=== PATIENT | female | born 1955 | race Caucasian/White ===

== ENCOUNTER → 2017-12-04 03:37 | Outpatient (CLI) | payer BC, SELFPAY ==
[2017-12-04 07:44] LABS: Hemoglobin A1C 6.3 % (4.5-6.2)
[2017-12-04 08:16] LABS: COMMENT (LAB VIEW ONLY) 100.63 mg/dL; Microalb ug/mg Crea 19.4 ug/mg Cr
[2017-12-04 08:53] LABS: ALT 34 U/L (12-78); AST 25 U/L (15-37); Albumin 4.2 g/dL (3.4-5.0); Alkaline Phosphatase 75 U/L (46-116); Anion Gap 8.1 mmol/L (3-11); BUN 13 mg/dL (7-18); Bilirubin, Total 0.9 mg/dL (0.2-1.0); CO2 29.9 mmol/L (21.0-32.0); Calcium 9.5 mg/dL (8.5-10.1); Chloride 102 mmol/L (98-107); Cholesterol 195 mg/dL (50-200); Glucose 140 mg/dL (70-100); HDL Cholesterol 42 mg/dL (40-60); LDL CHOLESTEROL 125 mg/dL (<100); Potassium 3.9 mmol/L (3.5-5.1); Sodium 140 mmol/L (136-145); Triglyceride 203 mg/dL (30-150)
[2017-12-04 09:09] LABS: Total Protein 7.8 g/dL (6.4-8.2)
== END ==
PROVIDERS: PCP Family Medicine; Visit Provider Family Medicine
DX: E11.9 Type 2 diabetes mellitus without complications (principal); E78.5 Hyperlipidemia, unspecified
CPT/HCPCS: 36415; 80053; 80061; 83721; 82043; 82570; 83036

== ENCOUNTER → 2017-12-06 00:51 | Outpatient (CLI) | payer BC, SELFPAY ==
--- NOTE | 2017-12-06 08:11 | DI.REPORT_ITS ---
SYMPTOM/DIAGNOSIS: RT KNEE PAIN, NO TRAUMA, M25.561, CHRONIC RT SIDED LOW BACK PAIN, M54.5 RIGHT KNEE: The joint spaces are well maintained. Very minimal degenerative changes are identified. There is no joint effusion. LUMBAR SPINE: The vertebral bodies are intact. Degenerative changes involving the lower dorsal spine are identified and there is mild disc narrowing at T 12-L 1 and there may be subtle disc space narrowing at L 1-2. Endplate degenerative changes are identified. In addition, there is mild disc narrowing at L 4-5 and a mild pseudospondylolisthesis is demonstrated. Facet joint degenerative changes are identified and are most pronounced at L 4-5 and L 5-S 1. The pedicle, spinous and transverse processes are intact. The sacrum and sacroiliac joints are intact. SUMMARY: Degenerative changes involving the lumbosacral spine as described above.
== END ==
PROVIDERS: PCP Family Medicine; Visit Provider Family Medicine
DX: M25.561 Pain in right knee (principal); M54.5 Low back pain; M17.11 Unilateral primary osteoarthritis, right knee; M51.36 Other intervertebral disc degeneration, lumbar region; G89.29 Other chronic pain
CPT/HCPCS: 73562; 72110

== ENCOUNTER 2018-01-02 01:09 | Outpatient (CLI) | payer BC, SELFPAY ==
--- NOTE | 2018-01-02 09:25 | DI.MRI_ITS ---
SYMPTOM/DIAGNOSIS: LOW BACK PAIN, RT SCIATICA M54.41, LUMBAGO LUMBAR MRI: Sagittal T1, sagittal T2 and sagittal T1 STIR and axial T1, T2 and T2 axial MSMA and T1 coronal pulsed sequences were performed. No significant bony signal abnormality is demonstrated. At T-12, L1 there is diminished disc signal and disc narrowing is identified. A small disc bulge is seen. There is no evidence of spinal stenosis. At L1-L2, there is no evidence of a disc herniation. There are mild facet joint degenerative changes and no evidence of spinal stenosis. At L2-3, there is a mild disc bulge and no evidence of a disc herniation. Mild degenerative changes are identified and there is no evidence of spinal stenosis. At L3-4, a disc bulge is identified. There is severe right facet joint DJD with resultant severe right foraminal stenosis and mild to moderate left foraminal stenosis. At L4-5, there is a 4-5 mm anterior listhesis of L4 on L5. A disc bulge is identified. Prominence of the ligamentum flavum and severe facet joint DJD result in moderately severe central spinal stenosis and moderately severe bilateral foraminal stenosis. At L5-S1 there is no evidence of a disc herniation. Severe facet joint DUD is identified. There is no evidence of significant spinal stenosis. There is no intrinsic abnormality involving the lower dorsal cord, conus or phylum terminale. SUMMARY: Findings consistent with degenerative disc disease and DJD. The findings are most advanced at L3-4 and L4-5 where there is evidence of spinal stenosis. Please see the above discussion.
== END 2018-01-02 01:29 ==
PROVIDERS: PCP Family Medicine; Visit Provider Family Medicine
DX: M54.41 Lumbago with sciatica, right side (principal); M51.37 Other intervertebral disc degeneration, lumbosacral region; M48.061 Spinal stenosis, lumbar region without neurogenic claudication
CPT/HCPCS: 72148

== ENCOUNTER 2018-02-21 00:38 | Outpatient (CLI) | payer BC, SELFPAY ==
--- NOTE | 2018-02-21 12:16 | DI.DEXA_ITS ---
SYMPTOMS/DIAGNOSIS: POSTMENOPAUSAL DISORDER, N95.9 DEXA SCAN: DEXA scan was performed according to the usual protocol. The lateral vertebral scanogram shows no evidence of vertebral compression fracture. Lumbar spine scanning shows T score -.2. Left hip scanning shows T score .3 with left femoral neck T score -.6. Left forearm scanning shows T score -.4. CONCLUSION: Findings consistent with normal bone density according to the WHO criteria.
--- NOTE | 2018-02-21 15:35 | DI.MAMMO_ITS ---
SYMPTOMS/DIAGNOSIS: SCREENING, Z12.31 MAMMOGRAM: Mammograms were interpreted according to the usual protocol including computer analysis with CAD system, tomosynthesis and C view imaging. The breasts are of moderate density with fairly symmetrical distribution of fibroglandular tissue. No dominant mass or clumped microcalcification is identified in either breast. The current examination is compared with previous examinations including February 2017 and there has been no gross interval change in appearance in comparison with previous studies. CONCLUSION: No specific evidence of malignancy at this time. Routine screening examinations are suggested at yearly intervals in this age group according to the ACS/ACR guidelines. Category I. Breast density Category B. MQSA ASSESSMENT OF FINDINGS: Negative. Category 1. Patient will receive a letter notifying them of these results. BI-RADS category B. There are scattered areas of fibroglandular density.
== END 2018-02-21 00:58 ==
PROVIDERS: PCP Family Medicine; Visit Provider Family Medicine
DX: Z12.31 Encounter for screening mammogram for malignant neoplasm of breast (principal); Z13.820 Encounter for screening for osteoporosis; N95.9 Unspecified menopausal and perimenopausal disorder
CPT/HCPCS: 77063; 77067; 77080

== ENCOUNTER 2018-03-04 07:49 | Outpatient (CLI) | payer BC, SELFPAY ==
[2018-03-04 09:10] LABS: Cholesterol 182 mg/dL (50-200); HDL Cholesterol 33 mg/dL (40-60); LDL CHOLESTEROL 103 mg/dL (<100); Triglyceride 251 mg/dL (30-150)
== END 2018-03-04 08:09 ==
PROVIDERS: PCP Family Medicine; Visit Provider Family Medicine
DX: E78.5 Hyperlipidemia, unspecified (principal)
CPT/HCPCS: 36415; 80061; 83721

== ENCOUNTER 2018-04-05 08:25 | Outpatient (CLI) | payer BC, SELFPAY ==
[2018-04-05 09:32] LABS: COMMENT (LAB VIEW ONLY) 75.99 mg/dL; Microalb ug/mg Crea 14.5 ug/mg Cr
[2018-04-05 09:46] LABS: Hemoglobin A1C 6.9 % (4.5-6.2)
[2018-04-05 09:47] LABS: ALT 35 U/L (12-78); AST 24 U/L (15-37); Albumin 3.2 g/dL (3.4-5.0); Alkaline Phosphatase 69 U/L (46-116); Anion Gap 6.4 mmol/L (3-11); BUN 12 mg/dL (7-18); Bilirubin, Total 0.9 mg/dL (0.2-1.0); CO2 31.6 mmol/L (21.0-32.0); CREATININE 0.68 mg/dL (0.55-1.02); Calcium 9.4 mg/dL (8.5-10.1); Chloride 101 mmol/L (98-107); Glucose 124 mg/dL (70-100); Potassium 4.2 mmol/L (3.5-5.1); Sodium 139 mmol/L (136-145); Total Protein 7.2 g/dL (6.4-8.2)
== END 2018-04-05 08:45 ==
PROVIDERS: PCP Family Medicine; Visit Provider Family Medicine
DX: E11.9 Type 2 diabetes mellitus without complications (principal)
CPT/HCPCS: 36415; 80053; 82043; 82570; 83036

== ENCOUNTER 2018-07-03 09:34 | Outpatient (CLI) | payer BC, SELFPAY ==
[2018-07-03 11:27] LABS: HCT 44.8 % (36.0-46.0); HGB 14.7 g/dL (12.0-15.5); Mean Corp. HGB Concentration 32.8 g/dL (32.0-36.0); Mean Corpuscular Hemoglobin 29.5 pg (27.0-33.0); Mean Corpuscular Volume 89.8 fL (80-95); Mean Platelet Volume 12.2 fL (8.0-11.0); Platelet Count 248 x1000/uL (130-400); RBC 4.99 m/cumm (4.00-5.20); White Blood Cell Count 7.69 k/cumm (4.4-10.8)
[2018-07-03 11:49] LABS: ALT 51 U/L (12-78); AST 36 U/L (15-37); Albumin 4.4 g/dL (3.4-5.0); Alkaline Phosphatase 81 U/L (46-116); Anion Gap 6.3 mmol/L (3-11); BUN 13 mg/dL (7-18); Bilirubin, Total 1.2 mg/dL (0.2-1.0); CO2 33.7 mmol/L (21.0-32.0); CREATININE 0.82 mg/dL (0.55-1.02); Calcium 10.1 mg/dL (8.5-10.1); Chloride 99 mmol/L (98-107); Cholesterol 199 mg/dL (50-200); Glucose 148 mg/dL (70-100); HDL Cholesterol 37 mg/dL (40-60); LDL CHOLESTEROL 122 mg/dL (<100); Sodium 139 mmol/L (136-145); Total Protein 8.3 g/dL (6.4-8.2); Triglyceride 224 mg/dL (30-150)
[2018-07-03 11:54] LABS: Hemoglobin A1C 6.7 % (4.5-6.2)
[2018-07-03 13:07] LABS: ESR 15 MM/HR (0-30)
== END 2018-07-03 09:54 ==
PROVIDERS: PCP Family Medicine; Visit Provider Family Medicine
DX: I10 Essential (primary) hypertension (principal); E11.9 Type 2 diabetes mellitus without complications; E78.5 Hyperlipidemia, unspecified; D86.9 Sarcoidosis, unspecified
CPT/HCPCS: 36415; 80053; 80061; 83721; 85027; 85652; 83036

== ENCOUNTER 2018-10-02 07:49 | Outpatient (CLI) | payer BC, SELFPAY ==
[2018-10-02 09:09] LABS: ALT 38 U/L (12-78); AST 25 U/L (15-37); Albumin 3.8 g/dL (3.4-5.0); Alkaline Phosphatase 79 U/L (46-116); Anion Gap 8.7 mmol/L (3-11); BUN 10 mg/dL (7-18); Bilirubin, Total 0.9 mg/dL (0.2-1.0); CO2 28.3 mmol/L (21.0-32.0); CREATININE 0.76 mg/dL (0.55-1.02); Calcium 9.1 mg/dL (8.5-10.1); Calculated LDL 106; Chloride 106 mmol/L (98-107); Cholesterol 183 mg/dL (50-200); Glucose 124 mg/dL (70-100); HDL Cholesterol 46 mg/dL (40-60); Potassium 4.2 mmol/L (3.5-5.1); Sodium 143 mmol/L (136-145); Total Protein 7.3 g/dL (6.4-8.2); Triglyceride 155 mg/dL (30-150)
[2018-10-03 08:48] LABS: Hemoglobin A1C 6.7 % (4.5-6.2)
== END 2018-10-02 08:09 ==
PROVIDERS: PCP Family Medicine; Visit Provider Family Medicine
DX: E78.5 Hyperlipidemia, unspecified (principal); E11.9 Type 2 diabetes mellitus without complications
CPT/HCPCS: 36415; 80053; 80061; 83721; 83036

== ENCOUNTER 2018-10-23 01:43 | Outpatient (CLI) | payer BC, SELFPAY ==
[2018-10-24 12:33] LABS: Lyme Ab w Rflx to Lyme Confirm Negative
== END 2018-10-23 02:03 ==
PROVIDERS: PCP Family Medicine; Visit Provider Family Medicine
DX: W57.XXXA Bitten or stung by nonvenomous insect and other nonvenomous arthropods, initial encounter (principal); T14.8XXA Other injury of unspecified body region, initial encounter
CPT/HCPCS: 36415; 86618

== ENCOUNTER 2018-11-07 11:44 | Outpatient (CLI) | payer BC, SELFPAY ==
[2018-11-07 11:53] VITALS: BP 166/98; PULSE 83; RESP 18; TEMP 37.3; O2SAT 97
[2018-11-07] MEDS: Omnipaque 240 MG/ML 50 ML BTL IJ (12:22)
--- NOTE | 2018-11-07 12:22 | PDOC.PAIN ---
Pain Clinic Procedure Note Current Active Problems Problem Status Onset Lumbosacral radiculopathy LUMBAR / SACRAL TRANSFORAMINAL INJECTION JAYLAN YOUNGBLOOD has been [facility] for a transforaminal nerve root block and steroid injection. COMMENTS: Seen by Ms. Mazariegos on 09/25/2018 - I did review this note and her most recent lumbar spine MRI. Patient was interviewed and the medical record reviewed. There were no medical, pharmacologic, radiographic or other structural contraindications to attempting fluoroscopically guided transforaminal nerve root block and epidural steroid injection. Risks and expected side effects as well as potential benefit of the procedure were reviewed and voiced concerns addressed. The printed consent form was signed and witnessed. Standard time-out procedure was performed. Patient was placed in the prone position on the fluoroscopy table and automated blood pressure cuff and pulse oximeter applied. Fluoroscopy was utilized to identify the right neural foramen between L4 and L5. A skin shabbir was made for the needle insertion site. A Chlorhexadine prep was carried out, and sterile drapes were applied. Local anesthesia was achieved in the skin and subcutaneous tissues. A 22 gauge curved tip spinal needle was then inserted, advanced with fluoroscopic guidance into the neural foramen, confirmed on the lateral view. After negative aspiration, 2 ml of Omnipaque 240 was injected confirming position in A/P and lateral views. This showed a good spread of dye transforaminally into the epidural space. There was no vascular update with contrast injection under continuous fluoroscopy. 15 mg of Dexamethasone was injected, followed by 0.5 ml of 1% Xylocaine flush for the nerve root block, as well. There was no unusual discomfort expressed.The needle was withdrawn. The patient tolerated the procedure well. A Band-Aid was applied. Vital signs were stable throughout the procedure and were as recorded in nursing records. If given, dosages of intravenous drugs for anxiolysis and analgesia were documented in nursing records. Follow up plans and appointments were discussed. Post procedure instruction was given as documented in nursing records and patient was discharged in the care of an identified truck driver's offsider. COMMENTS: If this procedure is found to be effective it can be completed up to 3 times per 12 months. CC: Sisi Mckinley MD
--- NOTE | 2018-11-07 12:23 | DI.RAD_ITS ---
SYMPTOMS/DIAGNOSIS: TRANSFORAMINAL EPIDURAL STEROID INJECTION, LUMBAR RADICULOPATHY PAIN CLINIC: Fluoroscopy Time: 26s Images submitted from the pain clinic demonstrate a needle projected over the right lateral position at the level of L 4 in conjunction with transforaminal epidural steroid injection. Please Dr. Saldana's procedure report for further information.
[2018-11-07] MEDS: Dexamethasone 10 MG/ML VIAL IM (12:24)
[2018-11-07 12:36] VITALS: BP 155/91; PULSE 81; RESP 17; O2SAT 96
== END 2018-11-07 12:04 ==
PROVIDERS: PCP Family Medicine; Visit Provider Preventive Medicine Occupational Medicine
DX: M54.17 Radiculopathy, lumbosacral region (principal)
CPT/HCPCS: 64483; 72100; J1100; Q9967

== ENCOUNTER 2019-01-06 02:33 | Outpatient (CLI) | payer BC, SELFPAY ==
[2019-01-06 10:33] LABS: Hemoglobin A1C 6.5 % (4.5-6.2)
[2019-01-06 10:36] LABS: Anion Gap 9.9 mmol/L (3-11); BUN 10 mg/dL (7-18); CO2 28.1 mmol/L (21.0-32.0); Calcium 8.9 mg/dL (8.5-10.1); Calculated LDL 86 mg/dL; Chloride 104 mmol/L (98-107); Cholesterol 163 mg/dL (50-200); Glucose 144 mg/dL (70-100); HDL Cholesterol 49 mg/dL (40-60); Magnesium 1.9 mg/dL (1.8-2.4); Potassium 4.1 mmol/L (3.5-5.1); Sodium 142 mmol/L (136-145); Triglyceride 141 mg/dL (30-150)
== END 2019-01-06 02:53 ==
PROVIDERS: PCP Family Medicine; Visit Provider Family Medicine
DX: E11.9 Type 2 diabetes mellitus without complications (principal); E78.5 Hyperlipidemia, unspecified; E83.42 Hypomagnesemia
CPT/HCPCS: 36415; 80048; 80061; 83036; 83735

== ENCOUNTER 2019-01-07 13:59 | Outpatient (CLI) | payer BC, SELFPAY ==
[2019-01-07 14:06] VITALS: BP 153/100; PULSE 101; RESP 20; TEMP 37.6; O2SAT 94
[2019-01-07] MEDS: Dexamethasone Sod. Phos./Pres-Free 10 MG/ML VIAL IJ (14:46)
[2019-01-07] MEDS: Omnipaque 240 MG/ML 50 ML BTL IJ (14:46)
--- NOTE | 2019-01-07 14:49 | PDOC.PAIN_ITS ---
Pain Clinic Procedure Note Procedure Note Procedure Note: LUMBAR / SACRAL TRANSFORAMINAL INJECTION JAYLAN YOUNGBLOOD has been referred to the [facility] for a transforaminal nerve root block and steroid injection. COMMENTS: Right L4-L5 TFESI to target the anterior epidural space of the L3-L4 disc. DX: Lumbosacral radiculopathy Patient was interviewed and the medical record reviewed. There were no medical, pharmacologic, radiographic or other structural contraindications to attempting fluoroscopically guided transforaminal nerve root block and epidural steroid injection. Risks and expected side effects as well as potential benefit of the procedure were reviewed and voiced concerns addressed. The printed consent form was signed and witnessed. Standard time-out procedure was performed. Patient was placed in the prone position on the fluoroscopy table and automated blood pressure cuff and pulse oximeter applied. Fluoroscopy was utilized to identify the right L4-L5 neural foramen between L4 and L5. A skin shabbir was made for the needle insertion site. A Chlorhexadine prep was carried out, and sterile drapes were applied. Local anesthesia was achieved in the skin and subcutaneous tissues. A 22 gauge curved tip spinal needle was then inserted, advanced with fluoroscopic guidance into the neural foramen, confirmed on the lateral view. After negative aspiration, 2 ml of Omnipaque 240 was injected confirming position in A/P and lateral views. This showed a good spread of dye transforaminally into the epidural space. There was no vascular update with contrast injection under continuous fluoroscopy and digital substraction. 15 mg of Dexamethasone was injected, followed by 0.5 ml of 1% Xylocaine flush for the nerve root block, as well. There was no unusual discomfort expressed.The needle was withdrawn. The patient tolerated the procedure well. A Band-Aid was applied. Vital signs were stable throughout the procedure and were as recorded in nursing records. If given, dosages of intravenous drugs for anxiolysis and analgesia were documented in nursing records. Follow up plans and appointments were discussed. Post procedure instruction was given as documented in nursing records and patient was discharged in the care of an identified skip load driver. COMMENTS: If this procedure is found to be effective, she can have this procedure up to 3 times per 12 months if needed. CC: Sisi Mckinley MD
[2019-01-07 14:52] VITALS: BP 145/90; PULSE 91; RESP 20; O2SAT 95
--- NOTE | 2019-01-07 15:16 | DI.RAD_ITS ---
EXAM: XR PAIN CLINIC LUMBAR SP 2V CLINICAL HISTORY: Dx: Lumbar Radiculopathy TECHNIQUE: Realtime digital imaging was performed. CONTRAST MATERIAL: Refer to the procedure report for complete details. COMPARISON: No exams were available for comparison FINDINGS: Fluoroscopy was utilized by Dr. Saldana during the performance of a lumbar transforaminal epidural stero id injection. Please refer to the procedure report for complete details. FLUORO TIME: 26.6 sec, 12.53 mGy IMPRESSION:
== END 2019-01-07 14:19 ==
PROVIDERS: PCP Family Medicine; Visit Provider Preventive Medicine Occupational Medicine
DX: M54.17 Radiculopathy, lumbosacral region (principal)
CPT/HCPCS: 64483; 72100; Q9967

== ENCOUNTER 2019-02-24 01:20 | Outpatient (CLI) | payer BC, SELFPAY ==
--- NOTE | 2019-02-24 07:10 | DI.MAMMO_ITS ---
EXAM: MAMMO SCREENING CLINICAL HISTORY: screening,Z12.39 TECHNIQUE: Mammograms were interpreted according to the usual protocol including computer analysis w [employer] CAD system, tomosynthesis and C-view imaging. COMPARISON: [id number] FINDINGS: The breasts are composed of scattered areas of fibroglandular density, breast density category B. Th ere are no dominant masses or microcalcifications. There has been no significant interval change when compared with the prior images. IMPRESSION: Category 1, negative mammogram. Yearly screening mammography is recommended. BI-RADS Cat 1 - Negative Breast Density - Category B - Scattered areas of fibroglandular density
[2019-02-24 08:46] LABS: TSH 1.94 uIU/mL (0.36-3.74)
== END 2019-02-24 01:40 ==
PROVIDERS: PCP Family Medicine; Visit Provider Family Medicine
DX: Z12.31 Encounter for screening mammogram for malignant neoplasm of breast (principal); R53.83 Other fatigue
CPT/HCPCS: 36415; 77063; 77067; 84443

== ENCOUNTER 2019-04-07 01:41 | Outpatient (CLI) | payer BC, SELFPAY ==
[2019-04-07 09:36] LABS: Hemoglobin A1C 6.4 % (3.8-5.6)
[2019-04-07 09:39] LABS: Iron 133 ug/dL (50-170); Total Iron Binding Capacity 321 ug/dL (250-450); Transferrin Sat 41 % (15-50)
[2019-04-07 09:50] LABS: ALT 30 U/L (14-59); AST 20 U/L (15-37); Albumin 3.9 g/dL (3.4-5.0); Alkaline Phosphatase 66 U/L (46-116); Anion Gap 10.8 mmol/L (3-11); BUN 9 mg/dL (7-18); CO2 28.2 mmol/L (21.0-32.0); CREATININE 0.77 mg/dL (0.55-1.02); Calcium 9.1 mg/dL (8.5-10.1); Chloride 103 mmol/L (98-107); Ferritin 279 ng/mL (8-252); Glucose 138 mg/dL (74-106); Magnesium 1.9 mg/dL (1.8-2.4); Potassium 4.2 mmol/L (3.5-5.1); Sodium 142 mmol/L (136-145); Total Protein 7.1 g/dL (6.4-8.2)
== END 2019-04-07 02:01 ==
PROVIDERS: PCP Family Medicine; Visit Provider Family Medicine
DX: E11.9 Type 2 diabetes mellitus without complications (principal); I10 Essential (primary) hypertension; E83.42 Hypomagnesemia; E61.1 Iron deficiency
CPT/HCPCS: 36415; 80053; 82728; 83036; 83540; 83550; 83735

== ENCOUNTER → 2019-07-15 01:33 | Outpatient (CLI) | payer OTHER, SELFPAY ==
[2019-07-15 07:44] LABS: Microalb ug/mg Crea 11.9 ug/mg Cr
[2019-07-15 08:27] LABS: ALT 30 U/L (14-59); AST 21 U/L (15-37); Albumin 4.2 g/dL (3.4-5.0); Alkaline Phosphatase 70 U/L (46-116); Anion Gap 7.2 mmol/L (3-11); BUN 12 mg/dL (7-18); CO2 32.8 mmol/L (21.0-32.0); CREATININE 0.78 mg/dL (0.55-1.02); Calcium 9.5 mg/dL (8.5-10.1); Calculated LDL 108 mg/dL (<100); Chloride 100 mmol/L (98-107); Cholesterol 193 mg/dL (<200); Glucose 132 mg/dL (74-106); HDL Cholesterol 51 mg/dL (40-60); Sodium 140 mmol/L (136-145); Total Protein 7.8 g/dL (6.4-8.2); Triglyceride 172 mg/dL (<150); Vitamin B12 693 pg/mL (193-986)
[2019-07-17 04:58] LABS: Vitamin D 25 Total 31.8 ng/ml (30-100)
== END ==
PROVIDERS: PCP Family Medicine; Visit Provider Family Medicine
DX: E11.9 Type 2 diabetes mellitus without complications (principal); E78.5 Hyperlipidemia, unspecified; E55.9 Vitamin D deficiency, unspecified
CPT/HCPCS: 36415; 80053; 80061; 82306; 82043; 82570; 82607

== ENCOUNTER 2019-09-04 13:00 | Outpatient (CLI) | payer OTHER, SELFPAY ==
--- NOTE | 2019-09-04 06:00 | DI.RAD_ITS ---
EXAM: XR PAIN CLINIC LUMBAR SP 2V CLINICAL HISTORY: Dx: Lumbar Radiculopathy. TECHNIQUE: Fluoroscopy was provided for the referring physician for guidance with performing Pain Cl inic injection procedure. COMPARISON: No exams were available for comparison FINDINGS: Please see procedure note for details. Fluoro Time: 22.4 seconds RADIATION DOSE DELIVERED:
[2019-09-04 13:12] VITALS: BP 163/82; PULSE 79; RESP 18; TEMP 36.5; O2SAT 95
--- NOTE | 2019-09-04 13:48 | PDOC.PAIN ---
Pain Clinic Procedure Note Procedure Note Procedure Note: LUMBAR / SACRAL TRANSFORAMINAL INJECTION JAYLAN YOUNGBLOOD has been referred to the [facility] for a transforaminal nerve root block and steroid injection. COMMENTS: Great results with her last one on 01/07/19. Last MRI of the lumbar spine was on 01/02/19 - I did review this imaging. Today's procedure is again to target the L3-L4 disc. DX: Lumbosacral radiculopathy Patient was interviewed and the medical record reviewed. There were no medical, pharmacologic, radiographic or other structural contraindications to attempting fluoroscopically guided transforaminal nerve root block and epidural steroid injection. Risks and expected side effects as well as potential benefit of the procedure were reviewed and voiced concerns addressed. The printed consent form was signed and witnessed. Standard time-out procedure was performed. Patient was placed in the prone position on the fluoroscopy table and automated blood pressure cuff and pulse oximeter applied. Fluoroscopy was utilized to identify the right L4-L5 neural foramen between L4 and L5. A skin shabbir was made for the needle insertion site. A Chlorhexadine prep was carried out, and sterile drapes were applied. Local anesthesia was achieved in the skin and subcutaneous tissues. A 22 gauge curved tip spinal needle was then inserted, advanced with fluoroscopic guidance into the neural foramen, confirmed on the lateral view. After negative aspiration, 1 ml of Omnipaque 240 was injected confirming position in A/P and lateral views. This showed a good spread of dye transforaminally into the epidural space. There was no vascular update with contrast injection under continuous fluoroscopy and digital substraction. 15 mg of Dexamethasone was injected, followed by 0.5 ml of 1% Xylocaine flush for the nerve root block, as well. There was no unusual discomfort expressed.The needle was withdrawn. The patient tolerated the procedure well. A Band-Aid was applied. Vital signs were stable throughout the procedure and were as recorded in nursing records. If given, dosages of intravenous drugs for anxiolysis and analgesia were documented in nursing records. Follow up plans and appointments were discussed. Post procedure instruction was given as documented in nursing records and patient was discharged in the care of an identified electric screw driver operator. COMMENTS:She can have this procedure up to 3 times every 12 months if it is found effective. CC: Sisi Mckinley MD
[2019-09-04] MEDS: Dexamethasone Sod. Phos./Pres-Free 10 MG/ML VIAL IJ (13:49)
[2019-09-04] MEDS: Omnipaque 240 MG/ML 50 ML BTL IJ (13:49)
[2019-09-04 13:52] VITALS: BP 144/88; PULSE 83; RESP 19; O2SAT 96
== END 2019-09-04 13:20 ==
PROVIDERS: PCP Family Medicine; Visit Provider Preventive Medicine Occupational Medicine
DX: M54.17 Radiculopathy, lumbosacral region (principal)
CPT/HCPCS: 64483; 72100; Q9967

== ENCOUNTER → 2019-09-19 09:41 | Outpatient (CLI) | payer OTHER, SELFPAY ==
--- NOTE | 2019-09-19 09:30 | DI.RAD_ITS ---
EXAM: XR SHOULDER RT COMPLETE 2+V CLINICAL HISTORY: eval R shoulder pain. TECHNIQUE: 2D digital imaging was performed. COMPARISON: No exams were available for comparison FINDINGS: There are mild degenerative changes at the acromioclavicular joint. The glenohumeral joint is well m aintained. The bones are normally mineralized and intact. The soft tissues are unremarkable. IMPRESSION: Mild degenerative changes at the AC joint. DATA REPOSITORY: RADIATION DOSE DELIVERED:
--- NOTE | 2019-09-19 09:30 | DI.RAD_ITS ---
EXAM: XR KNEE RT 4V AP,LAT,PERI,PAT CLINICAL HISTORY: f/u R knee pain. TECHNIQUE: 2D digital imaging was performed. COMPARISON: CR CHEST 2 VIEWS PA,LAT from 12/25/2014 FINDINGS: The bones are intact and normally mineralized. The articular surfaces are well maintained. There ar e enthesophytes at the superior and inferior patella. The soft tissues are unremarkable. IMPRESSION: Unremarkable radiographs of the right knee. DATA REPOSITORY: RADIATION DOSE DELIVERED:
--- NOTE | 2019-09-19 09:30 | DI.RAD_ITS ---
EXAM: XR HIP RT COMPLETE AP PELVIS INDICATION: f/u R hip pain. COMPARISON: No exams were available for comparison TECHNIQUE: 2D digital imaging was performed. FINDINGS: Hypertrophic changes are seen at the acetabulum of the right hip. The joint space is otherwise well maintained. The bones are normally mineralized. The sacroiliac joints and symphysis pubis are intac t. The soft tissues are unremarkable. IMPRESSION: Degenerative changes of the right hip. DATA REPOSITORY: RADIATION DOSE DELIVERED:
== END ==
PROVIDERS: PCP Family Medicine; Referring Provider Family Medicine; Visit Provider Student in an Organized Health Care Education/Training Program
DX: M25.511 Pain in right shoulder (principal); M19.011 Primary osteoarthritis, right shoulder; M25.561 Pain in right knee; M25.551 Pain in right hip; M16.11 Unilateral primary osteoarthritis, right hip
CPT/HCPCS: 73030; 73502; 73564

== ENCOUNTER 2019-09-25 03:31 | Outpatient (CLI) | payer OTHER, SELFPAY ==
--- NOTE | 2019-09-25 08:00 | DI.RAD_ITS ---
EXAM: RF JOINT INJECTION FLUORO GUID CLINICAL HISTORY: R HIP INJECTION, HIP PAIN, M25.559. TECHNIQUE: Fluoroscopy was provided for the referring physician for guidance with performing right h ip injection procedure. COMPARISON: No exams were available for comparison FINDINGS: Please see procedure note for details. Fluoro time: 7 sec RADIATION DOSE DELIVERED:
[2019-09-25] MEDS: Bupivacaine 0.5% Pres-Free 10 ML VIAL IJ (11:05)
[2019-09-25] MEDS: methylPREDNISolone ACETATE 80 MG/ML VIAL IM (11:06)
[2019-09-25] MEDS: Omnipaque 300 MG/ML 10 ML BTL 2 ML IJ (11:06)
--- NOTE | 2019-09-29 07:20 | W.PROCNOTE ---
Date of service: 09/25/19 Time of Service: 11:20 Procedure Note Date of procedure: 09/25/19 Procedure: Right Hip Injection with Fluoroscopic Guidance Surgeon/Proceduralist/Physician: Logan Morley Procedure Diagnosis: Right Hip Osteoarthritis Procedure Indications: Leah has had persistent pain of the RIGHT hip and groin. Noninvasive measures have been tried. To serve as both diagnostic and therapeutic, an injection under fluoroscopy was recommended. I had discussed the risks of the procedure and the patient elected to proceed. Procedure Description: Leah was greeted in the flouroscopy room. The correct side was identified and the consent was reviewed with the patient and signed. The patient was then placed in the supine position on the fluoroscopy table. The RIGHT hip was then prepped with Chloraprep. The anterolateral injection starting point was identiifed by bony landmarks and fluoroscopy. The skin and soft tissue in the tract of the injection was anesthetized with 1% Lidocaine. A spinal needle was then inserted deep into the hip joint at the level of the lateral femoral neck under fluoroscopic guidance. A small amount of Omnipaque solution was injected to confirm intraarticular placement. Once confirmed, the hip was injected with 6cc of 0.5% Bupivicaine and 80mg of Depo-Medrol. A bandaid was placed on the injection site. The patient tolerated the procedure well.
== END 2019-09-25 03:51 ==
PROVIDERS: PCP Family Medicine; Visit Provider Student in an Organized Health Care Education/Training Program
DX: M25.551 Pain in right hip (principal); M16.11 Unilateral primary osteoarthritis, right hip
CPT/HCPCS: 20610; 77002; J1040

== ENCOUNTER 2019-11-10 01:50 | Outpatient (CLI) | payer OTHER, SELFPAY ==
[2019-11-10 07:39] LABS: Hemoglobin A1C 6.4 % (3.8-5.6)
[2019-11-10 08:41] LABS: Anion Gap 10.3 mmol/L (3-11); BUN 14 mg/dL (7-18); CO2 29.7 mmol/L (21.0-32.0); CREATININE 0.62 mg/dL (0.55-1.02); Calcium 9.8 mg/dL (8.5-10.1); Calculated LDL 105 mg/dL (<100); Chloride 104 mmol/L (98-107); Cholesterol 182 mg/dL (<200); Glucose 137 mg/dL (74-106); HDL Cholesterol 43 mg/dL (40-60); Potassium 3.6 mmol/L (3.5-5.1); Sodium 144 mmol/L (136-145); Triglyceride 170 mg/dL (<150)
== END 2019-11-10 02:10 ==
PROVIDERS: PCP Family Medicine; Visit Provider Family Medicine
DX: E11.9 Type 2 diabetes mellitus without complications (principal)
CPT/HCPCS: 36415; 80048; 80061; 83036

== ENCOUNTER 2019-11-14 21:34 | Emergency (ER) | payer OTHER, SELFPAY ==
[2019-11-14 21:48] VITALS: BP 205/108; PULSE 94; RESP 20; TEMP 36.5; O2SAT 94
[2019-11-14 21:52] VITALS: RESP 20
--- NOTE | 2019-11-14 22:00 | RT.EKG_ITS ---
APPROVED REPORT Exam: Resting ECG Patient Location: E HR:100 bpm ECG Measurements Heart Rate 100 AXIS ID 186 P 67 QRSd 80 QRS 33 QT 351 T 57 QTc 453 Conclusion Sinus tachycardia...rate> 99
--- NOTE | 2019-11-14 22:19 | W.ED.GENAD ---
Discharge Plan Disposition Patient Disposition: HOME Condition: Stable Discharge Details Chief Complaint: GenMedical Clinical Impression: Neck pain Primary Care Provider: Sisi Mckinley ED Provider: Narciso Ellis [place] Meds and New Rx's Prescriptions: New cyclobenzaprine 10 mg tablet 10 mg PO TID PRNQty: 20 RF: 0 Continued triamcinolone acetonide 0.1 % cream 1 applic TP BID PRN Qty: 80 RF: 2 nystatin (bulk) 500 million unit powder See Rx Instructions miscellaneous BID Qty: 1 RF: 3 ketoconazole 2 % cream 1 applic TP BID PRNRF: 0 valacyclovir 1 gram tablet 2,000 mg PO BID PRNRF: 0 clotrimazole 1 % cream 1 applic Topical DAILY PRNRF: 0 hydrocortisone 0.5 % cream 1 applic Topical BID PRNRF: 0 [id number] serr [Osteo Bi-Flex (5-Loxin)] 1,500-400-100 mg-unit-mg tablet 2 tab PO DAILY RF: 0 primidone 250 mg tablet 125 mg PO DAILY Qty: 90 RF: 1 prednisone 20 mg tablet 20 mg PO DAILY Qty: 11 RF: 1 vitamin B complex [Vitamins B Complex] Tablet 1 tab PO DAILY RF: 0 omega-3 fatty acids [Fish Oil Concentrate] 1,000 mg capsule 2,000 mg PO DAILY RF: 0 thiamine HCl (vitamin B1) 100 mg tablet 100 mg PO DAILY RF: 0 ascorbic acid (vitamin C) 1,000 mg tablet 1 gm PO DAILY Qty: 30 RF: 0 (DME) blood-glucose meter [[place] [employer] (PIROX)uch Verio IQ Meter] misc See Dose Instructions .ROUTE .MEDSUPPLY Qty: 1 RF: 0 cinnamon bark 500 mg capsule 1,000 mg PO DAILY RF: 0 ibuprofen 600 mg tablet 600 mg PO QID PRN (Reason: pain) Qty: 90 RF: 2 metformin 500 mg tablet 500 mg PO DAILY Qty: 90 RF: 4 (DME) blood sugar diagnostic [Blood Glucose Test] Strip 1 ea Miscellaneous DAILY Qty: 100 RF: 1 carisoprodol 350 mg tablet 350 mg PO QHS PRN (Reason: muscle pain) Qty: 30 RF: 0 lorazepam 1 mg tablet 0.5 - 1 mg PO DAILY PRN (Reason: anxiety) Qty: 25 RF: 0 potassium chloride 20 mEq tablet extended release 20 meq PO DAILY Qty: 90 RF: 1 hydrochlorothiazide 12.5 mg tablet 12.5 mg PO DAILY Qty: 90 RF: 2 (DME) lancets 28 gauge misc 1 ea Miscellaneous DAILY Qty: 100 RF: 0 cholecalciferol (vitamin D3) [Vitamin D3] 50 mcg (2,000 unit) Capsule 100 mcg PO DAILY RF: 0 Discharge Instructions Additional Instructions: your cat scan showed enlarged lymph nodes and some evidence of dejenerative joint disease follow up with your primary care provider and orthopedics this week as scheduled. You should have your BP rechecked with your primary care provider return to the emergency department for severe worsening pain, fevers, or chest pain/pressure do not drink alcohol or drive if you take the cyclobenzaprine Medical Decision Making 64 yo female with hx of dm, htn, who comes in with two primary complaints right hip pain for months and is seeing ortho for this and also one week of right sided neck pain. She denies fevers, chills, falls, vomit, chest pain/pressure, abdominal pain. She locazlies the hip pain to the right lateral hip, has full rom of the hip and intact distal sensationand pulses, no saddle anesthesia or midline back pain. Her hip pain seems likely due to bursitis or possible arthritis. She is scheduled to have ortho appt Sunday and has had xrays done, do not feel ct imaging indicated, no findings to suggest septic joint and no findings to suggest sea or cauda equina. IN terms of the neck pain she localizes the pain to the right lateral neck over the trapzezius and she states it feels swollen though I don't appreciate this on exam, has no warmth or redness, has full rom of the neck with no midline tenderness, normal senastion pulses and motor of the arms. No headache, CN II_Xii intact. Her neck pain seems most likely muscle spasm but given reported self sensing that it could be swollen will image to eval for possible abscess. No findings to suggest dissection. No chest pain or pressure to suggest acs though could be presenting atypically, will obtain troponin and ecg and monitor. imaging shows reported prominent tonsils but she had her tonsils removed years ago as well as her uvula and has no pain in the throat and no erythema of posterior pharynx pain over hyoid or restricted neck movements. Also shows nonspecific enlarged lymph nodes which could be reactive though suspect related to her sarcoidosis. Does have some mild arthropathy in the neck on CT which could be causing her pain. Her neck pain resolved with muscle relaxer so feel this is most likely the cause of her pain and her hip pain improved somewhat with this. Will d/c and have her f/u with ortho and pcp as scheduled this week and advised to have her BP rechecked this week. Return precautions given Differential Diagnosis Differential Diagnosis: bursitis, djd, muscle spasm, abscess Imaging Data Radiologic Study: Attestation: I personally reviewed and interpreted this imaging study as follows: Imaging: CT Scan Radiologist's impression: IMPRESSION: Prominent bilateral pharyngeal tonsils possibly related to tonsillitis While degenerative changes of the cervical spine are overall very mild there is prominent facet arthropathy involving the right C2-C3 level which could be a source of right-sided neck pain for the patient. Multiple prominent non-specific, possibly reactive right greater than left cervical nodes may correlate to the patient's reported right-sided neck swelling. ECG Data Attestation: I personally reviewed and interpreted this ECG (s) as follows: Prior ECG tracings: not available for review Interpretation: sinus rhythm, rate of 100, pr 186, qtc 453 HPI General Mode of arrival: ambulatory. Date/Time Provider Initiated Documentation: 11/14/19 21:58. Limitations to Documentation: no limitations. Information obtained by: patient. History of Present Illness 64 year old F presents to the emergency department with the chief complaint of right sided neck pain, described as moderate, and it has been constant. No relieving factors improve symptom(s), No exacerbating factors reported . Patient did receive the following treatments prior to arrival, NSAID Related Data Home Medications Medication Instructions Recorded Confirmed blood-glucose meter #1 each 01/31/18 10/01/19 triamcinolone acetonide 0.1 % 1 applic TP BID PRN #80 gm 03/06/18 10/01/19 topical cream nystatin (bulk) 500 million unit See Rx Instructions MISCELLANEOUS 03/13/18 10/01/19 powder BID #1 each valacyclovir 1 gram tablet 2,000 mg PO BID PRN tab-cap 05/20/18 10/01/19 cinnamon bark 500 mg capsule 1,000 mg PO DAILY cap 09/27/18 10/01/19 ketoconazole 2 % topical cream 1 applic TP BID PRN 11/18/18 10/01/19 clotrimazole 1 % topical cream 1 applic TOPICAL DAILY PRN gm 01/13/19 10/01/19 hydrocortisone 0.5 % topical cream 1 applic TOPICAL BID PRN gm 01/13/19 10/01/19 ibuprofen 600 mg tablet 600 mg PO QID PRN #90 tab 02/21/19 10/01/19 metformin 500 mg tablet 500 mg PO DAILY #90 tab 03/31/19 10/01/19 glucosamine [id number] 2 tab PO DAILY tab 05/06/19 10/01/19 marueen 1,500 mg-400 unit-100 mg tablet omega-3 fatty acids 1,000 mg 2,000 mg PO DAILY cap 05/06/19 10/01/19 capsule thiamine HCl (vitamin B1) 100 mg 100 mg PO DAILY 05/06/19 10/01/19 tablet vitamin B complex 1 tab PO DAILY 05/06/19 10/01/19 blood sugar diagnostic #100 strip 07/14/19 10/01/19 carisoprodol 350 mg tablet 350 mg PO QHS PRN #30 tab 07/23/19 10/01/19 lorazepam 1 mg tablet 0.5 - 1 mg PO DAILY PRN #25 tab 07/23/19 10/01/19 potassium chloride 20 mEq 20 meq PO DAILY #90 tab 07/23/19 10/01/19 tablet,extended release ascorbic acid (vitamin C) 1,000 mg 1 gm PO DAILY #30 tab 08/20/19 10/01/19 tablet cholecalciferol (vitamin D3) 100 mcg PO DAILY 09/04/19 10/01/19 [Vitamin D3] prednisone 20 mg tablet 20 mg PO DAILY #11 tab 10/01/19 10/01/19 primidone 250 mg tablet 125 mg PO DAILY #90 tab 10/01/19 10/01/19 hydrochlorothiazide 12.5 mg tablet 12.5 mg PO DAILY #90 tab 10/06/19 lancets 28 gauge #100 ea 10/18/19 cyclobenzaprine 10 mg PO TID PRN #20 tab 11/14/19 Previous Rx's Medication Instructions Recorded blood-glucose meter #1 each 01/31/18 triamcinolone acetonide 0.1 % 1 applic TP BID PRN #80 gm 03/06/18 topical cream nystatin (bulk) 500 million unit See Rx Instructions MISCELLANEOUS 03/13/18 powder BID #1 each ibuprofen 600 mg tablet 600 mg PO QID PRN #90 tab 02/21/19 metformin 500 mg tablet 500 mg PO DAILY #90 tab 03/31/19 blood sugar diagnostic #100 strip 07/14/19 carisoprodol 350 mg tablet 350 mg PO QHS PRN #30 tab 07/23/19 lorazepam 1 mg tablet 0.5 - 1 mg PO DAILY PRN #25 tab 07/23/19 potassium chloride 20 mEq 20 meq PO DAILY #90 tab 07/23/19 tablet,extended release ascorbic acid (vitamin C) 1,000 mg 1 gm PO DAILY #30 tab 08/20/19 tablet prednisone 20 mg tablet 20 mg PO DAILY #11 tab 10/01/19 primidone 250 mg tablet 125 mg PO DAILY #90 tab 10/01/19 hydrochlorothiazide 12.5 mg tablet 12.5 mg PO DAILY #90 tab 10/06/19 lancets 28 gauge #100 ea 10/18/19 cyclobenzaprine 10 mg PO TID PRN #20 tab 11/14/19 Allergies Allergy/AdvReac Type Severity Reaction Status Date / Time Sulfa (Sulfonamide Allergy Intermediate Skin Rash Unverified 10/01/19 09:12 Antibiotics) adhesive tape Allergy Mild mild rash Verified 10/01/19 09:12 and itching General Stated Complaint: GenMedical BETZAIDA: 3 Review of Systems All systems reviewed & are unremarkable except as noted in HPI and below Constitutional Constitutional: Denies chills, Denies fever(s) and Denies weakness Cardiovascular Cardiovascular: Denies chest pain and Denies dyspnea Respiratory Respiratory: Denies cough and Denies dyspnea Gastrointestinal Gastrointestinal: Denies abdominal pain, Denies nausea and Denies vomiting Musculoskeletal Musculoskeletal: Denies joint swelling Neurologic Neurologic: Denies weakness Psychiatric Psychiatric: Denies depression [facility] Medical History (Updated 11/14/19 @ 23:56 by Narciso Ellis MD) DM (diabetes mellitus) HTN (hypertension) Hyperlipidemia Lumbosacral radiculopathy (Acute) JOSEY (obstructive sleep apnea) Sarcoid Surgical History section x 3 Colonoscopy - MAC (02/11/16) Nasal septoplasty Family History Mother Essential hypertension Cancer Diabetes Hyperlipidemia Primary biliary cholangitis Father , AGE 74 Heart disease Hyperlipidemia Brother Essential hypertension Diabetes Hyperlipidemia Maternal Grandfather Prostate cancer Paternal Grandfather , AGE 45 Diabetes Maternal Grandmother , AGE 84 Diabetes Heart disease Paternal Grandmother Lung cancer Other Lumbosacral radiculopathy Social History Smoking/Tobacco Use Status: Never Alcohol Intake: current Alcohol Intake frequency: a few times a month Drug use: Never Substance use type: does not use Caregiver/Support person: No Household members: none Do you need help understanding health information?: Never Pets and animals: Yes Pets and animals: cat(s) Sexually active: No Do you think of yourself as: straight/heterosexual Current gender identity: female What is your relationship status?: How often do you talk on the phone with friends or family?: three or more times per week How often do you get together with friends or relatives?: three or more times per week How often do you attend religion or zoroastrianism services?: 1-3 times per year Do you belong to any clubs or organized social groups?: no Panel score (0-1 are the most socially isolated patients): 1 What type of physical activity do you participate in: none Duration: decline to answer Frequency: decline to answer Maria Fernanda/Christianity: Orthodoxy Special maria fernanda needs: No Seatbelt use: always Helmet use: Yes Helmet use: always Drive intox or ride w/intox school bus driver/mechanic: No Do you feel safe at home: Yes Exam Const General: no acute distress Orientation: alert HENMT Head: normal to inspection Ears: external ears normal General nose exam: external nose normal Mouth: moist mucous membranes Eyes General: appearance normal, both eyes and all related structures Neck Neck: normal visual inspection Resp Effort & Inspection: normal respiratory effort and able to speak in complete sentences Cardio Rate: regular rate Skin General skin exam: no rashes or lesions noted Neuro General: patient alert and patient oriented x3 Extrem General: normal to inspection Psych Mental Status: mental status grossly normal Course Vital Signs Vital signs: Vital Signs Temperature 36.5 C 11/14/19 21:48 Pulse 94 H 11/14/19 21:48 Respiratory Rate 20 11/14/19 21:48 Blood Pressure 205/108 H 11/14/19 21:48 Pulse Oximetry 94 L 11/14/19 21:48 Temperature 36.5 C 11/14/19 21:48 Temperature Source Tympanic 11/14/19 21:48 Pulse 94 H 11/14/19 21:48 Respiratory Rate 20 11/14/19 21:52 Respiratory Effort 11/14/19 21:52 Respiratory Depth Normal 11/14/19 21:52 Respiratory Pattern Normal 11/14/19 21:52 Blood Pressure 205/108 H 11/14/19 21:48 Pulse Oximetry 94 L 11/14/19 21:48 Oxygen Delivery Method Room Air 11/14/19 21:48 Oxygen Flow Rate 0 11/14/19 21:48 Pain Level 10 11/14/19 21:48
[2019-11-14] MEDS: Cyclobenzaprine 10 MG TAB PO (22:25)
[2019-11-14] MEDS: Normal Saline 1,000 ML 1000 ML IV (22:25)
[2019-11-14 22:26] LABS: Abs Immature Grans 0.02 10^3/uL (0.0-0.06); Absolute Basophil Count 0.09 10^3/uL (0.0-0.2); Absolute Eosinophil Count 0.43 10^3/uL (0.0-0.7); Absolute Lymphocyte Count 3.15 10^3/uL (1.2-3.4); Basophils % 0.8; Eosinophils % 3.9; HCT 43.3 % (36.0-46.0); HGB 14.3 g/dL (11.2-15.7); Immature Grans % 0.2; Lymphocytes % 28.9; MCH 30.2 pg (27.0-33.0); MCV 91.4 fL (80-95); MPV 11.6 fL (8.0-11.0); Monocytes % 8.3; Neutrophils % 57.9; Nucleated RBC 0 %; Platelet Count 255 10^3/uL (130-400); RBC 4.74 10^6/uL (3.93-5.22); RDW 12.1 % (11.7-14.6); RDW-SD 40.7 fL
[2019-11-14 22:29] LABS: Absolute Neutrophil Count 6.31 10^3/uL (1.2-6.7)
[2019-11-14 22:53] LABS: Magnesium 1.7 mg/dL (1.8-2.4)
[2019-11-14] MEDS: Normal Saline Flush 10 ML SYR IVP (22:55)
[2019-11-14] MEDS: Normal Saline - Diluent 50 ML VIAL IV (22:55)
[2019-11-14] MEDS: Omnipaque 350 MG/ML 100 ML BTL IJ (22:56)
--- NOTE | 2019-11-14 23:00 | DI.CT_ITS ---
EXAM: CT NECK W CLINICAL HISTORY: right sided neck pain and swelling. TECHNIQUE: Imaging Protocol: Axial computed tomography images with coronal and sagittal reformatted images were created and reviewed. CONTRAST MATERIAL: Intravenous: Omnipaque 350 Contrast volume:100 mL COMPARISON: No exams were available for comparison FINDINGS: Parotids/submandibular: Within normal limits. Thyroid gland: Within normal limits. Lymphadenopathy: The largest identified lymph node is 1.0 cm and is adjacent to the right submandibu lar gland. Carotids/Jugular: There is minimal atherosclerosis of the thoracic aortic arch. The right distal co mmon carotid and proximal internal carotid artery have a slight retropharyngeal course. Oropharynx: Prominent bilateral pharyngeal tonsillar enlargement. Nasopharynx: Within normal limits. Retropharyngeal space: Within normal limits. Hypopharynx: Within normal limits. Larynx: Within normal limits. Bones: Mild degenerative changes in the cervical spine including mild right facet hypertrophy at the C2-C3 level. Orbits and orbital soft tissues: Within normal limits. Visualized paranasal sinuses: Within normal limits. Lung apices: Within normal limits. Soft tissues: Within normal limits. IMPRESSION: 1. Mildly prominent pharyngeal tonsils bilaterally which may reflect inflammation or infection. 2. Mild degenerative changes in the cervical spine. The findings are most prominent on the right at the C2-C3 level. RADIATION DOSE DELIVERED: 331.65mGy.cm Total DLP 331.65mGy.cm Total DLP DATA REPOSITORY: All CT scans at this facility are submitted to the National Radiology Data Registry (NRDR) Dose Index Registry (DIR) with the [employer] (ACR). RADIATION OPTIMIZATION: All CT scans at this facility use at least one of these dose optimization te chniques: automated exposure control; mA and/or kV adjustment per patient size (includes targeted exa ms where dose is matched to clinical indication); or iterative reconstruction.
[2019-11-14 23:11] LABS: ALT 32 U/L (14-59); AST 21 U/L (15-37); Albumin 4.4 g/dL (3.4-5.0); Alkaline Phosphatase 57 U/L (46-116); BUN 13 mg/dL (7-18); Bilirubin, Total 0.9 mg/dL (0.2-1.0); CREATININE 0.65 mg/dL (0.55-1.02); Calcium 11.2 mg/dL (8.5-10.1); Chloride 101 mmol/L (98-107); Glucose 146 mg/dL (74-106); Potassium 3.2 mmol/L (3.5-5.1); Sodium 141 mmol/L (136-145); Total Protein 8.1 g/dL (6.4-8.2)
[2019-11-14 23:13] LABS: Troponin I < 0.05 ng/mL (<0.06)
--- NOTE | 2019-11-14 23:43 | DI.VRAD_ITS ---
PROCEDURE INFORMATION: Exam: CT Neck With Contrast Exam date and time: 11/14/2019 10:53 PM Age: 64 years old Clinical indication: Patient HX: Right sided neck pain and swelling for several months, increasingly worse over the past week. Right arm tremors and numbness, right hip pain TECHNIQUE: Imaging protocol: Computed tomography images of the neck with intravenous contrast. Radiation optimization: All CT scans at this facility use at least one of these dose optimization techniques: automated exposure control; mA and/or kV adjustment per patient size (includes targeted exams where dose is matched to clinical indication); or iterative reconstruction. Contrast material: [id number]; Contrast volume: 100 ml; Contrast route: INTRAVENOUS (IV); COMPARISON: No relevant images were readily available for comparison purposes. FINDINGS: Brain: Limited evaluation of the intracranial contents is grossly unremarkable. Orbits: Globes and orbits are intact. Mastoid air cells: Mastoid air cells are clear. Sinuses: Paranasal sinuses are clear. Nasopharynx: Otherwise Unremarkable. Dental: Dental hardware. Missing teeth. Oropharynx: Prominent bilateral pharyngeal tonsillar enlargement. Hypopharynx: Otherwise Unremarkable. Larynx: Otherwise Unremarkable. Unremarkable epiglottis. Retropharyngeal space: See Vasculature finding. Submandibular/Parotid glands: Unremarkable bilateral submandibular glands. Unremarkable parotid glands. Thyroid: Unremarkable thyroid. Lymph nodes: Multiple prominent right greater than left cervical nodes are nonspecific. Possibly reactive. For example please see mildly enlarged 1.1 cm right level 1 B node image 29 series 3. Trachea: Visualized trachea is unremarkable. Lungs: Atelectasis versus scar lung apices. Bones/joints: No acute fracture or dislocation. Straightening of the cervical lordotic curvature is likely positional. Degenerative changes of the cervical spine are mild however notably there is prominent facet arthropathy at L2-L3 on the right. Vasculature: Minimal calcifications of the aortic arch. Jugular veins are widely patent. There is a retropharyngeal course of the right internal carotid. Soft tissues: Otherwise unremarkable IMPRESSION: Prominent bilateral pharyngeal tonsils possibly related to tonsillitis While degenerative changes of the cervical spine are overall very mild there is prominent facet arthropathy involving the right C2-C3 level which could be a source of right-sided neck pain for the patient. Multiple prominent non-specific, possibly reactive right greater than left cervical nodes may correlate to the patient's reported right-sided neck swelling. Dictated and Authenticated by: Marshall Hogue MD. Ordering:CHELA Stuart MD
[2019-11-14 23:56] LABS: INR 1.1 (0.9-1.1); PTT Activated 26.6 sec (21.0-31.4); Prothrombin Time 10.6 sec (9.3-11.0)
[2019-11-15 00:07] VITALS: BP 182/96; PULSE 85; RESP 20; O2SAT 94
== END 2019-11-15 00:05 | disposition home or self-care (01) ==
PROVIDERS: Emergency Provider Emergency Medicine; PCP Family Medicine
DX: M54.2 Cervicalgia (principal); M25.551 Pain in right hip; I10 Essential (primary) hypertension; E11.9 Type 2 diabetes mellitus without complications; Z79.84 Long term (current) use of oral hypoglycemic drugs
CPT/HCPCS: 70491; 80053; 93005; 96360; 99285; 83735; 84484; 85025; 85610; 85730; 93010; 99284; J3490

== ENCOUNTER 2019-11-21 01:49 | Outpatient (CLI) | payer OTHER, SELFPAY ==
--- NOTE | 2019-11-21 09:45 | DI.MRI_ITS ---
EXAM: MR LOWER JOINT RT WO CLINICAL HISTORY: persistent right hip pain, impingement,M25.851. TECHNIQUE: Multiplanar multisequence MRI was performed. COMPARISON: CR XR HIP RT COMPLETE AP PELVIS from 09/19/2019 FINDINGS: Bones: No evidence of contusion, avascular necrosis or occult fracture. Joints: Prominence of the acetabulum is noted consistent with femoral acetabular impingement. There is narrowing of the right hip joint space. No significant joint effusion is seen. Soft tissues: No soft tissue mass or focal fluid collection is seen. Mild fatty atrophy is seen of t he gluteus muscles bilaterally. The labrum is not well seen on this examination. 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 DATA REPOSITORY:
== END 2019-11-21 02:09 ==
PROVIDERS: PCP Family Medicine; Visit Provider Student in an Organized Health Care Education/Training Program
DX: M25.851 Other specified joint disorders, right hip (principal); M25.551 Pain in right hip
CPT/HCPCS: 73721

== ENCOUNTER 2020-01-07 03:01 | Outpatient (CLI) | payer OTHER, SELFPAY ==
--- NOTE | 2020-01-07 06:30 | DI.MRI_ITS ---
EXAM: MR LOWER JOINT RT WO CLINICAL HISTORY: Continued right knee pain,INTERNAL DERANGEMENT,M23.91. TECHNIQUE: Multiplanar multisequence MRI was performed. COMPARISON: CR XR KNEE RT 4V AP,LAT,PERI,PAT from 09/19/2019 FINDINGS: There is mild prepatellar edema and a tiny joint effusion. There is some fluid around the anterior cruciate ligament but no evidence of a full-thickness tear. The posterior cruciate ligament, medial and lateral collateral ligaments and extensor mechanism appear intact. The menisci appear intact. T here is mild cartilage irregularity at the patellar apex. Femoral and tibial cartilage appear intact . IMPRESSION: ACL sprain. Mild patellar chondromalacia. DATA REPOSITORY:
== END 2020-01-07 03:21 ==
PROVIDERS: PCP Family Medicine; Visit Provider Student in an Organized Health Care Education/Training Program
DX: S83.511A Sprain of anterior cruciate ligament of right knee, initial encounter (principal); M22.41 Chondromalacia patellae, right knee
CPT/HCPCS: 73721

== ENCOUNTER 2020-02-27 04:20 | Outpatient (CLI) | payer OTHER, SELFPAY ==
--- NOTE | 2020-02-27 06:15 | DI.MAMMO_ITS ---
EXAM: MG MAMMO SCREENING CLINICAL HISTORY: screening,Z12.31 TECHNIQUE: Bilateral full field digital CC and MLO mammographic images were obtained with 3D tomosyn thesis and utilizing computer aided detection (CAD). COMPARISON: Available for comparison. FINDINGS: Masses/Architectural Distortion: There is a new area of nodularity in the upper left breast on the ML O view. Microcalcifications: No suspicious pleomorphic-type are seen. Skin Thickening/Nipple Retraction: None. IMPRESSION: 1. New area of nodularity in the upper left breast on the MLO view. 2. A spot compression views requested of the left breast for further evaluation. Ultrasound may be i ndicated at that time. BI-RADS Category 0 - Assessment Incomplete: Need additional imaging evaluation Breast Density - Category B - Scattered areas of fibroglandular density A negative radiographic report should not delay biopsy if a dominant or clinically suspicious mass is present. Up to ten percent of cancers are not identified on mammography. A negative report may reinforce clinical impression. Adenosis and dense breasts may obscure an underlying neoplasm. False positive reports average 6 to 10%. Patient will receive a letter notifying them of these results.
== END 2020-02-27 04:40 ==
PROVIDERS: PCP Family Medicine; Visit Provider Family Medicine
DX: Z12.31 Encounter for screening mammogram for malignant neoplasm of breast (principal); R92.8 Other abnormal and inconclusive findings on diagnostic imaging of breast
CPT/HCPCS: 77063; 77067

== ENCOUNTER 2020-03-03 00:28 | Outpatient (CLI) | payer OTHER, SELFPAY ==
--- NOTE | 2020-03-03 | DI.US_ITS ---
EXAM: MG MAMMO SCREEN CALL BACK UNI CLINICAL HISTORY: F/U MAMMO, NEW NODULARITU UPPER LT BREAST TECHNIQUE: Mammograms were interpreted according to the usual protocol including computer analysis w ith CAD system, tomosynthesis and C-view imaging. COMPARISON: FINDINGS: Additional mammographic views of the left breast and left breast ultrasound are interpreted in conjun ction. These examinations were obtained to evaluate questionable area of asymmetric density of the l eft breast seen on recent mammogram. Additional mammographic view show no evidence a mass. Breast u ltrasound shows no evidence of a mass or cyst. IMPRESSION: No specific evidence of malignancy at this time. Follow-up unilateral left breast mammogram recommen ded in 6 months. BI-RADS Category 3 - 6 month - Probably Benign Finding: Recommend follow-up mammography in 6 months Breast Density - Category B - Scattered areas of fibroglandular density
== END 2020-03-03 00:48 ==
PROVIDERS: PCP Family Medicine; Visit Provider Family Medicine
DX: Z12.31 Encounter for screening mammogram for malignant neoplasm of breast (principal); R92.8 Other abnormal and inconclusive findings on diagnostic imaging of breast
CPT/HCPCS: 76642; 77063; 77067

== ENCOUNTER 2020-03-17 01:30 | Outpatient (CLI) | payer OTHER, SELFPAY ==
[2020-03-17 09:03] LABS: CREATININE 0.73 mg/dL (0.55-1.02)
[2020-03-17] MEDS: Normal Saline - Diluent 50 ML VIAL IV (09:50)
--- NOTE | 2020-03-17 09:50 | DI.CT_ITS ---
EXAM: CT CHEST W CLINICAL HISTORY: SARCOIDOSIS,D86.9,FAMILY H/O LYMPHOMA,Z80.7,SWOLLEN NECK,R22.1. TECHNIQUE: Multi planar reconstructions were performed. CONTRAST MATERIAL: Omnipaque 350; 7 cc COMPARISON: No exams were available for comparison FINDINGS: CHEST: LUNGS:. There are no pulmonary infiltrates nor ominous pulmonary nodules. Mild benign-appearing inc reased markings noted in the inferior lingular segment of the left lung. Mild benign dependent lisa ngs are noted in both lung bases.. There are no pleural effusions. No significant focal findings ev ident in the trachea and mainstem bronchi. MEDIASTINUM: There is no hilar nor mediastinal adenopathy. Thyroid gland size is upper normal. There appear to be subtle nodules in the thyroid lobes. CARDIAC: Heart size is normal. There is no pericardial effusion.Caliber of the thoracic aorta is wit hin normal limits. VISUALIZED UPPER ABDOMEN:There are no significant adrenal masses. Cholelithiasis is noted. There is also a cyst in the visualized upper aspect of the left kidney which measures 1.8 x 1.7 centimetres OSSEOUS: No significant osseous lesions.. IMPRESSION: 1. Mild increased markings in the lingular segment of the left lung. 2. No ominous pulmonary nodules nor pleural effusions are no evidence of intrathoracic adenopathy. 3. Cholelithiasis incidentally noted +1.8 centimeter left kidney cyst RADIATION DOSE DELIVERED: 1,320.97mGy.cm Total DLP 1,320.97mGy.cm Total DLP DATA REPOSITORY: All CT scans at this facility are submitted to the National Radiology Data Registry (NRDR) Dose Index Registry (DIR) with the [employer] (ACR). RADIATION OPTIMIZATION: All CT scans at this facility use at least one of these dose optimization te chniques: automated exposure control; mA and/or kV adjustment per patient size (includes targeted exa ms where dose is matched to clinical indication); or iterative reconstruction.
[2020-03-17] MEDS: Omnipaque 350 MG/ML 100 ML BTL IJ (09:51)
== END 2020-03-17 01:50 ==
PROVIDERS: PCP Family Medicine; Visit Provider Otolaryngology Otolaryngology/Facial Plastic Surgery
DX: R91.8 Other nonspecific abnormal finding of lung field (principal); D86.9 Sarcoidosis, unspecified; Z80.7 Family history of other malignant neoplasms of lymphoid, hematopoietic and related tissues; R22.1 Localized swelling, mass and lump, neck; K80.20 Calculus of gallbladder without cholecystitis without obstruction; N28.1 Cyst of kidney, acquired
CPT/HCPCS: 71260; 82565; J3490

== ENCOUNTER 2020-03-25 00:41 | Outpatient (CLI) | payer OTHER, SELFPAY ==
--- NOTE | 2020-03-25 13:27 | DI.RAD_ITS ---
EXAM: RF JOINT INJECTION FLUORO GUID CLINICAL HISTORY: R HIP INJ UNDER FLUORO,FEMOROACETABULAR IMPINGEMENT RT HIP,M25.851 TECHNIQUE: COMPARISON: No exams were available for comparison FINDINGS: C-arm fluoroscopy was utilized by Dr. Morley during right hip injection. Hard copy shows intra-art icular injection in the right hip. Fluoro time not reported. IMPRESSION: RADIATION DOSE DELIVERED: Total DLP
[2020-03-25] MEDS: Bupivacaine 0.5% Pres-Free 10 ML VIAL 6 ML IV (13:39)
[2020-03-25] MEDS: methylPREDNISolone ACETATE 80 MG/ML VIAL IM (13:40)
[2020-03-25] MEDS: Omnipaque 300 MG/ML 10 ML BTL IJ (13:41)
--- NOTE | 2020-03-25 13:47 | W.PROCNOTE ---
Date of service: 03/25/20 Time of Service: 13:39 Procedure Note Date of procedure: 03/25/20 Procedure: Right Hip Injection with Fluoroscopic Guidance Surgeon/Proceduralist/Physician: Logan Morley Procedure Diagnosis: Right Hip DANIELLE Procedure Indications: Leah has had persistent pain of the RIGHT hip and groin. Noninvasive measures have been tried. To serve as both diagnostic and therapeutic, an injection under fluoroscopy was recommended. I had discussed the risks of the procedure and the patient elected to proceed. Procedure Description: Leah was greeted in the flouroscopy room. The correct side was identified and the consent was reviewed with the patient and signed. The patient was then placed in the supine position on the fluoroscopy table. The RIGHT hip was then prepped with Chloraprep. The anterolateral injection starting point was identiifed by bony landmarks and fluoroscopy. The skin and soft tissue in the tract of the injection was anesthetized with 1% Lidocaine. A spinal needle was then inserted deep into the hip joint at the level of the lateral femoral neck under fluoroscopic guidance. A small amount of Omnipaque solution was injected to confirm intraarticular placement. Once confirmed, the hip was injected with 6cc of 0.5% Bupivicaine and 80mg of Depo-Medrol. A bandaid was placed on the injection site. The patient tolerated the procedure well and noted improvement in pre-injection pain.
== END 2020-03-25 01:01 ==
PROVIDERS: PCP Family Medicine; Visit Provider Student in an Organized Health Care Education/Training Program
DX: M25.851 Other specified joint disorders, right hip (principal); M25.551 Pain in right hip
CPT/HCPCS: 20610; 77002; J1040

== ENCOUNTER 2020-03-25 02:00 | Outpatient (CLI) | payer OTHER, SELFPAY ==
[2020-03-25 14:00] LABS: COMMENT (LAB VIEW ONLY) 45.07 mg/dL; Microalb ug/mg Crea 36.2 ug/mg Cr
[2020-03-25 14:09] LABS: ALT 31 U/L (14-59); AST 21 U/L (15-37); Albumin 4.3 g/dL (3.4-5.0); Alkaline Phosphatase 61 U/L (46-116); Anion Gap 8.9 mmol/L (3-11); BUN 15 mg/dL (7-18); Bilirubin, Total 0.7 mg/dL (0.2-1.0); CO2 29.1 mmol/L (21.0-32.0); Calcium 9.4 mg/dL (8.5-10.1); Chloride 101 mmol/L (98-107); Glucose 99 mg/dL (74-106); Magnesium 1.8 mg/dL (1.8-2.4); Potassium 3.9 mmol/L (3.5-5.1); Sodium 139 mmol/L (136-145); Total Protein 7.9 g/dL (6.4-8.2)
[2020-03-25 14:44] LABS: Hemoglobin A1C 6.3 % (<5.7)
== END 2020-03-25 02:20 ==
PROVIDERS: PCP Family Medicine; Visit Provider Family Medicine
DX: E11.9 Type 2 diabetes mellitus without complications (principal); I10 Essential (primary) hypertension
CPT/HCPCS: 36415; 80053; 82043; 82570; 83036; 83735

== ENCOUNTER 2020-04-01 00:28 | Outpatient (CLI) | payer OTHER, SELFPAY ==
--- NOTE | 2020-04-01 07:15 | DI.US_ITS ---
EXAM: US LOWER EXTREMITY VENOUS RT CLINICAL HISTORY: right calf pain, r/o DVT,M79.661 TECHNIQUE: Right lower extremity venous ultrasound performed using grayscale, color-flow, and spectr al Doppler analysis. COMPARISON: No exams were available for comparison FINDINGS: The right common femoral, femoral and popliteal veins demonstrate normal compressibility, augmentatio n, and color Doppler. The posterior tibial veins are patent. The saphenofemoral junction is unremark able. There is no evidence of a Rowe cyst. The soft tissues are unremarkable. IMPRESSION: No DVT. DATA REPOSITORY:
== END 2020-04-01 00:48 ==
PROVIDERS: PCP Family Medicine; Visit Provider Physician Assistant
DX: M79.661 Pain in right lower leg (principal)
CPT/HCPCS: 93971

== ENCOUNTER 2020-05-06 12:58 | Outpatient (REF) | payer OTHER, SELFPAY ==
--- NOTE | 2020-05-07 12:00 | PAPFT_PTH ---
PATIENT: Leah Silva LOC: [facility] U#:[id number] AGE/SX: 64/F ROOM: RE05/06/[address]: Keila Vargas MD, DC : 1955 BED: DIS: 05/06/2020 SPEC #: [id number] RECD: 05/07/20 12:51 STATUS: ELISSA REQ #: [id number] JASE: 05/07/20 12:[address]: Keila Vargas [facility] Cytology RECD BY: Leah Kathleen Tissues: 1 - CX/ENDOCX FOR PAP SMEARS Procedures: PAP THIN PREP/UVM Screening HPV DNA PROBE Comments: [id number]
== END 2020-05-06 13:18 ==
LOC: LBN 12:58
PROVIDERS: PCP Family Medicine; Visit Provider Family Medicine
DX: Z12.4 Encounter for screening for malignant neoplasm of cervix (principal); Z11.51 Encounter for screening for human papillomavirus (HPV)
CPT/HCPCS: 88142; 87624

== ENCOUNTER 2020-06-02 01:31 | Outpatient (CLI) | payer OTHER, SELFPAY ==
[2020-06-02] MEDS: Normal Saline Flush 10 ML SYR IVP (11:27)
[2020-06-02] MEDS: Gadoterate meglumine 20 ML VIAL 16 ML IVP (11:27)
--- NOTE | 2020-06-02 12:10 | DI.MRI_ITS ---
EXAM: MR BRAIN WO/W CLINICAL HISTORY: ABNL GAIT,MOBILITY,R26.9,MOVEMENT DISORDER,SARCOIDOSIS TECHNIQUE: Multiplanar multisequence MRI of the brain was performed. Both noninfused and contrast i nfused sequences were performed. IV Contrast injected was 16 cc Dotarem. COMPARISON: No exams were available for comparison FINDINGS: CEREBRAL PARENCHYMA: No evidence of intracranial hemorrhage, mass effect nor shift of midline structu re. No extraaxial fluid collections. Ventricles are not enlarged nor shifted. There is no significant focal signal abnormality in the cerebellar hemispheres nor within the tony, m idbrain, and thalami. There is no abnormal signal abnormality in the periventricular white matter. There are no ring enhancing lesions in the brain. There is no abnormal meningeal enhancement. PITUITARY GLAND: No mass nor parasellar abnormality. No obvious abnormality in the cavernous sinuses. FLOW VOIDS: The expected flow void are noted. No evidence of obvious aneurysm nor obvious vascular ma lformation. PARANASAL SINUSES: The visualized paranasal sinuses appear unremarkable. ORBITS: No obvious abnormal findings. IMPRESSION: 1. No significant intracranial findings on this MRI scan of the brain. 2. No abnormal enhancing intracranial finding. DATA REPOSITORY:
== END 2020-06-02 01:32 ==
PROVIDERS: PCP Family Medicine; Visit Provider Psychiatry & Neurology Neurocritical Care
DX: R26.9 Unspecified abnormalities of gait and mobility (principal); G25.89 Other specified extrapyramidal and movement disorders; D86.9 Sarcoidosis, unspecified
CPT/HCPCS: 70553

== ENCOUNTER 2020-06-24 02:30 | Outpatient (CLI) | payer OTHER, SELFPAY ==
[2020-06-25 14:55] LABS: COVID-19 RT-PCR UVMMC Result Negative (Negative)
== END 2020-06-24 02:31 | disposition home or self-care (01) ==
PROVIDERS: PCP Family Medicine; Visit Provider Family Medicine
DX: Z20.822 Contact with and (suspected) exposure to COVID-19 (principal)
CPT/HCPCS: U0003

== ENCOUNTER 2020-07-02 10:59 | Emergency (ER) | payer OTHER, SELFPAY ==
[2020-07-02] VITALS (13 sets, daily range): BP systolic 202; BP diastolic 115; PULSE 91–139; RESP 12–25; TEMP 36.7; O2SAT 92–95
--- NOTE | 2020-07-02 11:13 | ED.GENADUL_ITS ---
Discharge Plan Disposition Patient Disposition: HOME Condition: Stable Discharge Details Clinical Impression: Right lumbar radiculopathy Primary Care Provider: Keila Vargas ED Provider: Tari Marrero Home Meds and New Rx's Prescriptions: New lidocaine 4 % adhesive patch,medicated 1 patch topical DAILY PRN (Reason: pain) 5 Days Qty: 10 RF: 0 prednisone 20 mg tablet 40 mg PO DAILY 5 Days Qty: 10 RF: 0 diazepam 2 mg tablet 2 mg PO QHS PRN (Reason: muscle spasm) Qty: 5 RF: 0 No Action triamcinolone acetonide 0.1 % cream 1 applic TP BID PRN Qty: 80 RF: 2 nystatin (bulk) 500 million unit powder See Rx Instructions miscellaneous BID Qty: 1 RF: 3 ketoconazole 2 % cream 1 applic TP BID PRNRF: 0 valacyclovir 1 gram tablet 2,000 mg PO BID PRNRF: 0 clotrimazole 1 % cream 1 applic Topical DAILY PRNRF: 0 hydrocortisone 0.5 % cream 1 applic Topical BID PRNRF: 0 diclofenac sodium [Voltaren] 1 % gel 2 g topical QID Qty: 100 RF: 0 hydrochlorothiazide 25 mg tablet 25 mg PO DAILY Qty: 90 RF: 5 (DME) blood-glucose meter [[employer] Verio IQ Meter] misc See Dose Instructions .ROUTE .MEDSUPPLY Qty: 1 RF: 0 (DME) Blood Glucose Test Strip 1 ea Miscellaneous DAILY Qty: 100 RF: 1 lorazepam 1 mg tablet 0.5 - 1 mg PO DAILY PRN (Reason: anxiety) Qty: 25 RF: 0 (DME) lancets 28 gauge misc 1 ea Miscellaneous DAILY Qty: 100 RF: 0 potassium chloride 20 mEq tablet extended release 20 meq PO DAILY Qty: 90 RF: 1 metformin 500 mg tablet 500 mg PO DAILY Qty: 90 RF: 4 gabapentin 300 mg capsule 600 mg PO TID Qty: 180 RF: 2 cyclobenzaprine 10 mg tablet 10 mg PO BID PRN (Reason: muscle spasm) Qty: 180 RF: 3 ibuprofen 600 mg tablet 600 mg PO QID PRN (Reason: pain) Qty: 90 RF: 2 cholecalciferol (vitamin D3) [Vitamin D3] 50 mcg (2,000 unit) capsule 150 mcg PO DAILY RF: 0 Discharge Instructions Instructions: Sciatica (ED), Lumbar Radiculopathy (ED) Additional Instructions: The CT today shows nothing acute. Follow up with primary care provider in 3-5 days. Return to ED sooner if any worsening or concerns. Increase oral fluids. Care management was contacted to assist you in obtaining a sooner follow-up appointment. Prescription was sent to the pharmacy that is listed for lidocaine patch and prednisone 40 mg daily. Follow up with primary care provider in 3-5 days. Return to ED sooner if any loss of bowel or bladder control, numbness around your groin or rectal area, or concerns. Increase oral fluids. Referrals: Keila Vargas MD, [place] [Primary Care Provider] - Discharge Data Discharge Date/Time-TO BE ENTERED AT DEPARTURE: 07/02/20 15:16 Medical Decision Making 64-year-old female presents to the ER via EMS with chief complaint of right gluteal pain which radiates down into her right foot. She states that last week she was doing some pushing and pulling moving some furniture which may have exacerbated her chronic back problems. She denies any falls or other recent injuries. She denies any loss of bowel or bladder control urinary hesitancy, constipation. She is normally able to get around with a walker when her back is not hurting her. She states that this morning she was unable to get in to her vehicle to go to a PCP appointment which prompted her ER visit today. She has no midline L-spine tenderness with palpation. She is alert and oriented x4. She states that she took ibuprofen, her normal medications this morning including cyclobenzaprine which did little to nothing to help her pain. She has a past medical history of peripheral neuropathy, obstructive sleep apnea, lumbosacral radiculopathy hypertension, hyperlipidemia, diabetes mellitus, sarcoidosis. Work-up ordered at this time including CBC, CMP, urinalysis, CT lumbar spine without contrast, fentanyl 25 mics IV, 5 mg diazepam IV. Post void bladder scan shows [address] Lumbar spine W/O: FINDINGS: CT examination lumbosacral spine was performed without contrast administration. Images obtained through the lung bases are unremarkable. Visualized portions of the liver, spleen, and pancreas appear intact. Note is made of cholelithiasis. No renal calcification identified. No abdominal aortic aneurysm. No retroperitoneal adenopathy. There are prominent hypertrophic degenerative change changes of the endplates and facet joints throughout the visualize region, facet arthropathy is most prominent at L4-5 and L5-S1. There is a mild pseudo spondylolisthesis of L4 on L5. There may be mild central canal spinal stenosis at L4-5 secondary to disc bulge and the aforementioned anterolisthesis. There is vacuum disc phenomenon at L5-S1 consistent with disc degeneration and there is moderate disc bulge at L5-S1. No gross disc herniation identified in the region surveyed. No evidence of fracture. No paraspinal mass. IMPRESSION: Degenerative changes of the lumbosacral spine as described above. Possible central canal spinal stenosis at L4-5. Additional evaluation with MR may be obtained if clinically indicated. 1309: Patient reevaluation: Patient states that she was more comfortable after the previous medications until she got up to the commode again, this exacerbated her symptoms. She was able to empty her bladder fully, post void bladder scan was performed by unit staff and read 0. Discussed her CT results with her and plan for discharge home, she verbalized understanding. At this time will place a lidocaine patch. 1348: Patient disposition made for discharge home with PCP appointment made by care management on Sunday for 2 PM. Prescription written for diazepam 2 mg tablet as needed muscle spasm, prednisone 40 mg p.o. daily x5 days, lidocaine patch daily as needed for pain for 5 days. Patient states to unit staff that she is in too much pain. Additional fentanyl 25 mcg IV ordered prior to patient being picked up by her ride. Discussed home care and strict return instructions with patient, verbalized understanding. At this time I do feel it is reasonable for patient discharged home due to no evidence of cauda equina or emergent physiological neurological impairment. Prior to discharge patient was assisted into the wheelchair by unit staff and placed into her vehicle without difficulty. This text was generated using Polleverywhereation system, please disregard any oddities of phrase or misspellings. HPI General Mode of arrival: EMS . Date/Time Provider Initiated Documentation: 07/02/20 11:11 . Limitations to Documentation: no limitations . Information obtained by: patient, RN notes reviewed and old records reviewed . HPI Narrative: 64-year-old female presents to the ER via EMS with chief complaint of right gluteal pain which radiates down into her right foot. She states that last week she was doing some pushing and pulling moving some furniture which may have exacerbated her chronic back problems. She denies any falls or other recent injuries. She denies any loss of bowel or bladder control urinary hesitancy, constipation. She is normally able to get around with a walker when her back is not hurting her. She states that this morning she was unable to get in to her vehicle to go to a PCP appointment which prompted her ER visit today. She has no midline L-spine tenderness with palpation. She is alert and oriented x4. She states that she took ibuprofen, her normal medications this morning including cyclobenzaprine which did little to nothing to help her pain. She has a past medical history of peripheral neuropathy, obstructive sleep apnea, lumbosacral radiculopathy hypertension, hyperlipidemia, diabetes mellitus, sarcoidosis. Related Data Home Medications Medication Instructions Recorded Confirmed blood-glucose meter #1 each 01/31/18 07/02/20 triamcinolone acetonide 0.1 % 1 applic TP BID PRN #80 gm 03/06/18 07/02/20 topical cream nystatin (bulk) 500 million unit See Rx Instructions MISCELLANEOUS 03/13/18 07/02/20 powder BID #1 each valacyclovir 1 gram tablet 2,000 mg PO BID PRN tab-cap 05/20/18 07/02/20 ketoconazole 2 % topical cream 1 applic TP BID PRN 11/18/18 07/02/20 clotrimazole 1 % topical cream 1 applic TOPICAL DAILY PRN gm 01/13/19 07/02/20 hydrocortisone 0.5 % topical cream 1 applic TOPICAL BID PRN gm 01/13/19 07/02/20 blood sugar diagnostic #100 strip 07/14/19 07/02/20 lorazepam 1 mg tablet 0.5 - 1 mg PO DAILY PRN #25 tab 07/23/19 07/02/20 lancets 28 gauge #100 ea 10/18/19 07/02/20 cholecalciferol (vitamin D3) 50 150 mcg PO DAILY cap 01/13/20 07/02/20 mcg (2,000 unit) capsule potassium chloride 20 mEq 20 meq PO DAILY #90 tab 01/26/20 07/02/20 tablet,extended release metformin 500 mg tablet 500 mg PO DAILY #90 tab 03/10/20 07/02/20 diclofenac sodium 1 % topical gel 2 g TOPICAL QID #100 g 03/31/20 07/02/20 gabapentin 300 mg capsule 600 mg PO TID #180 cap 04/19/20 07/02/20 hydrochlorothiazide 25 mg tablet 25 mg PO DAILY #90 tab 05/06/20 07/02/20 cyclobenzaprine 10 mg tablet 10 mg PO BID PRN #180 tab 05/28/20 07/02/20 ibuprofen 600 mg tablet 600 mg PO QID PRN #90 tab 06/25/20 07/02/20 diazepam 2 mg PO QHS PRN #5 tab 07/02/20 lidocaine 1 patch TOPICAL DAILY PRN 5 Days 07/02/20 #10 ea prednisone 40 mg PO DAILY 5 Days #10 tab 07/02/20 Previous Rx's Medication Instructions Recorded blood-glucose meter #1 each 01/31/18 triamcinolone acetonide 0.1 % 1 applic TP BID PRN #80 gm 03/06/18 topical cream nystatin (bulk) 500 million unit See Rx Instructions MISCELLANEOUS 03/13/18 powder BID #1 each blood sugar diagnostic #100 strip 07/14/19 lorazepam 1 mg tablet 0.5 - 1 mg PO DAILY PRN #25 tab 07/23/19 lancets 28 gauge #100 ea 10/18/19 potassium chloride 20 mEq 20 meq PO DAILY #90 tab 01/26/20 tablet,extended release metformin 500 mg tablet 500 mg PO DAILY #90 tab 03/10/20 diclofenac sodium 1 % topical gel 2 g TOPICAL QID #100 g 03/31/20 gabapentin 300 mg capsule 600 mg PO TID #180 cap 04/19/20 hydrochlorothiazide 25 mg tablet 25 mg PO DAILY #90 tab 05/06/20 cyclobenzaprine 10 mg tablet 10 mg PO BID PRN #180 tab 05/28/20 ibuprofen 600 mg tablet 600 mg PO QID PRN #90 tab 06/25/20 diazepam 2 mg PO QHS PRN #5 tab 07/02/20 lidocaine 1 patch TOPICAL DAILY PRN 5 Days 07/02/20 #10 ea prednisone 40 mg PO DAILY 5 Days #10 tab 07/02/20 Allergies Allergy/AdvReac Type Severity Reaction Status Date / Time Sulfa (Sulfonamide Allergy Intermediate Skin Rash Unverified 07/02/20 11:09 Antibiotics) adhesive tape Allergy Mild mild rash Verified 07/02/20 11:09 and itching General Stated Complaint: Nk/Back Pain BETZAIDA: 3 Review of Systems Narrative: Constitutional: Negative for weight loss, alert and oriented, well groomed, normal body habitus, appears uncomfortable. HEENT: Denies trauma, headaches, blurry vision, nasal discharge, sore throat, tr ouble swallowing. Chest: Denies chest pain, palpitations, irregular rhythm, hypertension. Respiratory: Denies Shortness of breath, cough, hemoptysis. GI: Denies abdominal pain, nausea, vomiting, diarrhea, constipation. : Denies dysuria, hematuria, flank pain, rectal bleeding. Musculoskeletal: Complaining of right gluteal pain with radiation into her right leg. Neuro: Denies dizziness, blurry vision, syncope, headache or facial numbness. Does complain of some right lower extremity weakness and increased pain with movement. Denies any saddle anesthesia no loss of bowel or bladder control. Hematologic: Denies easy bruising, intolerance to heat or cold, hair loss. [facility] Medical History DM (diabetes mellitus) HTN (hypertension) Hyperlipidemia Internal derangement of right knee Lumbosacral radiculopathy On antibiotic therapy JOSEY (obstructive sleep apnea) Peripheral neuropathy Sarcoid Surgical History section x 3 Colonoscopy - MAC (02/11/16) Nasal septoplasty Family History Mother Essential hypertension Cancer Diabetes Hyperlipidemia Primary biliary cholangitis Father , AGE 74 Heart disease Hyperlipidemia Brother Essential hypertension Diabetes Hyperlipidemia Maternal Grandfather Prostate cancer Paternal Grandfather , AGE 45 Diabetes Maternal Grandmother , AGE 84 Diabetes Heart disease Paternal Grandmother Lung cancer Other Lumbosacral radiculopathy Social History Smoking/Tobacco Use Status: Never Smoking risk assessment performed?: Yes Alcohol Intake: current Alcohol Intake frequency: a few times a month Drug use: Never Substance use type: does not use Caregiver/Support person: No Household members: none Do you need help understanding health information?: Never Pets and animals: Yes Pets and animals: cat(s) Sexually active: No Do you think of yourself as: straight/heterosexual Current gender identity: female What is your relationship status?: How often do you talk on the phone with friends or family?: three or more times per week How often do you get together with friends or relatives?: three or more times per week How often do you attend yarsani or jainism services?: 1-3 times per year Do you belong to any clubs or organized social groups?: no Panel score (0-1 are the most socially isolated patients): 1 What type of physical activity do you participate in: none Duration: decline to answer Frequency: decline to answer Maria Fernanda/Congregation: [employer] Special maria fernanda needs: No Seatbelt use: always Helmet use: Yes Helmet use: always Drive intox or ride w/intox bulk delivery driver: No Do you feel safe at home: Yes Exam Narrative Exam Narrative: Constitutional: Alert and oriented x3. Appears stated age. Normal body habitus. Head: Normocephalic, no trauma. Eyes: Pupils PERRLA, Red reflex noted, EOM's intact. Eyelids symmetrical without lesions, discharge, or swelling. ENT: External ear normal to inspection, nose WNL. Chest: RRR, Normal S1, S2, distal pulses intact. Resp: Lungs clear to auscultation bilaterally, no wheezes, rales, or rhonchi. Musculoskeletal: Patient is semiambulatory upon arrival, she does hold onto furniture and is bent over to get around due to pain, strength to lower extremities is 5+ on the left 4+ right. No midline T or L-spine tenderness with palpation, no crepitus no step-off. She does report some right lower lumbar and buttock paraspinous tenderness with palpation. Skin: No suspicious rashes or lesions. Capillary refill less than 2 sec. Neurologic: Cranial nerves II-XII intact. Alert and oriented x 3. Intact pedal dorsiflexion and extension bilaterally, equal sensation to bilateral lower extremities. Patient denies any saddle anesthesia, no numbness tingling in her groin area, sensation is intact distally. Hematologic/Lymphatic: No ecchymosis, no lymphadenopathy. Course Vital Signs Vital signs: Vital Signs Temperature 36.7 C 07/02/20 11:00 Pulse 131 H 07/02/20 11:00 Respiratory Rate 24 07/02/20 11:00 Blood Pressure 202/115 H 07/02/20 11:00 Pulse Oximetry 95 07/02/20 11:00 Temperature 36.7 C 07/02/20 11:00 Temperature Source Temporal Artery Scan 07/02/20 11:00 Pulse 131 H 07/02/20 11:00 Respiratory Rate 24 07/02/20 11:00 Blood Pressure 202/115 H 07/02/20 11:00 Blood Pressure Position Sitting 07/02/20 11:00 Pulse Oximetry 95 07/02/20 11:00 Oxygen Delivery Method Room Air 07/02/20 11:00 Oxygen Flow Rate 0 07/02/20 11:00 Pain Level 10 07/02/20 11:00
[2020-07-02] MEDS: fentaNYL 100 MCG/2 ML VIAL 25 MCG IVP ×2 (11:25→14:55)
[2020-07-02] MEDS: Ondansetron 4 MG/2 ML VIAL IVP (11:25)
[2020-07-02] MEDS: diazePAM 10 MG/2 ML SYR 5 MG IVP (11:27)
[2020-07-02 11:31] LABS: Bilirubin Negative (Negative); Blood Negative (Negative); Clarity Clear (Clear); Glucose Negative (Negative); Ketones Negative (Negative); Leukocyte Esterase Negative (Negative); Nitrite Negative (Negative); Specific Gravity 1.025 (1.005-1.025); Urobilinogen 0.2 EU/dL (Up TO 0.2); pH 7.5 (5-8)
[2020-07-02 11:37] LABS: Epithelial Cells Moderate HPF (Negative); RBC 0-2 HPF (0-2); WBC 0-2 HPF (0-5)
[2020-07-02 11:38] LABS: Bacteria Rare HPF (Negative); Casts Negative LPF (Negative); Crystals Negative HPF (Negative); Mucus Trace (Negative); Other Cells Few Transitional (Negative)
[2020-07-02 11:39] LABS: C & S Indicated? No
[2020-07-02] MEDS: Normal Saline 1,000 ML 150 ML IV (11:43)
[2020-07-02 12:03] LABS: Abs Immature Grans 0.04 10^3/uL (0.0-0.06); Absolute Basophil Count 0.08 10^3/uL (0.0-0.2); Absolute Eosinophil Count 0.15 10^3/uL (0.0-0.7); Absolute Lymphocyte Count 1.55 10^3/uL (1.2-3.4); Absolute Monocyte Count 0.61 10^3/uL (0.1-0.8); Absolute Neutrophil Count 5.79 10^3/uL (1.2-6.7); Eosinophils % 1.8; HCT 40.8 % (36.0-46.0); HGB 13.5 g/dL (11.2-15.7); Immature Grans % 0.5; Lymphocytes % 18.9; MCH 30.3 pg (27.0-33.0); MCHC 33.1 % (32.0-36.0); MCV 91.5 fL (80-95); MPV 11.2 fL (8.0-11.0); Monocytes % 7.4; Neutrophils % 70.4; Nucleated RBC 0 %; Platelet Count 239 10^3/uL (130-400); RBC 4.46 10^6/uL (3.93-5.22); RDW 12.7 % (11.7-14.6); RDW-SD 42.5 fL; WBC 8.22 10^3/uL (4.4-10.8)
--- NOTE | 2020-07-02 12:12 | DI.CT_ITS ---
EXAM: CT LUMBAR SPINE WO CLINICAL HISTORY: Right side radiculopathy, chronic back pain TECHNIQUE: COMPARISON: No exams were available for comparison FINDINGS: CT examination lumbosacral spine was performed without contrast administration. Images obtained through the lung bases are unremarkable. Visualized portions of the liver, spleen, a nd pancreas appear intact. Note is made of cholelithiasis. No renal calcification identified. No abdominal aortic aneurysm. No retroperitoneal adenopathy. There are prominent hypertrophic degenerative change changes of the endplates and facet joints throug hout the visualize region, facet arthropathy is most prominent at L4-5 and L5-S1. There is a mild ps eudo spondylolisthesis of L4 on L5. There may be mild central canal spinal stenosis at L4-5 secondar y to disc bulge and the aforementioned anterolisthesis. There is vacuum disc phenomenon at L5-S1 consistent with disc degeneration and there is moderate disc bulge at L5-S1. No gross disc herniation identified in the region surveyed. No evidence of fracture. No paraspinal mass. IMPRESSION: Degenerative changes of the lumbosacral spine as described above. Possible central canal spinal sten osis at L4-5. Additional evaluation with MR may be obtained if clinically indicated. RADIATION DOSE DELIVERED: 736.45mGy.cm Total DLP RADIATION OPTIMIZATION: All CT scans at this facility use at least one of these dose optimization te chniques: automated exposure control; mA and/or kV adjustment per patient size (includes targeted exa ms where dose is matched to clinical indication); or iterative reconstruction.
[2020-07-02 12:15] LABS: ALT 71 U/L (14-59); AST 51 U/L (15-37); Albumin 3.9 g/dL (3.4-5.0); Alkaline Phosphatase 67 U/L (46-116); Anion Gap 9.6 mmol/L (3-11); BUN 12 mg/dL (7-18); Bilirubin, Total 0.8 mg/dL (0.2-1.0); CO2 29.4 mmol/L (21.0-32.0); CREATININE 0.7 mg/dL (0.55-1.02); Calcium 9.5 mg/dL (8.5-10.1); Chloride 101 mmol/L (98-107); Glucose 172 mg/dL (74-106); Potassium 3.5 mmol/L (3.5-5.1); Sodium 140 mmol/L (136-145); Total Protein 7.7 g/dL (6.4-8.2)
[2020-07-02] MEDS: Ketorolac 30 MG/ML VIAL 15 MG IVP (12:24)
--- NOTE | 2020-07-02 13:44 | NUR.NOTE ---
Nursing Note: Patient was prepped for discharge, she states she is unable to lift her leg or move her body. She states she will be unable to get into a car.
== END 2020-07-02 15:16 | disposition home or self-care (01) ==
PROVIDERS: Emergency Provider Registered Nurse Emergency; PCP Family Medicine
DX: M54.16 Radiculopathy, lumbar region (principal); M54.31 Sciatica, right side
CPT/HCPCS: 80053; 96374; 96375; 96376; 99285; 72131; 81003; 81015; 85025; 99284; J1885; J2405; J3010; J3360

== ENCOUNTER 2020-07-05 14:33 | Inpatient (IN) | payer OTHER, SELFPAY ==
[2020-07-05] VITALS (27 sets, daily range): BP systolic 142–183; BP diastolic 80–116; PULSE 92–120; RESP 13–22; TEMP 36.7–37.5; O2SAT 91–98
--- NOTE | 2020-07-05 15:00 | DI.RAD_ITS ---
EXAM: XR HIP RT COMPLETE AP PELVIS CLINICAL HISTORY: chronic right hip pain. TECHNIQUE: 2D digital imaging was performed. COMPARISON: CR XR HIP RT COMPLETE AP PELVIS from 09/19/2019 FINDINGS: No evidence of pelvic or hip fracture. Mild degenerative changes. No abnormal soft tissue calcifica tions. No osseous lesions evident. Sacroiliac joints appear unremarkable. IMPRESSION: DATA REPOSITORY: RADIATION DOSE DELIVERED:
--- NOTE | 2020-07-05 15:08 | NUR.NOTE ---
Addendum entered by Muriel Lynn 07/05/20 15:09: pt son. requesting call back with plan Original Note: Artemio Kiser,
--- NOTE | 2020-07-05 15:10 | ED.GENADUL_ITS ---
Discharge Plan Disposition Patient Disposition: [facility] INPATIENT Condition: Stable Discharge Details Clinical Impression: Hip pain, right Primary Care Provider: Keila Vargas ED Provider: Narciso Ellis [place] Meds and New Rx's Prescriptions: No Action triamcinolone acetonide 0.1 % cream 1 applic TP BID PRN Qty: 80 RF: 2 nystatin (bulk) 500 million unit powder See Rx Instructions miscellaneous BID Qty: 1 RF: 3 ketoconazole 2 % cream 1 applic TP BID PRNRF: 0 valacyclovir 1 gram tablet 2,000 mg PO BID PRNRF: 0 clotrimazole 1 % cream 1 applic Topical DAILY PRNRF: 0 hydrocortisone 0.5 % cream 1 applic Topical BID PRNRF: 0 diclofenac sodium [Voltaren] 1 % gel 2 g topical QID Qty: 100 RF: 0 hydrochlorothiazide 25 mg tablet 25 mg PO DAILY Qty: 90 RF: 5 (DME) blood-glucose meter [Chu Shu Verio IQ Meter] misc See Dose Instructions .ROUTE .MEDSUPPLY Qty: 1 RF: 0 (DME) Blood Glucose Test Strip 1 ea Miscellaneous DAILY Qty: 100 RF: 1 lorazepam 1 mg tablet 0.5 - 1 mg PO DAILY PRN (Reason: anxiety) Qty: 25 RF: 0 (DME) lancets 28 gauge misc 1 ea Miscellaneous DAILY Qty: 100 RF: 0 potassium chloride 20 mEq tablet extended release 20 meq PO DAILY Qty: 90 RF: 1 metformin 500 mg tablet 500 mg PO DAILY Qty: 90 RF: 4 gabapentin 300 mg capsule 600 mg PO TID Qty: 180 RF: 2 cyclobenzaprine 10 mg tablet 10 mg PO BID PRN (Reason: muscle spasm) Qty: 180 RF: 3 ibuprofen 600 mg tablet 600 mg PO QID PRN (Reason: pain) Qty: 90 RF: 2 cholecalciferol (vitamin D3) [Vitamin D3] 50 mcg (2,000 unit) capsule 150 mcg PO DAILY RF: 0 lidocaine 4 % adhesive patch,medicated 1 patch topical DAILY PRN (Reason: pain) 5 Days Qty: 10 RF: 0 prednisone 20 mg tablet 40 mg PO DAILY 5 Days Qty: 10 RF: 0 diazepam 2 mg tablet 2 mg PO QHS PRN (Reason: muscle spasm) Qty: 5 RF: 0 Medical Decision Making 64 yo female with hx of 3 years of right hip pain with prior injections by ortho that she states provided minimal relief comes in with continued right hip pain and was seen on 07/02 with negative labs and ct lumbar spine comes in with continued pain and feels she can't care for herself at home as she is basically bed bound. She denies difficulty urinating and is able to get up to a commode. She has no saddle anesthesia and was given fentanyl by ems and states it does feel mildly improved and can fully move the hip. No significant swelling, no erythema, warmth and denies fevers or chills. Her symptoms are most likely due to chronic arthritis and denies any falls so doubt fracture/dislocation and no findings on exam to suggest cauda equina or spinal epidural abscess. Her history and exam also are not consistent with osteo or septic joint. Will obtain xray and consult care management. xray negative and did discuss with Dr. harris who did not feel any emergent procedure would benefit at this time. Will discuss with hospilatist about admission. Care management evaluated and feel she would be able to get placed at rehab and patient is open to this Differential Diagnosis Differential Diagnosis: chronic pain, arthritis, bursitis Imaging Data Radiologic Study: Attestation: I personally reviewed and interpreted this imaging study as follows: Imaging: X-Ray Radiologist's impression: IMPRESSION: No acute findings. Degenerate arthritis lower lumbar spine hips appears similar to 09/19/2019. HPI General Mode of arrival: EMS . Date/Time Provider Initiated Documentation: 07/05/20 14:42 . Limitations to Documentation: no limitations . Information obtained by: patient . History of Present Illness 64 year old F presents to the emergency department with the chief complaint of hip pain, described as moderate, and it has been constant. No relieving factors improve symptom(s), No exacerbating factors reported . Patient did receive the following treatments prior to arrival, none Related Data Home Medications Medication Instructions Recorded Confirmed blood-glucose meter #1 each 01/31/18 07/05/20 triamcinolone acetonide 0.1 % 1 applic TP BID PRN #80 gm 03/06/18 07/05/20 topical cream nystatin (bulk) 500 million unit See Rx Instructions MISCELLANEOUS 03/13/18 07/05/20 powder BID #1 each valacyclovir 1 gram tablet 2,000 mg PO BID PRN tab-cap 05/20/18 07/05/20 ketoconazole 2 % topical cream 1 applic TP BID PRN 11/18/18 07/05/20 clotrimazole 1 % topical cream 1 applic TOPICAL DAILY PRN gm 01/13/19 07/05/20 hydrocortisone 0.5 % topical cream 1 applic TOPICAL BID PRN gm 01/13/19 07/05/20 blood sugar diagnostic #100 strip 07/14/19 07/05/20 lorazepam 1 mg tablet 0.5 - 1 mg PO DAILY PRN #25 tab 07/23/19 07/05/20 lancets 28 gauge #100 ea 10/18/19 07/05/20 cholecalciferol (vitamin D3) 50 150 mcg PO DAILY cap 01/13/20 07/05/20 mcg (2,000 unit) capsule potassium chloride 20 mEq 20 meq PO DAILY #90 tab 01/26/20 07/05/20 tablet,extended release metformin 500 mg tablet 500 mg PO DAILY #90 tab 03/10/20 07/05/20 diclofenac sodium 1 % topical gel 2 g TOPICAL QID #100 g 03/31/20 07/05/20 gabapentin 300 mg capsule 600 mg PO TID #180 cap 04/19/20 07/05/20 hydrochlorothiazide 25 mg tablet 25 mg PO DAILY #90 tab 05/06/20 07/05/20 cyclobenzaprine 10 mg tablet 10 mg PO BID PRN #180 tab 05/28/20 07/05/20 ibuprofen 600 mg tablet 600 mg PO QID PRN #90 tab 06/25/20 07/05/20 diazepam 2 mg PO QHS PRN #5 tab 07/02/20 07/05/20 lidocaine 1 patch TOPICAL DAILY PRN 5 Days 07/02/20 07/05/20 #10 ea prednisone 40 mg PO DAILY 5 Days #10 tab 07/02/20 07/05/20 Previous Rx's Medication Instructions Recorded blood-glucose meter #1 each 01/31/18 triamcinolone acetonide 0.1 % 1 applic TP BID PRN #80 gm 03/06/18 topical cream nystatin (bulk) 500 million unit See Rx Instructions MISCELLANEOUS 03/13/18 powder BID #1 each blood sugar diagnostic #100 strip 07/14/19 lorazepam 1 mg tablet 0.5 - 1 mg PO DAILY PRN #25 tab 07/23/19 lancets 28 gauge #100 ea 10/18/19 potassium chloride 20 mEq 20 meq PO DAILY #90 tab 01/26/20 tablet,extended release metformin 500 mg tablet 500 mg PO DAILY #90 tab 03/10/20 diclofenac sodium 1 % topical gel 2 g TOPICAL QID #100 g 03/31/20 gabapentin 300 mg capsule 600 mg PO TID #180 cap 04/19/20 hydrochlorothiazide 25 mg tablet 25 mg PO DAILY #90 tab 05/06/20 cyclobenzaprine 10 mg tablet 10 mg PO BID PRN #180 tab 05/28/20 ibuprofen 600 mg tablet 600 mg PO QID PRN #90 tab 06/25/20 diazepam 2 mg PO QHS PRN #5 tab 07/02/20 lidocaine 1 patch TOPICAL DAILY PRN 5 Days 07/02/20 #10 ea prednisone 40 mg PO DAILY 5 Days #10 tab 07/02/20 Allergies Allergy/AdvReac Type Severity Reaction Status Date / Time Sulfa (Sulfonamide Allergy Intermediate Skin Rash Unverified 07/05/20 14:42 Antibiotics) adhesive tape Allergy Mild mild rash Verified 07/05/20 14:42 and itching General Stated Complaint: GenMedical BETZAIDA: 3 Review of Systems All systems reviewed & are unremarkable except as noted in HPI and below Constitutional Constitutional: Denies chills and Denies fever(s) Cardiovascular Cardiovascular: Denies chest pain and Denies dyspnea Respiratory Respiratory: Denies cough and Denies dyspnea Gastrointestinal Gastrointestinal: Denies abdominal pain, Denies nausea and Denies vomiting Psychiatric Psychiatric: Denies depression [facility] Medical History DM (diabetes mellitus) HTN (hypertension) Hyperlipidemia Internal derangement of right knee Lumbosacral radiculopathy On antibiotic therapy JOSEY (obstructive sleep apnea) Peripheral neuropathy Sarcoid Surgical History section x 3 Colonoscopy - MAC (02/11/16) Nasal septoplasty Family History Mother Essential hypertension Cancer Diabetes Hyperlipidemia Primary biliary cholangitis Father , AGE 74 Heart disease Hyperlipidemia Brother Essential hypertension Diabetes Hyperlipidemia Maternal Grandfather Prostate cancer Paternal Grandfather , AGE 45 Diabetes Maternal Grandmother , AGE 84 Diabetes Heart disease Paternal Grandmother Lung cancer Other Lumbosacral radiculopathy Social History Smoking/Tobacco Use Status: Never Smoking risk assessment performed?: Yes Alcohol Intake: current Alcohol Intake frequency: a few times a month Drug use: Never Substance use type: does not use Caregiver/Support person: No Household members: none Do you need help understanding health information?: Never Pets and animals: Yes Pets and animals: cat(s) Sexually active: No Do you think of yourself as: straight/heterosexual Current gender identity: female What is your relationship status?: How often do you talk on the phone with friends or family?: three or more times per week How often do you get together with friends or relatives?: three or more times per week How often do you attend quaker or presybeterian services?: 1-3 times per year Do you belong to any clubs or organized social groups?: no Panel score (0-1 are the most socially isolated patients): 1 What type of physical activity do you participate in: none Duration: decline to answer Frequency: decline to answer Maria Fernanda/Yazidi: Presybeterian Special maria fernanda needs: No Seatbelt use: always Helmet use: Yes Helmet use: always Drive intox or ride w/intox pack train driver: No Do you feel safe at home: Yes Additional Social history: lives alone - son helps out Exam Const General: no acute distress Orientation: alert HENMT Head: normal to inspection Ears: external ears normal General nose exam: external nose normal Mouth: moist mucous membranes Eyes General: appearance normal, both eyes and all related structures Neck Neck: normal visual inspection Resp Effort & Inspection: normal respiratory effort and able to speak in complete sentences Cardio Rate: regular rate Skin General skin exam: no rashes or lesions noted Neuro General: patient alert and patient oriented x3 Extrem General: normal to inspection Psych Mental Status: mental status grossly normal Course Vital Signs Vital signs: Vital Signs Temperature 37.1 C 07/05/20 14:37 Pulse 120 H 07/05/20 14:37 Respiratory Rate 18 07/05/20 14:37 Blood Pressure 175/107 H 07/05/20 14:37 Pulse Oximetry 94 07/05/20 14:37 Temperature 37.1 C 07/05/20 14:37 Temperature Source Skin 07/05/20 14:37 Pulse 120 H 07/05/20 14:37 Respiratory Rate 18 07/05/20 14:37 Blood Pressure 175/107 H 07/05/20 14:37 Blood Pressure Position Supine 07/05/20 14:37 Pulse Oximetry 94 07/05/20 14:37 Oxygen Delivery Method Room Air 07/05/20 14:37 Oxygen Flow Rate 0 07/05/20 14:37 Pain Level 10 07/05/20 14:37
--- NOTE | 2020-07-05 16:06 | DI.VRAD_ITS ---
PROCEDURE INFORMATION: Exam: XR Right Hip Exam date and time: 07/05/2020 3:46 PM Age: 64 years old Clinical indication: Right hip; Patient HX: Chronic R hip pain TECHNIQUE: Imaging protocol: XR Right hip. Views: 2 or 3 views hip with pelvis when performed. COMPARISON: CR XR HIP RT COMPLETE AP PELVIS 09/19/2019 9:58 AM FINDINGS: Bones/joints: Bones are demineralized. Degenerative arthritis visualized lower lumbar spine. Mild hypertrophic change in the bilateral acetabula E. Soft tissues: Unremarkable. IMPRESSION: No acute findings. Degenerate arthritis lower lumbar spine hips appears similar to 09/19/2019. Dictated and Authenticated by: Alexa Callaway MD. Ordering:CHELA Stuart MD
[2020-07-05] MEDS: Ketorolac 15 MG/ML VIAL IVP (16:52)
--- NOTE | 2020-07-05 17:48 | HPE_ITS ---
Date of service: 07/05/20 Time of Service: 17:49 Assessment and Plan Assessment and plan (1) Radiculitis: Status: Acute Assessment and plan: Progression of chronic radicular pain. Might benefit from MRI but I don't know when this was last done. In meantime will need pain management and could perhaps be seen by pain clinic. For tonight will use prn opiates. Could also try titrate up the Gabapentin. History of Present Illness History of Present Illness Chief Complaint: chronic leg pain Narrative: 64 female with chronic RLE pain that has been described as LS radiculopathy. Has had multiple imaging studies in past that reportedly did not identify a culprit lesion, and says her neurosurgeon has told her this is not a surgical issue. Has had multiple injections (I believe both in hip and spine) with little effect. Has seen Orthopedics extensively and exhausted all orthopedic avenues. States pain is worse over past week or so and feels she can no longer manage at home (states things are marginal at home to begin with and have slipped into unmanageable). Current pain regimen consists of alternating APAP and NSAIDs, Gabapentin and muscle relaxants, along with topical Lidocaine and current pulse steroids. En route received Fenatnyl with effect, and here in ER has just received dose Toradol. Patient states she feels she needs placement and this has been reviewed with Care Management in ER. Review of Systems All systems reviewed & are unremarkable except as noted in HPI and below PFSH Medical History DM (diabetes mellitus) HTN (hypertension) Hyperlipidemia Internal derangement of right knee Lumbosacral radiculopathy On antibiotic therapy JOSEY (obstructive sleep apnea) Peripheral neuropathy Sarcoid Surgical History section x 3 Colonoscopy - MAC (02/11/16) Nasal septoplasty Family History Mother Essential hypertension Cancer Diabetes Hyperlipidemia Primary biliary cholangitis Father , AGE 74 Heart disease Hyperlipidemia Brother Essential hypertension Diabetes Hyperlipidemia Maternal Grandfather Prostate cancer Paternal Grandfather , AGE 45 Diabetes Maternal Grandmother , AGE 84 Diabetes Heart disease Paternal Grandmother Lung cancer Other Lumbosacral radiculopathy Social History Smoking/Tobacco Use Status: Never Smoking risk assessment performed?: Yes Alcohol Intake: current Alcohol Intake frequency: a few times a month Drug use: Never Substance use type: does not use Caregiver/Support person: No Household members: none Do you need help understanding health information?: Never Pets and animals: Yes Pets and animals: cat(s) Sexually active: No Do you think of yourself as: straight/heterosexual Current gender identity: female What is your relationship status?: How often do you talk on the phone with friends or family?: three or more times per week How often do you get together with friends or relatives?: three or more times per week How often do you attend denominational or orthodox services?: 1-3 times per year Do you belong to any clubs or organized social groups?: no Panel score (0-1 are the most socially isolated patients): 1 What type of physical activity do you participate in: none Duration: decline to answer Frequency: decline to answer Maria Fernanda/Rastafari: Mormonism Special maria fernanda needs: No Seatbelt use: always Helmet use: Yes Helmet use: always Drive intox or ride w/intox regional otr company driver: No Do you feel safe at home: Yes Additional Social history: lives alone - son helps out Meds Home Medications and Allergies Allergies Allergy/AdvReac Type Severity Reaction Status Date / Time Sulfa (Sulfonamide Allergy Intermediate Skin Rash Unverified 07/05/20 14:42 Antibiotics) adhesive tape Allergy Mild mild rash Verified 07/05/20 14:42 and itching Home Medications Medication Instructions Recorded Confirmed Type blood-glucose meter #1 each 01/31/18 07/05/20 Rx triamcinolone acetonide 0.1 % 1 applic TP BID PRN #80 gm 03/06/18 07/05/20 Rx topical cream nystatin (bulk) 500 million unit See Rx Instructions MISCELLANEOUS 03/13/18 07/05/20 Rx powder BID #1 each valacyclovir 1 gram tablet 2,000 mg PO BID PRN tab-cap 05/20/18 07/05/20 History ketoconazole 2 % topical cream 1 applic TP BID PRN 11/18/18 07/05/20 History clotrimazole 1 % topical cream 1 applic TOPICAL DAILY PRN gm 01/13/19 07/05/20 History hydrocortisone 0.5 % topical cream 1 applic TOPICAL BID PRN gm 01/13/19 07/05/20 History blood sugar diagnostic #100 strip 07/14/19 07/05/20 Rx lorazepam 1 mg tablet 0.5 - 1 mg PO DAILY PRN #25 tab 07/23/19 07/05/20 Rx lancets 28 gauge #100 ea 10/18/19 07/05/20 Rx cholecalciferol (vitamin D3) 50 150 mcg PO DAILY cap 01/13/20 07/05/20 History mcg (2,000 unit) capsule potassium chloride 20 mEq 20 meq PO DAILY #90 tab 01/26/20 07/05/20 Rx tablet,extended release metformin 500 mg tablet 500 mg PO DAILY #90 tab 03/10/20 07/05/20 Rx diclofenac sodium 1 % topical gel 2 g TOPICAL QID #100 g 03/31/20 07/05/20 Rx gabapentin 300 mg capsule 600 mg PO TID #180 cap 04/19/20 07/05/20 Rx hydrochlorothiazide 25 mg tablet 25 mg PO DAILY #90 tab 05/06/20 07/05/20 Rx cyclobenzaprine 10 mg tablet 10 mg PO BID PRN #180 tab 05/28/20 07/05/20 Rx ibuprofen 600 mg tablet 600 mg PO QID PRN #90 tab 06/25/20 07/05/20 Rx diazepam 2 mg PO QHS PRN #5 tab 07/02/20 07/05/20 Rx lidocaine 1 patch TOPICAL DAILY PRN 5 Days 07/02/20 07/05/20 Rx #10 ea prednisone 40 mg PO DAILY 5 Days #10 tab 07/02/20 07/05/20 Rx Exam Narrative Exam Narrative: 149/87, 107, 36.8, 18, 95% RA. HEENT atraumatic; neck supple; lungs clear; heart RRR; abdomen soft and NT; extremities w/o edema, no pain with PROM hip and no tenderness over gr trochanter. Motor 5/5, snesory intact light touch, straight leg raising on right + @ 45 degrees Results Labs Labs: Laboratory Results - last 24 hr 07/05/20 17:00 COVID-19 Source Nasopharyx Last Vital Signs Temp 36.8 C 07/05/20 16:36 Pulse 107 H 07/05/20 17:45 Resp 18 07/05/20 17:45 BP 149/87 H 07/05/20 17:45 Pulse Ox 95 07/05/20 17:45 COVID-19 Screening Have you, or household traveled for leisure in last 14 days?: No Had IN PERSON contact w/suspected or confirmed C-19 person: No
--- NOTE | 2020-07-05 18:48 | INITIAL_ITS ---
- If Service Date Differs Date of service: 07/05/20 Time of Service: 18:48 Care Management Initial Assess PAST MEDICAL HISTORY/PAST SURGICAL HISTORY:: Medical History: DM (diabetes mellitus), HTN (hypertension), Hyperlipidemia, Internal derangement of right knee, Lumbosacral radiculopathy, On antibiotic therapy, JOSEY (obstructive sleep apnea),. Peripheral neuropathy, and Sarcoid. Surgical History: section x 3, Colonoscopy - MAC (02/11/16), and Nasal septoplasty. PREVIOUS FUNCTIONAL STATUS/SOCIAL/FAMILY SUPPORTS:: Leah is a 64 year old female who lives alone with her cats in [place]. She works for [employer] and is currently working from home. Leah is but she has lots of family support. She has a daughter who lives in [place] and a son Philip who lives in [place], in addition to her 83 year old mother who is her neighbor and her brother Thee who is up the road. CURRENT FUNCTIONAL STATUS:: Leah is laying in bed when CM meets with her. She is pleasant and easily engages in conversation. She talks about her hip pain that started approximately 3 years ago and has recently worsened to the point where she has been unable to get out of bed since last Sunday. ADVANCE DIRECTIVES:: On file; her brother Thee Dawson is listed as Health Care Agent and her son Artemio Kiser as Alternate Agent. Has patient been provided with info about the portal/API?: Yes Did the patient sign up for the portal?: Yes (Previously enrolled) CODE STATUS:: Full Code INSURANCE COVERAGE / FINANCIAL ISSUES:: [employer] CURRENT HOME/COMMUNITY SERVICES/EQUIPMENT:: Leah does not have any in-home or community services. She has a hospital bed and a walker at home. PRIMARY CARE PHYSICIAN:: Keila Vargas MD POTENTIAL DISCHARGE NEEDS:: Short-term rehab. PATIENT/FAMILY EDUCATION NEEDS:: Discharge instructions, limitations, and follow up plan of care, including Ask Me Three and self management. ANTICIPATED BARRIERS TO DISCHARGE:: None. TRANSPORTATION:: To be determined based on disposition. PLAN:: Anticipate Leah will be discharged to a short-term rehab when medically cleared by provider. Transportation is to be determined based on disposition. CM will continue to support patient and discharge planning needs.
[2020-07-05] MEDS: Gabapentin 300 MG CAP 600 MG PO (19:44)
[2020-07-05] MEDS: Acetaminophen 325 MG TAB 650 MG PO (19:44)
[2020-07-05] MEDS: Cyclobenzaprine 10 MG TAB PO (19:44)
[2020-07-05] MEDS: Diclofenac 1% Gel 100 GM TUBE TP (20:21)
[2020-07-05 21:57] LABS: COVID-19 PCR Negative (Negative)
[2020-07-05] MEDS: oxyCODONE 5 MG TAB PO (22:14)
[2020-07-05] MEDS: Milk of Magnesia 30 ML CUP PO (22:15)
[2020-07-06] MEDS: diazePAM 2 MG TAB PO (01:45)
[2020-07-06] MEDS: Ibuprofen 600 MG TAB PO ×2 (01:46→09:19)
[2020-07-06 01:52] VITALS: BP 149/85; PULSE 99; RESP 18; TEMP 36.6; O2SAT 93
[2020-07-06] MEDS: oxyCODONE 5 MG TAB PO ×3 (06:18→23:43)
[2020-07-06 07:11] VITALS: BP 110/73; PULSE 94; RESP 19; TEMP 36.7; O2SAT 97
--- NOTE | 2020-07-06 08:11 | RESPIRATORY ---
Respiratory noted a hx of JOSEY in pt's chart, when asked about it, pt stated that she was diagnosed with JOSEY but has never owned a machine and is looking into a follow-up visit to obtain one.
[2020-07-06] MEDS: Diclofenac 1% Gel 100 GM TUBE TP ×4 (08:20→19:57)
[2020-07-06] MEDS: hydroCHLOROthiazide 25 MG TAB PO (08:21)
[2020-07-06] MEDS: Docusate Sodium 100 MG CAP PO ×2 (08:21→19:56)
[2020-07-06] MEDS: Potassium Chloride 20 MEQ TABCR PO (08:21)
[2020-07-06] MEDS: Gabapentin 300 MG CAP 900 MG PO ×3 (08:21→19:56)
[2020-07-06] MEDS: Acetaminophen 325 MG TAB 650 MG PO ×4 (08:22→19:56)
[2020-07-06] MEDS: Nystatin POWDER 15 GM JAR TP ×2 (08:23→20:11)
[2020-07-06] MEDS: metFORMIN 500 MG TAB PO (08:23)
[2020-07-06] MEDS: predniSONE 20 MG TAB 40 MG PO (08:23)
[2020-07-06] MEDS: Cyclobenzaprine 10 MG TAB PO ×2 (09:19→20:10)
--- NOTE | 2020-07-06 09:23 | CMPROGNOTE_ITS ---
Care Management Progress Note S/O: Leah was lying in bed, flat, when CM met with her. She reported her pain was manageable if she was lying still. She tried to raise her bed to eat her lunch and was unable to do so. She shared her experience in the MRI machine, which she reported was difficult due to her claustrophobia. She reviewed her current functional status and stated there are times when she is able to walk and then times she can not. She reported her current status is the worst she's been. CM requested Palliative Consult with Dr. Vargas and notified Dr. Vargas of the request. Leah reported she does not currently understand what is happening to her medically or what her choices are moving forward. She wants to go to SNF because she can no longer manage home alone. She reports wanting to recover and walk again and be active. KRYSTIN Quevedo reports MRI images will be pushed to [facility] for determination for surgical intervention, Emy also reports per clinical review it does appear Leah was deemed to be a candidate for fusion prior to this episode. CM continues to follow. A: 64 year old female admitted to [facility] 07/06/20 for chronic radiculitis P: Leah will be evaluated by PT/OT. CM faxed referrals to [facility] and [facility] for possible placement. Leah's first choice is [facility] as she wants to be closer to home. Nohemy of Admissions submitted prior authorization to Leah's insurance for admission. CM continues to follow.
--- NOTE | 2020-07-06 11:31 | W.NUTCONSULT ---
Date of service: 07/06/20 Time of Service: 11:15 Nutritional Consult ASSESSMENT: 64 y/o F with R hip pain and peripheral neuropathy w/ hx DM. She is on CCHO diet and tolerating well. Patient requested from Patient Nutrition senior care assistant to eat her meals in a prone position which was cause for concern due to potential for aspiration. NUTRITIONAL DIAGNOSIS: DM
--- NOTE | 2020-07-06 11:37 | PT.INIE ---
Date of service: 07/06/20 Time of Service: 11:37 PT Notes Visit Reasons: CHRONIC RADICULITIS Physical Therapy Inpatient Initial Evaluation Date: 07/06/2020 Referring Doctor: Emy Borges NP PT Orders: PT CONSULT: Eval/treat. Precautions: Fall. Standard. Activity as tolerated. Patient Profile/Admitting Diagnosis: Leah is a 64-year-old female who presented to the ED on 07/05/2020 with worsening right hip pain. She is diagnosed with radiculitis and is referred for physical therapy for discharge planning and functional mobility retraining. PMHX: Medical History DM (diabetes mellitus) HTN (hypertension) Hyperlipidemia Internal derangement of right knee Lumbosacral radiculopathy On antibiotic therapy JOSEY (obstructive sleep apnea) Peripheral neuropathy Sarcoid Surgical History section x 3 Colonoscopy - MAC (02/11/16) Nasal septoplasty Social History/Home Situation: Lives lone in an apartment. Has been on and off use of FWW in the past 6 months. Works from home for [employer]. Has family/relatives who live close by. Equipment Owned/DME: Hospital bed, FWW Subjective: Stated that she has tried all services that can help with her pain. She worked with physical therapy in [place], saw a private PT here in [facility] recently who she stated helped her a lot symptom-rhodes, and she worked with a chiropractor in [place] since April this year. She elaborated that she received a [place] at [facility] [place] her SI [place] but this made her symptoms worse. She indicates that [facility] [place] said that it is her hip that is causing the problem and that she needed to see an orthopedic surgeon for it. However, she recalls that with consult with Dr. Morley, it is not her hip that is the issue but her spine. She politely refused to move for assessment as she states that movement causes severe pain. Objective: General Observation: Quarter-turned to the left, LE bent at the hip and knee with R hip adducted down to bed. Mental Status: Alert and oriented x4 Pain: 2-3/10 at rest, 10/10 with any kind of movement or if she lies flat in bed ROM: Right Lower Extremity: Unable to test at this time due to significant pain. Left Lower Extremity: Unable to test at this time due to significant pain. Strength: Right Lower Extremity: Grossly 2-/5 Left Lower Extremity: Grossly 2-/5 Sensation: Intact as to pain and pressure on bilateral lower extremities. Bed Mobility/Transfers: Rolling total assistance Supine to sit unable to test due to pain, will await MRI result Sit to supine unable to test due to pain, will await MRI result Sit to stand unable to test due to pain, will await MRI result Stand to sit unable to test due to pain, will await MRI result Bed to chair unable to test due to pain, will await MRI result Chair to bed unable to test due to pain, will await MRI result Gait: unable to test due to pain, will await MRI result Balance: Static Sitting: unable to test due to pain, will await MRI result Dynamic Sitting: unable to test due to pain, will await MRI result Static Standing: unable to test due to pain, will await MRI result Dynamic Standing: unable to test due to pain, will await MRI result Special Tests: Mobility Limitations Standardized Measure [facility] 6 clicks Basic Mobility Inpatient Short Form: Raw Score: 6 CMS Score: 100% deficit Informed Consent/Education: Patient instructed in purpose of PT consult and plan of care. Assessment: Leah corcoran refused mobility assessment this morning due to significant pain with any type of movement. She has extreme anxiety about moving at this time. She did agree to wait for MRI result prior to attempting mobility performance. Knowing that she has previously exhausted all services that could help, it was mutually agreed with the patient to see any new degenerative changes in her spine that may be causing symptom exacerbation with the MRI result first prior to attempting any new PT intervention for this admission. Will touch base with MD regarding plan of care as needed. Patient presents with clinical signs and symptoms consistent with current/admitting diagnoses that have resulted to mobility limitations, gait instability, generalized weakness, and impairment of motor control as demonstrated by the following impairment level findings: 1. Decreased strength to B LE major muscle groups 2. Unable to move in bed and out of bed 3. No activity tolerance for sitting 4. Significant pain in low back with R lumbar area and R hip more affected 5. Pain avoidance behavior Impairments are contributing to the following functional limitations: 1. Dependent bed mobility skills 2. Dependence with transfers 3. Inability to ambulate 4. Increased fall risk Patient is assessed as a 70461 high complexity based on the following: History: 64-year-old female with impairment level findings, functional limitations, and past medical history as indicated above Examination: Demonstrable impairment in strength, balance, and mobility level with underlying impairments and functional limitations as documented above Presentation:Evolving Decision Makin high complexity Goals: Goals X1 week 1. Supine-Sit minimal assist 2. Sit-Supine minimal assist 3. Sit-Stand minimal assist 4. Stand-Sit minimal assist 5. Bed-Chair minimal assist 6. Chair-Bed minimal assist 7. Minimal assist gait on level surface with use of least restrictive device for at least 30feet without report of pain nor dyspnea 8. Minimal assist stair negotiation while holding onto bilateral rails for at least 5 steps without report of pain nor dyspnea 9. Fair static and dynamic standing balance/tolerance Plan of Care/Treatment Plan: 1-2x/day, 7 days/week x 1 week. Plan of care has been reviewed with the TENNIS DIRECTOR providing the service under Physical Therapy direction. Initiate Physical Therapy intervention for strengthening, bed mobility, transfers, gait, stairs, balance training, use of assistive device. DISCHARGE RECOMMENDATIONS: Patient will benefit from short-term snf facility placement for continued skilled physical therapy services in order to progress mobility level, strength, and balance in preparation for a safe discharge to home. TREATMENT CODE/TIME: 59051 x 22 minutes beginning at 11:37 AM. Thank you for the opportunity to participate in the care of this patient. Marlee Meza PT, DPT, CLT [facility] [place], [place]
--- NOTE | 2020-07-06 11:38 | NS.NUTBLAN_ITS ---
Date of service: 07/06/20 Time of Service: 11:15 Nutritional Consult ASSESSMENT: 64 y/o F with DM and neuropathy. Recent BG 172 mg/dl (07/02). No recent A1c available. She is on 500mg metformin Qd per documentation. Patient requested from dietary staff member that she be able to eat her meals in a prone position causing some concern for potential aspiration and notifying RD for f/u w/ patient and nursing. NUTRITIONAL DIAGNOSIS: Elevated BG and neuropathy r/t DM, AEB: BG 176 mg/ dl (H) and on gabapentin. INTERVENTION: This RD spoke to patient about her request to eat in the prone position and the potential for aspiration. STRATEGIC PARTNER DEVELOPMENT MANAGER and RN were present at this encounter. Patient stated that this request was r/t her pain on R side. STRATEGIC PARTNER DEVELOPMENT MANAGER and nursing are working with patient to resolve this issue and also advised her to elevate during meals. MONITORING AND EVALUATION: Monitor BG and recommend A1c lab. Time Spent in Nutritional Counseling and Treatment: 5 minutes face to face
[2020-07-06] MEDS: Polyethylene Glycol 3350 17 GM PACKET PO ×2 (12:01→19:56)
--- NOTE | 2020-07-06 12:19 | W.PM.PROGNOT ---
Date of Service Date of service: 07/06/20 Time of Service: 12:20 Assessment and Plan Assessment and plan (1) Lumbosacral radiculopathy: Status: Acute Assessment and plan: likely exacerbated last week moving lawn furniture. no evidence of cord compression syndrome by history or exam. last MRI over 1 year ago, will repeat today recommendations were for L3-4 and L4-5 decompression and fusion. continue scheduled apap, diclofenac gel, started on steroids PT/OT. seen by neurology at [facility] Day Apr 2019 (2) Essential hypertension: Status: Acute Assessment and plan: stable, continue home medication (3) Diabetes mellitus: Status: Acute Assessment and plan: A1C 6.11 mar 2020 diabetic diet, continue metformin anticipate hyperglycemia in setting of steroids. check blood sugars ac/hs and provide sliding scale if needed. (4) Parkinsonism: Status: Acute Assessment and plan: at baseline. resting tremor upper extremities (5) Peripheral neuropathy: Status: Acute Assessment and plan: gabapentin increased discussed with Dr Alexandre Subjective Subjective Patient reports: still having pain and no bowel movement; denies voiding w/o difficulty Interval history since last seen: required straight cath last night for retention of approx 450 cc. no BM but denies abdominal pain, nausea or vomiting. reports passing flatus. denies saddle anesthesia. Exam Const General: cooperative, no acute distress and frail appearing (older than stated age) Nutritional Appearance: obese Orientation: alert, awake and oriented x3 HENMT Head: normal to inspection, normocephalic and atraumatic Mouth: oral mucosae normal Resp Effort & Inspection: normal respiratory effort Auscultation: clear to auscultation bilaterally Cardio Rate: regular rate Rhythm: regular rhythm GI Inspection: normal to inspection Palpation: soft Auscultation: normal bowel sounds Rectal Exam - female: visual inspection normal, normal sphincter tone, No fecal impaction (no stool in vault) and No hemorrhoids Skin Lesions: other (not visualized, mepilex intact to coccyx) Neuro General: patient alert, patient awake and patient oriented x3 Extrem General: normal to inspection and full ROM (unable to perform straight leg raise secondary to pain) Objective Last Vital Signs Temp 36.7 C 07/06/20 07:11 Pulse 94 H 07/06/20 07:11 Resp 19 07/06/20 07:11 BP 110/73 07/06/20 07:11 Pulse Ox 97 07/06/20 07:11 Laboratory Results - last 24 hr 07/05/20 17:00 COVID-19 Source Nasopharyx SARS-CoV-2 (PCR) Negative
--- NOTE | 2020-07-06 13:38 | CHAPLAIN ---
Leah was lying flat in bed and said she was most comfortable this way, unless she moves. She told me about her grandson and showed my photos and videos of him. She said she is well supported by family.
[2020-07-06] MEDS: HYDROmorphone 2 MG/ML VIAL 0.5 MG IVP (14:11)
[2020-07-06] MEDS: LORazepam 2 MG/ML VIAL 1 MG IVP (14:12)
--- NOTE | 2020-07-06 15:10 | DI.MRI_ITS ---
EXAM: MR LUMBAR SPINE WO CLINICAL HISTORY: radiculopathy, disc herniation. TECHNIQUE: Multiplanar multisequence MRI was performed. COMPARISON: MR MR lumbar spine wo from 01/02/2018 FINDINGS: Exam is mildly limited by patient motion. The marrow signal is normal. No compression fractures are seen. Conus medullaris appears normal. T here is slight disc bulging at T12-L1. The L1-2 disc is intact. There is mild to moderate disc bul ging at L2-3, eccentric toward the left. There are facet degenerative changes. There is bilateral n eural foraminal narrowing, greater on the left. There is mild ligamentous hypertrophy and mild facet degenerative changes . At L3-4, there is moderate disc bulging which is eccentric toward the right. There are facet degenerative changes and ligamentous hypertrophy combining to produce mild central canal stenosis. There is severe right neural foraminal narrowing. At L4-5, there is broad-based dis c bulging. There are prominent facet degenerative changes, left greater than right. There is modera te degree of central canal stenosis as well as moderate to severe neural foraminal narrowing. At L5- S1, there is disc bulging eccentric toward the right. There is severe right neural foraminal encroac hment. There is mild left neural foraminal narrowing. There is no central canal stenosis. IMPRESSION: Degenerative disc changes and facet degenerative changes are seen greatest at L5 3 4 and L4-5. There is severe neural foraminal narrowing at L3-4 and a moderate central canal stenosis as well as neural foraminal narrowing at L4-5. DATA REPOSITORY:
[2020-07-06 15:28] VITALS: BP 144/73; PULSE 112; RESP 18; TEMP 36.7; O2SAT 93
[2020-07-06 15:40] LABS: Bilirubin Negative (Negative); Blood Negative (Negative); Clarity Clear (Clear); Glucose Negative (Negative); Ketones Negative (Negative); Leukocyte Esterase Negative (Negative); Nitrite Negative (Negative); Specific Gravity 1.025 (1.005-1.025); Urobilinogen 0.2 EU/dL (Up TO 0.2)
--- NOTE | 2020-07-06 15:52 | PHA.REVIEW ---
Pharmacy Admission Review - Admission Clinical Review (Last Reviewed 07/05/20 @ 17:59 by Devin Diane MD) Radiculitis (Acute) Hip pain, right (Acute) Sulfa (Sulfonamide Antibiotics) Allergy (Intermediate, Unverified 07/05/20 14:42) Skin Rash adhesive tape Allergy (Mild, Verified 07/05/20 14:42) mild rash and itching Height 5 ft 4 in Weight 84.822 kg CHRONIC RADICULIIS right hip, DJD SPINE - Comments Comments/Follow Ups: Current pain scale: zero (previously was 8/10), working w/PT. MRI spine shows degenerative disc changes and facet changes, some stenosis mostly lumbar areas. Did require premeds for anxiety prior to MRI. Pain management: Scheduled meds: APAP, Diclofenac gel, Gabapentin increased, Prednisone. As needed meds: Ibuprofen, OxyIR, Diazepam, Cyclobenzaprine. Nursing reports urinary retention and needing to be cath'd. Urinalysis negative. Care management send some referrals for rehab. - Renal Dosing Medications needing adjustments: Reviewed (CrCl~61ml/min) - Anticoagulation DVT Prohphylaxis: Intervened (Sent provider message asking if patient needed DVT prophylaxis) - Opiate Usage Evaluate Pain Scale/Pains Meds: Reviewed (0-8/10, OxyIR) Scheduled Bowel Reg ordered if on Opiates?: Yes (last BM 07/01/20) - Relevant Labs Electrolytes, C-Reactive P, ESR: Reviewed (no labs) - DM Control Insulin Dosing: Reviewed (Metformin) - Heart Failure/MD EF%, ANNO's, B-Blockers, Diuretics: Reviewed (HCTZ) - BP Control BP Control: Blood Pressure 144/73 Blood Pressure 110/73 - Home Meds Home Med List reviewed: Intervened (Patient requested home vitamins...not sent up, as no way to identify them (Multivit cap and Vit D gummies)) Relevent Home Meds Not ordered & why?: External med history shows HCTZ dose is 12.5mg, home med list states 25mg, but patient brought in only the 25mg...wonder if the 12.5mg was never picked up recently? Also filled on 06/16/20 an Rx for Sinemet 25/100 po TID....not on home med list, not in the bag of meds she brougt in from home. Gabapentin dose intentionally increased to 900mg TID - Comments Comments/Follow Ups: Prednisone was a 5 day course of treatment...will ask MD about a plan to stop and/or continue.
[2020-07-06 23:37] VITALS: BP 126/80; PULSE 96; RESP 17; TEMP 36.7; O2SAT 92
[2020-07-07] MEDS: diazePAM 2 MG TAB PO (02:23)
[2020-07-07 07:18] VITALS: BP 140/92; PULSE 87; RESP 16; TEMP 36.2; O2SAT 95
[2020-07-07] MEDS: Diclofenac 1% Gel 100 GM TUBE TP ×4 (07:27→20:10)
[2020-07-07] MEDS: Polyethylene Glycol 3350 17 GM PACKET PO ×2 (07:27→20:07)
[2020-07-07] MEDS: metFORMIN 500 MG TAB PO (07:28)
[2020-07-07] MEDS: oxyCODONE 5 MG TAB PO (07:28)
[2020-07-07] MEDS: Cyclobenzaprine 10 MG TAB PO ×2 (07:28→15:59)
[2020-07-07] MEDS: Acetaminophen 325 MG TAB 650 MG PO ×4 (07:28→20:07)
[2020-07-07] MEDS: hydroCHLOROthiazide 25 MG TAB PO (07:28)
[2020-07-07] MEDS: predniSONE 20 MG TAB 40 MG PO (07:28)
[2020-07-07] MEDS: Potassium Chloride 20 MEQ TABCR PO (07:28)
[2020-07-07] MEDS: Nystatin POWDER 15 GM JAR TP ×2 (07:29→20:10)
[2020-07-07] MEDS: Gabapentin 300 MG CAP 900 MG PO ×3 (07:29→20:07)
[2020-07-07] MEDS: Docusate Sodium 100 MG CAP PO (07:29)
--- NOTE | 2020-07-07 08:02 | CMPROGNOTE_ITS ---
Care Management Progress Note S/O: Leah met with Dr. Vargas this morning to discuss options including surgical intervention, if recommended. Dr. Vargas reports Leah was previously not agreeable to surgery, but per their discussion will be agreeable now due to continued decline and MRI results. Awaiting bed offer from [facility] who is awaiting prior auth through Leah's insurance. KRYSTIN Quevedo reports outreaching to [facility] who scheduled Leah's surgery for next , 07/15/20. Anticipate Leah will discharge to [facility] prior to surgery, and return to [facility] surgically. CM continues to follow. A: 64 year old female admitted to [facility] 07/06/20 for chronic radiculitis P: Leah continues to work with PT/OT. She continues to await bed offer from [facility]; Nohemy of Admissions submitted prior authorization to [employer] insurance and is awaiting determination. CM continues to follow.
[2020-07-07] MEDS: Bisacodyl 10 MG SUPP PR (09:25)
[2020-07-07] MEDS: Enoxaparin 40 MG/0.4 ML SYR SC (10:44)
[2020-07-07] MEDS: Cholecalciferol (Vitamin D3) 1,000 UNIT TAB 2000 UNITS PO (11:19)
[2020-07-07] MEDS: Multivitamin w/Minerals TAB 1 TAB PO (11:19)
[2020-07-07] MEDS: Magnesium Citrate 300 ML BTL PO (11:20)
[2020-07-07] MEDS: Insulin Aspart 300 UNITS/3 ML PEN SC (11:43)
--- NOTE | 2020-07-07 12:31 | PGE_ITS ---
Date of Service Date of service: 07/07/20 Time of Service: 12:31 Assessment and Plan Assessment and plan (1) Lumbosacral radiculopathy: Status: Acute Assessment and plan: no evidence of cord compression syndrome by history or exam. smith catheter placed for inability to empty bladder while in bed. MRI yesterday, results pushed to spine surgery at [facility], reviewed by DR Chung Javier who will see her in outpatient clinic on July 15, 2020 at 10:30 am in spine center on 3D. previous recommendations were for L3-4 and L4-5 decompression and fusion by Dr Powers in May 02, 2019. continue scheduled apap, diclofenac gel, started on steroids continue PT/OT. (2) Essential hypertension: Status: Acute Assessment and plan: stable, continue home medication (3) Diabetes mellitus: Status: Acute Assessment and plan: A1C 6.11 mar 2020 diabetic diet, continue metformin anticipate hyperglycemia in setting of steroids. check blood sugars ac/hs and provide sliding scale if needed. (4) Parkinsonism: Status: Acute Assessment and plan: at baseline. resting tremor upper extremities (5) Peripheral neuropathy: Status: Acute Assessment and plan: gabapentin increased discussed with Dr Alexandre Subjective Subjective Patient reports: still having pain, tolerating liquids well, tolerating a regular diet and no bowel movement; denies nausea and vomiting Interval history since last seen: required catheterization overnight as she is unable to fully empty her bladder while lying in bed. no saddle anesthesia, strength and sensation intact with 4/5 in right lower and 5/5 in left lower whic h is baseline for her. Exam Const General: cooperative, no acute distress and frail appearing (older than stated age) Nutritional Appearance: obese Orientation: alert, awake and oriented x3 HENMT Head: normal to inspection, normocephalic and atraumatic Mouth: oral mucosae normal Resp Effort & Inspection: normal respiratory effort Auscultation: clear to auscultation bilaterally Cardio Rate: regular rate Rhythm: regular rhythm GI Inspection: normal to inspection Palpation: soft Auscultation: normal bowel sounds Rectal Exam - female: visual inspection normal, normal sphincter tone, No fecal impaction (no stool in vault) and No hemorrhoids Back/Spine/Pelvis Back: other (no tenderness on palpation) Thoracic/Lumbar Spine: straight leg raise positive (pain on right, able to hold leg up against gravity and pressure) Skin Lesions: other (not visualized, mepilex intact to coccyx) Neuro General: patient alert, patient awake and patient oriented x3 Motor: muscle tone normal throughout, strength 5/5 throughout (slightly decreased at 4/5 on right lower which is baseline) and tremor (right hand) Extrem General: normal to inspection Right lower extremity: foot (trace edema, ) Objective Last Vital Signs Temp 36.2 C L 07/07/20 07:18 Pulse 87 07/07/20 07:18 Resp 16 07/07/20 07:18 BP 140/92 H 07/07/20 07:18 Pulse Ox 95 07/07/20 07:18 Laboratory Results - last 24 hr 07/06/20 14:30 Urine Color Yellow Urine Clarity Clear Urine pH 6.0 Ur Specific [place] 1.025 Urine Protein Negative Urine Ketones Negative Urine Blood Negative Urine Nitrite Negative Urine Bilirubin Negative Urine Urobilinogen 0.2 Ur Leukocyte Esterase Negative Urine Glucose Negative
--- NOTE | 2020-07-07 14:39 | W.PALLCONSUL ---
Date of service: 07/07/20 Time of Service: 07:40 History of Present Illness History of Present Illness Chief Complaint: back pain Narrative: Leah is a 64-year-old woman who has had a long history of back pain. She has known spinal stenosis and lumbar radiculopathy. She also has sarcoidosis, sleep apnea, diabetes, hypertension, and Parkinson's. She had been getting along okay but not well until a few days ago when the pain became excruciating and she was no longer able to do her ADLs. She had come to the emergency room with plans to follow-up with me her PCP. Unfortunately the day of her appointment with me she was unable to get into and out of the car and ended up going to the emergency room. Because of her debility, she was admitted for further care and pain management. In the hospital she has required a catheter because of urinary retention. Her pain is under adequate although not good control. She knows she cannot go home in the present state. In the past she was not considering another back surgery, but she states that she cannot live the way she is living now. Consults Consult date: 07/07/20 Requesting physician: Star Alexandre Assessment and Plan Assessment and plan (1) Radiculitis: Status: Acute (2) Spinal stenosis: Status: Acute Assessment and plan: Leah cannot go back home in her present state due to inability to care for herself. The plan is for her to go to a rehab center. What really needs to happen though is that she be seen by a neurosurgeon and determine whether or not spinal surgery should be done urgently because of her urinary retention and degree of pain. I have spoken with the hospitalist staff and they are looking into this. (3) Palliative care patient: Status: Acute Assessment and plan: I will continue to follow Leah. I am her PCP. Please note she has some short-term disability papers for me to fill out. I will be back at my office over the next few days and will send these in. I have spoken with hospitalist staff about the plan. (4) Constipation: Status: Acute Assessment and plan: She has not had a bowel movement for days. This can certainly exacerbate her back pain and also might be contributing to her urinary retention. Staff is going to work diligently on improving bowel movements. (5) Urinary retention: Status: Acute Assessment and plan: She has a catheter in place. I am uncertain if her urinary retention will improve with a better bowel regime etc. Presently I am concerned about a neurogenic bladder secondary to her spinal stenosis. Review of Systems Narrative: Makenna has severe back pain and right leg pain from the knee to the foot. It is excruciating and does not allow her to do her ADLs. She cannot stand on her leg. She had been taking Tylenol and gabapentin, but was still experiencing excruciating pain. She did have an MRI of her back yesterday which showed severe spinal stenosis at the L3-4 region. She has urinary retention, and has not had a bowel movement in 6 days. She has been taking gabapentin 900 mg 3 times a day and cyclobenzaprine as well as oxycodone 5 mg every 4 hours She was proud of herself because she could sit about 30% of the day yesterday [facility] Medical History (Updated 07/08/20 @ 07:58 by Keila Vargas MD, [place]) DM (diabetes mellitus) Essential tremor Hip pain HTN (hypertension) Hyperlipidemia Internal derangement of right knee ITB syndrome Lumbosacral radiculopathy Lymphadenopathy (12/25/11) On antibiotic therapy JOSEY (obstructive sleep apnea) Osteoarthritis of right hip Peripheral neuropathy Pes anserinus bursitis of right knee Injection: 08/28/2018 Right calf pain Sarcoid Surgical History (Updated 07/07/20 @ 14:44 by Keila Vargas MD, [place]) section x 3 Colonoscopy - MAC (02/11/16) History of section History of nasal septoplasty Nasal septoplasty Family History Mother Essential hypertension Cancer Diabetes Hyperlipidemia Primary biliary cholangitis Father , AGE 74 Heart disease Hyperlipidemia Brother Essential hypertension Diabetes Hyperlipidemia Maternal Grandfather Prostate cancer Paternal Grandfather , AGE 45 Diabetes Maternal Grandmother , AGE 84 Diabetes Heart disease Paternal Grandmother Lung cancer Other Lumbosacral radiculopathy Social History Smoking/Tobacco Use Status: Never Smoking risk assessment performed?: Yes Alcohol Intake: current Alcohol Intake frequency: a few times a month Drug use: Never Substance use type: does not use Caregiver/Support person: No Household members: none Do you need help understanding health information?: Never Pets and animals: Yes Pets and animals: cat(s) Sexually active: No Do you think of yourself as: straight/heterosexual Current gender identity: female What is your relationship status?: How often do you talk on the phone with friends or family?: three or more times per week How often do you get together with friends or relatives?: three or more times per week How often do you attend cheondoism or rastafarian services?: 1-3 times per year Do you belong to any clubs or organized social groups?: no Panel score (0-1 are the most socially isolated patients): 1 What type of physical activity do you participate in: none Duration: decline to answer Frequency: decline to answer Maria Fernanda/Latter-Day: Cheondoism Special maria fernanda needs: No Seatbelt use: always Helmet use: Yes Helmet use: always Drive intox or ride w/intox corporate driver: No Do you feel safe at home: Yes Additional Social history: lives alone - son helps out Exam Narrative Exam Narrative: Makenna is lying in bed. Catheter in place. She needs help to reposition her legs and her right knee needs to be up to decrease the excruciating pain she has in it. Her heart is regular. Her lung sounds are diminished. Neuro exam she is able to feel the bottom of her feet. She has muscle strength that is 4 out of 5 on the right 5 out of 5 in the left for both quadriceps and hamstrings. Reflex was difficult to assess due to patient positioning and guarding. Cognitively she is intact but depressed because of her present state. MRI 07/06/20 XAM: MR LUMBAR SPINE WO CLINICAL HISTORY: radiculopathy, disc herniation. TECHNIQUE: Multiplanar multisequence MRI was performed. COMPARISON: MR MR lumbar spine wo from 01/02/2018 FINDINGS: Exam is mildly limited by patient motion. The marrow signal is normal. No compression fractures are seen. Conus medullaris appears normal. There is slight disc bulging at T12-L1. The L1-2 disc is intact. There is mild to moderate disc bulging at L2-3, eccentric toward the left. There are facet degenerative changes. There is bilateral neural foraminal narrowing, greater on the left. There is mild ligamentous hypertrophy and mild facet degenerative changes . At L3-4, there is moderate disc bulging which is eccentric toward the right. There are facet degenerative changes and ligamentous hypertrophy combining to produce mild central canal stenosis. There is severe right neural foraminal narrowing. At L4-5, there is broad-based disc bulging. There are prominent facet degenerative changes, left greater than right. There is moderate degree of central canal stenosis as well as moderate to severe neural foraminal narrowing. At L5-S1, there is disc bulging eccentric toward the right. There is severe right neural foraminal encroachment. There is mild left neural foraminal narrowing. There is no central canal stenosis. IMPRESSION: Degenerative disc changes and facet degenerative changes are seen greatest at L5 3 4 and L4-5. There is severe neural foraminal narrowing at L3-4 and a moderate central canal stenosis as well as neural foraminal narrowing at L4-5. DA Results Last Vital Signs Temp 97.2 F L 07/07/20 07:18 Pulse 87 07/07/20 07:18 Resp 16 07/07/20 07:18 BP 140/92 H 07/07/20 07:18 Pulse Ox 95 07/07/20 07:18 Labs Result diagrams: 07/08/20 06:05 07/08/20 06:05 Labs: Laboratory Results - last 24 hr 07/06/20 14:30 Urine Color Yellow Urine Clarity Clear Urine pH 6.0 Ur Specific [facility] 1.025 Urine Protein Negative Urine Ketones Negative Urine Blood Negative Urine Nitrite Negative Urine Bilirubin Negative Urine Urobilinogen 0.2 Ur Leukocyte Esterase Negative Urine Glucose Negative
[2020-07-07 14:50] VITALS: BP 137/87; PULSE 116; RESP 17; TEMP 36.5; O2SAT 89
[2020-07-07 14:55] VITALS: O2SAT 96
--- NOTE | 2020-07-07 15:41 | PTTR_ITS ---
Date of service: 07/07/20 Time of Service: 15:41 PT Notes Visit Reasons: CHRONIC RADICULITIS Inpatient Physical Therapy Treatment Note [facility] Date: 07/07/2020 PRECAUTIONS: Fall. Activity as tolerated. SUBJECTIVE: Agreeable to trying to sit up in bed and work from there. States that compared to yesterday, pain is less. Complained of being dizzy after each attempt at standing. Indicated that usng the thromoboembolic pump has helped relieve pain in her R leg and hip/pelvis. OBJECTIVE: Continues to appear anxious and extra careful with how she moves. R LE appears limited with movement. Burk catheter in place. PAIN: 6-7/10 in the R leg, hip, and pelvic area with movement BED MOBILITY/TRANSFERS Rolling L/R: Minimal assist Supine-sit: Minimal assist with HOB at 45 degrees Sit-supine: Minimal assist to B LE Scooting up in bed: Able to use in B LE to assist with upright movement while supine in bed with nurse Olvera assisting for safety Sit-stand: Minimal assist of 2 with nurse Olvera assisting for safety Stand-sit: Minimal assist Bed-Chair: Unable to perform due to pain level, anxiety, and dizziness Chair-bed: Unable to perform due to pain level, anxiety, and dizziness GAIT Assistive Device: Front wheeled walker Weight bearing: Weight bearing as tolerated on BLE Assist: Minimal assist x 2 with nurse May assisting for safety Distance: Patient was only able to take one half step with the right foot but was highly anxious about putting weight on right LE to advance left foot due to significant increase in pain and report of dizziness Deviation: Pain limiting limb advancement at this time THEREX: Deferred due to increasing pain level after bed mobility and sit to stand activities ASSESSMENT: Leah has agreed to gradually perform bed mobility and transfer tasks to her tolerance to avoid complications from immobility while awaiting surgical consult on July 15, 2020 at [facility]. Critical to coordinate sessions with pre- medication for pain to maximize patient participation. May benefit from a short-term rehab stay for functional mobility training progression and pre- surgical conditioning. PLAN: Initiate low back, pelvic, and B LE relaxation exercises along with mobility ADL training as tolerated by patient. Progress core stabilization exercises to patient tolerance. Will benefit from OT services for self-care retraining. TREATMENT CODE/TIME: 46988 x 29 minutes beginning at 15:41 PM.
[2020-07-07 23:23] VITALS: BP 130/82; PULSE 91; RESP 18; TEMP 36.6; O2SAT 94
[2020-07-08] MEDS: diazePAM 2 MG TAB PO (00:58)
[2020-07-08 07:11] VITALS: BP 129/77; PULSE 82; RESP 16; TEMP 36.4; O2SAT 92
[2020-07-08 07:17] LABS: Abs Immature Grans 0.08 10^3/uL (0.0-0.06); Absolute Basophil Count 0.03 10^3/uL (0.0-0.2); Absolute Eosinophil Count 0.14 10^3/uL (0.0-0.7); Absolute Monocyte Count 1.24 10^3/uL (0.1-0.8); Basophils % 0.2; HCT 44.1 % (36.0-46.0); HGB 14.6 g/dL (11.2-15.7); Immature Grans % 0.6; MCHC 33.1 % (32.0-36.0); MCV 90.6 fL (80-95); MPV 11.7 fL (8.0-11.0); Monocytes % 8.6; Neutrophils % 65.6; Nucleated RBC 0 %; Platelet Count 302 10^3/uL (130-400); RBC 4.87 10^6/uL (3.93-5.22); RDW 12.3 % (11.7-14.6); RDW-SD 40.9 fL
[2020-07-08 07:21] LABS: Absolute Lymphocyte Count 3.46 10^3/uL (1.2-3.4); Absolute Neutrophil Count 9.45 10^3/uL (1.2-6.7)
[2020-07-08 07:24] LABS: Anion Gap 7.1 mmol/L (3-11); BUN 29 mg/dL (7-18); CO2 34.9 mmol/L (21.0-32.0); CREATININE 0.8 mg/dL (0.55-1.02); Calcium 9.6 mg/dL (8.5-10.1); Chloride 97 mmol/L (98-107); Glucose 139 mg/dL (74-106); Potassium 3.2 mmol/L (3.5-5.1); Sodium 139 mmol/L (136-145)
[2020-07-08] MEDS: Acetaminophen 325 MG TAB 650 MG PO ×4 (08:12→20:22)
[2020-07-08] MEDS: Gabapentin 300 MG CAP 900 MG PO ×3 (08:12→20:22)
[2020-07-08] MEDS: Cholecalciferol (Vitamin D3) 1,000 UNIT TAB 2000 UNITS PO (08:12)
[2020-07-08] MEDS: Potassium Chloride 20 MEQ TABCR PO (08:13)
[2020-07-08] MEDS: oxyCODONE 5 MG TAB PO ×2 (08:13→13:57)
[2020-07-08] MEDS: Multivitamin w/Minerals TAB 1 TAB PO (08:13)
[2020-07-08] MEDS: predniSONE 20 MG TAB 40 MG PO (08:13)
[2020-07-08] MEDS: hydroCHLOROthiazide 25 MG TAB PO (08:13)
[2020-07-08] MEDS: Docusate Sodium 100 MG CAP PO ×2 (08:14→20:22)
[2020-07-08] MEDS: metFORMIN 500 MG TAB PO (08:14)
[2020-07-08] MEDS: Nystatin POWDER 15 GM JAR TP ×2 (08:15→20:23)
[2020-07-08] MEDS: Diclofenac 1% Gel 100 GM TUBE TP ×4 (08:15→20:22)
--- NOTE | 2020-07-08 09:24 | OTIE_ITS ---
Occupational Therapy Notes Inpatient Occupational Therapy Evaluation Date: 07/08/20 Referring Doctor: Emy Borges NP OT Orders: Non-Urgent Precautions: Fall, standard, Full PATIENT PROFILE/ADMITTING DIAGNOSIS: Pt is a 64 year old who was admitted to [facility] with the following dx spinal stenosis, palliative care, radiculitis, (R) hip pian, Parkinsonism, peripheral neuropathy, lumbosacral radiculopathy, essential HTN, DM. She is awaiting transfer to [facility] for spinal surgery at this time. Past Medical History: Medical History DM (diabetes mellitus) HTN (hypertension) Hyperlipidemia Internal derangement of right knee Lumbosacral radiculopathy On antibiotic therapy JOSEY (obstructive sleep apnea) Peripheral neuropathy Sarcoid Surgical History section x 3 Colonoscopy - MAC (02/11/16) Nasal septoplasty Social History/Home Situation: Pt states that she lives alone and has family all around her. She reports that she is (I) at baseline and recently received DME mentioned below. She has 3 stairs to enter her home and she has 2 FWW one for inside and 1 for outside. She states that if she does need help her family comes and (A). She does not feel that she is at her baseline level of function at this time. She is currently working from home and states that she spends the majority of her day at a computer. Equipment owned/DME: commode, shower chair, grab bars, raised toilet seat, FWW, cane SUBJECTIVE: Pt was lying in bed, she is receptive to OT consult and evaluation. OBJECTIVE: General Observation: Burk in place, (R) UE IV not connected Mental Status: A&Ox3 Pain: rest 0/10, functional mobility 8/10 ROM: RUE AROM WFL L UE AROM WFL STRENGTH: RUE 4+/5 throughout LUE 5/5 throughout FUNCTIONAL MOBILITY/ADLS: BATHING max (A) Set up/clean up Bathing UE (I) Bathing LE Max (A) DRESSING Dressing UE Min (A) don and doffing hospital gown in sitting position Dressing LE Max (A) don and doffing (B) socks GROOMING Min (A) with brushing her hair as pt is unable to tolerate sitting for more than 15 minutes with out rest due to occasional pain TOILETING PT was utilizing bed pain when OT arrived. She reports that she requires max (A) with this at this time. Burk in place. EATING NT BALANCE: Static sitting Good Dynamic Sitting Good SPECIAL TESTS: Daily Activity Limitations Standardized Measure [facility] AM -PAC ?6 clicks? Daily Activity Inpatient Short Form: Raw score: 16 INFORMED CONSENT/EDUCATION: Pt instructed in purpose of OT Consult and plan of care. ASSESSMENT: Patient is a 64-year-old female referred to occupational therapy services with diagnosis of spinal stenosis, palliative care, radiculitis, (R) hip pian, Parkinsonism, peripheral neuropathy, lumbosacral radiculopathy, essential HTN, DM. Patient presents with clinical signs and symptoms consistent with dx, as demonstrated by the following impairment level findings/functional limitations: Impairments in ADL/IADL and leisure activities, decreased functional mobility required for ADL performance, inability to perform LE dressing or bathing due to pain, decreased tolerance and functional activity tolerance to ADLs. [facility] score 16 Patient is assessed as a Moderate 35001 complexity based on the following: History: see above Examination: see functional limitations as noted above Presentation: evolving Decision Making: [facility] 16 GOALS Goals x1 week 1. Grooming- (I) with brushing hair sitting at side of the bed 2. Dressing- sitting on side of the bed (I) UE min (A) LE 3. Bathing- sitting on side of the (I) UE, min (A) LE 4. Toileting- on commode (I) 5. Eating- (I) PLAN OF CARE/TREATMENT PLAN: 1x/day, 5 days/ week x 1week Initiate Occupational Therapy Services for bathing, dressing, grooming, toileting, eating, transfer training. DISCHARGE RECOMMENDATIONS OT recommends that pt go to SNF when medically cleared per MD. TREATMENT TIME/MINUTES/CODES 84125, 27661, 35 minutes (08:50) JEREMIAH Salgado/[facility]
--- NOTE | 2020-07-08 09:49 | CMPROGNOTE_ITS ---
Care Management Progress Note S/O: Leah reports progress in mobility and pain improvement as well. She has been up, sitting in her chair and has been able to stand with PT. She is scheduled to go to [facility] next THrusday; 07/15/20 for surgical consult and possible intervention. She was lying in bed when CM met with her and expressed concern about surgery as well as her current quality of life. She reported she is looking forward to transitioning to [facility] but is content to remain at [facility] until prior authorization is complete. CM continues to await prior authorization for rehab while awaiting surgery. CM continues to follow. A: 64 year old female admitted to [facility] 07/06/20 for chronic radiculitis P: Leah continues to work with PT/OT. She continues to await bed offer from [facility]; Nohemy of Admissions submitted prior authorization to Leah's insurance and is awaiting determination. CM continues to follow.
[2020-07-08] MEDS: Enoxaparin 40 MG/0.4 ML SYR SC (09:59)
[2020-07-08] MEDS: Ibuprofen 600 MG TAB PO (11:15)
[2020-07-08] MEDS: Insulin Aspart 300 UNITS/3 ML PEN SC ×2 (12:13→16:53)
--- NOTE | 2020-07-08 14:22 | W.PM.PROGNOT ---
Date of Service Date of service: 07/08/20 Time of Service: 14:22 Assessment and Plan Assessment and plan (1) Lumbosacral radiculopathy: Status: Acute Assessment and plan: no evidence of cord compression syndrome by history or exam. smith catheter placed for inability to empty bladder while in bed. MRI yesterday, results pushed to spine surgery at [facility], reviewed by DR Chung Javier who will see her in outpatient clinic on July 15, 2020 at 10:30 am in spine center on 3D. previous recommendations were for L3-4 and L4-5 decompression and fusion by Dr Powers in May 02, 2019. continue scheduled apap, diclofenac gel, started on steroids continue PT/OT. (2) Essential hypertension: Status: Acute Assessment and plan: stable, continue home medication (3) Diabetes mellitus: Status: Acute Assessment and plan: A1C 6.11 mar 2020 diabetic diet, continue metformin anticipate hyperglycemia in setting of steroids. check blood sugars ac/hs and provide sliding scale if needed. (4) Parkinsonism: Status: Acute Assessment and plan: at baseline. resting tremor upper extremities (5) Peripheral neuropathy: Status: Acute Assessment and plan: gabapentin increased discussed with Dr Alexandre Subjective Subjective Patient reports: no new complaints, tolerating liquids well, tolerating a regular diet, bowel movement and afebrile Interval history since last seen: smith draining clear yellow urine Exam Const General: cooperative, no acute distress and frail appearing (older than stated age) Nutritional Appearance: obese Orientation: alert, awake and oriented x3 HENMT Head: normal to inspection, normocephalic and atraumatic Mouth: oral mucosae normal Resp Effort & Inspection: normal respiratory effort Auscultation: clear to auscultation bilaterally Cardio Rate: regular rate Rhythm: regular rhythm GI Inspection: normal to inspection Palpation: soft Auscultation: normal bowel sounds Rectal Exam - female: visual inspection normal, normal sphincter tone, No fecal impaction (no stool in vault) and No hemorrhoids Back/Spine/Pelvis Back: other (no tenderness on palpation) Thoracic/Lumbar Spine: straight leg raise positive (pain on right, able to hold leg up against gravity and pressure) Skin Lesions: other (not visualized, mepilex intact to coccyx) Neuro General: patient alert, patient awake and patient oriented x3 Motor: muscle tone normal throughout, strength 5/5 throughout (slightly decreased at 4/5 on right lower which is baseline) and tremor (right hand) Extrem General: normal to inspection Right lower extremity: foot (trace edema, ) Objective Last Vital Signs Temp 36.4 C L 07/08/20 07:11 Pulse 82 07/08/20 07:11 Resp 16 07/08/20 07:11 BP 129/77 07/08/20 07:11 Pulse Ox 92 07/08/20 07:11 Laboratory Results - last 24 hr 07/08/20 07/08/20 06:05 06:05 WBC 14.40 H RBC 4.87 Hgb 14.6 Hct 44.1 MCV 90.6 MCH 30.0 MCHC 33.1 RDW 12.3 Plt Count 302 MPV 11.7 H Immature Gran % 0.6 Neutrophils % 65.6 Lymphocytes % 24.0 Monocytes % 8.6 Eosinophils % 1.0 Basophils % 0.2 Nucleated RBC % 0 Absolute Neutrophils 9.45 H Absolute Lymphocytes 3.46 H Absolute Monocytes 1.24 H Absolute Eosinophils 0.14 Absolute Basophils 0.03 Sodium 139 Potassium 3.2 L Chloride 97 L Carbon Dioxide 34.9 H Anion Gap 7.1 BUN 29 H Creatinine 0.8 Estimated GFR/1.73 m2 >= 60.00 Glucose 139 H Calcium 9.6
--- NOTE | 2020-07-08 14:25 | PT.INTREAT ---
Date of service: 07/09/20 Time of Service: 10:03 PT Notes Visit Reasons: CHRONIC RADICULITIS Inpatient Physical Therapy Treatment Note [facility] Date: 07/08/2020 PRECAUTIONS: Fall. Activity as tolerated. SUBJECTIVE: Feels that the SCD pump may have been placed too tight on her as she still feels them on her leg even after they were removed when this PT saw her this morning. In the afternoon, patient refused to walk as she felt pain in her hip and leg when she attempted to put weight on her R LE. OBJECTIVE: Continues to appear anxious and extra careful with how she moves. R LE appears limited with movement. Burk catheter in place. PAIN: 2-3/10 at rest, 8-9/10 in R hip after ambulation activity BED MOBILITY/TRANSFERS Rolling L/R: Minimal assist Supine-sit: Minimal assist with HOB at 45 degrees Sit-supine: Minimal assist to B LE Scooting up in bed: Able to use in B LE to assist with upright movement while supine in bed with nurse Olvera assisting for safety Sit-stand: Minimal assist with nurse Dai providing SBA for safety Stand-sit: Minimal assist GAIT Assistive Device: Front-wheeled walker Weight bearing: Weight bearing as tolerated on BLE Assist: Minimal assist of PT and SBA of Nurse Dai for safety Distance: 10 small steps forward, 10 small steps backward, 10 small steps sideways Deviation: Pain level, high anxiety, and pain avoidance behavior decrease safety of movement THEREX: Reviewed bed level pelvic and low back relaxation exercises to increase mastery and maximize compliance. Instructions given for correct performance and sequence of breathing exercises with core muscle engagement while performing posterior pelvic tilting, unilateral [id number], straight leg raising, and bridging. ASSESSMENT: Pain level, high anxiety, and pain avoidance behavior decreases safety of movement. Pain shoots up after weight bearing activity. Leah has agreed to gradually perform bed mobility and transfer tasks to her tolerance to avoid complications from immobility while awaiting surgical consult on July 15, 2020 at [facility]. Critical to coordinate sessions with pre-medication for pain to maximize patient participation. May benefit from a short-term rehab stay for functional mobility training progression and pre-surgical conditioning. PLAN: Initiate low back, pelvic, and B LE relaxation exercises along with mobility ADL training as tolerated by patient. Progress core stabilization exercises to patient's tolerance. Will benefit from OT services for self-care retraining. TREATMENT CODE/TIME: Session 1--06377 x 30 minutes, 43135 x 33 beginning at 10:03 AM. Session 1--33237 x 15 minutes, 90207 x 28 minutes beginning at 13:25 PM.
[2020-07-08 15:30] VITALS: BP 138/86; PULSE 102; RESP 17; TEMP 36.7; O2SAT 92
[2020-07-08] MEDS: Polyethylene Glycol 3350 17 GM PACKET PO (20:21)
[2020-07-08 23:38] VITALS: BP 153/96; PULSE 85; RESP 17; TEMP 36; O2SAT 92
[2020-07-09 07:19] VITALS: BP 143/86; PULSE 83; RESP 14; TEMP 36.8; O2SAT 94
[2020-07-09] MEDS: Nystatin POWDER 15 GM JAR TP ×2 (08:08→20:03)
[2020-07-09] MEDS: Diclofenac 1% Gel 100 GM TUBE TP ×4 (08:08→20:02)
[2020-07-09] MEDS: metFORMIN 500 MG TAB PO (08:09)
[2020-07-09] MEDS: hydroCHLOROthiazide 25 MG TAB PO (08:09)
[2020-07-09] MEDS: Polyethylene Glycol 3350 17 GM PACKET PO ×2 (08:09→20:01)
[2020-07-09] MEDS: Docusate Sodium 100 MG CAP PO ×2 (08:09→20:02)
[2020-07-09] MEDS: Cholecalciferol (Vitamin D3) 1,000 UNIT TAB 2000 UNITS PO (08:10)
[2020-07-09] MEDS: predniSONE 20 MG TAB 40 MG PO (08:10)
[2020-07-09] MEDS: Multivitamin w/Minerals TAB 1 TAB PO (08:10)
[2020-07-09] MEDS: Gabapentin 300 MG CAP 900 MG PO ×3 (08:11→20:01)
[2020-07-09] MEDS: Acetaminophen 325 MG TAB 650 MG PO ×4 (08:11→20:02)
[2020-07-09] MEDS: Potassium Chloride 20 MEQ TABCR PO (08:11)
[2020-07-09] MEDS: Tamsulosin 0.4 MG CAPCR PO (09:28)
[2020-07-09] MEDS: Senna TAB 1 TAB PO ×2 (09:28→20:02)
[2020-07-09] MEDS: Enoxaparin 40 MG/0.4 ML SYR SC (09:28)
--- NOTE | 2020-07-09 09:31 | OTTR_ITS ---
Date of service: 07/09/20 Time of Service: 08:50 Occupational Therapy Notes Occupational Therapy Inpatient Treatment Note Date: 07/09/20 PRECAUTIONS: Fall, Standard, Full SUBJECTIVE: Pt was lying in bed when OT arrived. She was agreeable to OT Session and notes that she may be transitioning to SNF today. OBJECTIVE: PAIN:c/o pain in (R) LE and back BATHING: sitting in bed with max (A) Set up/clean up Upper Body: (I) UE with min (A) for lower abdomen, max (A) hair Lower Body: Mod (A) to (B) knees and max (A) (B) LE due to back pain DRESSING: sitting in bed Upper Extremity: (I) [facility] gown Lower Extremity: NT GROOMING: sitting in bed (I) hair ASSESSMENT/PLAN: Pt is making gains in terms of her functional activity tolerance, her pain is her biggest limiting factor at this time in terms of her (I) with her ADL/IADL routines. TREATMENT CODES/TIME: [id number], 30 minutes (08:50) Guillermina Beavers OTR/[facility] [place], [place]
[2020-07-09] MEDS: Insulin Aspart 300 UNITS/3 ML PEN SC ×2 (12:11→17:00)
--- NOTE | 2020-07-09 12:15 | PGE_ITS ---
Date of Service Date of service: 07/09/20 Time of Service: 12:15 Assessment and Plan Assessment and plan (1) Lumbosacral radiculopathy: Start date: 07/09/20 Start time: 12:24 Status: Acute Assessment and plan: no evidence of cord compression syndrome by history or exam. smith catheter draining clear yellow urine, will start flomax possible neurogenic, however could be due to constipation. Will do voiding trial on Sunday if patient is still here. MRI yesterday, results pushed to spine surgery at [facility], reviewed by DR Chung Javier who will see her in outpatient clinic on July 15, 2020 at 10:30 am in spine center on . previous recommendations were for L3-4 and L4-5 decompression and fusion by Dr Powers in May 02, 2019. She has appt on with neurosurgery continue scheduled apap, diclofenac gel, continue PT/OT. She continues to do exercises in bed. Pain controlled at this time. (2) Essential hypertension: Start date: 07/09/20 Start time: 12:26 Status: Acute Assessment and plan: stable, continue home medication (3) Diabetes mellitus: Start date: 07/09/20 Start time: 12:27 Status: Acute Assessment and plan: A1C 6.11 mar 2020 diabetic diet, continue metformin check blood sugars ac/hs and provide sliding scale if needed. (4) Parkinsonism: Start date: 07/09/20 Start time: 12:27 Status: Acute Assessment and plan: at baseline. resting tremor upper extremities (5) Peripheral neuropathy: Start date: 07/09/20 Start time: 12:27 Status: Acute Assessment and plan: gabapentin increased discussed with Dr Alexandre Subjective Subjective Patient reports: no new complaints Interval history since last seen: No complaints. Laying in bed. BM on 07/07, started on sennakot, and flomax. Will do voiding trial on Sunday if patient still here however this could be neurogenic bladder, but could have also been due to constipation. Awaiting bed placement. She denies CP, SOB, N/V/D. Exam Narrative Exam Narrative: Const: age appropriate female laying in bed, no acute distress. AAOx 3 pleasant and cooperative. Just finished doing exercises. Eyes: PERRLA, EOMI Resp: LSC, no rhonchi, wheezing, Cardio: RRR GI: Abd soft bsx4 : catheter draining clear yellow urine Neuro: muscle tone normal throughout, strength 5/5 throughout (slightly decreased at 4/5 on right lower which is baseline) and tremor (right hand) Ext: Normal to inspection Objective Last Vital Signs Temp 36.8 C 07/09/20 07:19 Pulse 83 07/09/20 07:19 Resp 14 07/09/20 07:19 BP 143/86 H 07/09/20 07:19 Pulse Ox 94 07/09/20 07:19
--- NOTE | 2020-07-09 13:03 | CMPROGNOTE_ITS ---
Care Management Progress Note S/O: Leah reports progress in mobility and pain improvement as well. She has been up, sitting in her chair and has been able to stand with PT. She is scheduled to go to [facility] next THrusday; 07/15/20 for surgical consult and possible intervention. She was lying in bed when CM met with her and expressed concern about surgery as well as her current quality of life. She reported she is looking forward to transitioning to [facility] but is content to remain at [facility] until prior authorization is complete. CM continues to await prior authorization for rehab while awaiting surgery. CM continues to follow. A: 64 year old female admitted to [facility] 07/06/20 for chronic radiculitis P: Leah continues to work with PT/OT. She continues to await bed offer from [facility]; Nohemy of Admissions submitted prior authorization to Leah's insurance and is awaiting determination. CM continues to follow.
--- NOTE | 2020-07-09 14:39 | PT.INTREAT ---
Date of service: 07/09/20 Time of Service: 11:00 PT Notes Visit Reasons: CHRONIC RADICULITIS [facility] Date: 07/09/2020 PRECAUTIONS: Back pain, activity as tolerated SUBJECTIVE: Leah states that she is having pain today, and that she isn't having as good a day today as yesterday. She is agreeable to participating in PT to see what she can do. OBJECTIVE: PAIN: Patient c/o pain radiating from R hip to R foot with weight bearing on R and transfers BED MOBILITY/TRANSFERS Supine-sit: SBA with HOB at 30-50 degrees Sit-supine: Mod A of B LEs with HOB flat Sit-stand: CGA Stand-sit: CGA Bed-Chair: Unable Chair-bed: Unable GAIT Assistive Device: FWW Weight bearing: WBAT R Assist: Min A Distance: 3' to R Deviation: Assist with FWW management THEREX: Patient was instructed in a core stabilization program, completed in a supine position. Patient requires cueing throughout for breathing techniques, as well as for maintaining core activation. She was introduced to supine frog with band, as well as supine hip circles with band this afternoon, which she tolerated without pain. ASSESSMENT: Patient tolerated session with complaint of R hip to foot pain with transfers and weight bearing. She was able to tolerate additional core stabilization exercises, although requires constant cueing to maintain core activation and for proper breathing techniques. PLAN: Continue with transfer training and core stabilization for improved mobility with decreased pain symptoms. TREATMENT CODE/TIME: Session 1: 15 minutes; 67069 (11:00) Session 2: 25 minutes; [id number], 87430 (13:10)
[2020-07-09 15:11] VITALS: BP 117/77; PULSE 113; RESP 16; TEMP 37.3; O2SAT 93
[2020-07-09 16:49] VITALS: PULSE 92
[2020-07-09 23:41] VITALS: BP 120/71; PULSE 101; RESP 18; TEMP 37.1; O2SAT 96
[2020-07-10 06:53] LABS: HCT 43.5 % (36.0-46.0); HGB 14.2 g/dL (11.2-15.7); MCH 29.8 pg (27.0-33.0); MCHC 32.6 % (32.0-36.0); MCV 91.2 fL (80-95); MPV 11.6 fL (8.0-11.0); Platelet Count 299 10^3/uL (130-400); RBC 4.77 10^6/uL (3.93-5.22); RDW 12.5 % (11.7-14.6); RDW-SD 41.4 fL; WBC 15.83 10^3/uL (4.4-10.8)
[2020-07-10 07:26] VITALS: BP 152/77; PULSE 88; RESP 18; TEMP 36.6; O2SAT 95
[2020-07-10] MEDS: Gabapentin 300 MG CAP 900 MG PO ×3 (08:43→20:13)
[2020-07-10] MEDS: Polyethylene Glycol 3350 17 GM PACKET PO (08:43)
[2020-07-10] MEDS: Diclofenac 1% Gel 100 GM TUBE TP ×4 (08:43→20:22)
[2020-07-10] MEDS: Senna TAB 1 TAB PO (08:43)
[2020-07-10] MEDS: Nystatin POWDER 15 GM JAR TP ×2 (08:43→20:22)
[2020-07-10] MEDS: Docusate Sodium 100 MG CAP PO (08:44)
[2020-07-10] MEDS: Cholecalciferol (Vitamin D3) 1,000 UNIT TAB 2000 UNITS PO (08:44)
[2020-07-10] MEDS: metFORMIN 500 MG TAB PO (08:44)
[2020-07-10] MEDS: Acetaminophen 325 MG TAB 650 MG PO ×4 (08:44→20:13)
[2020-07-10] MEDS: hydroCHLOROthiazide 25 MG TAB PO (08:44)
[2020-07-10] MEDS: Multivitamin w/Minerals TAB 1 TAB PO (08:44)
[2020-07-10] MEDS: Potassium Chloride 20 MEQ TABCR PO (08:45)
[2020-07-10] MEDS: Tamsulosin 0.4 MG CAPCR PO (08:46)
[2020-07-10] MEDS: predniSONE 20 MG TAB 60 MG PO (08:50)
[2020-07-10] MEDS: Enoxaparin 40 MG/0.4 ML SYR SC (10:07)
--- NOTE | 2020-07-10 10:42 | PDOC.CMPRO ---
- If Service Date Differs Date of service: 07/10/20 Time of Service: 10:42 Care Management Progress Note S/O: Leah is reportedly doing well. Her pain is well controlled. A voiding trial is scheduled for tomorrow. Leah has an upcoming appointment with [facility] on July 15, 2020 at 10:30 am. An MRI was done on Sunday in preparation for the appointment and images have been pushed to [facility]. Lab work done this morning reveals an elevated WBC at 15.83. A: Leah is a 64 year old female admitted to [facility] on 07/06/2020 for chronic radiculitis. P: No change in plan. Leah continues to work with PT/OT while she is inpatient. She continues to await bed offer from [facility]; Nohemy of Admissions submitted prior authorization to Leah's insurance and is awaiting determination. CM continues to follow.
[2020-07-10] MEDS: Insulin Aspart 300 UNITS/3 ML PEN SC ×2 (12:22→17:12)
--- NOTE | 2020-07-10 12:35 | PT.INTREAT ---
Date of service: 07/10/20 Time of Service: 10:20 PT Notes Visit Reasons: CHRONIC RADICULITIS Inpatient Physical Therapy Treatment Note [facility] Date: 07/10/2020 PRECAUTIONS: Fall and Activities as tolerated SUBJECTIVE: Stated she is in too much pain this morning to get out of bed to walk. Might ask nursing to walk with her later today. Willing to do her bed exercises. OBJECTIVE: PAIN: Too painful in the right hip to walk today. Likes the frog exercises these feel good. BED MOBILITY/TRANSFERS Held on out of bed activities this morning due to pain complaints. Had been medicated prior to my visit. THEREX: Reviewed core stabilization program, completed in a supine position. Continues to require cueing throughout for breathing techniques, as well as for maintaining core activation. See flow sheet for details. ASSESSMENT: Patient tolerated supine core program well, but does tend to hold her breath, requiring verbal cueing to avoid. Difficult time maintaining core activation with exercises. PLAN: Continue with transfer training and core stabilization for improved mobility with decreased pain symptoms. TREATMENT CODE/TIME: [id number] (10:20 to 10:35 am), 15'
--- NOTE | 2020-07-10 14:41 | W.PM.PROGNOT ---
Date of Service Date of service: 07/10/20 Time of Service: 14:41 Assessment and Plan Assessment and plan (1) Lumbosacral radiculopathy: Start date: 07/10/20 Start time: 14:45 Status: Acute Assessment and plan: no evidence of cord compression syndrome by history or exam. smith catheter draining clear yellow urine, will start flomax possible neurogenic, however could be due to constipation. Voiding trial for tomorrow. MRI yesterday, results pushed to [place] [facility] DR Chung Javier who will see her in outpatient clinic on July 15, 2020 at 10:30 am in spine center on 3D. previous recommendations were for L3-4 and L4-5 decompression and fusion by Dr Powers in May 02, 2019. She has appt on with neurosurgery continue scheduled apap, diclofenac gel, continue PT/OT. She continues to do exercises in bed. Pain controlled at this time. (2) Essential hypertension: Start date: 07/10/20 Start time: 14:46 Status: Acute Assessment and plan: stable, continue home medication (3) Diabetes mellitus: Start date: 07/10/20 Start time: 14:46 Status: Acute Assessment and plan: A1C 6.11 mar 2020 diabetic diet, blood sugars have been elevated due to steroids. continue metformin check blood sugars ac/hs and provide sliding scale if needed. (4) Parkinsonism: Start date: 07/10/20 Start time: 14:46 Status: Acute Assessment and plan: at baseline. resting tremor upper extremities (5) Peripheral neuropathy: Start date: 07/10/20 Start time: 14:46 Status: Acute Assessment and plan: gabapentin increased again today, due to numbness discussed with Dr Gamboa Subjective Subjective Patient reports: no new complaints Interval history since last seen: Doing well. She has been on steroids for over 5 days prior to admission, we will taper as she did not do well coming off a steroid burst in the past. She states numbness and tingling to left buttocks and lower extremity otherwise no pain. Will increase gabapentin. Denies CP, SOB, n/v/d Exam Narrative Exam Narrative: Const: age appropriate female laying in bed, no acute distress. AAOx 3 pleasant and cooperative. comfortable, denies pain, states numbness to left lower extremity and buttocks. Eyes: PERRLA, EOMI Resp: LSC, no rhonchi, wheezing, Cardio: RRR GI: Abd soft bsx4 : catheter draining clear yellow urine Neuro: muscle tone normal throughout, strength 5/5 throughout (slightly decreased at 4/5 on right lower which is baseline) and tremor (right hand) Ext: Normal to inspection Objective Last Vital Signs Temp 36.6 C 07/10/20 07:26 Pulse 88 07/10/20 07:26 Resp 18 07/10/20 07:26 BP 152/77 H 07/10/20 07:26 Pulse Ox 95 07/10/20 07:26 Laboratory Results - last 24 hr 07/10/20 06:05 WBC 15.83 H RBC 4.77 Hgb 14.2 Hct 43.5 MCV 91.2 MCH 29.8 MCHC 32.6 RDW 12.5 Plt Count 299 MPV 11.6 H
[2020-07-10 15:36] VITALS: BP 135/86; PULSE 98; RESP 14; TEMP 35.4; O2SAT 90
[2020-07-10] MEDS: LORazepam 1 MG TAB 0.5 MG PO (20:21)
[2020-07-10] MEDS: Gabapentin 300 MG CAP PO (21:29)
[2020-07-10 23:24] VITALS: BP 118/72; PULSE 84; RESP 17; TEMP 36.7; O2SAT 94
[2020-07-11 06:47] LABS: Abs Immature Grans 0.16 10^3/uL (0.0-0.06); Absolute Basophil Count 0.07 10^3/uL (0.0-0.2); Absolute Neutrophil Count 11.69 10^3/uL (1.2-6.7); Basophils % 0.4; Eosinophils % 1.1; HCT 44.9 % (36.0-46.0); HGB 14.8 g/dL (11.2-15.7); Immature Grans % 0.9; Lymphocytes % 24.4; MCH 29.8 pg (27.0-33.0); MCV 90.5 fL (80-95); MPV 11.5 fL (8.0-11.0); Monocytes % 8.4; Neutrophils % 64.8; Nucleated RBC 0 %; Platelet Count 319 10^3/uL (130-400); RBC 4.96 10^6/uL (3.93-5.22); RDW 12.5 % (11.7-14.6); RDW-SD 41.3 fL; WBC 18.04 10^3/uL (4.4-10.8)
[2020-07-11 06:50] LABS: Absolute Monocyte Count 1.52 10^3/uL (0.1-0.8)
[2020-07-11 06:55] LABS: Anion Gap 9.8 mmol/L (3-11); BUN 29 mg/dL (7-18); CO2 29.2 mmol/L (21.0-32.0); CREATININE 0.7 mg/dL (0.55-1.02); Calcium 9.3 mg/dL (8.5-10.1); Chloride 101 mmol/L (98-107); Glucose 137 mg/dL (74-106); Potassium 3.6 mmol/L (3.5-5.1); Sodium 140 mmol/L (136-145)
[2020-07-11 06:59] LABS: Diff Comment Diff Reviewed; RBC Morphology Normal
[2020-07-11 07:32] VITALS: BP 121/77; PULSE 89; RESP 17; TEMP 36.7; O2SAT 94
[2020-07-11] MEDS: Diclofenac 1% Gel 100 GM TUBE TP ×4 (08:49→19:58)
[2020-07-11] MEDS: Multivitamin w/Minerals TAB 1 TAB PO (08:49)
[2020-07-11] MEDS: hydroCHLOROthiazide 25 MG TAB PO (08:49)
[2020-07-11] MEDS: Senna TAB 1 TAB PO ×2 (08:49→19:57)
[2020-07-11] MEDS: predniSONE 20 MG TAB 60 MG PO (08:50)
[2020-07-11] MEDS: Tamsulosin 0.4 MG CAPCR PO (08:51)
[2020-07-11] MEDS: Cholecalciferol (Vitamin D3) 1,000 UNIT TAB 2000 UNITS PO (08:51)
[2020-07-11] MEDS: Potassium Chloride 20 MEQ TABCR PO (08:51)
[2020-07-11] MEDS: Docusate Sodium 100 MG CAP PO ×2 (08:51→19:57)
[2020-07-11] MEDS: Gabapentin 300 MG CAP 900 MG PO ×3 (08:51→19:56)
[2020-07-11] MEDS: metFORMIN 500 MG TAB PO (08:51)
[2020-07-11] MEDS: Nystatin POWDER 15 GM JAR TP ×2 (08:52→19:58)
[2020-07-11] MEDS: Acetaminophen 325 MG TAB 650 MG PO ×4 (08:58→19:57)
[2020-07-11] MEDS: Enoxaparin 40 MG/0.4 ML SYR SC (10:15)
[2020-07-11] MEDS: Insulin Aspart 300 UNITS/3 ML PEN SC ×2 (11:56→17:05)
--- NOTE | 2020-07-11 12:32 | W.PM.PROGNOT ---
Date of Service Date of service: 07/11/20 Time of Service: 12:32 Assessment and Plan Assessment and plan (1) Lumbosacral radiculopathy: Start date: 07/11/20 Start time: 12:36 Status: Acute Assessment and plan: no evidence of cord compression syndrome by history or exam. Voiding trial. Order to reinsert smith if urine amount greater than 300 cc. voided 60 ml so far with 100 PVR. [place] be [place] [facility] [place] 2020 at 10:30 am in spine center on 3D. previous recommendations were for L3-4 and L4-5 decompression and fusion by Dr Powers in May 02, 2019. She has appt on with neurosurgery continue scheduled apap, diclofenac gel, gabapentin, increased dose with good effect last night continue PT/OT. She continues to do exercises in bed. Pain controlled at this time. (2) Essential hypertension: Start date: 07/11/20 Start time: 12:37 Status: Acute Assessment and plan: stable, continue home medication (3) Diabetes mellitus: Start date: 07/11/20 Start time: 12:38 Status: Acute Assessment and plan: A1C 6.11 mar 2020 diabetic diet, blood sugars have been elevated due to steroids. However better since increasing SSI to Moderate. Continue to monitor. continue metformin check blood sugars ac/hs and provide sliding scale if needed. (4) Parkinsonism: Start date: 07/11/20 Start time: 12:38 Status: Acute Assessment and plan: at baseline. resting tremor upper extremities (5) Peripheral neuropathy: Start date: 07/11/20 Start time: 12:40 Status: Acute Assessment and plan: gabapentin increased doing better with tingling and numbness since increasing gabapentin. discussed with Dr Gamboa Subjective Subjective Patient reports: other Interval history since last seen: Numbness and tingling has improved with increase in gabapentin. Patient catheter dcd. She has not voided yet. Max 2 assist to commode almost dragging, encouraged to use bedpan.. 60 ml urine, PVR 100. Order to bladder scan PVR with smith reinsertion for greater than 300 ml urine. She denies CP, SOB, N/V/D. Exam Narrative Exam Narrative: Const: age appropriate female laying in bed, no acute distress. AAOx 3 pleasant and cooperative. comfortable, denies pain, states numbness to left lower extremity and buttocks. Eyes: PERRLA, EOMI Resp: LSC, no rhonchi, wheezing, Cardio: RRR GI: Abd soft bsx4 : catheter draining clear yellow urine Neuro: muscle tone normal throughout, strength 5/5 throughout (slightly decreased at 4/5 on right lower which is baseline) and tremor (right hand) Ext: Normal to inspection Objective Last Vital Signs Temp 36.7 C 07/11/20 07:32 Pulse 89 07/11/20 07:32 Resp 17 07/11/20 07:32 BP 121/77 07/11/20 07:32 Pulse Ox 94 07/11/20 07:32 Laboratory Results - last 24 hr 07/11/20 07/11/20 06:10 06:10 WBC 18.04 H RBC 4.96 Hgb 14.8 Hct 44.9 MCV 90.5 MCH 29.8 MCHC 33.0 RDW 12.5 Plt Count 319 MPV 11.5 H Immature Gran % 0.9 Neutrophils % 64.8 Lymphocytes % 24.4 Monocytes % 8.4 Eosinophils % 1.1 Basophils % 0.4 Nucleated RBC % 0 Absolute Neutrophils 11.69 H Absolute Lymphocytes 4.40 H Absolute Monocytes 1.52 H Absolute Eosinophils 0.20 Absolute Basophils 0.07 RBC Morphology Normal Sodium 140 Potassium 3.6 Chloride 101 Carbon Dioxide 29.2 Anion Gap 9.8 BUN 29 H Creatinine 0.7 Estimated GFR/1.73 m2 >= 60.00 Glucose 137 H Calcium 9.3
--- NOTE | 2020-07-11 13:38 | PDOC.CMPRO ---
- If Service Date Differs Date of service: 07/11/20 Time of Service: 13:39 Care Management Progress Note S/O: Leah was sitting up in bed when CM met with her. She was pleasant and open to conversation with CM. Leah shared that she is still waiting for insurance authorization to be able to go to [facility] for short term rehab. She did have some questions about signing up for Medicare and Social Security as she will turn 65 in October. CM offered to send a referral to [facility] to help her with this process. Leah requested that this be done and referral faxed at 2pm. A: Leah is a 64 year old female admitted to [facility] on 07/06/2020 for chronic radiculitis. P: No change in plan. Leah continues to work with PT/OT while she is inpatient. She continues to await bed offer from [facility]; Nohemy of Admissions submitted prior authorization to Leah's insurance and is awaiting determination. CM continues to follow and will provide support to Leah and her discharge planning needs.
[2020-07-11 15:20] VITALS: BP 139/83; PULSE 101; RESP 17; TEMP 36.5; O2SAT 94
[2020-07-11] MEDS: Gabapentin 300 MG CAP PO (22:15)
[2020-07-11] MEDS: LORazepam 1 MG TAB 0.5 MG PO (22:15)
[2020-07-11 23:38] VITALS: BP 127/81; PULSE 98; RESP 16; TEMP 36.1; O2SAT 94
[2020-07-12 07:20] LABS: HCT 45.3 % (36.0-46.0); MCH 30.2 pg (27.0-33.0); MCHC 33.1 % (32.0-36.0); MCV 91.1 fL (80-95); MPV 11.8 fL (8.0-11.0); Nucleated RBC 0 %; RBC 4.97 10^6/uL (3.93-5.22); RDW 12.6 % (11.7-14.6); RDW-SD 41.9 fL
[2020-07-12 07:29] VITALS: BP 123/81; PULSE 89; RESP 17; TEMP 36.1; O2SAT 97
[2020-07-12 07:54] LABS: Absolute Lymphocyte Count 5.24 10^3/uL (1.2-3.4); Absolute Monocyte Count 1.36 10^3/uL (0.1-0.8); Atypical Lymphocytes % 8; Bands % 6; Platelet Count 338 10^3/uL (130-400)
[2020-07-12 07:55] LABS: Diff Comment Manual Differential; RBC Morphology Normal
--- NOTE | 2020-07-12 08:00 | W.PALPGNOTE ---
Date of service: 07/12/20 Time of Service: 06:00 Assessment and Plan Assessment and plan (1) Urinary retention: Status: Acute Assessment and plan: cath in place.. Trial failed yesterday and cath needed to be reinserted (2) Spinal stenosis: Status: Acute Assessment and plan: Appointment scheduled with neurosurgeon for July 15 (3) Radiculitis: Status: Acute (4) Parkinsonism: Status: Acute (5) Palliative care patient: Status: Acute Assessment and plan: I did complete her work forms and will fax these into her employer today. She did complain of chest pain last night. I would recommend that an EKG be done. She is uncertain if it had to do with eating versus cardiac chest pain. She has to eat laying down because of her leg pain which could easily be contributing to this. Regardless I think a EKG would be the minimal work-up Addendum: I did bring her the handicap plate paperwork tonight. Again she is looking forward to her appointment with her neurosurgeon as it appears that surgery is the only way to remedy her present situation Subjective Subjective Interval history since last seen: Leah is lying in bed. She states that she has not been out of bed since she was admitted to the hospital. Per nursing in order to get up to the toilet she pretty much has to drag her right leg. Yesterday she had the catheter removed, unfortunately because of urinary retention it needed to be put back in. She also had some chest pain last evening. She is uncertain if it is because of cardiac issues or indigestion from eating lying down. She is unable to fill out any forms because she needs to lie down. As soon as she goes in a position greater than 45 degree angle, her right leg starts hurting. She is concerned about her white count. She was especially happy with her recent nurse Gordon who cared for her on multiple nights. She is anxious to get to the neurosurgeon which is scheduled for July 15. She will most likely need to go by ambulance as she is unable to sit. Exam Narrative Exam Narrative: As long as she stays lying, she is comfortable. She has not required much in the way of oxycodone, she does not like the way it makes her feel. She needs to have her right knee up in order to be comfortable. She was very uncomfortable after the bladder catheter was DC'd. It is now back in. Her heart is regular. Lungs diminished lung sounds but much of this was positioning as I examined her. Lower extremity?she is able to plantarflex and extend her lower extremity. I did not do a full neuro exam. Objective Last Vital Signs Temp 97.0 F L 07/12/20 07:29 Pulse 89 07/12/20 07:29 Resp 17 07/12/20 07:29 BP 123/81 07/12/20 07:29 Pulse Ox 97 07/12/20 07:29 Laboratory Results - last 24 hr 07/12/20 06:25 WBC 19.40 H RBC 4.97 Hgb 15.0 Hct 45.3 MCV 91.1 MCH 30.2 MCHC 33.1 RDW 12.6 Plt Count 338 MPV 11.8 H Immature Gran % 0.0 Neutrophils % 60.0 Band Neutrophils % 6 Lymphocytes % 19.0 Atypical Lymphs % 8 Monocytes % 7.0 Eosinophils % 0.0 Basophils % 0.0 Nucleated RBC % 0 Absolute Neutrophils 12.80 H Absolute Lymphocytes 5.24 H Absolute Monocytes 1.36 H Absolute Eosinophils 0.00 Absolute Basophils 0.00 RBC Morphology Normal
--- NOTE | 2020-07-12 08:26 | OT.INTREAT ---
Date of service: 07/12/20 Time of Service: 08:05 Occupational Therapy Notes Occupational Therapy Inpatient Treatment Note Date: 07/12/20 PRECAUTIONS: Fall, Standard, Full SUBJECTIVE: Pt was lying in bed when OT arrived. She states that she is tired and reports how happy she was to see her daughter this weekend. OBJECTIVE: PAIN:c/o pain in (R) LE and back 9 BATHING: sitting in bed with max (A) Set up/clean up Upper Body: (I) UE with min (A) for lower abdomen, max (A) hair Lower Body: (I) to (B) knees and max (A) (B) LE due to back pain DRESSING: sitting in bed Upper Extremity: (I) [facility] gown Lower Extremity: NT, pt is unable to reach beyond her knees d/t pain GROOMING: sitting in bed (I) hair ASSESSMENT/PLAN: Pt is making gains in terms of her functional activity tolerance, her pain continues to be her biggest limiting factor at this time in terms of her (I) with her ADL/IADL routines. She is at a 9/10 at this but states that functionally she is hoping surgical intervention will be helpful in her future. TREATMENT CODES/TIME: [id number], 15 minutes (08:05) Guillermina Beavers OTR/[facility] [place], [place]
[2020-07-12] MEDS: Acetaminophen 325 MG TAB 650 MG PO ×4 (08:54→19:54)
[2020-07-12] MEDS: Gabapentin 300 MG CAP 900 MG PO ×3 (08:54→19:53)
[2020-07-12] MEDS: Ibuprofen 600 MG TAB PO (08:54)
[2020-07-12] MEDS: Potassium Chloride 20 MEQ TABCR PO (08:54)
[2020-07-12] MEDS: Cholecalciferol (Vitamin D3) 1,000 UNIT TAB 2000 UNITS PO (08:54)
[2020-07-12] MEDS: Docusate Sodium 100 MG CAP PO ×2 (08:54→19:54)
[2020-07-12] MEDS: predniSONE 20 MG TAB 60 MG PO (08:55)
[2020-07-12] MEDS: Senna TAB 1 TAB PO ×2 (08:55→19:54)
[2020-07-12] MEDS: hydroCHLOROthiazide 25 MG TAB PO (08:55)
[2020-07-12] MEDS: metFORMIN 500 MG TAB PO (08:55)
[2020-07-12] MEDS: Multivitamin w/Minerals TAB 1 TAB PO (08:55)
[2020-07-12] MEDS: Diclofenac 1% Gel 100 GM TUBE TP ×4 (08:55→19:55)
[2020-07-12] MEDS: Polyethylene Glycol 3350 17 GM PACKET PO (08:55)
[2020-07-12] MEDS: Lidocaine 5% Patch 1 PATCH TP (08:56)
[2020-07-12] MEDS: Nystatin POWDER 15 GM JAR TP ×2 (08:56→19:55)
[2020-07-12] MEDS: Enoxaparin 40 MG/0.4 ML SYR SC (11:04)
--- NOTE | 2020-07-12 11:30 | PT.INNT ---
Date of service: 07/12/20 Time of Service: 11:30 PT Notes Visit Reasons: CHRONIC RADICULITIS 07/12/2020 Patient refused morning PT session, stating that she was having a bad day with her pain. She reports that she has been very busy all morning. She requests that I come back this afternoon.
[2020-07-12 11:38] LABS: Bilirubin Negative (Negative); Blood Trace-lysed (Negative); Glucose Negative (Negative); Ketones Negative (Negative); Leukocyte Esterase Moderate (Negative); Nitrite Negative (Negative); Urobilinogen 0.2 EU/dL (Up TO 0.2)
[2020-07-12 11:39] LABS: Clarity Sl Cloudy (Clear)
[2020-07-12 11:54] LABS: Bacteria Few HPF (Negative); C & S Indicated? Yes; Casts Negative LPF (Negative); Crystals Rare Calcium Oxalate HPF (Negative); Epithelial Cells Few HPF (Negative); Mucus Trace (Negative); Other Cells Few Transitional (Negative); WBC >50 HPF (0-5)
[2020-07-12] MEDS: Insulin Aspart 300 UNITS/3 ML PEN SC ×2 (12:16→17:13)
--- NOTE | 2020-07-12 13:08 | W.INDIABCONS ---
Date of service: 07/12/20 Time of Service: 13:08 Diabetes Inpatient Consult DESCRIPTION/ASSESSMENT: 64 year old female admitted with urinary retention with hx of parkinsonism, DM2, elevated lipids. Home Dm regime includes metformin 500 mg BID. Most recent A1C 6.3% (03/25/20) indicates good glycemic control. Following diabetic diet with adequate intake. Not at nutritional risk at this time. No education warranted at this time as Dm well controlled. May benefit from outpatiente diabetes counseling. PLAN: continue diabetic diet will continue to monitor po intake, labs, weight Time Spent in Nutritional Counseling and Treatment: 0
--- NOTE | 2020-07-12 14:32 | CHAPLAIN ---
Leah was resting in bed when I visited this morning. She said things had been rough but were better this morning. She's waiting to hear if she's been accepted [facility]. She has a scheduled [place] [facility] [place]. Leah's daughter was able to visit yesterday (new change in visitation policy) and Leah said they really enjoyed seeing each other again as it had been a few months. Leah appreciated the prayer shawl, and asked for a Bible and [employer] booklet, so I got those for her.
--- NOTE | 2020-07-12 14:56 | W.PM.PROGNOT ---
Date of Service Date of service: 07/12/20 Time of Service: 14:56 Assessment and Plan Assessment and plan (1) Lumbosacral radiculopathy: Start date: 07/12/20 Start time: 14:57 Status: Acute Assessment and plan: no evidence of cord compression syndrome by history or exam. Unable to void on her own. smith reinserted. Flomax dcd. Likely neurogenic. Will be seen at [facility] on July 15, 2020 at 10:30 am in spine center on 3D. previous recommendations were for L3-4 and L4-5 decompression and fusion by Dr Powers in May 02, 2019. She has appt on with neurosurgery continue scheduled apap, diclofenac gel, gabapentin, increased dose with good effect last night continue PT/OT. She continues to do exercises in bed. Pain controlled at this time. (2) Essential hypertension: Start date: 07/12/20 Start time: 14:58 Status: Acute Assessment and plan: stable, continue home medication (3) Diabetes mellitus: Status: Acute Assessment and plan: A1C 6.11 mar 2020 diabetic diet, blood sugars have been elevated due to steroids. However improving since increasing SSI to Moderate. Continue to monitor. continue metformin check blood sugars ac/hs and provide sliding scale if needed. (4) Parkinsonism: Start date: 07/12/20 Start time: 14:59 Status: Acute Assessment and plan: at baseline. resting tremor upper extremities (5) Peripheral neuropathy: Start date: 07/12/20 Start time: 14:59 Status: Acute Assessment and plan: gabapentin increased doing better with tingling and numbness since increasing gabapentin. discussed with Dr Gamboa Subjective Subjective Patient reports: no new complaints Interval history since last seen: Doing well. No change in status. Awaiting bed. Large bm, eating, drinking w/o difficulty. Denies CP, SOB, N/V/D. Exam Narrative Exam Narrative: Const: age appropriate female laying in bed, no acute distress. AAOx 3 pleasant and cooperative. comfortable, denies pain, states numbness to left lower extremity and buttocks. Eyes: PERRLA, EOMI Resp: LSC, no rhonchi, wheezing, Cardio: RRR GI: Abd soft bsx4 : catheter draining clear yellow urine Neuro: muscle tone normal throughout, strength 5/5 throughout (slightly decreased at 4/5 on right lower which is baseline) and tremor (right hand) Ext: Normal to inspection Objective Last Vital Signs Temp 36.1 C L 07/12/20 07:29 Pulse 89 07/12/20 07:29 Resp 17 07/12/20 07:29 BP 123/81 07/12/20 07:29 Pulse Ox 97 07/12/20 07:29 Laboratory Results - last 24 hr 07/12/20 07/12/20 06:25 10:05 WBC 19.40 H RBC 4.97 Hgb 15.0 Hct 45.3 MCV 91.1 MCH 30.2 MCHC 33.1 RDW 12.6 Plt Count 338 MPV 11.8 H Immature Gran % 0.0 Neutrophils % 60.0 Band Neutrophils % 6 Lymphocytes % 19.0 Atypical Lymphs % 8 Monocytes % 7.0 Eosinophils % 0.0 Basophils % 0.0 Nucleated RBC % 0 Absolute Neutrophils 12.80 H Absolute Lymphocytes 5.24 H Absolute Monocytes 1.36 H Absolute Eosinophils 0.00 Absolute Basophils 0.00 RBC Morphology Normal Urine Color Yellow Urine Clarity Sl cloudy Urine pH 6.0 Ur Specific [place] 1.010 Urine Protein Negative Urine Ketones Negative Urine Blood Trace-lysed H Urine Nitrite Negative Urine Bilirubin Negative Urine Urobilinogen 0.2 Ur Leukocyte Esterase Moderate H Urine RBC 10-20 H Urine WBC >50 H Ur Epithelial Cells Few Urine Crystals Rare calcium oxalate Urine Bacteria Few Urine Casts Negative Urine Mucus Trace Urine Other Few transitional Ur Culture Indicated? Yes Urine Glucose Negative
[2020-07-12 15:41] VITALS: BP 147/87; PULSE 90; RESP 18; TEMP 36.7; O2SAT 97
--- NOTE | 2020-07-12 15:41 | PTTR_ITS ---
Date of service: 07/12/20 Time of Service: 14:55 PT Notes Visit Reasons: CHRONIC RADICULITIS [facility] Date: 07/12/2020 PRECAUTIONS: Fall, activity as tolerated SUBJECTIVE: Leah states that she is feeling better this afternoon, and is pleasant and agreeable to participating in PT. OBJECTIVE: PAIN: Patient c/o R buttock/hip pain with sitting in wheelchair and with transfers. BED MOBILITY/TRANSFERS Supine-sit: S with HOB at 30-50 degrees Sit-supine: Mod A with HOB flat Sit-stand:CGA Stand-sit: CGA Bed-Chair: CGA Chair-bed: [facility] GAIT Assistive Device: FWW Weight bearing: WBAT R Assist: CGA Distance: 3 steps + 6 steps THEREX: Patient was instructed in a core strengthening and stabilization program, completed in a seated position, as per flow sheet. Patient requires consistent cueing for core activation and posture throughout to improve exercise effectiveness. ASSESSMENT: Patient tolerated session well, although with complaint of R hip and buttock discomfort with transfers and sitting in wheelchair. She continues to require consistent cueing for proper exercise performance to enhance exercise effectiveness. PLAN: Continue with transfer training and core strengthening and stabilization for improved activity tolerance. TREATMENT CODE/TIME: 25 minutes; 37643, [id number] (14:55)
--- NOTE | 2020-07-12 16:07 | CMPROGNOTE_ITS ---
Care Management Progress Note S/O: Leah was sitting up in bed when CM met with her, she remains pleasant and gracious in interaction. Leah continues to await insurance authorization to be able to go to [facility] for short term rehab. Leah reported Manoj from [employer] called and recommended she follow up with [email or web address] coordinator re: [facility] sign up needs, and offered to support her in attaining a financial assistance application. LEILANI called [facility] and secured her an immediate appointment for tomorrow, 07/13/20@0900. CM notified Leah of appointment time and confirmed cell phone number was accurate and preferred. LEILANI also sent inquiry to Nohemy ([facility]) re: EMS transport for Leah's appointment in [facility] on , requesting confirmation that Nohemy would coordinate transport or notify this advertising copy writer if preference was for transport coordination to be done prior to discharge. LEILANI reviewed [facility] paperwork with Leah and messaged Dr. Vargas to ensure paperwork was completed and submitted. Dr. Vargas reported completing paperwork with Leah this morning. Should additional paperwork need to be submitted to Leah's employer, [employer], the office fax number is [phone] Attn: Erica. CM continues to follow. A: Leah is a 64 year old female admitted to [facility] on 07/06/2020 for chronic radiculitis. P: No change in plan. Leah continues to work with PT/OT while she is inpatient. She continues to await bed offer from [facility]; Nohemy of Admissions reported that a pending authorization was received and a determination will be made within 24 hours. LEILANI continues to follow and will provide support to Leah and her discharge planning needs. Anticipate she will transport via EMS when medically ready.
[2020-07-12] MEDS: Gabapentin 300 MG CAP PO (21:41)
[2020-07-12] MEDS: LORazepam 1 MG TAB 0.5 MG PO (21:41)
[2020-07-12 23:59] VITALS: BP 115/71; PULSE 89; RESP 15; TEMP 35.9; O2SAT 94
[2020-07-13 07:17] VITALS: BP 125/83; PULSE 75; RESP 17; TEMP 37.3; O2SAT 95
[2020-07-13 07:41] LABS: Abs Immature Grans 0.23 10^3/uL (0.0-0.06); HCT 44.5 % (36.0-46.0); HGB 14.8 g/dL (11.2-15.7); Immature Grans % 1.2; MCH 30.1 pg (27.0-33.0); MCHC 33.3 % (32.0-36.0); MCV 90.4 fL (80-95); MPV 11.4 fL (8.0-11.0); Nucleated RBC 0 %; Platelet Count 325 10^3/uL (130-400); RBC 4.92 10^6/uL (3.93-5.22); RDW 12.5 % (11.7-14.6); RDW-SD 41.4 fL; WBC 18.52 10^3/uL (4.4-10.8)
[2020-07-13 08:22] LABS: Absolute Eosinophil Count 0.19 10^3/uL (0.0-0.7); Absolute Lymphocyte Count 6.67 10^3/uL (1.2-3.4); Absolute Monocyte Count 0.93 10^3/uL (0.1-0.8); Absolute Neutrophil Count 10.74 10^3/uL (1.2-6.7); Atypical Lymphocytes % 11
[2020-07-13 08:23] LABS: Diff Comment Manual Differential
[2020-07-13] MEDS: Gabapentin 300 MG CAP 900 MG PO ×3 (08:31→20:03)
[2020-07-13] MEDS: Polyethylene Glycol 3350 17 GM PACKET PO (08:31)
[2020-07-13] MEDS: Senna TAB 1 TAB PO ×2 (08:32→20:04)
[2020-07-13] MEDS: Docusate Sodium 100 MG CAP PO ×2 (08:32→20:03)
[2020-07-13] MEDS: hydroCHLOROthiazide 25 MG TAB PO (08:32)
[2020-07-13] MEDS: Potassium Chloride 20 MEQ TABCR PO (08:32)
[2020-07-13] MEDS: predniSONE 20 MG TAB 40 MG PO (08:32)
[2020-07-13] MEDS: Cholecalciferol (Vitamin D3) 1,000 UNIT TAB 2000 UNITS PO (08:32)
[2020-07-13] MEDS: metFORMIN 500 MG TAB PO (08:32)
[2020-07-13] MEDS: Acetaminophen 325 MG TAB 650 MG PO ×4 (08:32→20:04)
[2020-07-13] MEDS: Lidocaine 5% Patch 1 PATCH TP (08:33)
[2020-07-13] MEDS: Nystatin POWDER 15 GM JAR TP ×2 (08:33→20:04)
[2020-07-13] MEDS: Multivitamin w/Minerals TAB 1 TAB PO (08:33)
--- NOTE | 2020-07-13 09:01 | PGE_ITS ---
Date of Service Date of service: 07/13/20 Time of Service: 09:01 Assessment and Plan Assessment and plan (1) Lumbosacral radiculopathy: Status: Acute Assessment and plan: no evidence of cord compression syndrome by history or exam. failed voiding trial, smith catheter replaced for inability to empty bladder while in bed. outpatient neurosurg clinic on July 15, 2020 at 10:30 am in spine center on 3D. continue scheduled apap, diclofenac gel, on steroids continue PT/OT. (2) Essential hypertension: Status: Acute Assessment and plan: stable, continue home medication (3) Diabetes mellitus: Status: Acute Assessment and plan: A1C 6.11 mar 2020 diabetic diet, continue metformin anticipate hyperglycemia in setting of steroids. check blood sugars ac/hs and provide sliding scale if needed. (4) Parkinsonism: Status: Acute Assessment and plan: at baseline. resting tremor upper extremities (5) Peripheral neuropathy: Status: Acute Assessment and plan: gabapentin (6) Urinary retention: Status: Acute Assessment and plan: indwelling smith catheter (7) UTI (urinary tract infection): Status: Acute Assessment and plan: ID and sensitivity pending start on keflex day 1 pending final report (8) DVT prophylaxis: Status: Acute Assessment and plan: enoxaparin (9) Discharge planning issues: Status: Acute Assessment and plan: awaiting insurance prior auth for [facility] case management following discussed with DR Gamboa Subjective Subjective Patient reports: no new complaints, tolerating liquids well, tolerating a regular diet and afebrile Interval history since last seen: still awaiting rehab bed. working with PT. Exam Const General: cooperative, no acute distress and frail appearing (older than stated age) Nutritional Appearance: obese Orientation: alert, awake and oriented x3 HENMT Head: normal to inspection, normocephalic and atraumatic Mouth: oral mucosae normal Resp Effort & Inspection: normal respiratory effort Auscultation: clear to auscultation bilaterally Cardio Rate: regular rate Rhythm: regular rhythm GI Inspection: normal to inspection Palpation: soft Auscultation: normal bowel sounds Rectal Exam - female: visual inspection normal, normal sphincter tone, No fecal impaction (no stool in vault) and No hemorrhoids Back/Spine/Pelvis Back: other (no tenderness on palpation) Thoracic/Lumbar Spine: straight leg raise positive (pain on right, able to hold leg up against gravity and pressure) Skin Lesions: other (not visualized, mepilex intact to coccyx) Neuro General: patient alert, patient awake and patient oriented x3 Motor: muscle tone normal throughout, strength 5/5 throughout (slightly decreased at 4/5 on right lower which is baseline) and tremor (right hand) Extrem General: normal to inspection Right lower extremity: foot (trace edema, ) Objective Last Vital Signs Temp 37.3 C 07/13/20 07:17 Pulse 75 07/13/20 07:17 Resp 17 07/13/20 07:17 BP 125/83 07/13/20 07:17 Pulse Ox 95 07/13/20 07:17 Laboratory Results - last 24 hr 07/12/20 07/13/20 10:05 06:49 WBC 18.52 H RBC 4.92 Hgb 14.8 Hct 44.5 MCV 90.4 MCH 30.1 MCHC 33.3 RDW 12.5 Plt Count 325 MPV 11.4 H Immature Gran % 1.2 Neutrophils % 58.0 Lymphocytes % 25.0 Atypical Lymphs % 11 Monocytes % 5.0 Eosinophils % 1.0 Basophils % 0.0 Nucleated RBC % 0 Absolute Neutrophils 10.74 H Absolute Lymphocytes 6.67 H Absolute Monocytes 0.93 H Absolute Eosinophils 0.19 Absolute Basophils 0.00 Urine Color Yellow Urine Clarity Sl cloudy Urine pH 6.0 Ur Specific [place] 1.010 Urine Protein Negative Urine Ketones Negative Urine Blood Trace-lysed H Urine Nitrite Negative Urine Bilirubin Negative Urine Urobilinogen 0.2 Ur Leukocyte Esterase Moderate H Urine RBC 10-20 H Urine WBC >50 H Ur Epithelial Cells Few Urine Crystals Rare calcium oxalate Urine Bacteria Few Urine Casts Negative Urine Mucus Trace Urine Other Few transitional Ur Culture Indicated? Yes Urine Glucose Negative
[2020-07-13] MEDS: Enoxaparin 40 MG/0.4 ML SYR SC (11:19)
[2020-07-13] MEDS: Cephalexin 500 MG CAP PO ×2 (11:19→20:03)
[2020-07-13] MEDS: Insulin Aspart 300 UNITS/3 ML PEN SC ×2 (12:44→16:58)
[2020-07-13] MEDS: Ibuprofen 600 MG TAB PO (14:04)
[2020-07-13 14:37] VITALS: BP 145/84; PULSE 105; RESP 18; TEMP 35.9; O2SAT 94
--- NOTE | 2020-07-13 15:39 | PTTR_ITS ---
Date of service: 07/13/20 Time of Service: 15:10 PT Notes Visit Reasons: CHRONIC RADICULITIS [facility] Date: 07/13/2020 PRECAUTIONS: Fall, activity as tolerated SUBJECTIVE: Leah states that she feeling very tired today, although she does report that she slept well last night. She is pleasant and agreeable to participating in PT. OBJECTIVE: PAIN: Patient c/o R buttock/hip pain with sitting in wheelchair and with transfers. BED MOBILITY/TRANSFERS Supine-sit: S with HOB at 30-50 degrees Sit-supine: Mod A with HOB flat Sit-stand:Min A Stand-sit: SBA Bed-Chair: SBA Chair-bed: CGA GAIT Assistive Device: FWW Weight bearing: WBAT R Assist: CGA Distance: 3 steps + 6 side steps to R THEREX: Patient was instructed in a core strengthening and stabilization program, completed in a supine position, as per flow sheet. Patient requires minimal cueing for core activation and posture throughout to improve exercise effectiveness. she utilizes yellow Theraband for supine frog and hip umkumiut exercises. ASSESSMENT: Patient tolerated session well, although with complaint of R hip and buttock discomfort with transfers and sitting in wheelchair. She continues to require cueing for proper exercise performance to enhance exercise effectiveness, although minimal at this point. PLAN: Continue with transfer training and core strengthening and stabilization for improved activity tolerance. TREATMENT CODE/TIME: 25 minutes; 60520, [id number] (15:10)
--- NOTE | 2020-07-13 16:28 | PDOC.CMPRO ---
Care Management Progress Note S/O: Leah was sitting up in bed when CM met with her, she remains pleasant and gracious in interaction. Leah continues to await insurance authorization to be able to go to [facility] for short term rehab. CM called, emailed and faxed documentation to [facility] to support determination. CM spoke with Nohemy of [employer] admissions who reported doing the same. CM continues to follow. A: Leah is a 64 year old female admitted to [facility] on 07/06/2020 for chronic radiculitis. P: No change in plan. Leah continues to work with PT/OT while she is inpatient. She continues to await bed offer from [facility]; Nohemy of Admissions reported that a pending authorization was received and a determination will be made within 24 hours. LEILANI continues to follow and will provide support to Leah and her discharge planning needs. Anticipate she will transport via EMS when medically ready.
[2020-07-13] MEDS: Diclofenac 1% Gel 100 GM TUBE TP ×2 (16:58→20:05)
[2020-07-13] MEDS: Gabapentin 300 MG CAP PO (22:42)
[2020-07-13 23:03] VITALS: BP 146/91; PULSE 99; RESP 18; TEMP 36.3; O2SAT 94
[2020-07-14 07:10] LABS: HGB 14.5 g/dL (11.2-15.7); MCH 29.7 pg (27.0-33.0); MPV 11.6 fL (8.0-11.0); Nucleated RBC 0 %; Platelet Count 333 10^3/uL (130-400); RBC 4.89 10^6/uL (3.93-5.22); RDW 12.4 % (11.7-14.6); WBC 18.17 10^3/uL (4.4-10.8)
[2020-07-14 07:24] VITALS: BP 121/76; PULSE 81; RESP 16; TEMP 36.6; O2SAT 95
[2020-07-14] MEDS: Polyethylene Glycol 3350 17 GM PACKET PO (07:37)
[2020-07-14] MEDS: Multivitamin w/Minerals TAB 1 TAB PO (07:38)
[2020-07-14] MEDS: Diclofenac 1% Gel 100 GM TUBE TP (07:38)
[2020-07-14] MEDS: Cholecalciferol (Vitamin D3) 1,000 UNIT TAB 2000 UNITS PO (07:38)
[2020-07-14] MEDS: Nystatin POWDER 15 GM JAR TP (07:38)
[2020-07-14] MEDS: hydroCHLOROthiazide 25 MG TAB PO (07:38)
[2020-07-14] MEDS: Gabapentin 300 MG CAP 900 MG PO (07:38)
[2020-07-14] MEDS: Potassium Chloride 20 MEQ TABCR PO (07:38)
[2020-07-14] MEDS: Senna TAB 1 TAB PO (07:38)
[2020-07-14] MEDS: Cephalexin 500 MG CAP PO (07:39)
[2020-07-14] MEDS: Docusate Sodium 100 MG CAP PO (07:39)
[2020-07-14] MEDS: predniSONE 20 MG TAB 40 MG PO (07:39)
[2020-07-14] MEDS: metFORMIN 500 MG TAB PO (07:39)
[2020-07-14] MEDS: Acetaminophen 325 MG TAB 650 MG PO (07:39)
[2020-07-14 07:41] LABS: Absolute Neutrophil Count 10.36 10^3/uL (1.2-6.7)
[2020-07-14 07:42] LABS: Absolute Lymphocyte Count 7.45 10^3/uL (1.2-3.4); Absolute Monocyte Count 0.36 10^3/uL (0.1-0.8); Atypical Lymphocytes % 15; Diff Comment Manual Differential; RBC Morphology Normal
--- NOTE | 2020-07-14 08:32 | DSE_ITS ---
Date of service: 07/14/20 Time of Service: 08:33 DS: Diagnosis Discharge Diagnosis (1) Lumbosacral radiculopathy: Status: Acute (2) Essential hypertension: Status: Acute (3) Diabetes mellitus: Status: Acute (4) Parkinsonism: Status: Acute (5) Peripheral neuropathy: Status: Acute (6) Urinary retention: Status: Acute (7) UTI (urinary tract infection): Status: Acute Discharge Plan Disposition Patient Disposition: [facility] ([facility] Condition: Stable Discharge Details Reason For Visit: CHRONIC RADICULITIS Admit Date/Time: 07/06/20 17:13 Admit Provider: Devin Diane Attending Provider: Devin Diane Primary Care Provider: Keila Vargas Hospital Course Hospital Course: This is a 64 female with chronic RLE pain that has been described as LS radiculopathy who has had multiple imaging studies in past and has been seen by neurosurgery at [facility] and [facility]. Has had multiple injections (I believe both in hip and spine) with little effect. Has seen Orthopedics extensively and exhausted all orthopedic avenues. States pain is worse since moving lawn furniture. Her re-imaging shows degenerative disc changes and facet degenerative changes are seen greatest at L5 3 4 and L4-5. There is severe neural foraminal narrowing at L3-4 and a moderate central canal stenosis as well as neural foraminal narrowing at L4-5. Her images have been reviewed by Dr Chung Javier and she has been scheduled for an office visit on July 15, at 10:30 am at [facility] spine center. Her hospitalization was complicated with incomplete bladder emptying requiring smith catheter placement and UTI which is being treated with keflex. White blood cell count elevated, likely combination of steroids and infection, she has been afebrile and hemodynamically stable. Her pain has been managed with increased gabapentin, ibuprofen, acetaminophen and oxycodone. She has also been on steroids which will be tapered. She has been working with physical therapy and making some progress. she is eating and drinking well. She has been accepted at [facility] rehab for ongoing PT/OT as she is not safe for discharge to home. discussed with DR Gamboa. Home Meds and New Rx's Prescriptions: New cephalexin 500 mg Capsule 500 mg PO BID Qty: 8 RF: 0 gabapentin 300 mg Capsule 300 mg PO HS Qty: 30 RF: 0 acetaminophen [Tylenol] 325 mg Tablet 650 mg PO QID Qty: 20 RF: 0 sennosides [Senokot] 8.6 mg Tablet 1 tab PO BID Qty: 60 RF: 0 polyethylene glycol 3350 17 gram Powder In Packet 17 g PO BID Qty: 30 RF: 0 oxycodone 5 mg Tablet 5 mg PO Q4H PRN PRNQty: 10 RF: 0 docusate sodium [Colace] 100 mg Capsule 100 mg PO BID Qty: 60 RF: 0 Continued nystatin (bulk) 500 million unit powder See Rx Instructions miscellaneous BID Qty: 1 RF: 3 diclofenac sodium [Voltaren] 1 % gel 2 g topical QID Qty: 100 RF: 0 hydrochlorothiazide 25 mg tablet 25 mg PO DAILY Qty: 90 RF: 5 (DME) blood-glucose meter [[employer] Verio IQ Meter] misc See Dose Instructions .ROUTE .MEDSUPPLY Qty: 1 RF: 0 (DME) Blood Glucose Test Strip 1 ea Miscellaneous DAILY Qty: 100 RF: 1 lorazepam 1 mg tablet 0.5 - 1 mg PO DAILY PRN (Reason: anxiety) Qty: 25 RF: 0 (DME) lancets 28 gauge misc 1 ea Miscellaneous DAILY Qty: 100 RF: 0 potassium chloride 20 mEq tablet extended release 20 meq PO DAILY Qty: 90 RF: 1 metformin 500 mg tablet 500 mg PO DAILY Qty: 90 RF: 4 cyclobenzaprine 10 mg tablet 10 mg PO BID PRN (Reason: muscle spasm) Qty: 180 RF: 3 ibuprofen 600 mg tablet 600 mg PO QID PRN (Reason: pain) Qty: 90 RF: 2 cholecalciferol (vitamin D3) [Vitamin D3] 50 mcg (2,000 unit) capsule 150 mcg PO DAILY RF: 0 lidocaine 4 % adhesive patch,medicated 1 patch topical DAILY PRN (Reason: pain) 5 Days Qty: 10 RF: 0 prednisone 20 mg tablet 40 mg PO DAILY 5 Days Qty: 10 RF: 0 diazepam 2 mg tablet 2 mg PO QHS PRN (Reason: muscle spasm) Qty: 5 RF: 0 Changed gabapentin 300 mg capsule 900 mg PO TID Qty: 180 RF: 2 Discontinued triamcinolone acetonide 0.1 % cream 1 applic TP BID PRN Qty: 80 RF: 2 ketoconazole 2 % cream 1 applic TP BID PRNRF: 0 valacyclovir 1 gram tablet 2,000 mg PO BID PRNRF: 0 clotrimazole 1 % cream 1 applic Topical DAILY PRNRF: 0 hydrocortisone 0.5 % cream 1 applic Topical BID PRNRF: 0 Discharge Instructions Instructions: Lumbar Spinal Stenosis (DC) Additional Instructions: taper prednisone 40 mg daily for 3 days, then 30 mg daily for 3 days, then 20 mg for 3 days, then 10 mg daily for 3 days, then 5 mg daily for 3 days, then stop or as directed by spine speciality. Stand Alone Forms: Nursing Discharge Form Referrals: Keila Vargas MD, [place] [Primary Care Provider] - (on discharge from rehab) Chung Javier [ [facility] STAFF PHYSICIAN] - 07/15/20 10:30 am (spine center on 3 D) Activity:: Activity as Tolerated Equipment/Supplies:: No Equipment Needed Diet:: Carb Counting Discharge Orders Discharge Orders: Discharge Order (Routine); Ordered 07/14/20 Ordered By: Emy Borges DS: Summary Time Spent with Patient providing and/or coordinating discharge services: Greater than 30 minutes Status at Discharge Functional status at discharge: uses cane/walker Overall status at discharge: patient is not back to baseline Mental Status: mental status grossly normal Speech and Movement: speech and movement normal Mood: congruent mood Affect: normal affect Exam Const General: cooperative, no acute distress and frail appearing (older than stated age) Nutritional Appearance: obese Orientation: alert, awake and oriented x3 HENMT Head: normal to inspection, normocephalic and atraumatic Mouth: oral mucosae normal Resp Effort & Inspection: normal respiratory effort Auscultation: clear to auscultation bilaterally Cardio Rate: regular rate Rhythm: regular rhythm GI Inspection: normal to inspection Palpation: soft Auscultation: normal bowel sounds Rectal Exam - female: visual inspection normal, normal sphincter tone, No fecal impaction (no stool in vault) and No hemorrhoids Back/Spine/Pelvis Back: other (no tenderness on palpation) Thoracic/Lumbar Spine: straight leg raise positive (pain on right, able to hold leg up against gravity and pressure) Skin Lesions: other (not visualized, mepilex intact to coccyx) Neuro General: patient alert, patient awake and patient oriented x3 Motor: muscle tone normal throughout, strength 5/5 throughout (slightly decreased at 4/5 on right lower which is baseline) and tremor (right hand) Extrem General: normal to inspection Right lower extremity: foot (trace edema, ) Psych Mental Status: mental status grossly normal Speech and Movement: speech and movement normal Mood: congruent mood Affect: normal affect DS: Data Vitals/I&O Vitals and I&O: Vital Signs Temperature 36.6 C 07/14/20 07:24 Temperature Source Tympanic 07/14/20 07:24 Pulse 81 07/14/20 07:24 Pulse Rhythm Regular 07/13/20 23:40 Pulse 106 H 07/05/20 18:15 Respiratory Rate 16 07/14/20 07:24 Respiratory Effort Non-Labored 07/13/20 23:40 Respiratory Depth Normal 07/13/20 23:40 Respiratory Pattern Normal 07/13/20 23:40 Blood Pressure 121/76 07/14/20 07:24 Blood Pressure Mean 106 07/05/20 18:15 Blood Pressure Position Supine 07/05/20 14:37 Pulse Oximetry 95 07/14/20 07:24 Oxygen Delivery Method Room Air 07/14/20 07:24 Oxygen Flow Rate 0 07/14/20 07:24 Pain Level 0 07/14/20 07:24 Comment 07/07/20 14:55 Intake & Output 07/13/20 07/13/20 07/14/20 11:59 23:59 11:59 Intake Total 810 / 1290 480 / 1290 Output Total 250 / 1200 950 / 1200 900 / 900 Balance 560 / 90 -470 / 90 -900 / -900 Intake: IV Oral 800 / 1280 480 / 1280 Output: Urine 250 / 1200 950 / 1200 900 / 900 Other: Urine Color Dark Annie Straw Yellow Urine Appearance Clear Clear Clear Stool Size Large Stool Characteristics Soft Brown Data Completed and Pending Labs on day of discharge: Labs from last 24 hours 07/14/20 06:50 WBC 18.17 H RBC 4.89 Hgb 14.5 Hct 44.0 MCV 90.0 MCH 29.7 MCHC 33.0 RDW 12.4 Plt Count 333 MPV 11.6 H Immature Gran % 0.0 Neutrophils % 57.0 Lymphocytes % 26.0 Atypical Lymphs % 15 Monocytes % 2.0 Eosinophils % 0.0 Basophils % 0.0 Nucleated RBC % 0 Absolute Neutrophils 10.36 H Absolute Lymphocytes 7.45 H Absolute Monocytes 0.36 Absolute Eosinophils 0.00 Absolute Basophils 0.00 RBC Morphology Normal Preliminary micro results at discharge 07/12/20 10:05 Urine Culture - Preliminary Urine - Reflex from Ua Gram Negative Law Gram Positive Cocci [facility] Medical History (Updated 07/13/20 @ 09:06 by Emy Borges NP) DM (diabetes mellitus) Essential tremor Hip pain HTN (hypertension) Hyperlipidemia Internal derangement of right knee ITB syndrome Lumbosacral radiculopathy Lymphadenopathy (12/25/11) On antibiotic therapy JOSEY (obstructive sleep apnea) Osteoarthritis of right hip Peripheral neuropathy Pes anserinus bursitis of right knee Injection: 08/28/2018 Right calf pain Sarcoid Surgical History (Updated 07/07/20 @ 14:44 by Keila Vargas MD, [place]) section x 3 Colonoscopy - MAC (02/11/16) History of section History of nasal septoplasty Nasal septoplasty Family History Mother Essential hypertension Cancer Diabetes Hyperlipidemia Primary biliary cholangitis Father , AGE 74 Heart disease Hyperlipidemia Brother Essential hypertension Diabetes Hyperlipidemia Maternal Grandfather Prostate cancer Paternal Grandfather , AGE 45 Diabetes Maternal Grandmother , AGE 84 Diabetes Heart disease Paternal Grandmother Lung cancer Other Lumbosacral radiculopathy Social History Smoking/Tobacco Use Status: Never Smoking risk assessment performed?: Yes Alcohol Intake: current Alcohol Intake frequency: a few times a month Drug use: Never Substance use type: does not use Caregiver/Support person: No Household members: none Do you need help understanding health information?: Never Pets and animals: Yes Pets and animals: cat(s) Sexually active: No Do you think of yourself as: straight/heterosexual Current gender identity: female What is your relationship status?: How often do you talk on the phone with friends or family?: three or more times per week How often do you get together with friends or relatives?: three or more times per week How often do you attend denominational or hoahaoism services?: 1-3 times per year Do you belong to any clubs or organized social groups?: no Panel score (0-1 are the most socially isolated patients): 1 What type of physical activity do you participate in: none Duration: decline to answer Frequency: decline to answer Maria Fernanda/Baptism: Holiness Special maria fernanda needs: No Seatbelt use: always Helmet use: Yes Helmet use: always Drive intox or ride w/intox sulky driver: No Do you feel safe at home: Yes Additional Social history: lives alone - son helps out
[2020-07-14 09:23] LABS: Source Nasal/Nares
[2020-07-14 10:10] LABS: COVID-19 PCR Negative (Negative)
[2020-07-14] MEDS: Enoxaparin 40 MG/0.4 ML SYR SC (10:15)
--- NOTE | 2020-07-14 11:39 | PT.INDS ---
Date of service: 07/14/20 Time of Service: 11:39 PT Notes Visit Reasons: CHRONIC RADICULITIS Physical Therapy Inpatient Discharge Summary Date: 07/14/2020 Dates of service: 07/06/2020 through 07/13/2020 This is a clinical summary of care provided on the duration of dates listed above. No charge was made in the completion of this documentation. Referring Doctor: Emy Borges NP PT Orders: PT CONSULT: Eval/treat. Precautions: Fall. Standard. Activity as tolerated. Patient Profile/Admitting Diagnosis: Leah is a 64-year-old female who presented to the ED on 07/05/2020 with worsening right hip pain. She is diagnosed with radiculitis and is referred for physical therapy for discharge planning and functional mobility retraining. PMHX: Medical History DM (diabetes mellitus) HTN (hypertension) Hyperlipidemia Internal derangement of right knee Lumbosacral radiculopathy On antibiotic therapy JOSEY (obstructive sleep apnea) Peripheral neuropathy Sarcoid Surgical History section x 3 Colonoscopy - MAC (02/11/16) Nasal septoplasty Social History/Home Situation: Lives lone in an apartment. Has been on and off use of FWW in the past 6 months. Works from home for [employer]. Has family/relatives who live close by. Equipment Owned/DME: Hospital bed, FWW Subjective: NT. See most recent ELECTRICAL TRYOUT PERSON notes. Objective: General Observation: NT. See most recent ELECTRICAL TRYOUT PERSON notes. Mental Status: NT. See most recent ELECTRICAL TRYOUT PERSON notes. Pain: NT. See most recent ELECTRICAL TRYOUT PERSON notes. ROM: Right Upper Extremity: Shoulder Flexion WFL. Shoulder abduction WFL. Elbow flexion WFL. Wrist flexion WFL. Functional opening and closing of hand WFL. Left Upper Extremity: Shoulder Flexion WFL. Shoulder abduction WFL. Elbow flexion WFL. Wrist flexion WFL. Functional opening and closing of hand WFL. Right Lower Extremity: Hip and knee flexion up to 60 degrees. Unable to abduct/adduct due to pain. Left Lower Extremity: Left Lower Extremity: Hip flexion WFL. Hip abduction WFL. Knee flexion WFL. Ankle dorsiflexion WFL. Ankle plantarflexion WFL. Strength: Right Lower Extremity: Grossly 2-/5 Left Lower Extremity: Grossly 2-/5 Sensation: Intact as to pain and pressure on bilateral lower extremities. Bed Mobility/Transfers: Rolling minimal to moderate assist depending on pain level Supine to sit moderate assist to supervision depending on pain level Sit to supine moderate assist to supervision depending on pain level Sit to stand minimal assist to standby assist depending on pain level Stand to sit minimal assist to standby assist depending on pain level Bed to chair minimal assist to standby assist depending on pain level Chair to bed minimal assist to standby assist depending on pain level Gait: Only able to tolerate up to 3 steps forward and 6 sidesteps while using FWW with continued limitation resulting from pain and weakness with postural changes. Balance: Static Sitting: Poor Dynamic Sitting: Poor Static Standing: Poor Dynamic Standing: Poor Assessment: Patient tolerated low intensity bed level core activation exercises and slow progression mobility retraining for this episode of care. She has a surgical consult at [facility] on 07/15/2020 and may be a surgical candidate considering her deteriorating mobility status. She will need SNF placement for graduated mobility progression and pre-surgical conditioning to maximize her functional outcomes and increase ability to return home. Patient continues to present with clinical signs and symptoms consistent with current/admitting diagnoses that have resulted to mobility limitations, gait instability, generalized weakness, and impairment of motor control as demonstrated by the following impairment level findings: 1. Decreased strength to B LE major muscle groups 2. Unable to move in bed and out of bed 3. No activity tolerance for sitting 4. Significant pain in low back with R lumbar area and R hip more affected 5. Pain avoidance behavior Impairments are continuing to contribute to the following functional limitations: 1. Dependent bed mobility skills 2. Dependence with transfers 3. Inability to ambulate 4. Increased fall risk Goals: Goals X1 week 1. Supine-Sit minimal assist MET 2. Sit-Supine minimal assist NOT MET 3. Sit-Stand minimal assist MET 4. Stand-Sit minimal assist MET 5. Bed-Chair minimal assist MET 6. Chair-Bed minimal assist MET 7. Minimal assist gait on level surface with use of least restrictive device for at least 30 feet without report of pain nor dyspnea NOT MET 8. Minimal assist stair negotiation while holding onto bilateral rails for at least 5 steps without report of pain nor dyspnea NOT MET 9. Fair static and dynamic standing balance/tolerance NOT MET DISCHARGE RECOMMENDATIONS: Patient will benefit from short-term residential facility placement for continued skilled physical therapy services in order to progress mobility level, strength, and balance in preparation for a safe discharge to home. TREATMENT CODE/TIME: NC Thank you for the opportunity to participate in the care of this patient. Marlee Meza PT, DPT, CLT [facility] [place], [place]
--- NOTE | 2020-07-14 13:49 | CMDISCH_ITS ---
LACE Index Scoring Tool - Questions: Length of Stay (in days): 7 - 13 Acuity (Admit via E.D.?): Yes Comorbidities: Diabetes w/o Complication E.D. Visits: 2 - Answers: Total Score: 11 Risk of Readmission: High Risk Care Management Discharge Reason for Hospitalization: Chronic radiculitis Discharge Plan: Leah will discharge to [facility] for continued support including catheter management, PT, OT while awaiting surgical intervention through [facility]. [facility] as well as for down and back appointment to [facility] Spine [facility] at for surgical consult. Patient/Family Education Needs: Review discharge instructions, discuss Ask Me Three. Services Needed at Discharge: Senior Care Facility ([facility] ), [facility]
--- NOTE | 2020-07-15 07:06 | OTDS_ITS ---
Date of service: 07/15/20 Time of Service: 07:06 Occupational Therapy Notes Occupational Therapy Inpatient Discharge Summary Date: 07/15/20 for 07/14/20 discharge Dates of Service: 07/08/20- 07/14/20 Referring Doctor: Emy Borges NP OT Orders: Non-Urgent Precautions: Fall, standard, Full *This document serves as a summary of care, no skilled OT intervention provided for this documentation* PATIENT PROFILE/ADMITTING DIAGNOSIS: Pt is a 64 year old who was admitted to [facility] with the following dx spinal stenosis, palliative care, radiculitis, (R) hip pian, Parkinsonism, peripheral neuropathy, lumbosacral radiculopathy, essential HTN, DM. She is awaiting transfer to [facility] for spinal surgery at this time. Past Medical History: Medical History DM (diabetes mellitus) HTN (hypertension) Hyperlipidemia Internal derangement of right knee Lumbosacral radiculopathy On antibiotic therapy JOSEY (obstructive sleep apnea) Peripheral neuropathy Sarcoid Surgical History section x 3 Colonoscopy - MAC (02/11/16) Nasal septoplasty Social History/Home Situation: Pt states that she lives alone and has family all around her. She reports that she is (I) at baseline and recently received DME mentioned below. She has 3 stairs to enter her home and she has 2 FWW one for inside and 1 for outside. She states that if she does need help her family comes and (A). She does not feel that she is at her baseline level of function at this time. She is currently working from home and states that she spends the majority of her day at a computer. Equipment owned/DME: commode, shower chair, grab bars, raised toilet seat, FWW, cane SUBJECTIVE: NT OBJECTIVE: ROM: RUE AROM WFL L UE AROM WFL STRENGTH: RUE 4+/5 throughout LUE 5/5 throughout FUNCTIONAL MOBILITY/ADLS: ATHING: sitting in bed with max (A) Set up/clean up Upper Body: (I) UE with min (A) for lower abdomen, max (A) hair Lower Body: (I) to (B) knees and max (A) (B) LE due to back pain DRESSING: sitting in bed Upper Extremity: (I) [facility] gown Lower Extremity: NT, pt is unable to reach beyond her knees d/t pain GROOMING: sitting in bed (I) hair TOILETING on commode (I) toileting hygiene EATING (I) BALANCE: Static sitting Good Dynamic Sitting Good ASSESSMENT: Patient is a 64-year-old female referred to occupational therapy services with diagnosis of spinal stenosis, palliative care, radiculitis, (R) h ip pian, Parkinsonism, peripheral neuropathy, lumbosacral radiculopathy, essential HTN, DM. Pt was seen for 3 skilled OT sessions, she has made some improvements since her initial evaluation. She continues to be limited for LE dressing and bathing due to pain and discomfort. Functionally she requires (A) in the seated position and with prolonged ADLs. GOALS 1. Grooming- (I) with brushing hair sitting at side of the bed- Met 2. Dressing- sitting on side of the bed (I) UE min (A) LE- met UE, not met LE 3. Bathing- sitting on side of the (I) UE, min (A) LE- met UE and max (A) LE due to pain 4. Toileting- on commode (I)- met 5. Eating- (I)- met PLAN OF CARE/TREATMENT PLAN: Pt was transitioned to SNF on 07/14/20 awaiting surgical intervention at [facility] DISCHARGE RECOMMENDATIONS OT recommends that pt go to SNF when medically cleared per MD. TREATMENT TIME/MINUTES/CODES N/A Guillermina Beavers OTR/L [facility]
== END 2020-07-14 11:14 | disposition skilled nursing facility (03) | DRG 552 ==
LOC: ER 18:18 → MS 18:47
PROVIDERS: Internal Medicine; Nurse Practitioner Acute Care; Nurse Practitioner Family; Admitting Provider General Practice; Emergency Provider Emergency Medicine; PCP Family Medicine; Visit Provider General Practice
DX: M54.17 Radiculopathy, lumbosacral region (principal); N39.0 Urinary tract infection, site not specified; I10 Essential (primary) hypertension; E78.5 Hyperlipidemia, unspecified; G47.33 Obstructive sleep apnea (adult) (pediatric); E11.42 Type 2 diabetes mellitus with diabetic polyneuropathy; G20 Parkinson's disease; Z79.84 Long term (current) use of oral hypoglycemic drugs; K59.00 Constipation, unspecified; R33.9 Retention of urine, unspecified; B96.20 Unspecified Escherichia coli [E. coli] as the cause of diseases classified elsewhere
CPT/HCPCS: 36415; 80048; 85027; 87077; 87635; 96374; 97110; 97163; 97166; 97530; 97535; 99222; 99233; 99239; 99254; 99285; J1650; 72148; 73502; 81003; 81015; 85025; 87086; 87186; 99219; 99284; G0378; J1885; J2060; J3490; J7512

== ENCOUNTER 2020-08-07 13:38 | Inpatient (IN) | payer OTHER, SELFPAY ==
[2020-08-07] VITALS (8 sets, daily range): BP systolic 119–185; BP diastolic 80–104; PULSE 103–123; RESP 18; TEMP 36.2–36.8; O2SAT 93–96
--- NOTE | 2020-08-07 13:39 | ED.GENADUL_ITS ---
Discharge Plan Disposition Patient Disposition: [facility] INPATIENT Condition: Stable Discharge Details Chief Complaint: Nk/Back Pain Clinical Impression: Hypokalemia, Hypomagnesemia, Acute lumbar back pain, Back pain with radiation, Dehydration Primary Care Provider: Keila Vargas ED Provider: Fide Mora Home Meds and New Rx's Prescriptions: No Action nystatin (bulk) 500 million unit powder See Rx Instructions miscellaneous BID Qty: 1 RF: 3 diclofenac sodium [Voltaren] 1 % gel 2 g topical QID Qty: 100 RF: 0 hydrochlorothiazide 25 mg tablet 25 mg PO DAILY Qty: 90 RF: 5 (DME) blood-glucose meter [[employer] Verio IQ Meter] misc See Dose Instructions .ROUTE .MEDSUPPLY Qty: 1 RF: 0 (DME) Blood Glucose Test Strip 1 ea Miscellaneous DAILY Qty: 100 RF: 1 lorazepam 1 mg tablet 0.5 - 1 mg PO DAILY PRN (Reason: anxiety) Qty: 25 RF: 0 (DME) lancets 28 gauge misc 1 ea Miscellaneous DAILY Qty: 100 RF: 0 metformin 500 mg tablet 500 mg PO DAILY Qty: 90 RF: 4 ibuprofen 600 mg tablet 600 mg PO QID PRN (Reason: pain) Qty: 90 RF: 2 potassium chloride 20 mEq tablet extended release 20 meq PO DAILY Qty: 90 RF: 1 cyclobenzaprine 10 mg tablet 10 mg PO BID PRN (Reason: muscle spasm) Qty: 90 RF: 3 oxycodone 5 mg tablet 5 mg PO TID MDD 15 PRN (Reason: pain) Qty: 30 RF: 0 cholecalciferol (vitamin D3) [Vitamin D3] 50 mcg (2,000 unit) capsule 150 mcg PO DAILY RF: 0 diazepam 2 mg tablet 2 mg PO QHS PRN (Reason: muscle spasm) Qty: 5 RF: 0 cephalexin 500 mg Capsule 500 mg PO BID Qty: 8 RF: 0 gabapentin 300 mg Capsule 300 mg PO HS Qty: 30 RF: 0 acetaminophen [Tylenol] 325 mg Tablet 650 mg PO QID Qty: 20 RF: 0 sennosides [Senokot] 8.6 mg Tablet 1 tab PO BID Qty: 60 RF: 0 polyethylene glycol 3350 17 gram Powder In Packet 17 g PO BID Qty: 30 RF: 0 docusate sodium [Colace] 100 mg Capsule 100 mg PO BID Qty: 60 RF: 0 gabapentin 300 mg capsule 900 mg PO TID Qty: 180 RF: 2 Medical Decision Making Patient pleasant 64-year-old female brought in via EMS with chief complaint acute on chronic low back pain that radiates into her right lower extremity. Patient was admitted here for the same on 07/05/2020 with eventual transfer to [facility]hab on 07/14/2020. Patient reports that she stayed there for several days but preferred to be discharged home. Patient was set up with hospital bed, pete. Patient does live alone but states that she did have her neighbor checking in on her fairly frequently. She reports that initially she was mobile with her walker. However, mobility began to decline and she states that she has been essentially bedbound for the past few weeks. Denies any fevers or chills. States over the past few days has been noting increased pain in the left right lower extremity as well as swelling. The swelling is new and is usual for her. She denies any chest pain or shortness of breath. Denies any fevers or chills. Has been using oxycodone which does help but has not been sufficient to help with her discomfort. Patient received 100 mcg of fentanyl in route. No change in bowel or bladder function. She has not noted any sensory deficits. Past medical history significant for diabetes, essential tremor, hypertension, hyperlipidemia, JOSEY, peripheral neuropathy Reviewed notes from [facility]. Patient is followed by Dr. Javier and is scheduled to have surgical intervention for this severe discomfort. Surgery will involve L4 S1 laminectomy with a right-sided hemilaminectomy at L5-S1, a complete right L5-S1 discectomy with a far lateral discectomy at the level and instrumented fusion from L4-S1 with possible TLIF from the right L5-S1 using local bone graft. On exam, patient appears nontoxic. She does appear very uncomfortable and has limited mobility associated with her back pain and right lower extremity pain. Patient hypertensive with blood pressure 185/85, pulse of 120. I have difficulty palpating her bilateral lower extremity pulses distally. However, she does have intact capillary refill. She does have some tenderness with palpation along the posterior calf as well as a small amount of swelling. No palpable cords or discoloration. She has no midline spinal tenderness. Rectal sensation is intact, no evidence of saddle paresthesias to suggest cauda equina. Abdomen is benign, lungs are clear. We will treat the patient's pain, will plan to give her Dilaudid. Patient ap pears very dry. She does report that she has had poor p.o. intake as she was concerned that she would have difficulty getting up to use the restroom. Also concern for potential rhabdomyolysis given her significant immobility and limited p.o. intake. Will obtain baseline labs which will include K. Also considered potential DVT given the patient's increased discomfort as well as immobility and swelling. Plan to obtain DVT ultrasound and baseline labs. Patient is unable to care for herself at home will likely require admission with plan to transfer back into a rehab facility which is ultimately her goal today FINDINGS: Right deep veins: Unremarkable. The common femoral, femoral, proximal profunda femoral and popliteal veins are patent without thrombus. Normal Doppler waveforms. Normal compressibility and/or augmentation response. Right superficial veins: Unremarkable. Saphenofemoral junction is patent without thrombus. Soft tissues: Unremarkable. IMPRESSION: No evidence of deep vein thrombosis. Contacted by the lab. Patient's potassium 2.9, will replenish this orally and IV. He received no significant abnormality. CMP is also concerning for magnesium of 1.4, will replenish as well. CK is elevated to 291. Creatinine within normal limits Surgery is scheduled at [facility] [place] [place]. Spoke with patient about disposition. She did not feel safe to be able to be discharged home. I am concerned that she has been limiting her p.o. intake, including water, secondary to her immobility and do feel that admission would be safest at this time. She would like to be able to go back to her rehabilitation center and stay until her scheduled surgery. Spoke with Dr. Mauricio who agrees to admission. Also let care management know about the patient's return and eventual disposition needs. HPI General Mode of arrival: EMS . Date/Time Provider Initiated Documentation: 08/07/20 13:39 . Limitations to Documentation: no limitations . Information obtained by: patient, EMS, RN notes reviewed and old records reviewed . History of Present Illness 64 year old F presents to the emergency department with the chief complaint of lumbar back pain, RLE pain and swelling, described as severe and similar to prior episodes (chronic back pain that has been worsening), with intensity rated at 10. Quality is described as sharp, and is localized to the back. Patient extremity. Patient started experiencing this unknown and it has been constant. Immobilization improves symptom(s), Movement worsens symptoms . Patient notes weakness (associates with her pain); denies chest pain, cough, fever/chills, loss of appetite, nausea/vomiting and shortness of breath. Patient did receive the following treatments prior to arrival, other (received 100mcg fentanyl prior to arrival) Related Data Home Medications Medication Instructions Recorded Confirmed blood-glucose meter #1 each 01/31/18 07/05/20 nystatin (bulk) 500 million unit See Rx Instructions MISCELLANEOUS 03/13/18 08/07/20 powder BID #1 each blood sugar diagnostic #100 strip 07/14/19 07/05/20 lorazepam 1 mg tablet 0.5 - 1 mg PO DAILY PRN #25 tab 07/23/19 08/07/20 lancets 28 gauge #100 ea 10/18/19 07/05/20 cholecalciferol (vitamin D3) 50 150 mcg PO DAILY cap 01/13/20 08/07/20 mcg (2,000 unit) capsule metformin 500 mg tablet 500 mg PO DAILY #90 tab 03/10/20 08/07/20 diclofenac sodium 1 % topical gel 2 g TOPICAL QID #100 g 03/31/20 08/07/20 hydrochlorothiazide 25 mg tablet 25 mg PO DAILY #90 tab 05/06/20 08/07/20 ibuprofen 600 mg tablet 600 mg PO QID PRN #90 tab 06/25/20 08/07/20 diazepam 2 mg PO QHS PRN #5 tab 07/02/20 08/07/20 acetaminophen [Tylenol] 650 mg PO QID #20 tab 07/14/20 cephalexin 500 mg PO BID #8 cap 07/14/20 08/07/20 docusate sodium [Colace] 100 mg PO BID #60 cap 07/14/20 08/07/20 gabapentin 300 mg PO HS #30 cap 07/14/20 08/07/20 gabapentin 900 mg PO TID #180 cap 07/14/20 08/07/20 polyethylene glycol 3350 17 g PO BID #30 ea 07/14/20 08/07/20 sennosides [Senokot] 1 tab PO BID #60 tab 07/14/20 08/07/20 potassium chloride 20 mEq 20 meq PO DAILY #90 tab 07/22/20 08/07/20 tablet,extended release cyclobenzaprine 10 mg tablet 10 mg PO BID PRN #90 tab 07/26/20 08/07/20 oxycodone 5 mg tablet 5 mg PO TID PRN #30 tab MDD 15 08/05/20 08/07/20 Previous Rx's Medication Instructions Recorded blood-glucose meter #1 each 01/31/18 nystatin (bulk) 500 million unit See Rx Instructions MISCELLANEOUS 03/13/18 powder BID #1 each blood sugar diagnostic #100 strip 07/14/19 lorazepam 1 mg tablet 0.5 - 1 mg PO DAILY PRN #25 tab 07/23/19 lancets 28 gauge #100 ea 10/18/19 metformin 500 mg tablet 500 mg PO DAILY #90 tab 03/10/20 diclofenac sodium 1 % topical gel 2 g TOPICAL QID #100 g 03/31/20 hydrochlorothiazide 25 mg tablet 25 mg PO DAILY #90 tab 05/06/20 ibuprofen 600 mg tablet 600 mg PO QID PRN #90 tab 06/25/20 diazepam 2 mg PO QHS PRN #5 tab 07/02/20 acetaminophen [Tylenol] 650 mg PO QID #20 tab 07/14/20 cephalexin 500 mg PO BID #8 cap 07/14/20 docusate sodium [Colace] 100 mg PO BID #60 cap 07/14/20 gabapentin 300 mg PO HS #30 cap 07/14/20 gabapentin 900 mg PO TID #180 cap 07/14/20 polyethylene glycol 3350 17 g PO BID #30 ea 07/14/20 sennosides [Senokot] 1 tab PO BID #60 tab 07/14/20 potassium chloride 20 mEq 20 meq PO DAILY #90 tab 07/22/20 tablet,extended release cyclobenzaprine 10 mg tablet 10 mg PO BID PRN #90 tab 07/26/20 oxycodone 5 mg tablet 5 mg PO TID PRN #30 tab MDD 15 08/05/20 Allergies Allergy/AdvReac Type Severity Reaction Status Date / Time Sulfa (Sulfonamide Allergy Intermediate Skin Rash Unverified 08/07/20 13:49 Antibiotics) adhesive tape Allergy Mild mild rash Verified 08/07/20 13:49 and itching General BETZAIDA: 3 Review of Systems Constitutional Constitutional: Reports as per HPI, Denies chills, Reports fatigue, Denies fever(s), Denies frequent falls and Denies headache(s) ENT Ears, Nose, Mouth, and Throat: Denies headache(s) Cardiovascular Cardiovascular: Denies chest pain, Denies dyspnea and Denies dyspnea on exertion Respiratory Respiratory: Denies cough, Denies dyspnea and Denies dyspnea on exertion Gastrointestinal Gastrointestinal: Denies abdominal pain, Denies change in bowel habits and Denies fecal incontinence Genitourinary Genitourinary: Reports as per HPI, Denies urinary incontinence and Denies urinary hesitancy Musculoskeletal Musculoskeletal: Reports as per HPI, Reports back pain, Denies numbness, Reports radiating pain into limb (RLE), Reports stiffness and Denies tingling Integumentary/Breasts Skin/Breast: Reports as per HPI and Denies rash Neurologic Neurologic: Reports as per HPI, Denies frequent falls, Denies headache(s), Denies localized weakness, Denies numbness, Reports radicular pain, Denies sensory deficit, Denies tingling and Denies paresthesias Endocrine Endocrine: Reports fatigue PFSH Medical History DM (diabetes mellitus) Essential tremor Hip pain HTN (hypertension) Hyperlipidemia Internal derangement of right knee ITB syndrome Lumbosacral radiculopathy Lymphadenopathy (12/25/11) On antibiotic therapy JOSEY (obstructive sleep apnea) Osteoarthritis of right hip Peripheral neuropathy Pes anserinus bursitis of right knee Injection: 08/28/2018 Right calf pain Sarcoid Surgical History section x 3 Colonoscopy - MAC (02/11/16) History of section History of nasal septoplasty Nasal septoplasty Family History Mother Essential hypertension Cancer Diabetes Hyperlipidemia Primary biliary cholangitis Father , AGE 74 Heart disease Hyperlipidemia Brother Essential hypertension Diabetes Hyperlipidemia Maternal Grandfather Prostate cancer Paternal Grandfather , AGE 45 Diabetes Maternal Grandmother , AGE 84 Diabetes Heart disease Paternal Grandmother Lung cancer Other Lumbosacral radiculopathy Social History Smoking/Tobacco Use Status: Never Smoking risk assessment performed?: Yes Alcohol Intake: current Alcohol Intake frequency: a few times a month Drug use: Never Substance use type: does not use Caregiver/Support person: No Household members: none Do you need help understanding health information?: Never Pets and animals: Yes Pets and animals: cat(s) Sexually active: No Do you think of yourself as: straight/heterosexual Current gender identity: female What is your relationship status?: How often do you talk on the phone with friends or family?: three or more times per week How often do you get together with friends or relatives?: three or more times per week How often do you attend episcopalian or pentecostal services?: 1-3 times per year Do you belong to any clubs or organized social groups?: no Panel score (0-1 are the most socially isolated patients): 1 What type of physical activity do you participate in: none Duration: decline to answer Frequency: decline to answer Maria Fernanda/Anabaptism: [employer]-Is[employer] Special maria fernanda needs: No Seatbelt use: always Helmet use: Yes Helmet use: always Drive intox or ride w/intox dedicated driver: No Do you feel safe at home: Yes Additional Social history: lives alone - son helps out Exam Const General: cooperative, healthy appearing, uncomfortable, no acute distress, well developed, well groomed and anxious Nutritional Appearance: well nourished and overweight Orientation: alert and awake Neck Neck: normal visual inspection, full ROM, no lymphadenopathy and no meningeal signs Resp Effort & Inspection: normal respiratory effort and able to speak in complete sentences Auscultation: clear to auscultation bilaterally, no rales, no rhonchi and no wheezes Cardio Rate: regular rate Rhythm: regular rhythm Heart Sounds: S1 normal and S2 normal GI Inspection: normal to inspection Palpation: soft and nontender Percussion: normal to percussion Auscultation: normal bowel sounds Rectal Exam - female: other (rectal sensation intact) Back/Spine/Pelvis Cervical Spine: normal cervical lordosis and cervical ROM normal Thoracic/Lumbar Spine: thoracic and lumbar spine normal to inspection, No thoraco-lumbar ROM normal, pain with thoraco-lumbar ROM, No paraspinal tenderness, thoraco-lumbar ROM limited, No thoraco-lumbar spasm, No thoracic spinal tenderness and No lumbar spinal tenderness (no pain with palpation) Sacroiliac joints: bilaterally nontender Skin General skin exam: no rashes or lesions noted Neuro General: patient alert and patient awake Cognition: normal cognition Speech: speech normal Motor: tone not normal throughout (RLE weaker than LLE, causes increased discomfort in lumbar spine), no movement abnormalities noted and no fasciculations Sensory Exam: no sensory deficits noted (no saddle paresthesias) Extrem General: normal to inspection, full ROM, capillary refill normal, no joint enlargement, calf tenderness on the left and edema Laterality: bilateral (nonpitting edema) Psych Appearance: grossly normal and well kempt Mental Status: mental status grossly normal Speech and Movement: speech and movement normal
--- NOTE | 2020-08-07 14:00 | DI.US_ITS ---
Exam(s) US LOWER EXTREMITY VENOUS RT EXAM: US LOWER EXTREMITY VENOUS RT CLINICAL HISTORY: pain and swelling, immobility TECHNIQUE: Right lower extremity venous ultrasound performed using grayscale, color-flow, and spectr al Doppler analysis. COMPARISON: US US LOWER EXTREMITY VENOUS RT from 04/01/2020 FINDINGS: The right common femoral, femoral and popliteal veins demonstrate normal compressibility, augmentatio n, and color Doppler. The posterior tibial veins are patent. The saphenofemoral junction is unremark able. There is no evidence of a Rowe cyst. The soft tissues are unremarkable. IMPRESSION: No DVT. DATA REPOSITORY:
[2020-08-07] MEDS: HYDROmorphone 2 MG/ML VIAL 1 MG IVP (14:09)
[2020-08-07 14:34] LABS: Abs Immature Grans 0.03 10^3/uL (0.0-0.06); Absolute Basophil Count 0.04 10^3/uL (0.0-0.2); Absolute Eosinophil Count 0.18 10^3/uL (0.0-0.7); Absolute Lymphocyte Count 1.97 10^3/uL (1.2-3.4); Absolute Monocyte Count 1.07 10^3/uL (0.1-0.8); Absolute Neutrophil Count 6.37 10^3/uL (1.2-6.7); Basophils % 0.4; Eosinophils % 1.9; HCT 46.7 % (36.0-46.0); HGB 15.4 g/dL (11.2-15.7); Immature Grans % 0.3; Lymphocytes % 20.4; MCH 29.7 pg (27.0-33.0); Monocytes % 11.1; Neutrophils % 65.9; Nucleated RBC 0 %; Platelet Count 282 10^3/uL (130-400); RBC 5.19 10^6/uL (3.93-5.22); RDW 12.4 % (11.7-14.6); RDW-SD 41.2 fL; WBC 9.66 10^3/uL (4.4-10.8)
[2020-08-07 14:46] LABS: ALT 32 U/L (14-59); AST 28 U/L (15-37); Albumin 3.8 g/dL (3.4-5.0); Alkaline Phosphatase 65 U/L (46-116); BUN 12 mg/dL (7-18); Bilirubin, Total 0.5 mg/dL (0.2-1.0); CREATININE 0.7 mg/dL (0.55-1.02); Calcium 9.6 mg/dL (8.5-10.1); Chloride 97 mmol/L (98-107); Creatine Kinase 291 U/L (26-192); Glucose 132 mg/dL (74-106); Magnesium 1.4 mg/dL (1.8-2.4); Sodium 140 mmol/L (136-145); Total Protein 7.6 g/dL (6.4-8.2)
[2020-08-07 14:54] LABS: Potassium 2.9 mmol/L (3.5-5.1)
--- NOTE | 2020-08-07 14:54 | DI.VRAD_ITS ---
PROCEDURE INFORMATION: Exam: US Duplex Right Lower Extremity Veins, Limited Exam date and time: 08/07/2020 2:32 PM Age: 64 years old Clinical indication: Leg, lower; Patient HX: Right leg pain and numbness. Immobility. TECHNIQUE: Imaging protocol: Real-time Duplex ultrasound of the Right Lower Extremity with 2-D bell scale, color Doppler flow and spectral waveform analysis with image documentation. Limited exam was focused on the right lower extremity veins. COMPARISON: US LOWER EXTREMITY VENOUS RT 04/01/2020 9:58 AM FINDINGS: Right deep veins: Unremarkable. The common femoral, femoral, proximal profunda femoral and popliteal veins are patent without thrombus. Normal Doppler waveforms. Normal compressibility and/or augmentation response. Right superficial veins: Unremarkable. Saphenofemoral junction is patent without thrombus. Soft tissues: Unremarkable. IMPRESSION: No evidence of deep vein thrombosis. Dictated and Authenticated by: Alexa Callaway MD. Ordering:TRENT Elizalde MD
[2020-08-07 14:57] LABS: INR 1.1 (0.9-1.1); PTT Activated 26.7 sec (21.0-27.5)
[2020-08-07] MEDS: Potassium Chloride 20 MEQ TABCR 40 MEQ PO ×2 (15:00→18:46)
[2020-08-07] MEDS: POTASSIUM CHLORIDE 20 MEQ/100 ML BAG 50 MEQ IVPB (15:01)
[2020-08-07] MEDS: MAGNESIUM SULFATE 1 GM/100 ML BAG IVPB (15:20)
[2020-08-07 15:30] LABS: Source Nasal/Nares
--- NOTE | 2020-08-07 15:32 | W.PM.HP.N ---
Date of service: 08/07/20 Time of Service: 15:32 Assessment and Plan Assessment and plan (1) Lumbar back pain with radiculopathy affecting right lower extremity: Start date: 08/07/20 Start time: 16:12 Status: Chronic Assessment and plan: Intractable back pain, chronic with worsening since leaving rehab AMA, and declining at home. Surgery scheduled with Dr. Burgess on 07/26 for back to help relieve pain. Until then will consult PT/OT, multimodalties for pain managment including steroid burst x 7 days, aqua K pack Will give IV dilaudid at this time with scheduled nucynta and home regimen. HR is elevated in 120's likely in setting of pain but d/t electrolyte abnormality will also place on teley until am with d/c in am order as long as HR is 100 or less. Burk to decrease discomfort IVF for hydration she appears dry (2) Radiculitis: Start date: 08/07/20 Start time: 16:35 Status: Chronic Assessment and plan: worsening as above (3) Hypokalemia: Start date: 08/07/20 Start time: 16:36 Status: Acute Assessment and plan: 2.9 replete with both PO and IV Will repeat level in am and monitor (4) Hypomagnesemia: Start date: 08/07/20 Start time: 16:36 Status: Acute Assessment and plan: 1.4, will replete with IV and recheck level in am. (5) Back pain with radiation: Start date: 08/07/20 Start time: 16:37 Status: Chronic Assessment and plan: as above (6) Dehydration: Start date: 08/07/20 Start time: 16:37 Status: Acute Assessment and plan: MM dry, appears dry, states she has not been drinking to avoid getting up so she doesn't have to pee Will hydrate with IVF and monitor I/O Burk placed Also examine tomorrow. (7) Hypertension: Start date: 08/07/20 Start time: 16:38 Status: Chronic Assessment and plan: Elevated at this time in setting of pain likely see above for pain management (8) Diabetes mellitus: Start date: 08/07/20 Start time: 16:41 Status: Chronic Assessment and plan: Hold metformin, will place on SSI especially in setting of steroid burst 132 by labs today (9) Athletes foot: Start date: 08/07/20 Start time: 16:43 Status: Acute Assessment and plan: Bilaterally, Will order clotrimazole at this time until Cooper compound can be made in am. (10) DVT prophylaxis: Start date: 08/07/20 Start time: 16:44 Status: Acute Assessment and plan: Enoxaparin (11) Discharge planning issues: Start date: 08/07/20 Start time: 16:45 Status: Acute Assessment and plan: She would like to go back to a rehab facility. CM working on placement, however if symptoms continue to worsen she would benefit from surgery sooner than later. Will monitor over next couple of days progression and decide after that. above case discussed with Dr. Ross History of Present Illness History of Present Illness Chief Complaint: Intractable Back Pain, weakness Narrative: 64 y.o female with PMH of HTN, HLD, JOSEY, DM Spinal stenosis, Radiculopathy causing RLE pain, discharged from [facility] on 07/16 to H/R for further management of her symptoms. She presents to the ED today with c/o worsening pain to RLE and intractable back pain with weakness. She was at H/R for only a couple of days when she signed herself out. She did make it to her appt at [facility] [place] [place] to see Dr. Javier and is scheduled to have surgical intervention on 07/26 she returns here wanting to be placed back in facility until then as since being home she has become weaker and has not been able to move much at home. Labs in the ED reveal hypokalemia at 2.9, hypomagnesium 1.4, CK 291, Gap 12.0 will admit to M/S for IV hydration, PT/OT, referral to rehab and pain management. Replete electrolytes, they started to replete in ED, multimodality pain management. If patient continues to have worsening symptoms and not improving it may be worth a call to neurosurgery next week to try to move surgical date up as this would be most beneficial for patient outcome. Review of Systems All systems reviewed & are unremarkable except as noted in HPI and below PFSH Medical History DM (diabetes mellitus) Essential tremor Hip pain HTN (hypertension) Hyperlipidemia Internal derangement of right knee ITB syndrome Lumbosacral radiculopathy Lymphadenopathy (12/25/11) On antibiotic therapy JOSEY (obstructive sleep apnea) Osteoarthritis of right hip Peripheral neuropathy Pes anserinus bursitis of right knee Injection: 08/28/2018 Right calf pain Sarcoid Surgical History section x 3 Colonoscopy - MAC (02/11/16) History of section History of nasal septoplasty Nasal septoplasty Family History Mother Essential hypertension Cancer Diabetes Hyperlipidemia Primary biliary cholangitis Father , AGE 74 Heart disease Hyperlipidemia Brother Essential hypertension Diabetes Hyperlipidemia Maternal Grandfather Prostate cancer Paternal Grandfather , AGE 45 Diabetes Maternal Grandmother , AGE 84 Diabetes Heart disease Paternal Grandmother Lung cancer Other Lumbosacral radiculopathy Social History Smoking/Tobacco Use Status: Never Smoking risk assessment performed?: Yes Alcohol Intake: current Alcohol Intake frequency: a few times a month Drug use: Never Substance use type: does not use Caregiver/Support person: No Household members: none Do you need help understanding health information?: Never Pets and animals: Yes Pets and animals: cat(s) Sexually active: No Do you think of yourself as: straight/heterosexual Current gender identity: female What is your relationship status?: How often do you talk on the phone with friends or family?: three or more times per week How often do you get together with friends or relatives?: three or more times per week How often do you attend adventist or taoism services?: 1-3 times per year Do you belong to any clubs or organized social groups?: no Panel score (0-1 are the most socially isolated patients): 1 What type of physical activity do you participate in: none Duration: decline to answer Frequency: decline to answer Maria Fernanda/Orthodoxy: Latter-Day Special maria fernanda needs: No Seatbelt use: always Helmet use: Yes Helmet use: always Drive intox or ride w/intox hog driver: No Do you feel safe at home: Yes Additional Social history: lives alone - son helps out Meds Allergies and Home Medications Allergies Allergy/AdvReac Type Severity Reaction Status Date / Time Sulfa (Sulfonamide Allergy Intermediate Skin Rash Unverified 08/07/20 13:49 Antibiotics) adhesive tape Allergy Mild mild rash Verified 08/07/20 13:49 and itching Home Medications Medication Instructions Recorded Confirmed Type blood-glucose meter #1 each 01/31/18 07/05/20 Rx nystatin (bulk) 500 million unit See Rx Instructions MISCELLANEOUS 03/13/18 08/07/20 Rx powder BID #1 each blood sugar diagnostic #100 strip 07/14/19 07/05/20 Rx lorazepam 1 mg tablet 0.5 - 1 mg PO DAILY PRN #25 tab 07/23/19 08/07/20 Rx lancets 28 gauge #100 ea 10/18/19 07/05/20 Rx cholecalciferol (vitamin D3) 50 150 mcg PO DAILY cap 01/13/20 08/07/20 History mcg (2,000 unit) capsule metformin 500 mg tablet 500 mg PO DAILY #90 tab 03/10/20 08/07/20 Rx diclofenac sodium 1 % topical gel 2 g TOPICAL QID #100 g 03/31/20 08/07/20 Rx hydrochlorothiazide 25 mg tablet 25 mg PO DAILY #90 tab 05/06/20 08/07/20 Rx ibuprofen 600 mg tablet 600 mg PO QID PRN #90 tab 06/25/20 08/07/20 Rx diazepam 2 mg PO QHS PRN #5 tab 07/02/20 08/07/20 Rx acetaminophen [Tylenol] 650 mg PO QID #20 tab 07/14/20 Rx cephalexin 500 mg PO BID #8 cap 07/14/20 08/07/20 Rx docusate sodium [Colace] 100 mg PO BID #60 cap 07/14/20 08/07/20 Rx gabapentin 300 mg PO HS #30 cap 07/14/20 08/07/20 Rx gabapentin 900 mg PO TID #180 cap 07/14/20 08/07/20 Rx polyethylene glycol 3350 17 g PO BID #30 ea 07/14/20 08/07/20 Rx sennosides [Senokot] 1 tab PO BID #60 tab 07/14/20 08/07/20 Rx potassium chloride 20 mEq 20 meq PO DAILY #90 tab 07/22/20 08/07/20 Rx tablet,extended release cyclobenzaprine 10 mg tablet 10 mg PO BID PRN #90 tab 07/26/20 08/07/20 Rx oxycodone 5 mg tablet 5 mg PO TID PRN #30 tab MDD 15 08/05/20 08/07/20 Rx Exam Const General: cooperative, healthy appearing, no acute distress, well developed and well groomed Nutritional Appearance: overweight Orientation: alert, awake and oriented x3 HENMT Head: normal to inspection, normocephalic and atraumatic Ears: hearing grossly normal bilaterally Mouth: moist mucous membranes abnormal Eyes Pupils: PERRL EOM: EOM intact bilaterally Neck Lymphatic: no lymphadenopathy noted Chest Chest: normal inspection of the chest Resp Effort & Inspection: normal respiratory effort and able to speak in complete sentences Auscultation: clear to auscultation bilaterally Cardio Jugular venous pressure: no JVD Rate: regular rate Rhythm: regular rhythm Heart Sounds: S1 normal and S2 normal GI Inspection: normal to inspection Palpation: soft and no hepatosplenomegaly Auscultation: normal bowel sounds General: deferred Back/Spine/Pelvis Thoracic/Lumbar Spine: No thoracic and lumbar spine normal to inspection, No thoraco-lumbar ROM normal, No straight leg raise negative bilaterally, thoraco-lumbar ROM limited and thoraco-lumbar spasm Other: RLE pain with Radiculopathy, chronic but worsening Skin General skin exam: no rashes or lesions noted Neuro General: patient alert, patient awake and patient oriented x3 Cognition: normal cognition Speech: speech normal Motor: tone not normal throughout (not normal through out RLE weaker) Sensory Exam: no sensory deficits noted Extrem General: abnormal to inspection, no clubbing, no cyanosis and edema Laterality: bilateral (nonpitting) Right lower extremity: edema Psych Appearance: grossly normal Mental Status: mental status grossly normal Speech and Movement: speech and movement normal Mood: congruent mood Affect: normal affect Attitude: cooperative Results Labs Result diagrams: 08/07/20 13:45 08/07/20 13:45 Labs: Laboratory Results - last 24 hr 08/07/20 08/07/20 08/07/20 13:45 13:45 13:45 WBC 9.66 RBC 5.19 Hgb 15.4 Hct 46.7 H MCV 90.0 MCH 29.7 MCHC 33.0 RDW 12.4 Plt Count 282 MPV 11.0 Immature Gran % 0.3 Neutrophils % 65.9 Lymphocytes % 20.4 Monocytes % 11.1 Eosinophils % 1.9 Basophils % 0.4 Nucleated RBC % 0 Absolute Neutrophils 6.37 Absolute Lymphocytes 1.97 Absolute Monocytes 1.07 H Absolute Eosinophils 0.18 Absolute Basophils 0.04 PT 11.0 INR 1.1 APTT 26.7 Sodium 140 Potassium 2.9 L Chloride 97 L Carbon Dioxide 31.0 Anion Gap 12.0 H BUN 12 Creatinine 0.7 Estimated GFR/1.73 m2 >= 60.00 Glucose 132 H Calcium 9.6 Magnesium 1.4 L Total Bilirubin 0.5 AST 28 ALT 32 Alkaline Phosphatase 65 Creatine Kinase 291 H Total Protein 7.6 Albumin 3.8 COVID-19 Source 08/07/20 15:25 WBC RBC Hgb Hct MCV MCH MCHC RDW Plt Count MPV Immature Gran % Neutrophils % Lymphocytes % Monocytes % Eosinophils % Basophils % Nucleated RBC % Absolute Neutrophils Absolute Lymphocytes Absolute Monocytes Absolute Eosinophils Absolute Basophils PT INR APTT Sodium Potassium Chloride Carbon Dioxide Anion Gap BUN Creatinine Estimated GFR/1.73 m2 Glucose Calcium Magnesium Total Bilirubin AST ALT Alkaline Phosphatase Creatine Kinase Total Protein Albumin COVID-19 Source Nasal/nares Last Vital Signs Temp 36.8 C 08/07/20 13:42 Pulse 120 H 08/07/20 13:42 Resp 18 08/07/20 13:42 BP 185/85 H 08/07/20 13:42 Pulse Ox 94 08/07/20 13:42 COVID-19 Screening Have you, or household traveled for leisure in last 14 days?: No Had IN PERSON contact w/suspected or confirmed C-19 person: No
--- NOTE | 2020-08-07 15:53 | NUR.NOTE ---
Pedal pulses checked via doppler with positive effect with rates corresponding with heart rate.Nursing Note:
[2020-08-07] MEDS: predniSONE 20 MG TAB 60 MG PO (16:31)
[2020-08-07] MEDS: HYDROmorphone 2 MG/ML VIAL 0.5 MG IVP (16:31)
[2020-08-07 17:56] LABS: Bilirubin Negative (Negative); Blood Trace-intact (Negative); Clarity Clear (Clear); Glucose Negative (Negative); Ketones Negative (Negative); Leukocyte Esterase Negative (Negative); Nitrite Negative (Negative); Specific Gravity 1.015 (1.005-1.025); Urobilinogen 0.2 EU/dL (Up TO 0.2)
[2020-08-07] MEDS: MAGNESIUM SULFATE 4 GM/100 ML BAG IVPB (17:58)
[2020-08-07 18:05] LABS: Bacteria Negative HPF (Negative); C & S Indicated? No; Casts Negative LPF (Negative); Crystals Negative HPF (Negative); Epithelial Cells Rare HPF (Negative); Mucus Negative (Negative); Other Cells Negative (Negative); RBC 0-2 HPF (0-2); WBC Negative HPF (0-5)
[2020-08-07] MEDS: Gabapentin 300 MG CAP 900 MG PO (20:11)
[2020-08-07] MEDS: Senna TAB 1 TAB PO (20:11)
[2020-08-07] MEDS: Enoxaparin 40 MG/0.4 ML SYR SC (20:12)
[2020-08-07] MEDS: Diclofenac 1% Gel 100 GM TUBE TP (20:35)
[2020-08-07] MEDS: Clotrimazole 1% 15 GM TUBE TP (20:35)
[2020-08-07] MEDS: Gabapentin 300 MG CAP PO (21:41)
[2020-08-07 21:43] LABS: COVID-19 PCR Negative (Negative)
[2020-08-08 03:34] VITALS: BP 104/69; PULSE 99; RESP 16; TEMP 36.1; O2SAT 95
[2020-08-08] MEDS: Normal Saline Flush 10 ML SYR IVP ×2 (03:39→20:34)
[2020-08-08] MEDS: HYDROmorphone 2 MG/ML VIAL 0.5 MG IVP (03:40)
[2020-08-08] MEDS: Normal Saline 1,000 ML 125 ML IV (04:23)
[2020-08-08 06:41] LABS: Abs Immature Grans 0.04 10^3/uL (0.0-0.06); Absolute Basophil Count 0.01 10^3/uL (0.0-0.2); Absolute Lymphocyte Count 1.01 10^3/uL (1.2-3.4); Absolute Monocyte Count 0.41 10^3/uL (0.1-0.8); Absolute Neutrophil Count 4.83 10^3/uL (1.2-6.7); Basophils % 0.2; HGB 12.1 g/dL (11.2-15.7); Immature Grans % 0.6; MCHC 32.7 % (32.0-36.0); MCV 91.8 fL (80-95); MPV 10.9 fL (8.0-11.0); Monocytes % 6.5; Neutrophils % 76.7; Nucleated RBC 0 %; Platelet Count 228 10^3/uL (130-400); RBC 4.03 10^6/uL (3.93-5.22); RDW 12.3 % (11.7-14.6); RDW-SD 41.5 fL
[2020-08-08 06:56] LABS: Anion Gap 6.2 mmol/L (3-11); BUN 8 mg/dL (7-18); CO2 30.8 mmol/L (21.0-32.0); CREATININE 0.6 mg/dL (0.55-1.02); Calcium 8.1 mg/dL (8.5-10.1); Chloride 104 mmol/L (98-107); Glucose 145 mg/dL (74-106); Magnesium 1.8 mg/dL (1.8-2.4); Potassium 3.9 mmol/L (3.5-5.1); Sodium 141 mmol/L (136-145)
[2020-08-08 07:13] VITALS: PULSE 88
[2020-08-08 07:16] VITALS: BP 99/68; PULSE 93; RESP 16; TEMP 36; O2SAT 94
[2020-08-08] MEDS: Clotrimazole 1% 15 GM TUBE TP ×2 (08:27→20:29)
[2020-08-08] MEDS: predniSONE 20 MG TAB 60 MG PO (08:28)
[2020-08-08] MEDS: Gabapentin 300 MG CAP 900 MG PO ×3 (08:28→20:28)
[2020-08-08] MEDS: Cholecalciferol (Vitamin D3) 1,000 UNIT TAB 6000 UNITS PO (08:28)
[2020-08-08] MEDS: Diclofenac 1% Gel 100 GM TUBE TP ×4 (08:28→20:29)
[2020-08-08] MEDS: Potassium Chloride 20 MEQ TABCR PO (08:29)
[2020-08-08] MEDS: Senna TAB 1 TAB PO ×2 (08:29→20:28)
--- NOTE | 2020-08-08 09:55 | PGE_ITS ---
Date of Service Date of service: 08/08/20 Time of Service: 11:17 Assessment and Plan Assessment and plan (1) Lumbar back pain with radiculopathy affecting right lower extremity: Start date: 08/07/20 Start time: 16:12 Status: Chronic Assessment and plan: Intractable back pain, chronic with worsening since leaving rehab AMA, and declining at home. Surgery scheduled at [facility] with Dr. Burgess on 08/25 for back to help relieve pain. Continue PT/OT. Continue current pain regimen with steroid burst x 7 days, aqua K pack, scheduled nucynta and PRN IV dilaudid for breakthrough pain. HR improved. Continue Burk. She is eating and drinking well, d/c IV fluids and monitor. (2) Radiculitis: Start date: 08/07/20 Start time: 16:35 Status: Chronic Assessment and plan: worsening as above (3) Hypokalemia: Start date: 08/07/20 Start time: 16:36 Status: Acute Assessment and plan: Resolved, continue to monitor. (4) Hypomagnesemia: Start date: 08/07/20 Start time: 16:36 Status: Acute Assessment and plan: Resolved. (5) Back pain with radiation: Start date: 08/07/20 Start time: 16:37 Status: Chronic Assessment and plan: as above (6) Dehydration: Start date: 08/07/20 Start time: 16:37 Status: Acute Assessment and plan: Improved. She is drinking well. D/C IVF and monitor. (7) Hypertension: Start date: 08/07/20 Start time: 16:38 Status: Chronic Assessment and plan: Improved with pain under control. (8) Diabetes mellitus: Start date: 08/07/20 Start time: 16:41 Status: Chronic Assessment and plan: Continue to hold metformin. Continue SSI especially in setting of steroid burst. (9) Athletes foot: Start date: 08/07/20 Start time: 16:43 Status: Acute Assessment and plan: Bilaterally, Continue compound with clotrimazole, zinc and Vitamins A & D. (10) DVT prophylaxis: Start date: 08/07/20 Start time: 16:44 Status: Acute Assessment and plan: Subcutaneous Enoxaparin. (11) Discharge planning issues: Start date: 08/07/20 Start time: 16:45 Status: Acute Assessment and plan: She is not doing well at home. She will either need to have her surgery moved up or placement at rehab vs here until her procedure on 08/25. Continue PT/OT and pain control. This case was discussed with Dr. Ross. Subjective Subjective Interval history since last seen: Leah has back surgery planned for 08/25 at [facility]. She continues to have low back pain that goes into her right hip and down her right leg. She rates her pain at 2/10 at present. She endorses tingling in her RLE from her knee down. She denies saddle anesthesia. She is unable to ambulate any significant distance due to pain. She had a fall at home from a short distance a couple of weeks ago, she denies injuries but it scared her. She has had people stay with her at her home. Her mobility decreased over the last couple of weeks at home. She denies urine or fecal incontinence. She reports BLE edema, R>L. She is eating and drinking and tolerating her diet. She denies N/V/D. She has constipation, she has not had a BM x5 days. Exam Narrative Exam Narrative: General: well nourished female, laying flat in bed, awake and alert, talkative. Does not appear to be in acute distress. HEENT: normocephalic, atraumatic, PERRL, mucous membranes moist. Neck: supple. Cardiovascular: heart has regular rate and rhythm, nontachycardic, no murmur appreciated. Respiratory: respirations appear even and unlabored, lung sounds clear on anterior and lateral exam. GI: +BS, soft, nontender on palpation, nondistended. Extremities: +1 pitting edema to RLE, LLE cool to touch (baseline), +PP bilaterally. Decreased mobility RLE. Objective Last Vital Signs Temp 36 C L 08/08/20 07:16 Pulse 93 H 08/08/20 07:16 Resp 16 08/08/20 07:16 BP 99/68 L 08/08/20 07:16 Pulse Ox 94 08/08/20 07:16 Laboratory Results - last 24 hr 08/07/20 08/07/20 08/07/20 13:45 13:45 13:45 WBC 9.66 RBC 5.19 Hgb 15.4 Hct 46.7 H MCV 90.0 MCH 29.7 MCHC 33.0 RDW 12.4 Plt Count 282 MPV 11.0 Immature Gran % 0.3 Neutrophils % 65.9 Lymphocytes % 20.4 Monocytes % 11.1 Eosinophils % 1.9 Basophils % 0.4 Nucleated RBC % 0 Absolute Neutrophils 6.37 Absolute Lymphocytes 1.97 Absolute Monocytes 1.07 H Absolute Eosinophils 0.18 Absolute Basophils 0.04 PT 11.0 INR 1.1 APTT 26.7 Sodium 140 Potassium 2.9 L Chloride 97 L Carbon Dioxide 31.0 Anion Gap 12.0 H BUN 12 Creatinine 0.7 Estimated GFR/1.73 m2 >= 60.00 Glucose 132 H Calcium 9.6 Magnesium 1.4 L Total Bilirubin 0.5 AST 28 ALT 32 Alkaline Phosphatase 65 Creatine Kinase 291 H Total Protein 7.6 Albumin 3.8 Urine Color Urine Clarity Urine pH Ur Specific [place] Urine Protein Urine Ketones Urine Blood Urine Nitrite Urine Bilirubin Urine Urobilinogen Ur Leukocyte Esterase Urine RBC Urine WBC Ur Epithelial Cells Urine Crystals Urine Bacteria Urine Casts Urine Mucus Urine Other Ur Culture Indicated? Urine Glucose COVID-19 Source SARS-CoV-2 (PCR) 08/07/20 08/07/20 08/08/20 15:25 17:25 06:07 WBC RBC Hgb Hct MCV MCH MCHC RDW Plt Count MPV Immature Gran % Neutrophils % Lymphocytes % Monocytes % Eosinophils % Basophils % Nucleated RBC % Absolute Neutrophils Absolute Lymphocytes Absolute Monocytes Absolute Eosinophils Absolute Basophils PT INR APTT Sodium 141 Potassium 3.9 D Chloride 104 Carbon Dioxide 30.8 Anion Gap 6.2 BUN 8 Creatinine 0.6 Estimated GFR/1.73 m2 >= 60.00 Glucose 145 H Calcium 8.1 L Magnesium 1.8 Total Bilirubin AST ALT Alkaline Phosphatase Creatine Kinase Total Protein Albumin Urine Color Yellow Urine Clarity Clear Urine pH 6.0 Ur Specific [place] 1.015 Urine Protein Negative Urine Ketones Negative Urine Blood Trace-intact H Urine Nitrite Negative Urine Bilirubin Negative Urine Urobilinogen 0.2 Ur Leukocyte Esterase Negative Urine RBC 0-2 Urine WBC Negative Ur Epithelial Cells Rare Urine Crystals Negative Urine Bacteria Negative Urine Casts Negative Urine Mucus Negative Urine Other Negative Ur Culture Indicated? No Urine Glucose Negative COVID-19 Source Nasal/nares SARS-CoV-2 (PCR) Negative 08/08/20 06:07 WBC 6.30 D RBC 4.03 Hgb 12.1 D Hct 37.0 D MCV 91.8 MCH 30.0 MCHC 32.7 RDW 12.3 Plt Count 228 MPV 10.9 Immature Gran % 0.6 Neutrophils % 76.7 Lymphocytes % 16.0 Monocytes % 6.5 Eosinophils % 0.0 Basophils % 0.2 Nucleated RBC % 0 Absolute Neutrophils 4.83 Absolute Lymphocytes 1.01 L Absolute Monocytes 0.41 Absolute Eosinophils 0.00 Absolute Basophils 0.01 PT INR APTT Sodium Potassium Chloride Carbon Dioxide Anion Gap BUN Creatinine Estimated GFR/1.73 m2 Glucose Calcium Magnesium Total Bilirubin AST ALT Alkaline Phosphatase Creatine Kinase Total Protein Albumin Urine Color Urine Clarity Urine pH Ur Specific [place] Urine Protein Urine Ketones Urine Blood Urine Nitrite Urine Bilirubin Urine Urobilinogen Ur Leukocyte Esterase Urine RBC Urine WBC Ur Epithelial Cells Urine Crystals Urine Bacteria Urine Casts Urine Mucus Urine Other Ur Culture Indicated? Urine Glucose COVID-19 Source SARS-CoV-2 (PCR)
--- NOTE | 2020-08-08 11:01 | PT.INIE ---
Date of service: 08/08/20 Time of Service: 09:30 PT Notes Visit Reasons: INTRACTABLE BACK PAIN, WEAKNESS Inpatient Physical Therapy Evaluation Date: 08/08/20 Referring Doctor: Allegra James PT Orders: PT CONSULT: Evaluate and Treat Precautions: Standard Patient Profile/Admitting Diagnosis: Orders received for this 64 year old female with hx of chronic LBP with recent exacerbation. Patient has been admitted previously for similar issue. She had been managing this through chiropractor care and with Cranio Sacral PT. There was a recent exacerbation that disabled her ability to even get out of bed due to the severity of the pain. SHe was unable to be cared for at home due to pain management and lack of mobility. SHe has a Neurosurgery scheduled for 08/25. There is hope that this can be pushed up as patient is in acute distress. 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 Recently . Ex does check in as well as Local living son. Current Functional Limitations: Patient currently using a 2WW and works lives and works independently from home. However, recently not ambulatory due to pain, and transport in wheel chair. Equipment Owned/DME: 2WW, Wheel chair Subjective: Patient very somber and states she is hoping that something can be done to speed up the date of the surgery. Objective: General Observation: Patient lying in supine with HOB to 20. She is somewhat rotated through lower extremities into left side rotation. Burk catheter in place Mental Status: WEll oriented and alert to person, place, and time Pain: 4/10 to start, 8/10 after evaluatio Vital Signs: stable ROM: Right Upper Extremity: WFL Left Upper Extremity: WFL Lower Extremity: Right side hip to 90 flexion, Left side hip to 100 flexion, Passive on right due to pain, and active on left. Patient does not tolerate motion for too long on right, and request to be placed back into starting position. Knee extension and flexion WFL with active control Strength: Right Upper Extremity: Globally 5/5 Left Upper Extremity: Globally 5/5 Right Lower Extremity: Prefers not to move right hip actively, Quads 4+/5, Hamstrings 4+/5, DF and PF 4+/5 Mainly limited due to pain Left Lower Extremity: Globally 4+/5 limited due to fear of pain on right Sensation: Full intact sensation to light touch and vibration through functional dermatomes. Myotomes intact, proprioceptive and kinesthetic awareness intact. Bed Mobility/Transfers: MOdified assist for rolling to left sidelying. Head of bed altered to 40 but patient instantly requests back to 20 Gait: NA Balance: NA Special Tests: Mobility Limitations Standardized Measure [facility] AM-PAC 6 clicks Basic Mobility Inpatient Short Form: Raw Score: 8 Standardized Score: 28.58 CMS Score:86.7 Informed Consent/Education: Patient instructed in purpose of PT consult and plan of care. Assessment: Patient is a 64 year old female referred to physical therapy services with the diagnosis of Intractable back pain. Patient presents with clinical signs and symptoms consistent with this diagnosis, as demonstrated by the following impairment level findings: ambulatory intolerance, difficulty with movement on right side due to pain, intact sensory and motor but reluctancy due to pain, difficulty with transfers.. Impairments are contributing to the following functional limitations: AMPAC score 86.7 Patient is assessed as a [] Low 85048 X Moderate 09004 [] High 56328 complexity based on the following: History: See above Examination: See above Presentation:Evolving Decision Making: Mod based on AMPAC of 86.7% Skilled Physical therapy services are required for patient to address and remediate her functional limitations. Goals: Goals X1 week 1. Supine-Sit Supervision 2. Sit-Supine Supervision 3. Sit-Stand Supervision 4. Stand-Sit Supervision 5. Bed-Chair Supervision with 2WW 6. Chair-Bed Supervision with 2WW 7. Gait up to 20 feet with 2WW and supervision Plan of Care/Treatment Plan: 1-2x/day, 7 days/week x 1 week. Plan of care has been reviewed with the [facility] SUPER[facility]OR providing the service under Physical Therapy direction. Initiate Physical Therapy intervention for strengthening, bed mobility, transfers, gait, stairs, balance training, use of assistive device. DISCHARGE RECOMMENDATIONS: TO nursing home facility for continued rehabilitation and pain management until date of surgery. Patient would benefit from expediated date fo Neurosurgery at this time. TREATMENT CODE/TIME: 930am Moderate complexity Initial evaluation 29597 30 minutes Ortiz Lerma DPT
[2020-08-08] MEDS: Bisacodyl 5 MG TABEC PO (12:02)
[2020-08-08] MEDS: Insulin Aspart 300 UNITS/3 ML PEN SC ×2 (12:02→17:01)
[2020-08-08 12:10] VITALS: PULSE 103
--- NOTE | 2020-08-08 12:10 | PHA.REVIEW ---
Pharmacy Admission Review - Admission Clinical Review (Last Reviewed 08/07/20 @ 15:59 by Allegra James NP) Athletes foot (Acute) Hypokalemia (Acute) Hypomagnesemia (Acute) Acute lumbar back pain (Acute) Dehydration (Acute) DVT prophylaxis (Acute) Discharge planning issues (Acute) Sulfa (Sulfonamide Antibiotics) Allergy (Intermediate, Unverified 08/07/20 13:49) Skin Rash adhesive tape Allergy (Mild, Verified 08/07/20 13:49) mild rash and itching Height 5 ft 4 in Weight 79.5 kg - Renal Dosing Renal Dosing: BUN 8 mg/dL (7-18) 08/08/20 06:07 Creatinine 0.6 mg/dL (0.55-1.02) 08/08/20 06:07 Medications needing adjustments: Reviewed (Crcl ~96.6 mL/min using adjusted body weight) - Anticoagulation Anticoagulation: Hgb 12.1 g/dL (11.2-15.7) D 08/08/20 06:07 Hct 37.0 % (36.0-46.0) D 08/08/20 06:07 Plt Count 228 10^3/uL (130-400) 08/08/20 06:07 INR 1.1 (0.9-1.1) 08/07/20 13:45 Creatinine 0.6 mg/dL (0.55-1.02) 08/08/20 06:07 DVT Prohphylaxis: Reviewed Medications: Enoxaparin Therapeutic Anticoagulation: N/A - Opiate Usage Evaluate Pain Scale/Pains Meds: Reviewed Scheduled Bowel Reg ordered if on Opiates?: Yes - Relevant Labs Sodium 141 mmol/L (136-145) 08/08/20 06:07 Potassium 3.9 mmol/L (3.5-5.1) D 08/08/20 06:07 Chloride 104 mmol/L (98-107) 08/08/20 06:07 Magnesium 1.8 mg/dL (1.8-2.4) 08/08/20 06:07 Electrolytes, C-Reactive P, ESR: Reviewed - DM Control DM Control: Glucose 145 mg/dL (74-106) H 08/08/20 06:07 Finger Stick Blood Glucose 151 Finger Stick Blood Glucose 156 Finger Stick Blood Glucose 156 Finger Stick Blood Glucose 114 Finger Stick Blood Glucose 114 Finger Stick Blood Glucose 114 Insulin Dosing: Reviewed (sliding scale aspart ordered) - Heart Failure/PR EF%, NANO's, B-Blockers, Diuretics: N/A - BP Control BP Control: Blood Pressure 99/68 Blood Pressure 104/69 If elevated: Reviewed (Elevated on admission, most recently hypotensive.) - Qtc Review If Elevated: N/A - IV to PO Switch IV Medications: Reviewed - Home Meds Home Med List reviewed: Reviewed - Current meds Current Medication Order Review: Reviewed - Comments Comments/Follow Ups: Watch BP, BG, labs, SCr, and for med changes.
[2020-08-08 15:08] VITALS: BP 115/71; PULSE 98; RESP 19; TEMP 36.5; O2SAT 89
--- NOTE | 2020-08-08 15:15 | INITIAL_ITS ---
- If Service Date Differs Date of service: 08/08/20 Time of Service: 15:15 Care Management Initial Assess REASON FOR HOSPITALIZATION:: Intractable back pain, Weakness PAST MEDICAL HISTORY/PAST SURGICAL HISTORY:: Medical History: DM (diabetes mellitus), HTN (hypertension), Hyperlipidemia, Internal derangement of right knee, Lumbosacral radiculopathy, On antibiotic therapy, JOSEY (obstructive sleep apnea),. Peripheral neuropathy, and Sarcoid. Surgical History: section x 3, Colonoscopy - MAC (02/11/16), and Nasal septoplasty. PREVIOUS FUNCTIONAL STATUS/SOCIAL/FAMILY SUPPORTS:: Leah is a 64 year old female who lives alone with her cats in [place]. She works for [employer] and had been working from home prior to her last admission. Leah is but she has lots of family support, including her former . She has a daughter who lives in [place] and a son Philip who lives in [place], in addition to her 83 year old mother who is her neighbor and her brother Thee who is up the road. CURRENT FUNCTIONAL STATUS:: Leah is sleeping soundly when CM attempts to meet with her. CM continues to follow. ADVANCE DIRECTIVES:: On file; her brother Thee Dawson Jr. is listed as Health Care Agent and her son Artemio Kiser as Alternate Agent. Has patient been provided with info about the portal/API?: Yes Did the patient sign up for the portal?: Yes (Previously) CODE STATUS:: Full Code INSURANCE COVERAGE / FINANCIAL ISSUES:: [employer] CURRENT HOME/COMMUNITY SERVICES/EQUIPMENT:: Leah does not have any in-home or community services. She has a hospital bed and a walker at home. PRIMARY CARE PHYSICIAN:: Keila Vargas MD POTENTIAL DISCHARGE NEEDS:: SNF-vs-SWB coordination. PATIENT/FAMILY EDUCATION NEEDS:: Review discharge instructions, SNF options. Discuss self care needs upon discharge. ANTICIPATED BARRIERS TO DISCHARGE:: Prior authorization for rehab level of care. TRANSPORTATION:: TBD by disposition. PLAN:: Leah will discharge to SNF when ready per . CM will discuss need for SNF with Leah and determine where she would like referrals faxed. Prior authorization delayed discharge last admission; potential barrier. CM continues to follow.
[2020-08-08] MEDS: Enoxaparin 40 MG/0.4 ML SYR SC (20:28)
[2020-08-08] MEDS: Gabapentin 300 MG CAP PO (22:19)
[2020-08-08 23:25] VITALS: BP 114/72; PULSE 89; RESP 18; TEMP 36.5; O2SAT 96
[2020-08-09] MEDS: Normal Saline Flush 10 ML SYR IVP ×2 (03:11→12:20)
[2020-08-09] MEDS: HYDROmorphone 2 MG/ML VIAL 0.5 MG IVP ×2 (03:11→12:19)
[2020-08-09] MEDS: Acetaminophen 325 MG TAB 650 MG PO (03:11)
[2020-08-09 06:58] LABS: Anion Gap 4.7 mmol/L (3-11); BUN 11 mg/dL (7-18); CO2 33.3 mmol/L (21.0-32.0); CREATININE 0.6 mg/dL (0.55-1.02); Calcium 8.6 mg/dL (8.5-10.1); Chloride 108 mmol/L (98-107); Glucose 115 mg/dL (74-106); Potassium 3.8 mmol/L (3.5-5.1); Sodium 146 mmol/L (136-145)
[2020-08-09 07:52] VITALS: O2SAT 99
[2020-08-09 07:58] VITALS: BP 111/75; PULSE 85; RESP 18; TEMP 36.5; O2SAT 99
[2020-08-09 08:23] VITALS: O2SAT 95
[2020-08-09] MEDS: Cholecalciferol (Vitamin D3) 1,000 UNIT TAB 6000 UNITS PO (08:25)
[2020-08-09] MEDS: Gabapentin 300 MG CAP 900 MG PO ×3 (08:26→21:08)
[2020-08-09] MEDS: predniSONE 20 MG TAB 60 MG PO (08:26)
[2020-08-09] MEDS: Senna TAB 1 TAB PO ×2 (08:26→21:08)
[2020-08-09] MEDS: Polyethylene Glycol 3350 17 GM PACKET PO (08:27)
[2020-08-09] MEDS: Potassium Chloride 20 MEQ TABCR PO (08:27)
[2020-08-09] MEDS: Diclofenac 1% Gel 100 GM TUBE TP ×4 (08:27→21:13)
[2020-08-09] MEDS: oxyCODONE 5 MG TAB PO (08:46)
--- NOTE | 2020-08-09 09:19 | W.INDIABCONS ---
Date of service: 08/09/20 Time of Service: 09:19 Diabetes Inpatient Consult DESCRIPTION/ASSESSMENT: 64 year old female admitted for back pain, awaiting lumbar surgery with long hx of obesity, DM, HTN, HLD and sleep apnea. Most recent A1C (03/2020) indicates good glycemic control (A1C: 6.3%). Home DM meds include 500 mg metformin qd. Following heart healthy diet with adequate intake. Good glycemic control noted. No medical or dietary interventions needed at this time. PLAN: Continue current meal plan, will be available prn Time Spent in Nutritional Counseling and Treatment: 0
[2020-08-09] MEDS: Insulin Aspart 300 UNITS/3 ML PEN SC ×2 (12:28→16:54)
--- NOTE | 2020-08-09 13:32 | PT.INTREAT ---
Date of service: 08/09/20 Time of Service: 13:32 PT Notes Visit Reasons: INTRACTABLE BACK PAIN, WEAKNESS Inpatient Physical Therapy Treatment Note Date: 08/09/20 Precautions: Standard. Back precautions. Activity as tolerated. Subjective: Teary-eyed right when she was being set up on the chair for lunch. Nurse Grant requested that PT come in for positioning recommendations to be able to enjoy meal. Objective: General Observation: Patient in distress due to pain level, significnatly favoring R hip and pelvis due to pain. Highly anxious about increasing pain. Mental Status: Orientd x 4, pain limits activity performance Pain: 8-9/10 at rest and with activity Bed Mobility/Transfers: Sit-stand minimal assist and CGA of another, pain level 8-9/10 with weight bearing Stand-sit minimal assist and CGA of another, pain level 8-9/10 with weight bearing Chair-bed minimal assist and CGA of another, pain level 8-9/10 with weight bearing Gait: In the morning 6 steps and in the afternoon 8 steps, 4 steps, and 4 steps with report of 10/10 pain in the right low back, hip, and pelvis with report of increased weakness and tingling down the R LE. Nurse Grant aware and looking at giving needed pain pills to alleviate mobility level. Thera Ex: Initiated bed level exercises per exercise flowsheet with report of increase pain requiring adequate rest time in between exercises. Balance: Sitting static poor due to pain Sitting dynamic poor due to pain Standing static poor due to pain Standing dynamic poor due to pain Assessment: Significant pain avoidance behavior due to increased pain with movement. RADIOLOGIC TECHNOLOGY TEACHER Tami said that patient has been started on steroid burst two days ago and patient should be able to get some relief. DISCHARGE RECOMMENDATIONS: To fdc facility for continued rehabilitation and pain management until date of surgery. Patient would benefit from expedited date for Neurosurgery at this time. TREATMENT CODE/TIME: Session 1-- 37496 x 15 minutes beginning at 11:50 AM. Session 2-- [id number] x 10 minutes, [id number] x 16 minutes beginning at 13:32 PM.
--- NOTE | 2020-08-09 14:58 | PGE_ITS ---
Date of Service Date of service: 08/09/20 Time of Service: 14:58 Assessment and Plan Assessment and plan (1) Lumbar back pain with radiculopathy affecting right lower extremity: Start date: 08/07/20 Start time: 16:12 Status: Chronic Assessment and plan: Intractable back pain, chronic with worsening since leaving rehab AMA, and declining at home. She had MRI lumbar spine on her last admission that showed: Degenerative disc changes and facet degenerative changes are seen greatest at L5 3 4 and L4-5. There is severe neural foraminal narrowing at L3-4 and a moderate central canal stenosis as well as neural foraminal narrowing at L4-5. Surgery scheduled at [facility] with Dr. Javier on 08/25 for back to help relieve pain. Contacted Dr. Javier's office to discuss case. Discussed with nursing who spoke to him directly. He advised that she is on the waiting list, she has a 4 hour case scheduled, it is not likely that a cancellation will be a 4 hr block. In the absence of progressive neurological symptoms, he advises symptom management and continued mobility. His office will reach out to Leah to start arranging rehab for post surgery as well. His note will be faxed today. Continue PT/OT. Continue current pain regimen with steroid burst x 7 days, aqua K pack, scheduled nucynta and PRN IV dilaudid for breakthrough pain. Continue Smith. (2) Radiculitis: Start date: 08/07/20 Start time: 16:35 Status: Chronic Assessment and plan: worsening as above (3) Hypokalemia: Start date: 08/07/20 Start time: 16:36 Status: Acute Assessment and plan: Resolved, continue to monitor. (4) Hypomagnesemia: Start date: 08/07/20 Start time: 16:36 Status: Acute Assessment and plan: Resolved. (5) Back pain with radiation: Start date: 08/07/20 Start time: 16:37 Status: Chronic Assessment and plan: as above (6) Dehydration: Start date: 08/07/20 Start time: 16:37 Status: Resolved Assessment and plan: Improved. She is drinking well. IVF discontinued, monitor. (7) Hypertension: Start date: 08/07/20 Start time: 16:38 Status: Chronic Assessment and plan: Improved with pain under control. (8) Diabetes mellitus: Start date: 08/07/20 Start time: 16:41 Status: Chronic Assessment and plan: Continue to hold metformin. Continue SSI especially in setting of steroid burst. (9) Athletes foot: Start date: 08/07/20 Start time: 16:43 Status: Acute Assessment and plan: Bilateral feet, Continue compound with clotrimazole, zinc and Vitamins A & D. (10) DVT prophylaxis: Start date: 08/07/20 Start time: 16:44 Status: Acute Assessment and plan: Subcutaneous Enoxaparin. (11) Discharge planning issues: Start date: 08/07/20 Start time: 16:45 Status: Acute Assessment and plan: She is not doing well at home. She will either need to have her surgery moved up or placement at rehab vs here until her procedure on 08/25. Continue PT/OT and pain control. This case was discussed with Dr. Ross. Subjective Subjective Interval history since last seen: At this point, Leah has back surgery scheduled at [facility] with Dr. Javier on 08/25. She continues to have low back pain that goes into her right hip and down her right leg. She rates her pain at 0-2/10 while laying in bed. Her pain increases to 8-10 with activity. She endorses tingling in her RLE. She denies saddle ane sthesia. She has a smith in place. She was able to get out of bed and ambulate 6 steps with PT. She has intense pain with ambulation. She denies fecal incontinence. She is eating and drinking and tolerating her diet. She denies N/V/D. She did not have a BM x5 days but moved her bowels yesterday. She is hoping to have her surgery date moved closer. Exam Narrative Exam Narrative: General: well nourished female, laying flat in bed, awake and alert, talkative. Does not appear to be in acute distress. HEENT: normocephalic, atraumatic, PERRL, mucous membranes moist. Neck: supple. Cardiovascular: heart has regular rate and rhythm, nontachycardic, no murmur appreciated. Respiratory: respirations appear even and unlabored, she was able to roll to the left for lung exam, lung sounds are clear throughout. GI: +BS, soft, nontender on palpation, nondistended. Extremities: +1 pitting edema to RLE, LLE cool to touch (baseline), +PP bilaterally. Decreased mobility RLE. Scaling skin to bilateral feet. Objective Last Vital Signs Temp 36.5 C 08/09/20 07:58 Pulse 85 08/09/20 07:58 Resp 18 08/09/20 07:58 BP 111/75 08/09/20 07:58 Pulse Ox 95 08/09/20 08:23 Laboratory Results - last 24 hr 08/09/20 06:20 Sodium 146 H Potassium 3.8 Chloride 108 H Carbon Dioxide 33.3 H Anion Gap 4.7 BUN 11 Creatinine 0.6 Estimated GFR/1.73 m2 >= 60.00 Glucose 115 H Calcium 8.6
[2020-08-09 15:23] VITALS: BP 136/82; PULSE 84; RESP 18; TEMP 37; O2SAT 92
--- NOTE | 2020-08-09 15:31 | CMPROGNOTE_ITS ---
- If Service Date Differs Date of service: 08/09/20 Time of Service: 15:31 Care Management Progress Note S/O: Leah was lying in bed when CM met with her. Leah reported that her pain has been well controlled today. She is very happy with the care she is receiving at [facility]. Dr. Vargas will be meeting with Leah today for Palliative Care, which she is looking forward to. CM discussed her discharge plan, which is unclear at this time. She understands that she cannot remain at [facility] until her surgery, which is scheduled for 08/25/20, but she is not safe to return home while she waits either. CM provided a VPAC for her to look at multiple options for rehab prior to surgery, and will meet with Leah again tomorrow to discuss which facilities she would like to send referrals to. CM will continue to follow. A: Leah is a 64 year old female admitted to [facility] on 08/07/20 for intractable back pain. P: Leah will discharge to SNF when ready per MD. CM will discuss need for SNF with Leah and determine where she would like referrals faxed. Prior authorization delayed discharge last admission; potential barrier. CM continues to follow.
--- NOTE | 2020-08-09 18:32 | W.PALLCONSUL ---
Date of service: 08/09/20 Time of Service: 18:32 History of Present Illness History of Present Illness Chief Complaint: severe LBP and right leg radiculopathy Narrative: Leah is a 64-year-old woman who has had a history of low back pain and spondylolisthesis. The pain was significantly worse towards the end of the June. She had an MRI which showed multiple problems including spondylolisthesis, spinal stenosis, nerve impingement. She could no longer care for herself and came to the hospital because of intractable pain. [facility] then [facility]. Soon after arriving there she did go to [facility] orthopedics and was seen. A decision was made to operate, because of the extensiveness of the operation it was scheduled for mid-August. She went back to [facility], but decided she would be more comfortable at home. After several days it was obvious that she could not care for herself. She returned to the emergency room and was admitted for care. She tried prior to this return to [facility] to go back to [facility]. No decisions were made and her only option at that point was to go to the ER. She was unable to move, was not eating and drinking properly due to inability to get to the bathroom at times. She had severe pain followed by times of absolutely no pain if she lies perfectly still. She was not able to sit up to eat. She now has a catheter in place, has received some physical therapy but finds it hard to participate due to the pain. Her rest is often times interrupted by hospital routines such as vitals. She did have a bit of a breakdown today. She is just so tired of the pain and disability. She would like to have her surgery moved up but unfortunately because of its complexity there is not open slots earlier. (I have called and messaged her physician. The hospitalist team has received word back that it is unlikely that her surgery will be able to be moved up due to the amount of time needed for to be performed.) Assessment and Plan Assessment and plan (1) Lumbar back pain with radiculopathy affecting right lower extremity: Status: Chronic (2) Hypertension: Status: Chronic (3) Urinary retention: Status: Acute (4) Parkinsonism: Status: Acute (5) Diabetic neuropathy: Status: Acute (6) Palliative care patient: Status: Acute Assessment and plan: I recommend simplifying her medication regime. ie: d/c cyclobenzaprine and lorazepam and use diazepam 2mg TID, PRN. The diazepam can be used for sleep and muscle spasms. Leah doesn't want to be woken up. Changing her pain meds to 1 long acting opioid and 1 short acting opioid such as MS Contin 15mg BID and oxycodone 5 mg QID, PRN. Leah states that when she is lying still she has no pain and wants as little meds as possible. But when the pain escalates, she needs some short acting meds I ordered an EKG as part of her pre op orders prior to her operation at [facility]. She has recent CBC and PT. I ordered CMP to be sure all values normalize. I will do her pre op H and P when she is at [facility]. Catheter in place. Could this be discontinued?? Situational depression?it may be helpful to consider an antianxiety/depressant. Cymbalta might be a good choice because of the effects that can have a neuropathy and pain control. I did not address this with her but would be happy to do so at a later date. The hospitalist team may want to consider this. I would start with Cymbalta 30 mg daily. Review of Systems Narrative: Initially living had problems with shortness of breath and hypoxia. She states that she is doing much better now. She has pain but only with movement. She does not have pain when she is lying still. She can only eat lying down and resting on her elbow. She admits that she is depressed. She has no chest pain. She states that her right arm and right leg are tremulous as she gets more anxious. She has been diagnosed with Parkinson's [facility] Medical History DM (diabetes mellitus) Essential tremor Hip pain HTN (hypertension) Hyperlipidemia Internal derangement of right knee ITB syndrome Lumbosacral radiculopathy Lymphadenopathy (12/25/11) On antibiotic therapy JOSEY (obstructive sleep apnea) Osteoarthritis of right hip Peripheral neuropathy Pes anserinus bursitis of right knee Injection: 08/28/2018 Right calf pain Sarcoid Surgical History section x 3 Colonoscopy - MAC (02/11/16) History of section History of nasal septoplasty Nasal septoplasty Family History Mother Essential hypertension Cancer Diabetes Hyperlipidemia Primary biliary cholangitis Father , AGE 74 Heart disease Hyperlipidemia Brother Essential hypertension Diabetes Hyperlipidemia Maternal Grandfather Prostate cancer Paternal Grandfather , AGE 45 Diabetes Maternal Grandmother , AGE 84 Diabetes Heart disease Paternal Grandmother Lung cancer Other Lumbosacral radiculopathy Social History Smoking/Tobacco Use Status: Never Smoking risk assessment performed?: Yes Alcohol Intake: current Alcohol Intake frequency: a few times a month Drug use: Never Substance use type: does not use Caregiver/Support person: No Household members: none Do you need help understanding health information?: Never Pets and animals: Yes Pets and animals: cat(s) Sexually active: No Do you think of yourself as: straight/heterosexual Current gender identity: female What is your relationship status?: How often do you talk on the phone with friends or family?: three or more times per week How often do you get together with friends or relatives?: three or more times per week How often do you attend yazdanism or lutheran services?: 1-3 times per year Do you belong to any clubs or organized social groups?: no Panel score (0-1 are the most socially isolated patients): 1 What type of physical activity do you participate in: none Duration: decline to answer Frequency: decline to answer Maria Fernanda/Uatsdin: Restorationism Special maria fernanda needs: No Seatbelt use: always Helmet use: Yes Helmet use: always Drive intox or ride w/intox team cdl driver: No Do you feel safe at home: Yes Additional Social history: lives alone - son helps out Exam Narrative Exam Narrative: She is lying in bed. She is teary-eyed at some points but does pull herself together. She is unable to sit up due to the pain. She can move her right leg today. She has a heating pad in place on her right hip which she says helps with the comfort. Her heart is regular. I do hear early systolic murmur. Lungs have aeration but somewhat diminished. Abdomen soft nontender. Extremities?not edematous tonight I did not examine her low back legs or reflexes. This is been done numerous times and is well-documented in the medical record Const Other: 08/2020 Exam(s) a US:US lower extremity venous RT Exam(s) US LOWER EXTREMITY VENOUS RT EXAM: US LOWER EXTREMITY VENOUS RT CLINICAL HISTORY: pain and swelling, immobility TECHNIQUE: Right lower extremity venous ultrasound performed using grayscale, color-flow, and spectral Doppler analysis. COMPARISON: US US LOWER EXTREMITY VENOUS RT from 04/01/2020 FINDINGS: The right common femoral, femoral and popliteal veins demonstrate normal compressibility, augmentation, and color Doppler. The posterior tibial veins are patent. The saphenofemoral junction is unremarkable. There is no evidence of a Rowe cyst. The soft tissues are unremarkable. 06/27 Exam(s) a MRI:MR lumbar spine wo EXAM: MR LUMBAR SPINE WO CLINICAL HISTORY: radiculopathy, disc herniation. TECHNIQUE: Multiplanar multisequence MRI was performed. COMPARISON: MR MR lumbar spine wo from 01/02/2018 FINDINGS: Exam is mildly limited by patient motion. The marrow signal is normal. No compression fractures are seen. Conus medullaris appears normal. There is slight disc bulging at T12-L1. The L1-2 disc is intact. There is mild to moderate disc bulging at L2-3, eccentric toward the left. There are facet degenerative changes. There is bilateral neural foraminal narrowing, greater on the left. There is mild ligamentous hypertrophy and mild facet degenerative changes . At L3-4, there is moderate disc bulging which is eccentric toward the right. There are facet degenerative changes and ligamentous hypertrophy combining to produce mild central canal stenosis. There is severe right neural foraminal narrowing. At L4-5, there is broad-based disc bulging. There are prominent facet degenerative changes, left greater than right. There is moderate degree of central canal stenosis as well as moderate to severe neural foraminal narrowing. At L5-S1, there is disc bulging eccentric toward the right. There is severe right neural foraminal encroachment. There is mild left neural foraminal narrowing. There is no central canal stenosis. IMPRESSION: Degenerative disc changes and facet degenerative changes are seen greatest at L5 3 4 and L4-5. There is severe neural foraminal narrowing at L3-4 and a moderate central canal stenosis as well as neural foraminal narrowing at L4-5. Laboratory Tests 08/07/20 08/08/20 08/08/20 13:45 06:07 06:07 WBC 6.30 D Hct 37.0 D INR 1.1 Sodium Carbon Dioxide Glucose Magnesium 1.8 08/09/20 06:20 WBC Hct INR Sodium 146 H Carbon Dioxide 33.3 H Glucose 115 H Magnesium Results Last Vital Signs Temp 98.6 F 08/09/20 15:23 Pulse 84 08/09/20 15:23 Resp 18 08/09/20 15:23 BP 136/82 08/09/20 15:23 Pulse Ox 92 08/09/20 15:23 Labs Result diagrams: 08/08/20 06:07 08/09/20 06:20 Labs: Laboratory Results - last 24 hr 08/09/20 06:20 Sodium 146 H Potassium 3.8 Chloride 108 H Carbon Dioxide 33.3 H Anion Gap 4.7 BUN 11 Creatinine 0.6 Estimated GFR/1.73 m2 >= 60.00 Glucose 115 H Calcium 8.6
[2020-08-09] MEDS: Enoxaparin 40 MG/0.4 ML SYR SC (21:07)
[2020-08-09] MEDS: Gabapentin 300 MG CAP PO (22:41)
[2020-08-10 01:30] VITALS: BP 125/82; PULSE 84; RESP 16; TEMP 36.2; O2SAT 92
[2020-08-10] MEDS: Acetaminophen 325 MG TAB 650 MG PO (07:09)
[2020-08-10 07:15] LABS: HCT 36.6 % (36.0-46.0); HGB 12.1 g/dL (11.2-15.7); MCHC 33.1 % (32.0-36.0); MCV 90.6 fL (80-95); MPV 11.1 fL (8.0-11.0); Platelet Count 249 10^3/uL (130-400); RBC 4.04 10^6/uL (3.93-5.22); RDW 12.6 % (11.7-14.6); RDW-SD 41.5 fL; WBC 9.98 10^3/uL (4.4-10.8)
[2020-08-10 07:39] LABS: ALT 25 U/L (14-59); AST 18 U/L (15-37); Albumin 2.8 g/dL (3.4-5.0); Alkaline Phosphatase 42 U/L (46-116); Anion Gap 6.8 mmol/L (3-11); BUN 13 mg/dL (7-18); Bilirubin, Total 0.3 mg/dL (0.2-1.0); CO2 30.2 mmol/L (21.0-32.0); CREATININE 0.5 mg/dL (0.55-1.02); Calcium 8.4 mg/dL (8.5-10.1); Chloride 107 mmol/L (98-107); Glucose 107 mg/dL (74-106); Potassium 3.8 mmol/L (3.5-5.1); Sodium 144 mmol/L (136-145); Total Protein 5.9 g/dL (6.4-8.2)
[2020-08-10 07:50] VITALS: BP 122/82; PULSE 78; RESP 18; TEMP 36.8; O2SAT 94
--- NOTE | 2020-08-10 08:15 | RT.EKG_ITS ---
APPROVED REPORT Exam: Resting ECG Reason for Exam: pre op ekg Patient Location: I HR:127 bpm ECG Measurements Heart Rate 127 AXIS WA 141 P 62 QRSd 77 QRS 0 QT 311 T 39 QTc 453 Conclusion Sinus tachycardia...rate> 99 Probable left atrial enlargement...P >50mS, <-0.10mV V1
[2020-08-10] MEDS: predniSONE 20 MG TAB 60 MG PO (08:36)
[2020-08-10] MEDS: Cholecalciferol (Vitamin D3) 1,000 UNIT TAB 6000 UNITS PO (08:36)
[2020-08-10] MEDS: Senna TAB 1 TAB PO ×2 (08:37→20:10)
[2020-08-10] MEDS: Normal Saline Flush 10 ML SYR IVP (08:37)
[2020-08-10] MEDS: Gabapentin 300 MG CAP 900 MG PO ×3 (08:37→20:10)
[2020-08-10] MEDS: Polyethylene Glycol 3350 17 GM PACKET PO (08:37)
[2020-08-10] MEDS: Potassium Chloride 20 MEQ TABCR PO (08:37)
[2020-08-10] MEDS: oxyCODONE 5 MG TAB PO (08:38)
[2020-08-10] MEDS: Diclofenac 1% Gel 100 GM TUBE TP ×2 (09:24→11:50)
--- NOTE | 2020-08-10 09:26 | OTIE_ITS ---
Occupational Therapy Notes Inpatient Occupational Therapy Evaluation Date: 08/10/20 Referring Doctor: Allegra James NP OT Orders: Non-Urgent Precautions: Fall, standard, Full PATIENT PROFILE/ADMITTING DIAGNOSIS: Pt is a 64 year old who was admitted to [facility] with the following dx spinal stenosis, palliative care, radiculitis, (R) hip pian, Parkinsonism, peripheral neuropathy, lumbosacral radiculopathy, essential HTN, DM on 07/08/20 she was discharged to SNF and recently went home two weeks ago. She is [place] [facility] at [place] time. At home she noticed her (B) LE swelling and states that she is unable to care for herself without (A). She was admitted to [facility] with the following dx including hx of chronic LBP with recent exacerbation and athletes foot, lumbar back pain with radiculopathy, hypokalemia, hypomagnesemia, back pain with radiation, dehydration, UTI, spinal stenosis, parkinsonism, peripheral ne uropathy. Past Medical History: DM (diabetes mellitus) HTN (hypertension) Hyperlipidemia Internal derangement of right knee Lumbosacral radiculopathy On antibiotic therapy JOSEY (obstructive sleep apnea) Peripheral neuropathy Sarcoid Surgical History section x 3 Colonoscopy - MAC (02/11/16) Nasal septoplasty Social History/Home Situation: Pt states that she lives alone and has family all around her. She reports that she is (I) at baseline and recently received DME mentioned below. She has 3 stairs to enter her home and she has 2 FWW one for inside and 1 for outside. She states that if she does need help her family comes and (A). She does not feel that she is at her baseline level of function at this time. She is currently working from home and states that she spends the majority of her day at a computer. Equipment owned/DME: commode, shower chair, grab bars, raised toilet seat, FWW, cane SUBJECTIVE: Pt was lying in bed, she is receptive to OT consult and evaluation. She was recently seen a month ago, she states that she knows that she cannot return home without (A) and she doesn't have anyone that can help her. OBJECTIVE: General Observation: Burk in place, (R) UE IV not connected Mental Status: A&Ox3 Pain: rest 0/10, functional mobility 8+/10 ROM: RUE AROM WFL L UE AROM WFL STRENGTH: RUE 4+/5 throughout LUE 5/5 throughout FUNCTIONAL MOBILITY/ADLS: BATHING max (A) Set up/clean up Bathing UE (I) Bathing LE Max (A) DRESSING Dressing UE Min (A) don and doffing hospital gown in sitting position Dressing LE Max (A) don and doffing (B) socks which pt then reports that she would prefer to just not wear at this time. GROOMING Min (A) with brushing her hair as pt is unable to tolerate sitting for more than 15 minutes with out rest due to occasional pain and decreased functional activity tolerance. TOILETING Pt has Burk in place. EATING NT BALANCE: Static sitting Good Dynamic Sitting Good SPECIAL TESTS: Daily Activity Limitations Standardized Measure [facility] AM -PAC ?6 clicks? Daily Activity Inpatient Short Form: Raw score: 16 INFORMED CONSENT/EDUCATION: Pt instructed in purpose of OT Consult and plan of care. ASSESSMENT: Patient is a 64-year-old female referred to occupational therapy services with diagnosis of athletes foot, lumbar back pain with radiculopathy, hypokalemia, hypomagnesemia, back pain with radiation, dehydration, UTI, spinal stenosis, parkinsonism, peripheral neuropathy. Patient presents with clinical signs and symptoms consistent with dx, as demonstrated by the following impairment level findings/functional limitations: Impairments in ADL/IADL and leisure activities, decreased functional mobility required for ADL performance, inability to perform LE dressing or bathing due to pain, decreased tolerance and functional activity tolerance to ADLs. [facility] score 16 Patient is assessed as a Moderate 06229 complexity based on the following: History: see above Examination: see functional limitations as noted above Presentation: evolving Decision Making: [facility] 16 GOALS Goals x1 week 1. Grooming- (I) with brushing hair sitting at side of the bed 2. Dressing- sitting on side of the bed (I) UE min (A) LE 3. Bathing- sitting on side of the (I) UE, min (A) LE 4. Toileting- on commode (I) 5. Eating- (I) PLAN OF CARE/TREATMENT PLAN: 1x/day, 5 days/ week x 1week Initiate Occupational Therapy Services for bathing, dressing, grooming, toileting, eating, transfer training. DISCHARGE RECOMMENDATIONS OT recommends that pt go to SNF when medically cleared per MD awaiting for surgical intervention. TREATMENT TIME/MINUTES/CODES 65394, 75893, 20 minutes (09:05) Guillermina Beavers OTR/[facility]
--- NOTE | 2020-08-10 09:48 | W.PM.PROGNOT ---
Date of Service Date of service: 08/10/20 Time of Service: 09:48 Assessment and Plan Assessment and plan (1) Lumbar back pain with radiculopathy affecting right lower extremity: Start date: 08/10/20 Start time: 09:52 Status: Chronic Assessment and plan: Intractable back pain, chronic with worsening since leaving rehab AMA, and declining at home. She had MRI lumbar spine on her last admission that showed: Degenerative disc changes and facet degenerative changes are seen greatest at L5 3 4 and L4-5. There is severe neural foraminal narrowing at L3-4 and a moderate central canal stenosis as well as neural foraminal narrowing at L4-5. [place] [facility] [place] Javier on 08/25 for back to help relieve pain. Dr. Javier's office was contacted to discuss case. He advised that she is on the waiting list, she has a 4 hour case scheduled, it is not likely that a cancellation will be a 4 hr block. In the absence of progressive neurological symptoms, he advises symptom management and continued mobility. His office will reach out to Leah to start arranging rehab for post surgery as well. Continue PT/OT. Continue current pain regimen with steroid burst x 7 days, aqua K pack, scheduled nucynta and PRN IV dilaudid for breakthrough pain. Continue Burk. (2) Hypertension: Start date: 08/10/20 Start time: 09:52 Status: Chronic Assessment and plan: Improved with pain under control. (3) Radiculitis: Start date: 08/10/20 Start time: 09:56 Status: Chronic Assessment and plan: worsening as above (4) Back pain with radiation: Start date: 08/10/20 Start time: 09:56 Status: Chronic Assessment and plan: continue regimen as above from above (5) Dehydration: Start date: 08/10/20 Start time: 09:57 Status: Resolved Assessment and plan: Continue to encourage PO she is eating and drinking with out difficulty, IVF discontinued yesterday (6) Athletes foot: Start date: 08/10/20 Start time: 09:58 Status: Acute Assessment and plan: bilateral, continue compound with vitamin A&D, clotrimzaole, and zince (7) Diabetes mellitus: Start date: 08/10/20 Start time: 09:58 Status: Chronic Assessment and plan: metformin on hold, SSI, continue to monitor especially in setting of steroid burst (8) Diabetic neuropathy: Start date: 08/10/20 Start time: 09:59 Status: Acute Assessment and plan: she takes gabapentin for this continue TID and at HS (9) DVT prophylaxis: Start date: 08/10/20 Start time: 09:59 Status: Acute Assessment and plan: Enoxaparin daily (10) Discharge planning issues: Start date: 08/10/20 Start time: 10:00 Status: Acute Assessment and plan: She is agreeable to H/R. From there she will [place] [facility] [place]. CM to send referral Discussed with Dr. Ross. Subjective Subjective Patient reports: no new complaints Interval history since last seen: States pain management is effective, expect when trying to get OOB. States she does not want anything for depression she was just a little emotional yesterday. She is agreeable to going back to H/R. At this time due to extensiveness of surgery she will not be able to be moved to earlier date. She is tolerating diet. No nausea vomiting diarrhea, CP, SOB. Exam Const General: cooperative, healthy appearing, no acute distress, well developed and well groomed Nutritional Appearance: overweight Orientation: alert, awake and oriented x3 HENMT Head: normal to inspection, normocephalic and atraumatic Ears: hearing grossly normal bilaterally Mouth: moist mucous membranes abnormal Eyes Pupils: PERRL EOM: EOM intact bilaterally Neck Lymphatic: no lymphadenopathy noted Chest Chest: normal inspection of the chest Resp Effort & Inspection: normal respiratory effort and able to speak in complete sentences Auscultation: clear to auscultation bilaterally Cardio Jugular venous pressure: no JVD Rate: regular rate Rhythm: regular rhythm Heart Sounds: S1 normal and S2 normal GI Inspection: normal to inspection Palpation: soft and no hepatosplenomegaly Auscultation: normal bowel sounds General: deferred Back/Spine/Pelvis Thoracic/Lumbar Spine: No thoracic and lumbar spine normal to inspection, No thoraco-lumbar ROM normal, No straight leg raise negative bilaterally, thoraco-lumbar ROM limited and thoraco-lumbar spasm Skin General skin exam: no rashes or lesions noted Neuro General: patient alert, patient awake and patient oriented x3 Cognition: normal cognition Speech: speech normal Motor: tone not normal throughout (not normal through out RLE weaker) Sensory Exam: no sensory deficits noted Extrem General: abnormal to inspection, no clubbing, no cyanosis and edema Laterality: bilateral (nonpitting) Right lower extremity: edema Psych Appearance: grossly normal Mental Status: mental status grossly normal Speech and Movement: speech and movement normal Mood: congruent mood Affect: normal affect Attitude: cooperative Objective Last Vital Signs Temp 36.8 C 08/10/20 07:50 Pulse 78 08/10/20 07:50 Resp 18 08/10/20 07:50 BP 122/82 08/10/20 07:50 Pulse Ox 94 08/10/20 07:50 Laboratory Results - last 24 hr 08/10/20 08/10/20 08/10/20 05:35 06:50 06:50 WBC 9.98 RBC 4.04 Hgb 12.1 Hct 36.6 MCV 90.6 MCH 30.0 MCHC 33.1 RDW 12.6 Plt Count 249 MPV 11.1 H Sodium Cancelled 144 Potassium Cancelled 3.8 Chloride Cancelled 107 Carbon Dioxide Cancelled 30.2 Anion Gap Cancelled 6.8 BUN Cancelled 13 Creatinine Cancelled 0.5 L Estimated GFR/1.73 m2 Cancelled >= 60.00 Glucose Cancelled 107 H Calcium Cancelled 8.4 L Total Bilirubin 0.3 AST 18 ALT 25 Alkaline Phosphatase 42 L Total Protein 5.9 L Albumin 2.8 L
--- NOTE | 2020-08-10 10:01 | CMPROGNOTE_ITS ---
- If Service Date Differs Date of service: 08/10/20 Time of Service: 10:01 Care Management Progress Note S/O: Leah was lying in bed when CM met with her. She reported that she met with Dr. Vargas yesterday, who discussed her options for rehab. Leah has decided to return to [facility] for rehab prior to her surgery (and likely post surgically as well). CM sent a referral to [facility] for review. Nohemy, admissions, reported that she has submitted to [place] to Leah's insurance company, and she will offer a bed upon approval. Leah requested to have room A22, which CM asked Nohemy about, and Nohemy reported that she would be able to have that room as it is available at this time. CM will continue to follow. A: Leah is a 64 year old female admitted to [facility] on 08/07/20 for intractable back pain. P: Leah will discharge to SNF when ready per MD. CM will discuss need for SNF with Leah and determine where she would like referrals faxed. Prior authorization delayed discharge last admission; potential barrier. CM continues to follow.
[2020-08-10] MEDS: Insulin Aspart 300 UNITS/3 ML PEN SC ×2 (11:50→16:59)
[2020-08-10 15:35] VITALS: BP 138/84; PULSE 86; RESP 18; TEMP 36.9; O2SAT 94
[2020-08-10] MEDS: Enoxaparin 40 MG/0.4 ML SYR SC (20:10)
[2020-08-10] MEDS: Gabapentin 300 MG CAP PO (22:03)
[2020-08-10 23:50] VITALS: BP 140/80; PULSE 83; RESP 17; TEMP 36; O2SAT 94
[2020-08-11 08:00] VITALS: BP 154/92; PULSE 94; RESP 17; TEMP 36.7; O2SAT 92
[2020-08-11] MEDS: predniSONE 20 MG TAB 60 MG PO (08:39)
[2020-08-11] MEDS: Senna TAB 1 TAB PO ×2 (08:39→20:06)
[2020-08-11] MEDS: Gabapentin 300 MG CAP 900 MG PO ×3 (08:40→20:05)
[2020-08-11] MEDS: Cholecalciferol (Vitamin D3) 1,000 UNIT TAB 6000 UNITS PO (08:40)
[2020-08-11] MEDS: Potassium Chloride 20 MEQ TABCR PO (08:40)
[2020-08-11] MEDS: oxyCODONE 5 MG TAB PO (09:04)
[2020-08-11] MEDS: Acetaminophen 325 MG TAB 650 MG PO (09:04)
--- NOTE | 2020-08-11 09:04 | OTTR_ITS ---
Date of service: 08/11/20 Time of Service: 08:50 Occupational Therapy Notes Occupational Therapy Inpatient Treatment Note Date: 08/11/20 PRECAUTIONS: Fall, standard, Full SUBJECTIVE: Pt was lying in bed when OT arrived, she was agreeable to OT session and notes that she is in a lot of pain. She states that she slept almost all day yesterday and notes that she can't wait for her surgery. OBJECTIVE: PAIN:10/10 pain in back and (R) side BATHING: lying in bed with max (A) Set up/clean up Upper Body: (I) face, (B) UE and abdomen Lower Body: Max (A) DRESSING: Upper Extremity: Max (A) Lower Extremity: Max (A) TOILETING: Burk in place EATING: (I) ASSESSMENT/PLAN: Pt is pain dominant at this time, she is only able to tolerate her ADLs laying in her bed. She is max (A) for (B) LE. TREATMENT CODES/TIME: 86502, 10 minutes (08:50) JEREMIAH Salgado/[facility]
[2020-08-11] MEDS: hydroCHLOROthiazide 25 MG TAB PO (09:57)
[2020-08-11 14:50] VITALS: BP 128/61; PULSE 90; RESP 18; TEMP 37.1; O2SAT 93
--- NOTE | 2020-08-11 16:28 | PDOC.CMPRO ---
- If Service Date Differs Date of service: 08/11/20 Time of Service: 16:28 Care Management Progress Note S/O: Leah was sleeping when CM attempted to meet with her, and chose not to wake her, as her plan has not changed. CM talked to admissions at [facility], who continues to wait for a prior authorization for her rehab stay. CM will continue to follow. A: Leah is a 64 year old female admitted to [facility] on 08/07/20 for intractable back pain. P: Leah will discharge to SNF when ready per MD. She has a bed offer at [facility], which is where she will transition to once a PA is obtained. Prior authorization delayed discharge last admission; potential barrier. CM continues to follow.
[2020-08-11] MEDS: Insulin Aspart 300 UNITS/3 ML PEN SC (17:25)
[2020-08-11] MEDS: Enoxaparin 40 MG/0.4 ML SYR SC (20:05)
[2020-08-11] MEDS: Gabapentin 300 MG CAP PO (21:39)
[2020-08-11 23:15] VITALS: BP 116/80; PULSE 80; RESP 16; TEMP 36.3; O2SAT 91
[2020-08-12 07:52] VITALS: BP 148/89; PULSE 79; RESP 17; TEMP 36.7; O2SAT 96
[2020-08-12] MEDS: Cholecalciferol (Vitamin D3) 1,000 UNIT TAB 6000 UNITS PO (08:06)
[2020-08-12] MEDS: Polyethylene Glycol 3350 17 GM PACKET PO (08:06)
[2020-08-12] MEDS: Gabapentin 300 MG CAP 900 MG PO (08:06)
[2020-08-12] MEDS: predniSONE 20 MG TAB 60 MG PO (08:06)
[2020-08-12] MEDS: Potassium Chloride 20 MEQ TABCR PO (08:07)
[2020-08-12] MEDS: hydroCHLOROthiazide 25 MG TAB PO (08:07)
[2020-08-12] MEDS: Senna TAB 1 TAB PO (08:07)
--- NOTE | 2020-08-12 08:36 | OT.INTREAT ---
Date of service: 08/12/20 Time of Service: 07:45 Occupational Therapy Notes Occupational Therapy Inpatient Treatment Note Date: 08/12/20 PRECAUTIONS: Fall, standard, Full SUBJECTIVE: Pt was lying in bed when OT arrived, she states that her back is bothersome and that [facility]. OBJECTIVE: PAIN:8/10 pain in back and (R) side BATHING: lying in bed with max (A) Set up/clean up Upper Body: (I) face, (B) UE and abdomen Lower Body: Max (A), pt did attempt to wash to (B) knees but this caused increased pain DRESSING: Upper Extremity: Mod (A) with min vc TOILETING: Burk in place ASSESSMENT/PLAN: Pt is pain dominant at this time, she is only able to tolerate her ADLs laying in her bed and requires re-positioning multiple times throughout session. She is max (A) for (B) LE. TREATMENT CODES/TIME: 32446, 20 minutes (07:45) Guillermina Beavers OTR/[facility]
--- NOTE | 2020-08-12 10:14 | PT.INTREAT ---
Date of service: 08/12/20 Time of Service: 09:40 PT Notes Visit Reasons: INTRACTABLE BACK PAIN, WEAKNESS Inpatient Physical Therapy Treatment Note [facility] Date: 08/12/2020 PRECAUTIONS: Intractable back pain SUBJECTIVE: Leah is pleasant and agreeable to participating in PT, although hesitant as she is fearful that movement will cause back pain. OBJECTIVE: PAIN: No c/o significant pain BED MOBILITY/TRANSFERS Supine-sit: I with HOB at 20-40 degrees Sit-supine: Mod A of B LE with HOB flat Sit-stand: S Stand-sit: S Bed-chair: SBA Chair-bed: SBA GAIT Assistive Device: FWW Weight bearing: WBAT B Assist: SBA Distance: 25' + 5' x2 Deviation: Excessive forward trunk flexion to the left, left knee flexion THEREX: Patient will perform trunk stabilization exercises independently later today. Static sitting in wheelchair with pillow x4 minutes, occasionally using B UEs to lift off of seat and hover for comfort. ASSESSMENT: Patient tolerated a progression in gait distance with FWW support, although demonstrating excessive forward trunk flexion to left and left knee flexion. She was also able to tolerate static sitting in wheelchair x4 minutes. PLAN: Continue to promote increased gait distance with FWW support, as well as improved gait mechanics, as pain allows. TREATMENT CODE/TIME: 20 minutes; 25461 (09:40)
--- NOTE | 2020-08-12 10:43 | W.PM.DS.N ---
Date of service: 08/12/20 Time of Service: 10:47 DS: Diagnosis Discharge Diagnosis (1) Lumbar back pain with radiculopathy affecting right lower extremity: Start date: 08/12/20 Start time: 10:48 Status: Chronic Asessment and Plan: Intractable back pain, chronic with worsening since leaving rehab AMA, and declining at home. She had MRI lumbar spine on her last admission that showed: Degenerative disc changes and facet degenerative changes are seen greatest at L5 3 4 and L4-5. There is severe neural foraminal narrowing at L3-4 and a moderate central canal stenosis as well as neural foraminal narrowing at L4-5. Surgery scheduled at [facility] with Dr. Javier on 08/25 for back to help relieve pain. Dr. Javier's office was contacted to discuss case. He advised that she is on the waiting list, she has a 4 hour case scheduled, it is not likely that a cancellation will be a 4 hr block. In the absence of progressive neurological symptoms, he advises symptom management and continued mobility. His office will reach out to Leah to start arranging rehab for post surgery as well. She has been accepted to H/R until surgery Pre-surgery EKG done Continue pain management, PT/oT and sarah (2) Radiculitis: Start date: 08/12/20 Start time: 10:49 Status: Chronic Asessment and Plan: worsening as above (3) Hypokalemia: Start date: 08/12/20 Start time: 10:50 Status: Resolved Asessment and Plan: repeleted with IV and PO medication (4) Hypomagnesemia: Start date: 08/12/20 Start time: 10:51 Status: Resolved Asessment and Plan: resolved with repletion (5) Back pain with radiation: Start date: 08/12/20 Start time: 10:51 Status: Chronic Asessment and Plan: continue regimen as above (6) Dehydration: Start date: 08/12/20 Start time: 10:51 Status: Resolved Asessment and Plan: found on admission, due to decreased fluid intake to prevent having to go to the BR. Hydrate with IVF. (7) Hypertension: Start date: 08/12/20 Start time: 10:52 Status: Chronic Asessment and Plan: Continue home regimen (8) Diabetes mellitus: Start date: 08/12/20 Start time: 10:52 Status: Chronic Asessment and Plan: continue home regimen (9) Athletes foot: Start date: 08/12/20 Start time: 10:52 Status: Acute Asessment and Plan: continue compound to bilateral feet with clotrimazole, A&D ointment and zinc discussed with Dr. Ross Discharge Plan Disposition Patient Disposition: HOME Condition: Stable Discharge Details Reason For Visit: INTRACTABLE BACK PAIN, WEAKNESS Admit Date/Time: 08/07/20 15:16 Admit Provider: Deon Ross Attending Provider: Deon Ross Primary Care Provider: Keila Vargas [place] [facility] Hospital Course: 64 y.o female with PMH of HTN, HLD, JOSEY, DM Spinal stenosis, Radiculopathy causing RLE pain, discharged from [facility] on 07/16 to / for further management of her symptoms. She presents to the ED with c/o worsening pain to RLE and intractable back pain with weakness. She was at / for only a couple of days when she signed herself out. She did make it to her appt at [facility] to see Dr. Javier and is scheduled to have surgical intervention on 07/26 she returns here wanting to be placed back in facility until then as since being home she has become weaker and has not been able to move much at home. Labs in the ED reveal hypokalemia at 2.9, hypomagnesium 1.4, CK 291, Gap 12.0. Admittedd to /S for IV hydration, PT/OT, referral to rehab and pain management. Repleted electrolytes, multimodality pain management. Over course of treatment Dr. Aquino reached out to Neurosurgery at [facility] to see if surgery could be moved up but unfortunately due to length of surgery time this was not feasible but she is on a wait list per [facility] if OR time becomes available. She has been working with PT/OT. Pain has been tolerable. She has agreed to go back to / while awaiting surgery. She has been accepted there. COVID negative. She denies CP, SOB, N/V/D. Home Meds and New Rx's Prescriptions: New polyethylene glycol 3350 17 gram Powder In Packet 17 g PO DAILY Qty: 30 RF: 0 docusate sodium [Colace] 100 mg Capsule 100 mg PO TID PRN PRNQty: 30 RF: 0 prednisone 20 mg Tablet 60 mg PO DAILY 2 Days Qty: 6 RF: 0 oxycodone-acetaminophen [Percocet] 7.5-325 mg tablet 1 tab PO Q4H PRNQty: 30 RF: 0 Continued diclofenac sodium [Voltaren] 1 % gel 2 g topical QID Qty: 100 RF: 0 hydrochlorothiazide 25 mg tablet 25 mg PO DAILY Qty: 90 RF: 5 lorazepam 1 mg tablet 0.5 - 1 mg PO DAILY PRN (Reason: anxiety) Qty: 25 RF: 0 metformin 500 mg tablet 500 mg PO DAILY Qty: 90 RF: 4 ibuprofen 600 mg tablet 600 mg PO QID PRN (Reason: pain) Qty: 90 RF: 2 potassium chloride 20 mEq tablet extended release 20 meq PO DAILY Qty: 90 RF: 1 cyclobenzaprine 10 mg tablet 10 mg PO BID PRN (Reason: muscle spasm) Qty: 90 RF: 3 oxycodone 5 mg tablet 5 mg PO TID MDD 15 PRN (Reason: pain) Qty: 30 RF: 0 cholecalciferol (vitamin D3) [Vitamin D3] 50 mcg (2,000 unit) capsule 150 mcg PO DAILY RF: 0 diazepam 2 mg tablet 2 mg PO QHS PRN (Reason: muscle spasm) Qty: 5 RF: 0 gabapentin 300 mg Capsule 300 mg PO HS Qty: 30 RF: 0 acetaminophen [Tylenol] 325 mg Tablet 650 mg PO QID Qty: 20 RF: 0 sennosides [Senokot] 8.6 mg Tablet 1 tab PO BID Qty: 60 RF: 0 polyethylene glycol 3350 17 gram Powder In Packet 17 g PO BID Qty: 30 RF: 0 docusate sodium [Colace] 100 mg Capsule 100 mg PO BID Qty: 60 RF: 0 gabapentin 300 mg capsule 900 mg PO TID Qty: 180 RF: 2 No Action (DME) blood-glucose meter [Cyphort Verio IQ Meter] misc See Dose Instructions .ROUTE .MEDSUPPLY Qty: 1 RF: 0 (DME) Blood Glucose Test Strip 1 ea Miscellaneous DAILY Qty: 100 RF: 1 (DME) lancets 28 gauge misc 1 ea Miscellaneous DAILY Qty: 100 RF: 0 Discharge Instructions Instructions: Lumbar Spinal Stenosis (DC), Back Pain (GEN) Additional Instructions: Transfer to H/R Stand Alone Forms: Nursing Discharge Form Activity:: Activity as Tolerated Equipment/Supplies:: No Equipment Needed Diet:: Carb Counting Discharge Orders Discharge Orders: Discharge Order (Routine); Ordered 08/12/20 Ordered By: Allegra James DS: Summary Time Spent with Patient providing and/or coordinating discharge services: Less than 30 minutes (less than 20 mins) Status at Discharge Functional status at discharge: uses cane/walker Overall status at discharge: patient is not back to baseline Mental Status: mental status grossly normal Speech and Movement: speech and movement normal Mood: congruent mood Affect: normal affect Exam Const General: cooperative, healthy appearing, no acute distress, well developed and well groomed Nutritional Appearance: overweight Orientation: alert, awake and oriented x3 HENMT Head: normal to inspection, normocephalic and atraumatic Ears: hearing grossly normal bilaterally Mouth: moist mucous membranes abnormal Eyes Pupils: PERRL EOM: EOM intact bilaterally Neck Lymphatic: no lymphadenopathy noted Chest Chest: normal inspection of the chest Resp Effort & Inspection: normal respiratory effort and able to speak in complete sentences Auscultation: clear to auscultation bilaterally Cardio Jugular venous pressure: no JVD Rate: regular rate Rhythm: regular rhythm Heart Sounds: S1 normal and S2 normal GI Inspection: normal to inspection Palpation: soft and no hepatosplenomegaly Auscultation: normal bowel sounds General: deferred Back/Spine/Pelvis Thoracic/Lumbar Spine: No thoracic and lumbar spine normal to inspection, No thoraco-lumbar ROM normal, No straight leg raise negative bilaterally, thoraco-lumbar ROM limited and thoraco-lumbar spasm Skin General skin exam: no rashes or lesions noted Neuro General: patient alert, patient awake and patient oriented x3 Cognition: normal cognition Speech: speech normal Motor: tone not normal throughout (not normal through out RLE weaker) Sensory Exam: no sensory deficits noted Extrem General: abnormal to inspection, no clubbing, no cyanosis and edema Laterality: bilateral (nonpitting) Right lower extremity: edema Psych Appearance: grossly normal Mental Status: mental status grossly normal Speech and Movement: speech and movement normal Mood: congruent mood Affect: normal affect Attitude: cooperative DS: Data Vitals/I&O Vitals and I&O: Vital Signs Temperature 36.7 C 08/12/20 07:52 Temperature Source Tympanic 08/12/20 07:52 Pulse 79 08/12/20 07:52 Pulse Rhythm Regular 08/12/20 04:05 Respiratory Rate 17 08/12/20 07:52 Respiratory Effort Non-Labored 08/12/20 04:05 Respiratory Depth Normal 08/12/20 04:05 Respiratory Pattern Normal 08/12/20 04:05 Blood Pressure 148/89 H 08/12/20 07:52 Blood Pressure Mean 101 08/07/20 15:16 Blood Pressure Position Supine 08/07/20 13:42 Pulse Oximetry 96 08/12/20 07:52 Oxygen Delivery Method Room Air 08/12/20 07:52 Oxygen Flow Rate 0 08/12/20 07:52 Pain Level 6 08/12/20 07:52 Comment 08/09/20 07:52 Intake & Output 08/11/20 08/11/20 08/12/20 11:59 23:59 11:59 Intake Total 490 / 730 240 / 730 110 / 110 Output Total 3100 / 4950 1850 / 4950 700 / 700 Balance -2610 / -4220 -1610 / -4220 -590 / -590 Intake: IV 10 / Oral 480 / 720 240 / 720 100 / 100 Output: Urine 3100 / 4950 1850 / 4950 700 / 700 Other: Urine Color Pale Yellow Yellow Yellow Urine Appearance Clear Clear Cloudy Data Completed and Pending Completed studies during hospitalization [Text1]: Exam(s) a US:US lower extremity venous RT Exam(s) US LOWER EXTREMITY VENOUS RT EXAM: US LOWER EXTREMITY VENOUS RT CLINICAL HISTORY: pain and swelling, immobility TECHNIQUE: Right lower extremity venous ultrasound performed using grayscale, color-flow, and spectral Doppler analysis. COMPARISON: US US LOWER EXTREMITY VENOUS RT from 04/01/2020 FINDINGS: The right common femoral, femoral and popliteal veins demonstrate normal compressibility, augmentation, and color Doppler. The posterior tibial veins are patent. The saphenofemoral junction is unremarkable. There is no evidence of a Rowe cyst. The soft tissues are unremarkable. IMPRESSION: No DVT. Exam(s) PROCEDURE INFORMATION: Exam: US Duplex Right Lower Extremity Veins, Limited Exam date and time: 08/07/2020 2:32 PM Age: 64 years old Clinical indication: Leg, lower; Patient HX: Right leg pain and numbness. Immobility. TECHNIQUE: Imaging protocol: Real-time Duplex ultrasound of the Right Lower Extremity with 2-D bell scale, color Doppler flow and spectral waveform analysis with image documentation. Limited exam was focused on the right lower extremity veins. COMPARISON: US LOWER EXTREMITY VENOUS RT 04/01/2020 9:58 AM FINDINGS: Right deep veins: Unremarkable. The common femoral, femoral, proximal profunda femoral and popliteal veins are patent without thrombus. Normal Doppler waveforms. Normal compressibility and/or augmentation response. Right superficial veins: Unremarkable. Saphenofemoral junction is patent without thrombus. Soft tissues: Unremarkable. IMPRESSION: No evidence of deep vein thrombosis. [facility] Medical History DM (diabetes mellitus) Essential tremor Hip pain HTN (hypertension) Hyperlipidemia Internal derangement of right knee ITB syndrome Lumbosacral radiculopathy Lymphadenopathy (12/25/11) On antibiotic therapy JOSEY (obstructive sleep apnea) Osteoarthritis of right hip Peripheral neuropathy Pes anserinus bursitis of right knee Injection: 08/28/2018 Right calf pain Sarcoid Surgical History section x 3 Colonoscopy - MAC (02/11/16) History of section History of nasal septoplasty Nasal septoplasty Family History Mother Essential hypertension Cancer Diabetes Hyperlipidemia Primary biliary cholangitis Father , AGE 74 Heart disease Hyperlipidemia Brother Essential hypertension Diabetes Hyperlipidemia Maternal Grandfather Prostate cancer Paternal Grandfather , AGE 45 Diabetes Maternal Grandmother , AGE 84 Diabetes Heart disease Paternal Grandmother Lung cancer Other Lumbosacral radiculopathy Social History Smoking/Tobacco Use Status: Never Smoking risk assessment performed?: Yes Alcohol Intake: current Alcohol Intake frequency: a few times a month Drug use: Never Substance use type: does not use Caregiver/Support person: No Household members: none Do you need help understanding health information?: Never Pets and animals: Yes Pets and animals: cat(s) Sexually active: No Do you think of yourself as: straight/heterosexual Current gender identity: female What is your relationship status?: How often do you talk on the phone with friends or family?: three or more times per week How often do you get together with friends or relatives?: three or more times per week How often do you attend hoahaoism or latter day services?: 1-3 times per year Do you belong to any clubs or organized social groups?: no Panel score (0-1 are the most socially isolated patients): 1 What type of physical activity do you participate in: none Duration: decline to answer Frequency: decline to answer Maria Fernanda/Restorationist: Sabianist Special maria fernanda needs: No Seatbelt use: always Helmet use: Yes Helmet use: always Drive intox or ride w/intox local tanker truck driver: No Do you feel safe at home: Yes Additional Social history: lives alone - son helps out
[2020-08-12 11:02] LABS: Source Nasal/Nares
--- NOTE | 2020-08-12 11:18 | W.PALPGNOTE ---
Date of service: 08/12/20 Time of Service: 07:18 Assessment and Plan Assessment and plan (1) Lumbar back pain with radiculopathy affecting right lower extremity: Status: Chronic (2) Hypertension: Status: Chronic (3) UTI (urinary tract infection): Status: Acute (4) Spinal stenosis: Status: Acute (5) Parkinsonism: Status: Acute (6) Diabetic neuropathy: Status: Acute (7) Palliative care patient: Status: Acute Assessment and plan: Makenna is a 64-year-old woman with early Parkinson's, diabetes, hypertension and spinal stenosis with lumbar radiculopathy affecting her right leg. She is unable to do any of her activities of daily living due to the pain. She is awaiting surgical decompression. Enclosed you will find recent labs and EKGs. She has never had any cardiac complaints She is medically stable to undergo lumbar surgery. I will care for Leah after she returns home and I am willing to take over any opioid prescriptions It is presumed that she will go to [facility] and rehab after her operation until she is able to care for herself and then go home. CODE STATUS full code Subjective Subjective Patient reports: still having pain, tolerating a regular diet, bowel movement and shortness of breath Interval history since last seen: Leah is a 64-year-old woman who is my primary care patient. I am seeing her in the hospital to do an history and physical which can be used when she goes down for her operation in a few weeks. She has a long, 4-hour operation, planned at [facility]. This is to decompress her low back and repair her spondylolisthesis. She has had several weeks of complete disability due to her pain. Initially she tried managing this at home but because of the inability to care for herself came to the hospital about a month ago. She was then discharged to [facility] and rehab. She did leave the facility to go home feeling she could be cared for as well at home. Unfortunately the amount of care that she required was more than families and friends could supply. She returned to the hospital earlier this week with plans to go back to health and rehab until her operation. It was discussed with orthopedics in an attempt to move up her operation, but due to the length of it there were no openings between now and her scheduled time. She continues to have excruciating pain with any movement in her right low back and extending down to her leg. She has not been able to sit up for several weeks. She does have a catheter in place but it is mostly for convenience as it is very difficult for her to get to a commode. She would like to get rid of the catheter. She has had intermittent bowel movements but she is keeping track of these to be certain that they are on a regular basis. She is anxious for the operation as her life has been totally put on hold for the last couple of months. Review of systems no chest pain, there is shortness of breath but mostly due to deconditioning, bowel complaints but again mostly due to use of opioids to control pain, she has a catheter in place but this is for convenience because of difficulty in maneuvering, low back pain and right leg pain. She states that she is depressed and does have some anxiety around care issues and overall changes in her life. She does not have any open wounds. Exam Narrative Exam Narrative: She is presently uncooperative. She is lying in bed. HEENT normal. No neck masses no JVD Her heart is regular, there is a slight systolic murmur. Chest is clear but respirations are fairly shallow I think this is secondary to being in bed, being deconditioned Abdomen is soft nontender Today she is able to move her right leg but she needs help to position it properly Straight leg raise is impossible today due to pain She does have a tremor on the right side of her body thought to be secondary to Parkinson's MRI 06/27 xam(s) a MRI:MR lumbar spine wo EXAM: MR LUMBAR SPINE WO CLINICAL HISTORY: radiculopathy, disc herniation. TECHNIQUE: Multiplanar multisequence MRI was performed. COMPARISON: MR MR lumbar spine wo from 01/02/2018 FINDINGS: Exam is mildly limited by patient motion. The marrow signal is normal. No compression fractures are seen. Conus medullaris appears normal. There is slight disc bulging at T12-L1. The L1-2 disc is intact. There is mild to moderate disc bulging at L2-3, eccentric toward the left. There are facet degenerative changes. There is bilateral neural foraminal narrowing, greater on the left. There is mild ligamentous hypertrophy and mild facet degenerative changes . At L3-4, there is moderate disc bulging which is eccentric toward the right. There are facet degenerative changes and ligamentous hypertrophy combining to produce mild central canal stenosis. There is severe right neural foraminal narrowing. At L4-5, there is broad-based disc bulging. There are prominent facet degenerative changes, left greater than right. There is moderate degree of central canal stenosis as well as moderate to severe neural foraminal narrowing. At L5-S1, there is disc bulging eccentric toward the right. There is severe right neural foraminal encroachment. There is mild left neural foraminal narrowing. There is no central canal stenosis. IMPRESSION: Degenerative disc changes and facet degenerative changes are seen greatest at L5 3 4 and L4-5. There is severe neural foraminal narrowing at L3-4 and a moderate central canal stenosis as well as neural foraminal narrowing at L4-5. EKG 08/10/20 Exam: Resting ECG Reason for Exam: pre op ekg Patient Location: I HR:127 bpm ECG Measurements Heart Rate 127 AXIS TN 141 P 62 QRSd 77 QRS 0 QT 311 T 39 QTc 453 Conclusion Sinus tachycardia...rate> 99 Probable left atrial enlargement...P >50mS, <-0.10mV V1 Discharge Summary 08/12/20 to REHAB ospital Course Hospital Course: 64 y.o female with PMH of HTN, HLD, JOSEY, DM Spinal stenosis, Radiculopathy causing RLE pain, discharged from [facility] on 07/16 to /R for further management of her symptoms. She presents to the ED with c/o worsening pain to RLE and intractable back pain with weakness. She was at / for only a couple of days when she signed herself out. She did make it to her appt at [facility] to see Dr. Javier and is scheduled to have surgical intervention on 07/26 she returns here wanting to be placed back in facility until then as since being home she has become weaker and has not been able to move much at home. Labs in the ED reveal hypokalemia at 2.9, hypomagnesium 1.4, CK 291, Gap 12.0. Admittedd to M/S for IV hydration, PT/OT, referral to rehab and pain management. Repleted electrolytes, multimodality pain management. Over course of treatment Dr. Aquino reached out to Neurosurgery at [facility] to see if surgery could be moved up but unfortunately due to length of surgery time this was not feasible but she is on a wait list per [facility] if OR time becomes available. She has been working with PT/OT. Pain has been tolerable. She has agreed to go back to H/R while awaiting surgery. She has been accepted there. COVID negative. She denies CP, SOB, N/V/D. Objective Last Vital Signs Temp 98.1 F 08/12/20 07:52 Pulse 79 08/12/20 07:52 Resp 17 08/12/20 07:52 BP 148/89 H 08/12/20 07:52 Pulse Ox 96 08/12/20 07:52 Laboratory Results - last 24 hr 08/12/20 10:50 COVID-19 Source Nasal/nares
[2020-08-12 11:47] LABS: COVID-19 PCR Negative (Negative)
[2020-08-12] MEDS: Insulin Aspart 300 UNITS/3 ML PEN SC (12:13)
--- NOTE | 2020-08-12 12:19 | W.PM.PROGNOT ---
Date of Service Date of service: 08/11/20 Time of Service: Assessment and Plan Assessment and plan (1) Lumbar back pain with radiculopathy affecting right lower extremity: Start date: 08/11/20 Start time: Status: Chronic Assessment and plan: Intractable back pain, chronic with worsening since leaving rehab AMA, and declining at home. She had MRI lumbar spine on her last admission that showed: Degenerative disc changes and facet degenerative changes are seen greatest at L5 3 4 and L4-5. There is severe neural foraminal narrowing at L3-4 and a moderate central canal stenosis as well as neural foraminal narrowing at L4-5. Surgery scheduled at [facility] [facility] with Dr. Javier on 08/25 for back to help relieve pain. Dr. Javier's office was contacted to discuss case. He advised that she is on the waiting list, she has a 4 hour case scheduled, it is not likely that a cancellation will be a 4 hr block. In the absence of progressive neurological symptoms, he advises symptom management and continued mobility. His office will reach out to Leah to start arranging rehab for post surgery as well. Continue PT/OT. Continue current pain regimen with steroid burst x 7 days, aqua K pack, scheduled nucynta and PRN IV dilaudid for breakthrough pain. Continue Burk. (2) Radiculitis: Start date: 08/11/20 Start time: Status: Chronic Assessment and plan: worsening as above (3) Back pain with radiation: Start date: 08/11/20 Start time: Status: Chronic Assessment and plan: continue regimen as above from above (4) Hypertension: Start date: 08/11/20 Start time: Status: Chronic Assessment and plan: Improved with pain under control. (5) Diabetes mellitus: Start date: 08/11/20 Start time: Status: Chronic Assessment and plan: metformin on hold, SSI, continue to monitor especially in setting of steroid burst (6) Athletes foot: Start date: 08/11/20 Start time: Status: Acute Assessment and plan: bilateral, continue compound with vitamin A&D, clotrimzaole, and zince (7) Discharge planning issues: Start date: 08/11/20 Start time: Status: Acute Assessment and plan: Awaiting prior auth to H/R, she has agreed to transition there (8) DVT prophylaxis: Start date: 08/11/20 Start time: 11:30 Status: Acute Assessment and plan: Enoxaparin subcut above case discussed with Dr. carias Subjective Subjective Patient reports: no new complaints Interval history since last seen: no complaints, pain managed, waiting prior authorization to h/R. Denies CP, SOB, N/V/D Exam Const General: cooperative, healthy appearing, no acute distress, well developed and well groomed Nutritional Appearance: overweight Orientation: alert, awake and oriented x3 HENMT Head: normal to inspection, normocephalic and atraumatic Ears: hearing grossly normal bilaterally Mouth: moist mucous membranes abnormal Eyes Pupils: PERRL EOM: EOM intact bilaterally Neck Lymphatic: no lymphadenopathy noted Chest Chest: normal inspection of the chest Resp Effort & Inspection: normal respiratory effort and able to speak in complete sentences Auscultation: clear to auscultation bilaterally Cardio Jugular venous pressure: no JVD Rate: regular rate Rhythm: regular rhythm Heart Sounds: S1 normal and S2 normal GI Inspection: normal to inspection Palpation: soft and no hepatosplenomegaly Auscultation: normal bowel sounds General: deferred Back/Spine/Pelvis Thoracic/Lumbar Spine: No thoracic and lumbar spine normal to inspection, No thoraco-lumbar ROM normal, No straight leg raise negative bilaterally, thoraco-lumbar ROM limited and thoraco-lumbar spasm Skin General skin exam: no rashes or lesions noted Neuro General: patient alert, patient awake and patient oriented x3 Cognition: normal cognition Speech: speech normal Motor: tone not normal throughout (not normal through out RLE weaker) Sensory Exam: no sensory deficits noted Extrem General: abnormal to inspection, no clubbing, no cyanosis and edema Laterality: bilateral (nonpitting) Right lower extremity: edema Psych Appearance: grossly normal Mental Status: mental status grossly normal Speech and Movement: speech and movement normal Mood: congruent mood Affect: normal affect Attitude: cooperative Objective Last Vital Signs Temp 36.7 C 08/12/20 07:52 Pulse 79 08/12/20 07:52 Resp 17 08/12/20 07:52 BP 148/89 H 08/12/20 07:52 Pulse Ox 96 08/12/20 07:52 Laboratory Results - last 24 hr 08/12/20 10:50 COVID-19 Source Nasal/nares SARS-CoV-2 (PCR) Negative
--- NOTE | 2020-08-12 15:03 | CMDISCH_ITS ---
- If Service Date Differs Date of service: 08/12/20 Time of Service: 15:03 LACE Index Scoring Tool - Questions: Length of Stay (in days): 4 - 6 Acuity (Admit via E.D.?): Yes Comorbidities: Diabetes w/o Complication E.D. Visits: 4 - Answers: Total Score: 12 Risk of Readmission: High Risk Care Management Discharge Reason for Hospitalization: Intractable back pain, Weakness Discharge Plan: Leah will go to [facility] today for short term rehab prior to surgery. She was transported via [facility] ambulance. She will follow up with her PCP and discharge plan of care. Patient/Family Education Needs: Review discharge instructions regarding activity levels and medications, discussion of self care needs. Services Needed at Discharge: [facility] Facility ([facility]), Transportation ([facility])
--- NOTE | 2020-08-13 07:42 | OT.INDS ---
Date of service: 08/13/20 Time of Service: 07:43 Occupational Therapy Notes Occupational Therapy Inpatient Discharge Summary Date: 08/13/20 Dates of Service: 08/10/20-08/12/20 Referring Doctor: Allegra James NP OT Orders: Non-Urgent Precautions: Fall, standard, Full *This document serves as a summary of care, no skilled OT services provided for this documentation* PATIENT PROFILE/ADMITTING DIAGNOSIS: Pt is a 64 year old who was admitted to [facility] with the following dx spinal stenosis, palliative care, radiculitis, (R) hip pian, Parkinsonism, peripheral neuropathy, lumbosacral radiculopathy, essential HTN, DM on 07/08/20 she was discharged to SNF and recently went home two weeks ago. She is awaiting transfer to [facility] for spinal surgery at this time. At home she noticed her (B) LE swelling and states that she is unable to care for herself without (A). She was admitted to [facility] with the following dx including hx of chronic LBP with recent exacerbation and athletes foot, lumbar back pain with radiculopathy, hypokalemia, hypomagnesemia, back pain with radiation, dehydration, UTI, spinal stenosis, parkinsonism, peripheral neuropathy. Past Medical History: DM (diabetes mellitus) HTN (hypertension) Hyperlipidemia Internal derangement of right knee Lumbosacral radiculopathy On antibiotic therapy JOSEY (obstructive sleep apnea) Peripheral neuropathy Sarcoid Surgical History section x 3 Colonoscopy - MAC (02/11/16) Nasal septoplasty Social History/Home Situation: Pt states that she lives alone and has family all around her. She reports that she is (I) at baseline and recently received DME mentioned below. She has 3 stairs to enter her home and she has 2 FWW one for inside and 1 for outside. She states that if she does need help her family comes and (A). She does not feel that she is at her baseline level of function at this time. She is currently working from home and states that she spends the majority of her day at a computer. Equipment owned/DME: commode, shower chair, grab bars, raised toilet seat, FWW, cane SUBJECTIVE: NT OBJECTIVE: ROM: RUE AROM WFL L UE AROM WFL STRENGTH: RUE 4+/5 throughout LUE 5/5 throughout FUNCTIONAL MOBILITY/ADLS: BATHING: lying in bed with max (A) Set up/clean up Upper Body: (I) face, (B) UE and abdomen Lower Body: Max (A), pt did attempt to wash to (B) knees but this caused increased pain DRESSING: Upper Extremity: Mod (A) with min vc TOILETING: Burk in place BALANCE: Static sitting Good Dynamic Sitting Good ASSESSMENT: Patient is a 64-year-old female referred to occupational therapy services with diagnosis of athletes foot, lumbar back pain with radiculopathy, hypokalemia, hypomagnesemia, back pain with radiation, dehydration, UTI, spinal stenosis, parkinsonism, peripheral neuropathy. Pt was discharged and medically cleared per MD on 08/12/20 and transitioned to SNF awaiting surgical intervention. GOALS Not met unless specified. 1. Grooming- (I) with brushing hair sitting at side of the bed- met 2. Dressing- sitting on side of the bed (I) UE min (A) LE 3. Bathing- sitting on side of the (I) UE, min (A) LE 4. Toileting- on commode (I)- met with increased performance time 5. Eating- (I)- met PLAN OF CARE/TREATMENT PLAN: Discharge from skilled OT services. DISCHARGE RECOMMENDATIONS OT recommends that pt go to SNF when medically cleared per MD awaiting for surgical intervention. TREATMENT TIME/MINUTES/CODES N/A Guillermina Beavers OTR/L [facility]
--- NOTE | 2020-08-13 17:00 | PT.INDS ---
Date of service: 08/13/20 PT Notes Visit Reasons: INTRACTABLE BACK PAIN, WEAKNESS Physical Therapy Inpatient Discharge Summary Date:?08/13/2020 Dates of Service: 08/08/2020 through 08/12/2020 This is a clinical summary of care provided on the duration of dates listed above. No charge was made in the completion of this documentation. Referring Doctor:Domenico James PT Orders: PT CONSULT: Evaluate and Treat Precautions: Standard. Viky precautions in place. Patient Profile/Admitting Diagnosis:??Orders received for this 64 year old female with hx of chronic LBP with recent exacerbation.? Patient has been admitted previously for similar issue.? She had been managing this through chiropractor care and with [facility].? There was a recent exacerbation that disabled her ability to even get out of bed due to the severity of the pain.? She was unable to be cared for at home due to pain management and lack of mobility.? She has a Neurosurgery scheduled for 08/25.? PMHx: Medical History DM (diabetes mellitus) Essential tremor Hip pain HTN (hypertension) Hyperlipidemia Internal derangement of right knee ITB syndrome Lumbosacral radiculopathy Lymphadenopathy (12/25/11) On antibiotic therapy JOSEY (obstructive sleep apnea) Osteoarthritis of right hip Peripheral neuropathy Pes anserinus bursitis of right knee Injection: 08/28/2018 Right calf pain Sarcoid Surgical History section x 3 Colonoscopy - MAC (02/11/16) History of section History of nasal septoplasty Nasal septoplasty Social History/Home Situation: Lives at home in [place] alone.? Recently .? Ex does check in as well as Local living son. Current Functional Limitations: Patient currently using a 2WW and works lives and works independently from home.? However, recently not ambulatory due to pain, and transport in wheel chair. Equipment Owned/DME: 2WW, Wheel chair Subjective:?Patient very somber and states she is hoping that something can be done to speed up the date of the surgery. Objective:? General Observation: NT. See most recent COAGULATING DRYING SUPERVISOR notes. Mental Status: NT. See most recent COAGULATING DRYING SUPERVISOR notes. Pain: NT. See most recent COAGULATING DRYING SUPERVISOR notes. Vital Signs: NT. See most recent COAGULATING DRYING SUPERVISOR notes. ROM: Right Upper Extremity: WFL Left Upper Extremity: WFL ?Lower Extremity: Right side hip to 90 flexion, Left side hip to 100 flexion, ? Passive on right due to pain, and active on left.? Patient does not tolerate motion for too long on right, and request to be placed back into starting position. Knee extension and flexion WFL with active control Strength: Right Upper Extremity: Globally 5/5 Left Upper Extremity: Globally 5/5 Right Lower Extremity: Prefers not to move right hip actively,? Quads 4+/5, Hamstrings 4+/5, DF and PF 4+/5? Mainly limited due to pain Left Lower Extremity: Globally 4+/5 limited due to fear of pain on right Sensation:?Full intact sensation to light touch and vibration through functional dermatomes.? Myotomes intact, proprioceptive and kinesthetic awareness intact. Bed Mobility/Transfers: Rolling minimal assist Supine to sit independent with HOB between 20 to 40 degrees Sit to supine moderate assist to BLEs with HOB flat Sit to stand supervision Stand to sit supervision Bed to chair standby assist standby assist Chair to bed Gait:?Up to 25 feet + 5 feet + 2 feet using the FWW with WBAT with excessive trunk flexion to the L and front and with increased knee flexion. Standby assist needed for safety. Balance:? Sitting static: Fair due to variable pain level in the low back Sitting dynamic: Fair due to variable pain level in the low back Standing static: Fair due to variable pain level in the low back Stadning dynamic: Fair due to variable pain level in the low back Assessment:??Patient demonstrates improvement in strength, balance, and mobility level during this episode of care. Goals for transfers and ambulation potentially can be progressed at SNF level. Will benefit from resumptionm of PT services after planned back surgery. Goals: Goals X1 week 1. Supine-Sit ? Supervision MET 2. Sit-Supine ? Supervision MET 3. Sit-Stand? Supervision MET 4. Stand-Sit? Supervision MET 5. Bed-Chair ? Supervision with 2WW NOT MET 6. Chair-Bed Supervision with 2WW NOT MET 7. Gait? up to 20 feet with 2WW and supervision NOT MET Plan of Care/Treatment Plan: 1-2x/day, 7 days/week x 1 week. Plan of care has been reviewed with the COAGULATING DRYING SUPERVISOR providing the service under Physical Therapy direction. Initiate Physical Therapy intervention for strengthening, bed mobility, transfers, gait, stairs, balance training, use of assistive device. DISCHARGE RECOMMENDATIONS: TO nursing home facility for continued rehabilitation and pain management until date of surgery.? Patient would benefit from expediated date fo Neurosurgery at this time. TREATMENT CODE/TIME:?NC Thank you for the opportunity to participate in the care of this patient. Marlee Meza PT, DPT, CLT [facility] [place], [place]
== END 2020-08-12 13:13 | disposition home or self-care (01) | DRG 552 ==
LOC: ER 15:44 → MS 16:04
PROVIDERS: Nurse Practitioner; Nurse Practitioner Family; Admitting Provider Family Medicine; Emergency Provider Physician Assistant; PCP Family Medicine; Visit Provider Family Medicine
DX: M47.26 Other spondylosis with radiculopathy, lumbar region (principal); M51.16 Intervertebral disc disorders with radiculopathy, lumbar region; G89.29 Other chronic pain; E87.6 Hypokalemia; E83.42 Hypomagnesemia; E86.0 Dehydration; I10 Essential (primary) hypertension; B35.3 Tinea pedis; E78.5 Hyperlipidemia, unspecified; G47.33 Obstructive sleep apnea (adult) (pediatric); M48.061 Spinal stenosis, lumbar region without neurogenic claudication; M16.11 Unilateral primary osteoarthritis, right hip; E11.42 Type 2 diabetes mellitus with diabetic polyneuropathy; G25.0 Essential tremor; M76.30 Iliotibial band syndrome, unspecified leg; Z20.822 Contact with and (suspected) exposure to COVID-19
CPT/HCPCS: 36415; 80048; 80053; 82550; 85027; 87635; 96365; 96368; 96375; 97110; 97162; 97166; 97530; 97535; 99285; J1650; 81003; 81015; 83735; 85025; 85610; 85730; 93005; 93010; 93971; 99223; 99232; 99238; J3475; J3480; J7512

== ENCOUNTER 2020-08-13 17:01 | Outpatient (REF) | payer OTHER, SELFPAY ==
[2020-08-13 19:19] LABS: Abs Immature Grans 0.12 10^3/uL (0.0-0.06); Absolute Basophil Count 0.03 10^3/uL (0.0-0.2); Absolute Lymphocyte Count 1.18 10^3/uL (1.2-3.4); Absolute Monocyte Count 0.52 10^3/uL (0.1-0.8); Absolute Neutrophil Count 11.43 10^3/uL (1.2-6.7); Basophils % 0.2; HCT 47.2 % (36.0-46.0); HGB 15.8 g/dL (11.2-15.7); Immature Grans % 0.9; Lymphocytes % 8.9; MCH 29.9 pg (27.0-33.0); MCHC 33.5 % (32.0-36.0); MCV 89.4 fL (80-95); MPV 11.2 fL (8.0-11.0); Monocytes % 3.9; Neutrophils % 86.1; Nucleated RBC 0 %; Platelet Count 386 10^3/uL (130-400); RBC 5.28 10^6/uL (3.93-5.22); RDW 12.5 % (11.7-14.6); RDW-SD 41.1 fL; WBC 13.28 10^3/uL (4.4-10.8)
[2020-08-13 19:25] LABS: Anion Gap 9.9 mmol/L (3-11); BUN 22 mg/dL (7-18); CO2 29.1 mmol/L (21.0-32.0); CREATININE 0.8 mg/dL (0.55-1.02); Calcium 10.1 mg/dL (8.5-10.1); Chloride 98 mmol/L (98-107); Glucose 225 mg/dL (74-106); Potassium 4.6 mmol/L (3.5-5.1); Sodium 137 mmol/L (136-145)
== END 2020-08-13 17:02 | disposition home or self-care (01) ==
LOC: LBN 17:01
PROVIDERS: PCP Family Medicine; Visit Provider Family Medicine
DX: E11.9 Type 2 diabetes mellitus without complications (principal); I10 Essential (primary) hypertension; E87.6 Hypokalemia
CPT/HCPCS: 80048; 83735; 85025

== ENCOUNTER 2020-08-19 11:41 | Outpatient (REF) | payer OTHER, SELFPAY ==
[2020-08-20 12:54] LABS: Bilirubin Negative (Negative); Blood Trace-intact (Negative); Clarity Sl Cloudy (Clear); Glucose Negative (Negative); Ketones Negative (Negative); Leukocyte Esterase Moderate (Negative); Nitrite Negative (Negative); Specific Gravity 1.015 (1.005-1.025); Urobilinogen 0.2 EU/dL (Up TO 0.2)
[2020-08-20 13:15] LABS: Bacteria Few HPF (Negative); C & S Indicated? Yes; Casts Negative LPF (Negative); Crystals Negative HPF (Negative); Epithelial Cells Few HPF (Negative); Mucus Negative (Negative); RBC 0-2 HPF (0-2); WBC 20-50 HPF (0-5)
== END 2020-08-19 11:42 | disposition home or self-care (01) ==
LOC: LBN 11:41
PROVIDERS: PCP Family Medicine; Visit Provider Family Medicine
DX: N39.0 Urinary tract infection, site not specified (principal)
CPT/HCPCS: 81003; 81015; 87086

== ENCOUNTER 2020-10-04 16:02 | Outpatient (REF) | payer OTHER, SELFPAY ==
[2020-10-04 18:06] LABS: HCT 40.1 % (36.0-46.0); HGB 12.6 g/dL (11.2-15.7); MCHC 31.4 % (32.0-36.0); MCV 92.2 fL (80-95); MPV 11.4 fL (8.0-11.0); Platelet Count 358 10^3/uL (130-400); RBC 4.35 10^6/uL (3.93-5.22); RDW 13.2 % (11.7-14.6); RDW-SD 45.2 fL; WBC 10.14 10^3/uL (4.4-10.8)
[2020-10-04 18:22] LABS: Hemoglobin A1C 6.1 % (<5.7)
[2020-10-04 18:24] LABS: ALT 24 U/L (14-59); AST 31 U/L (15-37); Albumin 3.8 g/dL (3.4-5.0); Alkaline Phosphatase 80 U/L (46-116); Anion Gap 7.4 mmol/L (3-11); BUN 9 mg/dL (7-18); Bilirubin, Total 0.7 mg/dL (0.2-1.0); CO2 30.6 mmol/L (21.0-32.0); CREATININE 0.6 mg/dL (0.55-1.02); Calcium 9.6 mg/dL (8.5-10.1); Chloride 104 mmol/L (98-107); Glucose 113 mg/dL (74-106); Magnesium 1.8 mg/dL (1.8-2.4); Sodium 142 mmol/L (136-145); Total Protein 7.5 g/dL (6.4-8.2)
== END 2020-10-04 16:03 | disposition home or self-care (01) ==
LOC: LBN 16:02
PROVIDERS: PCP Family Medicine; Visit Provider Family Medicine
DX: I10 Essential (primary) hypertension (principal); E11.40 Type 2 diabetes mellitus with diabetic neuropathy, unspecified; M48.061 Spinal stenosis, lumbar region without neurogenic claudication; E83.42 Hypomagnesemia
CPT/HCPCS: 80053; 85027; 83036; 83735

== ENCOUNTER 2020-11-03 02:28 | Outpatient (CLI) | payer OTHER, SELFPAY ==
--- NOTE | 2020-11-03 10:04 | DI.MAMMO_ITS ---
Exam(s) MG MAMMO DIAGNOSTIC UNI EXAM: MAMMO DIAGNOSTIC UNI -LEFT CLINICAL HISTORY: F/U ABNORMAL MAMMO OF LEFT BREAST,R92.8,Z09,6 MONTH F/U. TECHNIQUE: Unilateral spot mammographic images were obtained with 3D [employer] and util izing computer aided detection (CAD). COMPARISON: Prior mammograms dating back to 2012, the most recent being FEBRUARY 2020. ultrasound pe rformed in february 2020 was also reviewed. FINDINGS: The previously described asymmetric density is actually less evident on today's mammogram, further ev idence that it was benign finding. On the CC 3D imaging there is a small nodular density noted anteriorly in the breast, lateral to the nipple, unchanged from numerous prior studies and therefore benign. IMPRESSION: No radiographic evidence of malignancy in left breast. Appropriate follow-up is to keep this patient yearly mammogram schedule, this implying the next [facility] mammogram would be in February or March 2021, with earlier imaging if a self detected breast change is noted.. The patient was informed of the findings and follow-up recommendations prior to leaving the [facility]. BI-RADS Category 2 - Benign Findings Breast Density - Category B - Scattered areas of fibroglandular density Breast density Category C or D implies that the patient has dense breast tissue. Dense breast tissue can make it harder to find cancer on a mammogram. Dense breast tissue is also associated with an incr eased risk of breast cancer. This information about the result of the mammogram report was provided to the patient to raise their awareness. Use this report when you speak with the patient about their risks for breast cancer, which includes their family history. At that time, you may recommend additional screening tests (Ultrasoun d or MRI) as these tests may add significant information. A negative radiographic report should not delay biopsy if a dominant or clinically suspicious mass is present. Up to ten percent of cancers are not identified on mammography. A negative report may reinforce clinical impression. Adenosis and dense breasts may obscure an underlying neoplasm. False positive reports average 6 to 10%. Patient will receive a letter notifying them of these results.
== END 2020-11-03 02:48 ==
PROVIDERS: PCP Family Medicine; Visit Provider Family Medicine
DX: R92.8 Other abnormal and inconclusive findings on diagnostic imaging of breast (principal); Z09 Encounter for follow-up examination after completed treatment for conditions other than malignant neoplasm
CPT/HCPCS: 77061; 77065; G0279

== ENCOUNTER 2021-03-13 14:59 | Emergency (ER) | payer OTHER, SELFPAY ==
[2021-03-13] VITALS (48 sets, daily range): BP systolic 104–136; BP diastolic 56–94; PULSE 74–118; RESP 8–57; TEMP 36.6; O2SAT 86–95
--- NOTE | 2021-03-13 15:06 | ED.GENADUL_ITS ---
Discharge Plan Disposition Patient Disposition: HOME Condition: Stable Discharge Details Clinical Impression: COVID-19, Pneumonia due to COVID-19 virus Primary Care Provider: Keila Vagras ED Provider: Tari Marrero Home Meds and New Rx's Prescriptions: New doxycycline hyclate 100 mg tablet 100 mg PO BID 10 Days Qty: 20 RF: 0 Continued potassium chloride 20 mEq tablet extended release 20 meq PO DAILY RF: 0 mupirocin 2 % ointment 1 applic topical BID Qty: 30 RF: 0 gabapentin 300 mg capsule 600 mg PO Q8H Qty: 90 RF: 6 (DME) blood-glucose meter [[employer] Verio IQ Meter] misc See Dose Instructions .ROUTE .MEDSUPPLY Qty: 1 RF: 0 (DME) Blood Glucose Test Strip 1 ea Miscellaneous DAILY Qty: 100 RF: 1 (DME) lancets 28 gauge misc 1 ea Miscellaneous DAILY Qty: 100 RF: 0 metformin 500 mg tablet 500 mg PO DAILY Qty: 90 RF: 4 hydrochlorothiazide 12.5 mg tablet 12.5 mg PO DAILY Qty: 90 RF: 4 cyclobenzaprine 10 mg tablet 10 mg PO HS PRN (Reason: muscle spasm) Qty: 90 RF: 3 propranolol 40 mg tablet 40 mg PO BID Qty: 180 RF: 6 acetaminophen [Acetaminophen Extra Strength] 500 mg Tablet 1,000 mg PO TID PRN PRNRF: 0 Discharge Instructions Instructions: Pneumonia (ED), COVID-19 (Coronavirus Disease 2019) (ED) Additional Instructions: Please continue to quarantine until negative test. Take the antibiotic twice daily as directed. Take with yogurt or probiotic while on the antibiotic. Take a vitamin D, Zinc, and vitamin C supplement. Follow up with primary care provider in 3-5 days. Return to ED sooner if any worsening or concerns. Increase oral fluids. Please take Tylenol or Ibuprofen with food every 4-6 hours as needed for pain and swelling. You received the monoclonal antibodies today. Referrals: Keila Vargas MD, [place] [Primary Care Provider] - 5 days Discharge Data Discharge Date/Time-TO BE ENTERED AT DEPARTURE: 03/13/21 20:22 Medical Decision Making <Tari Marrero - Last Filed: 03/13/21 20:44> Care assumed from provider (XIAO Brar) Please see their initial HPI, PE, and documentation. Discussed patient details and case and pending workup and disposition. Patient is hemodynamically stable, and alert and oriented. We are waiting monoclonal antibody infusion. Patient is a 65-year-old female who tested positive for COVID-19 approximately 4 to 5 days ago. She presents with cough, fever diarrhea and decreased appetite at the time of signout we are awaiting lab and chest x-ray results. CBC largely within normal limit no leukocytosis, sodium is 133 potassium is 3.2 chloride is 93 glucose is 115. D-dimer is pending at this time. Imaging protocol: XR of the chest. Views: 1 view. COMPARISON: CT CHEST W 03/17/2020 9:30 AM FINDINGS: Lungs: There are irregular areas of ground-glass opacification scattered throughout both lungs. Pleural spaces: Unremarkable. No pleural effusion. No pneumothorax. Heart/Mediastinum: Unremarkable. No cardiomegaly. Bones/joints: Chronic degenerative changes of the spine are present. IMPRESSION: Multiple irregular areas of ground-glass consolidation consistent with the clinical history of COVID-19 pneumonia. Follow-up until clear is recommended. Thank you for allowing us to participate in the care of your patient. Dictated and Authenticated by: Skyler Mcghee MD D-dimer [id number], CTA chest ordered to rule out PE. CT Chest: FINDINGS: Pulmonary arteries: Normal. No pulmonary emboli. Aorta: Unremarkable. No aortic aneurysm. No aortic dissection. Lungs: Multiple irregular areas of ground-glass consolidation are seen involving all 5 lobes of the lungs. Pleural spaces: Unremarkable. No pneumothorax. No pleural effusion. Heart: Unremarkable. No cardiomegaly. No pericardial effusion. Lymph nodes: Unremarkable. No enlarged lymph nodes. Gallbladder and bile ducts: Multiple small gallstones are noted. No gallbladder wall thickening or pericholecystic fluid is seen. Bones/joints: Unremarkable. No acute fracture. Soft tissues: Unremarkable. IMPRESSION: 1. No evidence of pulmonary embolism. 2. Multiple irregular areas of ground-glass consolidation consistent with the clinical history of COVID19 pneumonia. Follow-up until clear is recommended. 3. Cholelithiasis. Patient has received a monoclonal antibody infusion per protocol, patient was given discharge papers by staff physician will be monitored for approximately an hour post infusion. Patient has had no reaction or adverse reaction to the monoclonal antibodies. Patient has been observed for approximately 1 hour. Patient discharged home with prescription for doxycycline twice daily for presumed COVID-19 pneumonia. Instructed on strict return instructions and follow-up care. Instructed to take vitamins. This text was generated using [employer]ation system, please disregard any oddities of phrase or misspellings. <XIAO Blanco - Last Filed: 03/14/21 08:55> Patient is a pleasant 65 year old female presenting today with increased s ymptoms in imtiaz setting of COVID-19. She states that she developed symptoms one week ago. Was vaccinated 3 days prior to that. Was positive on Sunday. She states that today she had fever with T max 103. Responds well to APAP. Reports cough with congestion. She denies SOB. STates that she has had some discomfort with cough but no pain with exertion or when at rest. She states that today she has episode of soft stool, reports incontient episode when she was coughing vigorously. On exam, patient appears nontoxic with stable VS. O2 in the mid 90s. No respiratory distress or work of breathing. Crackles in the right middle lobe. Normal cardiac auscultation. Abdomen benign. The patient's history of sarcoidosis, her age, history of diabetes, she is a good candidate for antibody infusion. Patient I discussed risk/benefit as well as potential side effects of the medication. She was understanding and wishes to proceed. As she feels that her symptoms are increasing, and she has crackles auscultated in the right middle lobe, plan to obtain chest x-ray, baseline labs. Will talk with the patient, her O2 is around 92%. With this, will also evaluate for potential PE and screen with a D-dimer. At the end of my shift, care transition to Kelsy Howell NP with imaging and labs pending. HPI <Tari Marrero - Last Filed: 03/13/21 20:44> General Date/Time Provider Initiated Documentation: 03/13/21 15:01 . Related Data Home Medications Medication Instructions Recorded Confirmed blood-glucose meter #1 each 01/31/18 03/01/21 blood sugar diagnostic #100 strip 07/14/19 03/01/21 lancets 28 gauge #100 ea 10/18/19 03/01/21 metformin 500 mg tablet 500 mg PO DAILY #90 tab 03/10/20 03/13/21 mupirocin 2 % topical ointment 1 applic TOPICAL BID #30 g 10/04/20 03/13/21 potassium chloride 20 mEq 20 meq PO DAILY 12/07/20 03/13/21 tablet,extended release hydrochlorothiazide 12.5 mg tablet 12.5 mg PO DAILY #90 tab 12/16/20 03/13/21 cyclobenzaprine 10 mg tablet 10 mg PO HS PRN #90 tab 12/22/20 03/13/21 propranolol 40 mg tablet 40 mg PO BID #180 tab 01/18/21 03/13/21 gabapentin 300 mg capsule 600 mg PO Q8H #90 cap 03/01/21 03/13/21 acetaminophen [Acetaminophen Extra 1,000 mg PO TID PRN PRN 03/13/21 03/13/21 Strength] doxycycline hyclate 100 mg PO BID 10 Days #20 tab 03/13/21 Previous Rx's Medication Instructions Recorded blood-glucose meter #1 each 01/31/18 blood sugar diagnostic #100 strip 07/14/19 lancets 28 gauge #100 ea 10/18/19 metformin 500 mg tablet 500 mg PO DAILY #90 tab 03/10/20 mupirocin 2 % topical ointment 1 applic TOPICAL BID #30 g 10/04/20 hydrochlorothiazide 12.5 mg tablet 12.5 mg PO DAILY #90 tab 12/16/20 cyclobenzaprine 10 mg tablet 10 mg PO HS PRN #90 tab 12/22/20 propranolol 40 mg tablet 40 mg PO BID #180 tab 01/18/21 gabapentin 300 mg capsule 600 mg PO Q8H #90 cap 03/01/21 doxycycline hyclate 100 mg PO BID 10 Days #20 tab 03/13/21 Allergies Allergy/AdvReac Type Severity Reaction Status Date / Time Sulfa (Sulfonamide Allergy Intermediate Skin Rash Unverified 03/13/21 15:23 Antibiotics) adhesive tape Allergy Mild mild rash Verified 03/13/21 15:23 and itching <XIAO Blanco - Last Filed: 03/14/21 08:55> General Mode of arrival: ambulatory . Limitations to Documentation: no limitations . Information obtained by: patient, RN notes reviewed and old records reviewed . History of Present Illness 65 year old F presents to the emergency department with the chief complaint of cough, fever, congestion, diarrhea, described as moderate, Quality is described as other (patient [id number] any pain currently), and is localized to the chest. Patient reports no radiation. Patient started experiencing this week(s) (1) and it has been constant. Medication improves symptom(s), (APAP works well for fever, comes back after med wears off) No exacerbating factors reported . Patient notes chest pain (pain with cough but no pain with exertion or when at rest), cough, fever/chills and loss of appetite; denies nausea/vomiting, rash, shortness of breath and weakness. Patient did receive the following treatments prior to arrival, other (tylenol) General BETZAIDA: 3 <XIAO Blanco - Last Filed: 03/14/21 08:55> Constitutional Constitutional: Reports as per HPI, Reports chills, Reports fatigue, Reports fever(s) and Denies headache(s) Eyes Eyes: Reports as per HPI, Denies eye discharge and Denies irritation ENT Ears, Nose, Mouth, and Throat: Reports as per HPI and Denies headache(s) Cardiovascular Cardiovascular: Reports as per HPI, Denies chest pain and Denies dyspnea Respiratory Respiratory: Reports as per HPI and Denies dyspnea Gastrointestinal Gastrointestinal: Reports as per HPI, Denies abdominal pain, Reports change in bowel habits, Denies nausea and Denies vomiting Integumentary/Breasts Skin/Breast: Reports as per HPI and Denies rash Neurologic Neurologic: Reports as per HPI and Denies headache(s) Endocrine Endocrine: Reports fatigue [facility] <Tari Marrero - Last Filed: 03/13/21 20:44> Active Problem List Athletes foot (Acute) Lumbar back pain with radiculopathy affecting right lower extremity (Chronic) Acute lumbar back pain (Acute) Back pain with radiation (Chronic) Hypertension (Chronic) DVT prophylaxis (Acute) Discharge planning issues (Acute) UTI (urinary tract infection) (Acute) Urinary retention (Acute) Constipation (Acute) Palliative care patient (Acute) Spinal stenosis (Acute) Radiculitis (Chronic) Hip pain, right (Acute) Sleep apnea (Acute) Cholelithiasis (Acute) Simple cyst of kidney (Acute) Parkinsonism (Acute) Peripheral neuropathy (Acute) Femoroacetabular impingement of right hip (Acute) Internal derangement of right knee (Acute) Dysfunction of right rotator cuff (Acute) Lumbosacral radiculopathy (Acute) Diabetic neuropathy (Acute) Trochanteric bursitis, right hip (Acute) Tubular adenoma (Acute 02/11/16) Sarcoid (Acute 09/22/15) Obstructive sleep apnea syndrome (Acute 10/28/08) Lesion of lip (Acute 09/22/15) Hyperlipidemia (Acute 08/01/12) Essential hypertension (Acute 04/07/13) Diabetes mellitus (Chronic) Medical History DM (diabetes mellitus) Essential tremor Hip pain HTN (hypertension) Hyperlipidemia ITB syndrome Lymphadenopathy (12/25/11) On antibiotic therapy JOSEY (obstructive sleep apnea) Osteoarthritis of right hip Pes anserinus bursitis of right knee Injection: 08/28/2018 Right calf pain Sarcoid Surgical History section x 3 Colonoscopy - MAC (02/11/16) History of section History of nasal septoplasty Nasal septoplasty Family History Mother Essential hypertension Cancer Diabetes Hyperlipidemia Primary biliary cholangitis Father , AGE 74 Heart disease Hyperlipidemia Brother Essential hypertension Diabetes Hyperlipidemia Maternal Grandfather Prostate cancer Paternal Grandfather , AGE 45 Diabetes Maternal Grandmother , AGE 84 Diabetes Heart disease Paternal Grandmother Lung cancer Other Lumbosacral radiculopathy Social History Smoking/Tobacco Use Status: Never Smoking risk assessment performed?: Yes Alcohol Intake: current Alcohol Intake frequency: a few times a month Drug use: Never Substance use type: does not use Caregiver/Support person: No Household members: none Do you need help understanding health information?: Never Pets and animals: Yes Pets and animals: cat(s) Sexually active: No Do you think of yourself as: straight/heterosexual Current gender identity: female What is your relationship status?: How often do you talk on the phone with friends or family?: three or more times per week How often do you get together with friends or relatives?: three or more times per week How often do you attend jew or pentecostalism services?: 1-3 times per year Do you belong to any clubs or organized social groups?: no Panel score (0-1 are the most socially isolated patients): 1 What type of physical activity do you participate in: none Duration: decline to answer Frequency: decline to answer Maria Fernanda/Yazidi: Latter-Day Special maria fernanda needs: No Seatbelt use: always Helmet use: Yes Helmet use: always Drive intox or ride w/intox equipment driver: No Do you feel safe at home: Yes Additional Social history: lives alone - son helps out <XIAO Blanco - Last Filed: 03/14/21 08:55> Const General: cooperative, healthy appearing, comfortable, no acute distress, well developed and well groomed Nutritional Appearance: average body habitus and well nourished Orientation: alert and awake [facility] Head: normal to inspection, normocephalic and atraumatic Ears: hearing grossly normal bilaterally General nose exam: external nose normal and nares normal Face and sinus: normal facial exam, sinuses nontender and face symmetric Mouth: oral mucosae normal, lip normal, tongue normal, oropharynx normal and moist mucous membranes Teeth and gingiva: dentition normal Throat: posterior oropharynx normal, tonsils normal and uvula midline Eyes General: appearance normal, both eyes and all related structures Neck Neck: normal visual inspection, full ROM, no lymphadenopathy and no meningeal signs Resp Effort & Inspection: normal respiratory effort, able to speak in complete sentences and no respiratory distress Auscultation: clear to auscultation bilaterally, crackles on the right in the mid lung ortiz, no rales, no rhonchi and no wheezes Cardio Rate: regular rate Rhythm: regular rhythm Heart Sounds: S1 normal and S2 normal GI Inspection: normal to inspection Palpation: soft, no hepatosplenomegaly and nontender Percussion: normal to percussion Auscultation: normal bowel sounds Skin General skin exam: no rashes or lesions noted Neuro General: patient alert and patient awake Cognition: normal cognition Speech: speech normal Gait: normal gait Psych Appearance: grossly normal and well kempt Mental Status: mental status grossly normal Speech and Movement: speech and movement normal Sign Out <Tari Marrero - Last Filed: 03/13/21 20:44> Sign Out Data: Sign Out Comment: Care transition to Kelsy Howell NP. Patient is Covid positive. Patient became symptomatic 1 week ago,. Was found to have a positive test on Sunday. Had her first COVID vaccine 3 days prior to becoming symptomatic. Patient is not endorsing shortness of breath. She has had a cough, fever. One episode of diarrhea. No abdominal pain. Patient's oxygen in the mid to low 90s. At the time of transition of care, labs, imaging and reassessment pending. Crackles noted in RLLl. Last updated by Fide Mora PA at 03/13/21 16:20
--- NOTE | 2021-03-13 15:45 | DI.RAD_ITS ---
Exam(s) XR PORTABLE CHEST AP EXAM: XR PORTABLE CHEST AP CLINICAL HISTORY: cough, known covid. TECHNIQUE: 2D digital imaging was performed. COMPARISON: CR CHEST 2 VIEWS PA,LAT from 12/25/2014 FINDINGS: Heart size is upper normal. The mediastinum is not widened. There are patchy infiltrates in the lateral left lung as well is in the mid-lateral right lung field. No pleural effusions. IMPRESSION: Bilateral infiltrates. Recommend testing for Covid pneumonia. Also radiographic follow-up to resolu tionrecommended. DATA REPOSITORY: RADIATION DOSE DELIVERED: All CT scans at this facility use at least one of these dose optimization techniques: automated exposure control; mA and/or kV adjustment per patient size (includes targeted e xams where dose is matched to clinical indication); or iterative reconstruction.
[2021-03-13 16:12] LABS: Abs Immature Grans 0.03 10^3/uL (0.0-0.06); Absolute Basophil Count 0.02 10^3/uL (0.0-0.2); Absolute Eosinophil Count 0.15 10^3/uL (0.0-0.7); Absolute Lymphocyte Count 1.42 10^3/uL (1.2-3.4); Absolute Monocyte Count 0.36 10^3/uL (0.1-0.8); Absolute Neutrophil Count 4.16 10^3/uL (1.2-6.7); Basophils % 0.3; Eosinophils % 2.4; HCT 40.8 % (36.0-46.0); HGB 13.2 g/dL (11.2-15.7); Immature Grans % 0.5; Lymphocytes % 23.1; MCH 28.8 pg (27.0-33.0); MCHC 32.4 % (32.0-36.0); MCV 88.9 fL (80-95); MPV 11.4 fL (8.0-11.0); Monocytes % 5.9; Neutrophils % 67.8; Nucleated RBC 0 %; Platelet Count 187 10^3/uL (130-400); RBC 4.59 10^6/uL (3.93-5.22); RDW 12.8 % (11.7-14.6); RDW-SD 42.1 fL; WBC 6.14 10^3/uL (4.4-10.8)
[2021-03-13] MEDS: Lactated Ringers 1,000 ML 1000 ML IV (16:32)
[2021-03-13 16:34] LABS: ALT 28 U/L (14-59); AST 35 U/L (15-37); Albumin 3.5 g/dL (3.4-5.0); Alkaline Phosphatase 42 U/L (46-116); Anion Gap 10.5 mmol/L (3-11); BUN 14 mg/dL (7-18); Bilirubin, Total 0.8 mg/dL (0.2-1.0); CO2 29.5 mmol/L (21.0-32.0); CREATININE 0.8 mg/dL (0.55-1.02); Calcium 8.7 mg/dL (8.5-10.1); Chloride 93 mmol/L (98-107); Glucose 115 mg/dL (74-106); Potassium 3.2 mmol/L (3.5-5.1); Sodium 133 mmol/L (136-145); Total Protein 7.8 g/dL (6.4-8.2)
[2021-03-13 16:41] LABS: Diff Comment Diff Reviewed; RBC Morphology Normal
--- NOTE | 2021-03-13 16:43 | DI.VRAD_ITS ---
PROCEDURE INFORMATION: Exam: XR Chest Exam date and time: 03/13/2021 3:58 PM Age: 65 years old Clinical indication: Other: Cough, known covid TECHNIQUE: Imaging protocol: XR of the chest. Views: 1 view. COMPARISON: CT CHEST W 03/17/2020 9:30 AM FINDINGS: Lungs: There are irregular areas of ground-glass opacification scattered throughout both lungs. Pleural spaces: Unremarkable. No pleural effusion. No pneumothorax. Heart/Mediastinum: Unremarkable. No cardiomegaly. Bones/joints: Chronic degenerative changes of the spine are present. IMPRESSION: Multiple irregular areas of ground-glass consolidation consistent with the clinical history of COVID-19 pneumonia. Follow-up until clear is recommended. Dictated and Authenticated by: Skyler Mcghee MD. Ordering:TRENT Elizalde MD
[2021-03-13] MEDS: Doxycycline Hyclate 100 MG CAP PO (16:50)
[2021-03-13 17:27] LABS: D-Dimer 1293 ng/mlFEU (<500)
--- NOTE | 2021-03-13 17:45 | DI.CT_ITS ---
Exam(s) CT CHEST PE CTA EXAM: CT CHEST PE CTA CLINICAL HISTORY: Elevated Ddimer, Covid positive. TECHNIQUE: Imaging Protocol: CT angiography of the chest was performed using pulmonary embolus roopa col. Multi planar reconstructions were performed. CONTRAST MATERIAL: Intravenous: Omnipaque 350 Contrast volume: 100 cc COMPARISON: CT CT CHEST W from 03/17/2020 FINDINGS: CHEST: PULMONARY ARTERIES: There are no intraluminal filling defects to suggest acute pulmonary emboli. LUNGS: Patchy bilateral infiltrates involving all lobes of both lungs, suspicious for Covid pneumonia . There are no pleural effusions. No pneumothorax. MEDIASTINUM: There is no hilar nor mediastinal adenopathy. Visualized thyroid unremarkable. CARDIAC: Heart size is upper normal. There is no pericardial effusion.Caliber of the thoracic aorta is within normal limits. There is no significant shift of the interventricular septum. PARTIALLY VISUALIZED UPPERMOST ABDOMEN: No significant adrenal findings. Again noted is a benign cys t in the anterior cortex of the left kidney measuring 1.7 cm. Cholelithiasis is noted. Also hepatic steatosis. No splenomegaly. OSSEOUS: No significant osseous lesions.. IMPRESSION: 1. No evidence of acute pulmonary emboli. No evidence of pulmonary infarction.No pleural effusions. 2. Main finding here bilateral infiltrates which are suspicious for Covid 19 pneumonia. 3. Cholelithiasis incidentally noted. Also hepatic steatosis. RADIATION DOSE DELIVERED: 436.98mGy.cm Total DLP DATA REPOSITORY: All CT scans at this facility are submitted to the National Radiology Data Registry (NRDR) Dose Index Registry (DIR) with the [employer] (ACR). RADIATION OPTIMIZATION: All CT scans at this facility use at least one of these dose optimization te chniques: automated exposure control; mA and/or kV adjustment per patient size (includes targeted exa ms where dose is matched to clinical indication); or iterative reconstruction.
[2021-03-13] MEDS: Omnipaque 350 MG/ML 100 ML BTL IJ (18:13)
--- NOTE | 2021-03-13 18:37 | DI.VRAD_ITS ---
PROCEDURE INFORMATION: Exam: CTA Chest With Contrast Exam date and time: 03/13/2021 5:51 PM Age: 65 years old Clinical indication: Other: Elevated d dimer, covid positive TECHNIQUE: Imaging protocol: Computed tomographic angiography of the chest with contrast. 3D rendering (Not supervised by radiologist): MIP and/or 3D reconstructed images were created by the technologist. Contrast volume: 100 ml; Contrast route: INTRAVENOUS (IV); COMPARISON: CT CHEST W 03/17/2020 9:30 AM FINDINGS: Pulmonary arteries: Normal. No pulmonary emboli. Aorta: Unremarkable. No aortic aneurysm. No aortic dissection. Lungs: Multiple irregular areas of ground-glass consolidation are seen involving all 5 lobes of the lungs. Pleural spaces: Unremarkable. No pneumothorax. No pleural effusion. Heart: Unremarkable. No cardiomegaly. No pericardial effusion. Lymph nodes: Unremarkable. No enlarged lymph nodes. Gallbladder and bile ducts: Multiple small gallstones are noted. No gallbladder wall thickening or pericholecystic fluid is seen. Bones/joints: Unremarkable. No acute fracture. Soft tissues: Unremarkable. IMPRESSION: 1. No evidence of pulmonary embolism. 2. Multiple irregular areas of ground-glass consolidation consistent with the clinical history of COVID-19 pneumonia. Follow-up until clear is recommended. 3. Cholelithiasis. Dictated and Authenticated by: Skyler Mcghee MD. Ordering:FRANKY Marc MD
--- NOTE | 2021-03-14 08:42 | NUR.NOTE ---
Nursing Note: Patient called asking about her prescription. I looked it up and it was transmitted to [facility] in [place]. She is aware. Fiona Padron
== END 2021-03-13 20:22 | disposition home or self-care (01) ==
PROVIDERS: Physician Assistant; Emergency Provider Registered Nurse Emergency; PCP Family Medicine
DX: U07.1 COVID-19 (principal); J12.82 Pneumonia due to coronavirus disease 2019; R19.7 Diarrhea, unspecified; R63.0 Anorexia; R79.1 Abnormal coagulation profile
CPT/HCPCS: 36415; 71275; 80053; 96360; 96365; 99285; 71045; 85025; 85379; 99284; J3490

== ENCOUNTER 2021-04-04 04:16 | Outpatient (CLI) | payer OTHER, SELFPAY ==
[2021-04-04 07:44] LABS: Hemoglobin A1C 6.6 % (<5.7)
[2021-04-04 08:53] LABS: ALT 33 U/L (14-59); AST 25 U/L (15-37); Albumin 3.9 g/dL (3.4-5.0); Alkaline Phosphatase 69 U/L (46-116); Anion Gap 7.8 mmol/L (3-11); BUN 11 mg/dL (7-18); Bilirubin, Total 0.9 mg/dL (0.2-1.0); CO2 31.2 mmol/L (21.0-32.0); CREATININE 0.8 mg/dL (0.55-1.02); Calcium 9.4 mg/dL (8.5-10.1); Chloride 100 mmol/L (98-107); Glucose 150 mg/dL (74-106); Potassium 4.3 mmol/L (3.5-5.1); Sodium 139 mmol/L (136-145); Total Protein 7.7 g/dL (6.4-8.2)
[2021-04-04 17:14] LABS: Vitamin D 25 Total 41.4 ng/mL (30-100)
== END 2021-04-04 04:17 | disposition home or self-care (01) ==
LOC: LBO 04:16
PROVIDERS: PCP Family Medicine; Visit Provider Family Medicine
DX: E11.9 Type 2 diabetes mellitus without complications (principal); E87.6 Hypokalemia; I10 Essential (primary) hypertension
CPT/HCPCS: 36415; 80053; 82306; 83036

== ENCOUNTER 2021-09-03 14:03 | Outpatient (REF) | payer OTHER, SELFPAY ==
[2021-09-02 20:32] LABS: Bilirubin Negative (Negative); Blood Trace-intact (Negative); Clarity Sl Cloudy (Clear); Glucose Negative (Negative); Ketones Negative (Negative); Leukocyte Esterase Small (Negative); Nitrite Positive (Negative); Specific Gravity 1.025 (1.005-1.025); Urobilinogen 0.2 EU/dL (Up TO 0.2); pH 5.5 (5-8)
[2021-09-02 20:38] LABS: Bacteria Many HPF (Negative); C & S Indicated? Yes; Casts Negative LPF (Negative); Crystals Negative HPF (Negative); Epithelial Cells Few HPF (Negative); Mucus Trace (Negative); RBC 0-2 HPF (0-2); WBC >50 HPF (0-5)
== END 2021-09-03 14:04 | disposition home or self-care (01) ==
LOC: LBN 14:03
PROVIDERS: PCP Family Medicine; Visit Provider Nurse Practitioner Family
DX: N39.0 Urinary tract infection, site not specified (principal)
CPT/HCPCS: 87077; 81003; 81015; 87086; 87186

== ENCOUNTER 2021-11-03 03:00 | Outpatient (CLI) | payer OTHER, SELFPAY ==
[2021-11-03 13:10] LABS: Hemoglobin A1C 6.9 % (<5.7)
[2021-11-03 13:16] LABS: COMMENT (LAB VIEW ONLY) 178.65 mg/dL; Microalb ug/mg Crea 15.3 ug/mg Cr
[2021-11-03 13:38] LABS: Vitamin B12 1513 pg/mL (193-986)
== END 2021-11-03 03:01 | disposition home or self-care (01) ==
LOC: LOS 03:00
PROVIDERS: PCP Family Medicine; Visit Provider Family Medicine
DX: E11.9 Type 2 diabetes mellitus without complications (principal); R25.1 Tremor, unspecified; Z79.899 Other long term (current) drug therapy
CPT/HCPCS: 36415; 82043; 82570; 82607; 83036

== ENCOUNTER → 2021-11-30 01:46 | Outpatient (CLI) | payer OTHER, SELFPAY ==
--- NOTE | 2021-11-30 07:30 | DI.RAD_ITS ---
Exam(s) XR CERVICAL SP COMP W FLEX/EXT EXAM: XR CERVICAL SP COMP W FLEX/EXT CLINICAL HISTORY: prior h/o neck problems years ago,ARM WEAKNESS, R29.898. TECHNIQUE: 2D digital imaging was performed. COMPARISON: No exams were available for comparison FINDINGS: Seven views (including flexion and extension lateral views) There is no evidence of fracture or listhesis nor significant disc space narrowing. Flexion and exte nsion maneuvers do not exhibit listhesis. On the oblique views there are no obvious Luschka joint os teophytes nor osseous foraminal encroachment. There are no cervical ribs. Mild degenerative changes in the facet joints. Bone density age-appropriate. Calcification in the anterior longitudinal liga ment at this see 6-7 level is noted. IMPRESSION: Minimal findings. No disc height loss. No fractures. No listhesis. DATA REPOSITORY: RADIATION DOSE DELIVERED:
== END ==
PROVIDERS: PCP Family Medicine; Visit Provider Family Medicine
DX: R29.898 Other symptoms and signs involving the musculoskeletal system (principal)
CPT/HCPCS: 72052

== ENCOUNTER → 2021-12-13 01:02 | Outpatient (CLI) | payer OTHER, SELFPAY ==
--- NOTE | 2021-12-13 07:30 | DI.MAMMO_ITS ---
Exam(s) MG MAMMO SCREENING 60 MIN DUR EXAM: MG MAMMO SCREENING 60 MIN DUR CLINICAL HISTORY: breast cancer screening,H/O ABNL MAMMO, R92.8, TECHNIQUE: Bilateral full field digital CC and MLO mammographic images were obtained with 3D tomosyn thesis and utilizing computer aided detection (CAD). COMPARISON: Available for comparison. FINDINGS: Masses/Architectural Distortion: There is a question of an area of architectural distortion in the ou ter right breast. Microcalcifications: No suspicious pleomorphic-type are seen. Skin Thickening/Nipple Retraction: None. IMPRESSION: 1. Asymmetric breast tissue in the outer right breast on the CC view. 2. This area should be further evaluated with a spot compression view. Ultrasound may be indicated a t that time. BI-RADS Category 0 - Assessment Incomplete: Need additional imaging evaluation Breast Density - Category B - Scattered areas of fibroglandular density Breast density category C or D implies that the patient has dense breast tissue. Dense breast tissue is very common and is not abnormal but dense breast tissue can make it harder to find cancer on a ma mmogram. Also, dense breast tissue may increase their breast cancer risk. This information about the result of the mammogram report was provided to the patient to raise their awareness. Use this report when you speak with the patient about their risks for breast cancer, which includes their family hist ory. At that time, you may recommend for more screening tests (Ultrasound or MRI) as they might be us eful based on their risk. A negative radiographic report should not delay biopsy if a dominant or clinically suspicious mass is present. Up to ten percent of cancers are not identified on mammography. A negative report may reinforce clinical impression. Adenosis and dense breasts may obscure an underlying neoplasm. False positive reports average 6 to 10%. Patient will receive a letter notifying them of these results.
== END ==
PROVIDERS: PCP Family Medicine; Visit Provider Family Medicine
DX: Z12.31 Encounter for screening mammogram for malignant neoplasm of breast (principal); R92.8 Other abnormal and inconclusive findings on diagnostic imaging of breast
CPT/HCPCS: 77063; 77067

== ENCOUNTER → 2021-12-19 01:54 | Outpatient (CLI) | payer OTHER, SELFPAY ==
--- NOTE | 2021-12-19 | DI.MAMMO_ITS ---
Exam(s) MG MAMMO SCREEN CALL BACK UNI US BREAST RT COMPLETE EXAM: MG MAMMO SCREEN CALL BACK UNI -RIGHT AND COMPLETE RIGHT BREAST ULTRASOUND CLINICAL HISTORY: F/U MAMMO, OUTER RT BREAST ASYMMETRIC BREAST TISSUE, R92.8. TECHNIQUE: Unilateral spot mammographic images obtained with 3D tomosynthesisand utilizing computer aided detection (CAD). . Complete right breast Ultrasound was also performed, including all 4 quadrants, the retroareolar lindsey on, and the ipsilateral axilla. COMPARISON: Prior mammograms were reviewed. This additional imaging was performed due to findings described on the recent screening mammogram of 12/13/2021. FINDINGS: DIAGNOSTIC RIGHT BREAST MAMMOGRAM: Additional SPOT COMPRESSION CC MAMMOGRAPHIC VIEW performed todayrender this area less concerning and similar in appearance to prior mammograms.. COMPLETE RIGHT BREAST ULTRASOUND: Ultrasound performed today reveals no evidence of solid or significant cystic lesions in all 4 quadra nts.. Right axilla is negative for adenopathy. IMPRESSION: No evidence of malignancy. Appropriate follow-up is to keep this patient on her yearly mammogram schedule, with earlier imaging if a self detected breast change is noted.. The patient was informed of these findings and recommendations prior to leaving the department today. BI-RADS Category 2 - Benign Findings Breast Density - Category B - Scattered areas of fibroglandular density Breast density Category C or D implies that the patient has dense breast tissue. Dense breast tissue can make it harder to find cancer on a mammogram. Dense breast tissue is also associated with an incr eased risk of breast cancer. This information about the result of the mammogram report was provided to the patient to raise their awareness. Use this report when you speak with the patient about their risks for breast cancer, which includes their family history. At that time, you may recommend additional screening tests (Ultrasoun d or MRI) as these tests may add significant information. A negative radiographic report should not delay biopsy if a dominant or clinically suspicious mass is present. Up to ten percent of cancers are not identified on mammography. A negative report may reinforce clinical impression. Adenosis and dense breasts may obscure an underlying neoplasm. False positive reports average 6 to 10%. Patient will receive a letter notifying them of these results.
== END ==
PROVIDERS: PCP Family Medicine; Visit Provider Family Medicine
DX: Z12.31 Encounter for screening mammogram for malignant neoplasm of breast (principal); R92.8 Other abnormal and inconclusive findings on diagnostic imaging of breast; N64.59 Other signs and symptoms in breast
CPT/HCPCS: 76642; 77063; 77067

== ENCOUNTER 2022-01-30 02:02 | Outpatient (CLI) | payer OTHER, SELFPAY ==
--- NOTE | 2022-01-30 07:00 | DI.MRI_ITS ---
Exam(s) MR LUMBAR SPINE WO EXAM: MR LUMBAR SPINE WO CLINICAL HISTORY: asymmetric neuropathy, prior L-spine surgery,SPINAL STENOSIS, M48.00. TECHNIQUE: Multiplanar multisequence MRI of the Lumbar spine was performed. COMPARISON: MR MR LUMBAR SPINE WO from 07/06/2020 CR XR CERVICAL SP COMP W FLEX/EXT from 11/30/2021 FINDINGS: Bones: The last intervertebral disc space is designated the L5/S1 level for the numbering purpose of this examination. The vertebral body heights are well maintained. Alignment is satisfactory. The ma rrow signal characteristics are unremarkable. The patient is status post surgery with posterior fusion hardware in place spanning L4 through S1. Cord: The conus tip ends at the T12 level. It is of normal size and signal intensity. T12-L1: Mild disc bulging. No central canal stenosis. Mild bilateral neural foraminal narrowing. L1-2: Mild disc bulging. No central canal stenosis. Moderate bilateral neural foraminal narrowing. L2-3: Moderate concentric disc bulging. Facet degenerative changes combined with disc bulging to pro duce severe bilateral neural foraminal narrowing. No significant central canal stenosis. L3-4: Moderate concentric disc bulging. Prominent facet degenerative changes causing moderate centr al canal stenosis as well as bilateral severe neural foraminal narrowing, right greater than left. L4-5: Laminectomy. Postsurgical fluid collection posterior to the L5 level. Mild spondylolisthesis. Severe right and moderate left neural foraminal narrowing. No significant central canal stenosis. L5-S1: Laminectomy defect. Mild disc bulging and endplate osteophytes greater on the right side. Se arjun right neural foraminal narrowing. Mild left neural foraminal narrowing. No significant central canal stenosis. The visualized SI joints and sacrum are well maintained. Soft tissues: The paraspinal soft tissues are unremarkable. IMPRESSION: Status post surgery from L4 through S1. Moderate central canal stenosis at L3-4. Multilevel bilateral neural foraminal narrowing, greatest on the right at L3-4 and L5-S1. DATA REPOSITORY:
== END 2022-01-30 02:22 ==
LOC: DI 02:02
PROVIDERS: PCP Family Medicine; Visit Provider Psychiatry & Neurology Neurology
DX: M48.061 Spinal stenosis, lumbar region without neurogenic claudication (principal); M48.07 Spinal stenosis, lumbosacral region
CPT/HCPCS: 72148

== ENCOUNTER 2022-01-30 03:02 | Outpatient (CLI) | payer OTHER, SELFPAY ==
[2022-01-30 09:26] LABS: ESR 26 mm/hr (0-30)
[2022-01-30 09:46] LABS: Hemoglobin A1C 6.6 % (<5.7)
[2022-01-30 10:06] LABS: ALT 25 U/L (14-59); AST 20 U/L (15-37); Alkaline Phosphatase 77 U/L (46-116); Anion Gap 6.3 mmol/L (3-11); BUN 11 mg/dL (7-18); CO2 30.7 mmol/L (21.0-32.0); CREATININE 0.8 mg/dL (0.55-1.02); Chloride 103 mmol/L (98-107); Estimated GFR 81.21 (mL/min/1.73m2); Glucose 136 mg/dL (74-106); Potassium 4.6 mmol/L (3.5-5.1); Sodium 140 mmol/L (136-145); TSH (W/Ref FT4) 1.98 uIU/mL (0.36-3.74); Total Protein 8.2 g/dL (6.4-8.2)
[2022-01-31 14:26] LABS: Albumin 56.6 % (55.8-66.1); Albumin g/dL 4.2 g/dL (3.6-5.2); Total Protein 7.4 g/dL (6.3-8.2)
[2022-01-31 15:20] LABS: Angiotensin Converting Enzyme 34 U/L (16 - 85)
[2022-02-07 10:43] LABS: Manganese, Serum 0.7 ng/mL (0.5-1.2)
== END 2022-01-30 03:03 | disposition home or self-care (01) ==
LOC: LBO 03:02
PROVIDERS: PCP Family Medicine; Visit Provider Psychiatry & Neurology Neurology
DX: E11.9 Type 2 diabetes mellitus without complications (principal); I10 Essential (primary) hypertension; R25.1 Tremor, unspecified; G62.89 Other specified polyneuropathies
CPT/HCPCS: 36415; 80053; 82164; 85652; 83036; 83785; 84165; 84443

== ENCOUNTER 2022-06-13 04:09 | Outpatient (CLI) | payer MEDICARE, SELFPAY ==
[2022-06-13] MEDS: Albuterol HFA 18 GM 200 PUFF INH IH (08:57)
[2022-06-13] MEDS: Inhaler, Assist Device 1 EACH MC (08:58)
--- NOTE | 2022-06-13 13:53 | W.PFT ---
Date of service: 06/13/22 Time of Service: 08:02 Pulmonary Function Test Result Requesting Provider Ike Indications: Sarcoidosis Interpretation Spirometry: There is no airflow limitation. There is no significant bronchodilator response. Lung Volumes: Mild restrictive lung disease Diffusion Capacity: Normal diffusion Airway Pressure: Normal airways resistance Impression Mild restrictive lung disease. Clinical Correlation therefore is recommended.
== END 2022-06-13 04:10 | disposition home or self-care (01) ==
LOC: RT 04:09
PROVIDERS: PCP Family Medicine; Visit Provider Student in an Organized Health Care Education/Training Program
DX: G47.36 Sleep related hypoventilation in conditions classified elsewhere (principal); D86.9 Sarcoidosis, unspecified
CPT/HCPCS: 94060; 94726; 94729; 94762

== ENCOUNTER 2022-06-22 01:20 | Outpatient (CLI) | payer MEDICARE, SELFPAY ==
--- NOTE | 2022-06-22 07:15 | DI.CT_ITS ---
Exam(s) CT CHEST WO EXAM: CT CHEST WO CLINICAL HISTORY: f/u interstitial lung abnormalities on last scan,abnl chest ct, r93.89, TECHNIQUE: Imaging Protocol: Axial computed tomography images with coronal and sagittal reformatted images were created and reviewed CONTRAST MATERIAL: Intravenous: Omnipaque 350 Contrast volume:structured data ml. COMPARISON: CT CT CHEST PE CTA from 03/13/2021 FINDINGS: Pulmonary parenchyma: No consolidation. No dominant measurable mass. Resolution of previously noted infiltrates. Minimal scarring versus atelectasis inferior lingula. Tracheobronchial tree: No bronchiectasis or mucous plugging. Mediastinum and Jami: No dominant adenopathy or fluid collection. Pleura: No effusion or pneumothorax. Heart: The heart is not dilated. No coronary artery calcifications are seen. Aorta: Thoracic aorta non-dilated. Upper abdomen: Unremarkable. Bones: Degenerative changes. Soft tissues: Unremarkable. IMPRESSION: Interval clearing of previously noted infiltrates. No significant residual interstitial disease. RADIATION DOSE DELIVERED: 467.29mGy.cm Total DLP DATA REPOSITORY: All CT scans at this facility are submitted to the National Radiology Data Registry (NRDR) Dose Index Registry (DIR) with the [employer] ([employer]). RADIATION OPTIMIZATION: All CT scans at this facility use at least one of these dose optimization te chniques: automated exposure control; mA and/or kV adjustment per patient size (includes targeted exa ms where dose is matched to clinical indication); or iterative reconstruction.
--- NOTE | 2022-07-04 12:46 | W.PFT ---
Date of service: 06/13/22 Time of Service: 22:24 Pulmonary Function Test Result Indications: Nocturnal hypoxia Note: Overnight Oximetry Amount of time analyzed: 7 hours 37 minutes Number of minutes under 88%: 1.3 min SILVESTRE: 4.1 Appearance of oxygen saturation pattern: Normal Recommendation:No supplemental oxygen needed Tori Ramires MD Pulmonary & Critical Care Medicine Clinical Correlation therefore is recommended.
== END 2022-06-22 01:40 ==
LOC: DI 01:21
PROVIDERS: PCP Family Medicine; Visit Provider Student in an Organized Health Care Education/Training Program
DX: R93.89 Abnormal findings on diagnostic imaging of other specified body structures (principal); R91.8 Other nonspecific abnormal finding of lung field
CPT/HCPCS: 71250

== ENCOUNTER → 2022-08-10 11:19 | Outpatient (BNVA) | payer MEDICARE, SELFPAY | PROVIDERS: PCP Family Medicine; Visit Provider Psychiatry & Neurology Neurology | DX: G20 Parkinson's disease (principal); M54.17 Radiculopathy, lumbosacral region; E11.42 Type 2 diabetes mellitus with diabetic polyneuropathy; G89.29 Other chronic pain; M48.061 Spinal stenosis, lumbar region without neurogenic claudication | CPT/HCPCS: 99214 ==

== ENCOUNTER 2022-09-25 04:21 | Outpatient (CLI) | payer MEDICARE, SELFPAY ==
[2022-09-25 12:59] LABS: ALT 18 U/L (14-59); AST 11 U/L (15-37); Albumin 3.9 g/dL (3.4-5.0); Alkaline Phosphatase 83 U/L (46-116); Anion Gap 7.2 mmol/L (3-11); BUN 9 mg/dL (7-18); Bilirubin, Total 0.8 mg/dL (0.2-1.0); CO2 30.8 mmol/L (21.0-32.0); CREATININE 0.8 mg/dL (0.55-1.02); Calcium 9.7 mg/dL (8.5-10.1); Chloride 106 mmol/L (98-107); Estimated GFR 81.21 (mL/min/1.73m2); Glucose 150 mg/dL (74-106); Potassium 4.7 mmol/L (3.5-5.1); Sodium 144 mmol/L (136-145); TSH (W/Ref FT4) 2.02 uIU/mL (0.36-3.74); Total Protein 7.7 g/dL (6.4-8.2)
[2022-09-25 13:47] LABS: Calculated LDL 115 mg/dL (<100); Cholesterol 193 mg/dL (<200); HDL Cholesterol 39 mg/dL (40-60); Triglyceride 195 mg/dL (<150); Vitamin B12 270 pg/mL (193-986)
[2022-09-25 13:48] LABS: Hemoglobin A1C 6.2 % (<5.7)
== END 2022-09-25 04:22 | disposition home or self-care (01) ==
LOC: LOS 04:21
PROVIDERS: PCP Family Medicine; Visit Provider Family Medicine
DX: E11.40 Type 2 diabetes mellitus with diabetic neuropathy, unspecified; I10 Essential (primary) hypertension; G62.9 Polyneuropathy, unspecified; M81.0 Age-related osteoporosis without current pathological fracture; Z79.899 Other long term (current) drug therapy
CPT/HCPCS: 36415; 80053; 80061; 82607; 83036; 84443

== ENCOUNTER → 2022-10-30 12:20 | Outpatient (BNVA) | payer MEDICARE, SELFPAY | PROVIDERS: PCP Family Medicine; Referring Provider Family Medicine; Visit Provider Psychiatry & Neurology Neurology | DX: G20 Parkinson's disease (principal); M54.17 Radiculopathy, lumbosacral region; E11.42 Type 2 diabetes mellitus with diabetic polyneuropathy; M48.061 Spinal stenosis, lumbar region without neurogenic claudication; I10 Essential (primary) hypertension | CPT/HCPCS: 99214 ==

== ENCOUNTER → 2022-12-15 00:53 | Outpatient (CLI) | payer MEDICARE, SELFPAY ==
--- NOTE | 2022-12-15 07:15 | DI.MAMMO_ITS ---
Exam(s) MG MAMMO SCREENING 60 MIN DUR EXAM: MG MAMMO SCREENING 60 MIN DUR CLINICAL HISTORY: breast cancer screening,Z12.31 TECHNIQUE: Bilateral full field digital CC and MLO mammographic images were obtained with 3D tomosyn thesis and utilizing computer aided detection (CAD). COMPARISON: Available for comparison. FINDINGS: Masses/Architectural Distortion: None seen. Microcalcifications: No suspicious pleomorphic-type are seen. Skin Thickening/Nipple Retraction: None. IMPRESSION: 1. No significant interval change with no specific features of malignancy noted. 2. Unless there is more urgent need, screening mammography is recommended, as per [employer] guidelines. BI-RADS Category 1 - Negative Breast Density - Category B - Scattered areas of fibroglandular density Breast density category C or D implies that the patient has dense breast tissue. Dense breast tissue is very common and is not abnormal but dense breast tissue can make it harder to find cancer on a ma mmogram. Also, dense breast tissue may increase their breast cancer risk. This information about the result of the mammogram report was provided to the patient to raise their awareness. Use this report when you speak with the patient about their risks for breast cancer, which includes their family hist ory. At that time, you may recommend for more screening tests (Ultrasound or MRI) as they might be us eful based on their risk. A negative radiographic report should not delay biopsy if a dominant or clinically suspicious mass is present. Up to ten percent of cancers are not identified on mammography. A negative report may reinforce clinical impression. Adenosis and dense breasts may obscure an underlying neoplasm. False positive reports average 6 to 10%. Patient will receive a letter notifying them of these results.
== END ==
PROVIDERS: PCP Family Medicine; Visit Provider Family Medicine
DX: Z12.31 Encounter for screening mammogram for malignant neoplasm of breast (principal)
CPT/HCPCS: 77063; 77067

== ENCOUNTER → 2023-01-29 14:47 | Outpatient (BNVA) | payer MEDICARE, SELFPAY | PROVIDERS: PCP Family Medicine; Referring Provider Family Medicine; Visit Provider Psychiatry & Neurology Neurology | DX: G20.C Parkinsonism, unspecified (principal); M54.17 Radiculopathy, lumbosacral region; M21.372 Foot drop, left foot; E11.42 Type 2 diabetes mellitus with diabetic polyneuropathy; M48.061 Spinal stenosis, lumbar region without neurogenic claudication; I10 Essential (primary) hypertension | CPT/HCPCS: 99214 ==

== ENCOUNTER → 2023-03-12 12:30 | Outpatient (BNVA) | payer MEDICARE, SELFPAY | PROVIDERS: PCP Family Medicine; Referring Provider Family Medicine; Visit Provider Physician Assistant Surgical | DX: J98.4 Other disorders of lung (principal); G20.C Parkinsonism, unspecified; E11.42 Type 2 diabetes mellitus with diabetic polyneuropathy; I10 Essential (primary) hypertension | CPT/HCPCS: 99214 ==

== ENCOUNTER 2023-03-22 02:19 | Outpatient (CLI) | payer MEDICARE, SELFPAY | END 2023-03-22 02:20 | disposition home or self-care (01) | LOC: RT 02:19 | PROVIDERS: PCP Family Medicine; Visit Provider Student in an Organized Health Care Education/Training Program | DX: J98.4 Other disorders of lung (principal) | CPT/HCPCS: 94010; 94729 ==

== ENCOUNTER → 2023-03-27 10:50 | Outpatient (BNVA) | payer MEDICARE, SELFPAY | PROVIDERS: PCP Family Medicine; Referring Provider Family Medicine; Visit Provider Psychiatry & Neurology Neurology | DX: M54.17 Radiculopathy, lumbosacral region (principal); G25.0 Essential tremor; E11.40 Type 2 diabetes mellitus with diabetic neuropathy, unspecified; G62.9 Polyneuropathy, unspecified; M48.061 Spinal stenosis, lumbar region without neurogenic claudication | CPT/HCPCS: 99214 ==

== ENCOUNTER 2023-03-29 02:57 | Outpatient (CLI) | payer MEDICARE, SELFPAY ==
[2023-03-29 12:14] LABS: HCT 43.7 % (36.0-46.0); HGB 14.2 g/dL (11.2-15.7); MCH 29.6 pg (27.0-33.0); MCHC 32.5 % (32.0-36.0); MCV 91 fL (80-95); MPV 12.4 fL (8.0-11.0); Platelet Count 239 10^3/uL (130-400); RBC 4.79 10^6/uL (3.93-5.22); RDW 12.9 % (11.7-14.6); RDW-SD 43.4 fL; WBC 7.26 10^3/uL (4.4-10.8)
[2023-03-29 12:28] LABS: ALT 9 U/L (14-59); AST 11 U/L (15-37); Albumin 3.9 g/dL (3.4-5.0); Alkaline Phosphatase 99 U/L (46-116); Anion Gap 7.9 mmol/L (3-11); BUN 9 mg/dL (7-18); Bilirubin, Total 0.9 mg/dL (0.2-1.0); CO2 28.1 mmol/L (21.0-32.0); CREATININE 0.8 mg/dL (0.55-1.02); Calcium 9.4 mg/dL (8.5-10.1); Calculated LDL 120 mg/dL (<100); Chloride 102 mmol/L (98-107); Cholesterol 206 mg/dL (<200); Estimated GFR 80.71 (mL/min/1.73m2); Glucose 134 mg/dL (74-106); HDL Cholesterol 45 mg/dL (40-60); Magnesium 1.9 mg/dL (1.8-2.4); Sodium 138 mmol/L (136-145); Total Protein 7.6 g/dL (6.4-8.2); Triglyceride 207 mg/dL (<150)
[2023-03-29 12:34] LABS: Hemoglobin A1C 6.1 % (<5.7)
--- NOTE | 2023-03-30 08:15 | W.PFT ---
Date of service: 03/22/23 Time of Service: 10:02 Pulmonary Function Test Result Indications: Restrictive lung disease Interpretation Spirometry: There is no airflow limitation. The MIP and MEP are decreased. Diffusion Capacity: Normal diffusion Impression There is no airflow obstruction. The MIP and MEP are decreased and tehre is a normal diffusion. Clinical Correlation therefore is recommended.
== END 2023-03-29 02:58 | disposition home or self-care (01) ==
LOC: LOS 02:57
PROVIDERS: PCP Family Medicine; Visit Provider Family Medicine
DX: E11.9 Type 2 diabetes mellitus without complications (principal); I10 Essential (primary) hypertension; R53.83 Other fatigue; G20.C Parkinsonism, unspecified
CPT/HCPCS: 36415; 80053; 80061; 85027; 83036; 83735

== ENCOUNTER 2023-06-18 11:01 | Outpatient (REF) | payer MEDICARE, SELFPAY ==
[2023-06-18 19:30] LABS: Microalb ug/mg Crea 7.9 ug/mg Cr
== END 2023-06-18 11:02 | disposition home or self-care (01) ==
LOC: LBN 11:01
PROVIDERS: PCP Family Medicine; Visit Provider Family Medicine
DX: E11.9 Type 2 diabetes mellitus without complications (principal)
CPT/HCPCS: 82043; 82570

== ENCOUNTER → 2023-08-08 12:17 | Outpatient (BNVA) | payer MEDICARE, SELFPAY | PROVIDERS: PCP Family Medicine; Referring Provider Family Medicine; Visit Provider Psychiatry & Neurology Neurology | DX: G25.0 Essential tremor (principal); M54.17 Radiculopathy, lumbosacral region; E11.40 Type 2 diabetes mellitus with diabetic neuropathy, unspecified; G62.9 Polyneuropathy, unspecified; M48.061 Spinal stenosis, lumbar region without neurogenic claudication | CPT/HCPCS: 99214 ==

== ENCOUNTER 2023-11-09 18:17 | Outpatient (REF) | payer MEDICARE, SELFPAY | END 2023-11-09 18:18 | disposition home or self-care (01) | LOC: LBN 18:17 | PROVIDERS: PCP Family Medicine; Visit Provider Family Medicine | DX: N39.0 Urinary tract infection, site not specified (principal) | CPT/HCPCS: 87077; 87086; 87186 ==

== ENCOUNTER → 2023-12-12 12:49 | Outpatient (BNVA) | payer MEDICARE, SELFPAY | PROVIDERS: PCP Family Medicine; Visit Provider Psychiatry & Neurology Neurology | DX: M54.17 Radiculopathy, lumbosacral region (principal); E11.40 Type 2 diabetes mellitus with diabetic neuropathy, unspecified; G62.9 Polyneuropathy, unspecified; M48.04 Spinal stenosis, thoracic region; G25.0 Essential tremor | CPT/HCPCS: 99214 ==

== ENCOUNTER 2023-12-21 01:25 | Outpatient (CLI) | payer MEDICARE, SELFPAY ==
[2023-12-21 12:18] LABS: HCT 44.6 % (36.0-46.0); HGB 14.4 g/dL (11.2-15.7); MCH 29.7 pg (27.0-33.0); MCHC 32.3 % (32.0-36.0); MCV 92 fL (80-95); MPV 12.2 fL (8.0-11.0); Platelet Count 251 10^3/uL (130-400); RBC 4.85 10^6/uL (3.93-5.22); RDW 12.8 % (11.7-14.6); RDW-SD 43.1 fL; WBC 7.88 10^3/uL (4.4-10.8)
[2023-12-21 12:28] LABS: ALT 11 U/L (14-59); AST 15 U/L (15-37); Albumin 3.9 g/dL (3.4-5.0); Alkaline Phosphatase 114 U/L (46-116); BUN 9 mg/dL (7-18); Bilirubin, Total 0.99 mg/dL (0.2-1.0); CREATININE 0.8 mg/dL (0.55-1.02); Calcium 9.8 mg/dL (8.5-10.1); Chloride 102 mmol/L (98-107); Estimated GFR 80.21 (mL/min/1.73m2); Glucose 172 mg/dL (74-106); Potassium 4.2 mmol/L (3.5-5.1); Sodium 138 mmol/L (136-145); Total Protein 7.8 g/dL (6.4-8.2)
[2023-12-21 12:31] LABS: Hemoglobin A1C 7.2 % (<5.7)
== END 2023-12-21 01:26 | disposition home or self-care (01) ==
LOC: LOS 01:25
PROVIDERS: PCP Family Medicine; Visit Provider Family Medicine
DX: I10 Essential (primary) hypertension (principal); E11.9 Type 2 diabetes mellitus without complications; D64.9 Anemia, unspecified
CPT/HCPCS: 36415; 80053; 85027; 83036

== ENCOUNTER 2023-12-27 21:26 | Outpatient (REF) | payer MEDICARE, SELFPAY ==
[2023-12-27 13:09] LABS: Bilirubin Negative (Negative); Blood Negative (Negative); Clarity Sl Cloudy (Clear); Glucose Negative (Negative); Ketones Negative (Negative); Leukocyte Esterase Moderate (Negative); Nitrite Negative (Negative); Specific Gravity >= 1.030 (1.005-1.025); Urobilinogen 0.2 mg/dL (Up to 0.2); pH 5.5 (5-8)
[2023-12-27 13:23] LABS: Bacteria Many HPF (Negative); Crystals Negative HPF (Negative); Epithelial Cells Rare HPF (Negative); Mucus Negative (Negative); Other Cells Negative (Negative); RBC 0-2 HPF (0-2)
[2023-12-27 13:24] LABS: C & S Indicated? No; Casts Negative LPF (Negative)
== END 2023-12-27 21:27 | disposition home or self-care (01) ==
LOC: LBN 21:26
PROVIDERS: PCP Family Medicine; Visit Provider Family Medicine
DX: R35.0 Frequency of micturition (principal)
CPT/HCPCS: 81003; 81015

== ENCOUNTER 2023-12-28 15:29 | Outpatient (REF) | payer MEDICARE, SELFPAY ==
[2023-12-28 21:00] LABS: Bilirubin Negative (Negative); Blood Negative (Negative); Clarity Clear (Clear); Glucose Negative (Negative); Ketones Negative (Negative); Leukocyte Esterase Negative (Negative); Nitrite Negative (Negative); Specific Gravity >= 1.030 (1.005-1.025); Urobilinogen 0.2 mg/dL (Up to 0.2)
== END 2023-12-28 15:30 | disposition home or self-care (01) ==
LOC: LBN 15:29
PROVIDERS: PCP Family Medicine; Visit Provider Family Medicine
DX: R31.9 Hematuria, unspecified (principal); R35.0 Frequency of micturition; K76.0 Fatty (change of) liver, not elsewhere classified; I10 Essential (primary) hypertension; E11.9 Type 2 diabetes mellitus without complications; Z12.39 Encounter for other screening for malignant neoplasm of breast
CPT/HCPCS: 81003

== ENCOUNTER 2024-01-22 01:39 | Outpatient (CLI) | payer MEDICARE, SELFPAY ==
--- NOTE | 2024-01-22 06:30 | DI.US_ITS ---
Exam(s) US ABDOMEN LIMITED EXAM: US ABDOMEN LIMITED CLINICAL HISTORY: fatty liver,K76.0 TECHNIQUE: Ultrasound abdomen performed using standard protocol. COMPARISON: CT RENAL COLIC WO CONTRAST from 08/06/[address] CHEST PE CTA from 03/13/2021 FINDINGS: PANCREAS: Normal where visualized. LIVER: There is diffuse increased echogenicity of the liver consistent with fatty infiltration. Hepa topetal flow in the Portal Vein. The liver measures in 17.4 cm length. No evidence of a hepatic mass. GALLBLADDER:Multiple mobile gallstones are present. No evidence of wall thickening. No pericholecyst ic fluid identified. BILIARY SYSTEM: Common bile duct measures < 7 mm. No intrahepatic biliary ductal dilation. OLIVERA'S SIGN: Negative. RIGHT KIDNEY: Kidney is normal in size. No evidence of renal calculi. No evidence of hydronephrosis. No renal mass or cyst identified. ASCITES: None seen. IMPRESSION: 1. Cholelithiasis. No sonographic evidence to suggest acute cholecystitis. 2. Hepatic steatosis and mild hepatomegaly. DATA REPOSITORY:
--- NOTE | 2024-01-22 09:55 | DI.MAMMO_ITS ---
Exam(s) MAMMO SCREENING EXAM: MAMMO SCREENING CLINICAL HISTORY: screening,z12.39 TECHNIQUE: Bilateral full field digital CC and MLO mammographic images were obtained with 3D tomosyn thesis and utilizing computer aided detection (CAD). COMPARISON: Available for comparison. FINDINGS: Masses/Architectural Distortion: None seen. Microcalcifications: No suspicious pleomorphic-type are seen. Skin Thickening/Nipple Retraction: None. IMPRESSION: 1. No significant interval change with no specific features of malignancy noted. 2. Unless there is more urgent need, screening mammography is recommended, as per [employer] guidelines. BI-RADS Category 1 - Negative Breast Density - Category B - Scattered areas of fibroglandular density Breast density category C or D implies that the patient has dense breast tissue. Dense breast tissue is very common and is not abnormal but dense breast tissue can make it harder to find cancer on a ma mmogram. Also, dense breast tissue may increase their breast cancer risk. This information about the result of the mammogram report was provided to the patient to raise their awareness. Use this report when you speak with the patient about their risks for breast cancer, which includes their family hist ory. At that time, you may recommend for more screening tests (Ultrasound or MRI) as they might be us eful based on their risk. A negative radiographic report should not delay biopsy if a dominant or clinically suspicious mass is present. Up to ten percent of cancers are not identified on mammography. A negative report may reinforce clinical impression. Adenosis and dense breasts may obscure an underlying neoplasm. False positive reports average 6 to 10%. Patient will receive a letter notifying them of these results.
== END 2024-01-22 01:59 ==
PROVIDERS: PCP Family Medicine; Visit Provider Family Medicine
DX: K76.0 Fatty (change of) liver, not elsewhere classified (principal); Z12.31 Encounter for screening mammogram for malignant neoplasm of breast
CPT/HCPCS: 77063; 77067; 76705

== ENCOUNTER → 2024-04-10 11:20 | Outpatient (BNVA) | payer MEDICARE, SELFPAY | PROVIDERS: PCP Family Medicine; Referring Provider Family Medicine; Visit Provider Physical Therapy Assistant | DX: Z12.11 Encounter for screening for malignant neoplasm of colon (principal); E11.9 Type 2 diabetes mellitus without complications; I10 Essential (primary) hypertension ==

== ENCOUNTER 2024-04-21 09:53 | Day surgery (SDC) | payer MEDICARE, SELFPAY ==
--- NOTE | 2024-04-20 17:35 | W.PM.DSUDISC ---
Date of service: 04/21/24 Discharge Plan Disposition Patient Disposition: Home Condition: Good Discharge Details Reason For Visit: screening colonoscopy Attending Provider: Oscar Torers Primary Care Provider: Keila Vargas Home Meds and New Rx's Prescriptions: Continued cinnamon bark [Cinnamon] 500 mg capsule See Rx Instructions PO DAILY Rx Instructions: orally daily; mupirocin 2 % ointment 1 applic topical BID Qty: 30 5RF magnesium oxide 500 mg magnesium tablet 500 mg PO DAILY vitamin E mixed 400 unit capsule 400 unit PO DAILY cyanocobalamin (vitamin B-12) 3,000 mcg capsule 3,000 mcg PO DAILY cholecalciferol (vitamin D3) 125 mcg (5,000 unit) capsule 125 mcg PO DAILY apple cider vinegar 300 mg tablet 300 mg PO DAILY ketoconazole 2 % cream 1 applic topical BID PRN (Reason: rash) Qty: 60 2RF tetanus and diphther. tox (PF) 5 Lf unit- 2 Lf unit/0.5mL suspension 0.5 ml IM ONCE Qty: 0.5 0RF Rx Instructions: as a single dose (DME) blood-glucose meter [OneTouch Verio IQ Meter] misc See Dose Instructions .ROUTE .MEDSUPPLY Qty: 1 0RF Dose Instruction: As directed Rx Instructions: As directed (DME) lancets 28 gauge misc 1 ea Miscellaneous DAILY Qty: 100 4RF Rx Instructions: FOR One Touch DELICA. NO INSULIN. DIAGNOSIS CODE E11.9 lidocaine 5 % adhesive patch,medicated 1 patch topical DAILY Qty: 15 0RF Rx Instructions: leave on most painful area for up to 12 hrs; then no patch for 12 hours amantadine HCl 100 mg capsule 100 mg PO BID Qty: 180 3RF Rx Instructions: Take am and noon carbidopa-levodopa 50-200 mg tablet extended release 1 tab PO BID Qty: 180 3RF Rx Instructions: Take am and noon propranolol 20 mg tablet 20 mg PO BID Qty: 180 3RF ibuprofen 600 mg tablet 600 mg PO BID PRN (Reason: pain) Qty: 90 0RF Rx Instructions: use infrequently (DME) Blood Glucose Test Strip 1 ea Miscellaneous DAILY Qty: 100 1RF Rx Instructions: Touch Verio test strips/ Dx: diabetes non-insulin dependent Discontinued bisacodyl [Dulcolax (bisacodyl)] 5 mg tablet,delayed release (DR/EC) 5 mg PO ONCE Qty: 4 0RF Rx Instructions: Take per colonoscopy instructions provided by ordering providers office polyethylene glycol 3350 17 gram/dose powder 17 g PO ONCE Qty: 238 0RF Rx Instructions: Take per colonoscopy instructions provided by ordering providers office Discharge Instructions Instructions: Diverticulosis Additional Instructions: Leah, it was very nice to meet you today, and I hope you are comfortable throughout the procedure. Everything went very smoothly. Your prep was excellent and I could see everything fine. As we discussed before hand, you do have some diverticulosis. Otherwise, the colonoscopy was negative. Based on the types of polyps that you had removed on your previous colonoscopies, I recommend a 5-year interval for your next colonoscopy. 1. If tolerated, consume a soft, low fiber diet for 1-2 days. 2[address] Do not drive, drink alcohol, operate machinery, make critical decisions, or do activities that require coordination or balance for 24 hours. 3. Because air was put into your colon during the procedure, expelling air from your rectum (passing gas or farting) is normal. 4. You may not have a bowel movement for 1-3 days because of the colonoscopy prep. This is normal. 5. Go directly to the emergency room if you notice any of the following: Develop chills (warm to touch), or if you have a thermometer and your temperature is above 101 Difficulty breathing or difficultly swallowing Persistent vomiting Severe abdominal pain, other than gas cramps Severe chest pain Black, tarry stools Any bleeding ? exceeding one tablespoon 6. Call your physician if the site where your intravenous was started becomes red, swollen, painful, and warm to touch. 7. Your physician has reviewed your pre-procedure medications. Please continue to take those medications as previously ordered. You will be given specific information/education regarding any changes to your medications before leaving. Activity:: Activity as Tolerated Diet:: As Tolerated Discharge Orders Discharge Orders: Discharge Order (Routine); Ordered 04/20/24 Ordered By: Oscar Torres DS: Diagnosis Discharge Diagnosis (1) Encounter for screening colonoscopy: Status: Acute Asessment and Plan: Negative screening colonoscopy today; based on history of adenomatous polyps recommend 5-year interval for next colonoscopy
--- NOTE | 2024-04-20 17:37 | W.COLOREPORT ---
Date of service: 04/21/24 Time of Service: 11:33 Colonoscopy Report Date of procedure: 04/21/24 Pre-op diagnosis general: screening colonoscopy Post-op diagnosis procedure note: other (Diverticulosis) Procedure: colonoscopy Surgeon: Oscar Torres Anesthesia Type: General:No Airway Estimated blood loss (mL): 0 Pathology: none sent Complications: None Disposition: same day Indications: Leah is a 68 year old woman who needs a screening colonsocopy Prep: Miralax/Dulcolax Procedure Start Time: 11:05 Procedure End Time: 11:26 Retraction Time: 7 Findings: Sigmoid diverticulosis Procedure Description: After the induction of anesthesia, and with the patient in left lateral decubitus position, I began by performing an external anorectal exam.? Perineum and skin were normal, as was the anal verge.? There are some perianal skin tags consistent with hemorrhoids.? Next, I performed a digital rectal exam.? I did not appreciate any abnormal findings.? Next, I advanced a colonoscope into the rectal vault.? I performed retroflexion.? This appeared normal.? Using insufflation, I then advanced the colonoscope beyond the rectal folds and into the sigmoid colon before advancing towards the cecum.? There is sigmoid diverticulosis, and great care was taken to maintain the true lumen of the colon.? The scope was noted to be in the cecum by identification of the ileocecal valve and appendiceal orifice.? I then began withdrawing the colonoscope using repeated irrigation as necessary for full evaluation of the colonic mucosa. ?Once the scope was withdrawn to the level of the rectum, great care was taken to examine portions of the rectal folds.? There was no evidence of any polyps throughout the length of the colon. Finally, the scope was withdrawn and the patient was brought to the same-day surgery recovery unit as the anesthetic wore off. ?The findings and instructions were shared with the patient prior to discharge. [place] Bowel Prep [place] Bowel Prep Right Colon: 3 Left Colon: 3 Transverse Colon: 3 Total Score: 9
[2024-04-21 10:26] VITALS: BP 145/86; PULSE 67; RESP 18; TEMP 36.2; O2SAT 95
[2024-04-21] MEDS: Lactated Ringers 1,000 ML 80 ML IV (10:38)
--- NOTE | 2024-04-21 10:54 | ANES.PREOP_ITS ---
General Info Date of Service Date Performed: 04/21/24 Height: 5 ft 2.75 in Weight: 83.4 kg Body Mass Index (BMI): 32.8 Surgical Procedure: Operation Date: 04/21/24 11:20 Proposed Procedure Side Surgeon p Colonoscopy Oscar Torres MD Actual Procedure Side Surgeon p Colonoscopy Not Applicable Oscar Torres MD Pre-Op Diagnosis Post-Op Diagnosis screening colonoscopy Meds Allergies and Home Medications Allergies Allergy/AdvReac Type Severity Reaction Status Date / Time Sulfa (Sulfonamide Allergy Intermediate Skin Rash Verified 04/21/24 10:23 Antibiotics) adhesive tape Allergy Mild mild rash Verified 04/21/24 10:23 and itching Home Medication ?Medication ?Instructions ?Recorded blood-glucose meter (OneTouch #1 ea 01/31/18 Verio IQ Meter) cinnamon bark 500 mg capsule See Rx Instructions PO DAILY 01/04/22 (Cinnamon) lancets 28 gauge #100 ea 09/05/22 mupirocin 2 % topical ointment 1 applic topical BID #30 grams 10/02/22 lidocaine 5 % topical patch 1 patch topical DAILY #15 ea 09/19/23 amantadine HCl 100 mg capsule 100 mg PO BID #180 caps 12/03/23 carbidopa ER 50 mg-levodopa 200 mg 1 tab PO BID #180 tabs 12/03/23 tablet,extended release propranolol 20 mg tablet 20 mg PO BID #180 tabs 12/07/23 apple cider vinegar 300 mg tablet 300 mg PO DAILY 12/27/23 cholecalciferol (vitamin D3) 125 125 mcg PO DAILY 12/27/23 mcg (5,000 unit) capsule cyanocobalamin (vitamin B-12) 3,000 mcg PO DAILY 12/27/23 3,000 mcg capsule ketoconazole 2 % topical cream 1 applic topical BID PRN rash #60 12/27/23 grams magnesium oxide 500 mg PO DAILY 12/27/23 tetanus and diphther. tox (PF) 5 0.5 ml IM ONCE #0.5 mL 12/27/23 Lf unit-2 Lf unit/0.5 mL IM susp vitamin E mixed 400 unit capsule 400 unit PO DAILY 12/27/23 ibuprofen 600 mg tablet 600 mg PO BID PRN pain #90 tabs 12/29/23 blood sugar diagnostic (Blood #100 strips 02/11/24 Glucose Test strips) Current Visit Medications: Current Medications Generic Name Dose Route Start Last Admin Trade Name Freq PRN Reason Stop Dose Admin Ringer's Solution 1,000 mls @ 80 mls/hr 04/21/24 10:00 04/21/24 10:38 IV 05/21/24 09:59 80 mls/hr INFUSION MONI Administration IV Miscellaneous Supplies 1 each 04/21/24 06:00 Iv Access IV 04/21/24 23:59 DIRECTED MONI Ondansetron HCl 4 mg 04/20/24 17:38 Ondansetron 4 Mg/2 Ml Vial IVP 05/20/24 17:37 Q4H PRN PRN Nausea / Vomiting Sodium Chloride 0 ml 04/21/24 06:00 Normal Saline Flush 10 Ml Syr IV 04/21/24 23:59 PRN PRN Sodium Chloride 0 ml 04/21/24 06:00 Normal Saline 10 Ml Vial IJ 04/21/24 23:59 DIRECTED PRN Sterile Water 0 ml 04/21/24 06:00 Water,Injection,Sterile 10 Ml Vial IJ 04/21/24 23:59 DIRECTED PRN PFSH Active Problems Active Problems: Problem Status Onset Code Encounter for screening colonoscopy Acute Z12.11 Tubular adenoma of colon Acute D12.6 Fatty liver Acute K76.0 Fatigue Acute R53.83 Skin lesions Acute L98.9 Restrictive lung disease Acute J98.4 Peripheral neuropathy Acute G62.9 Tremor Acute R25.1 Osteoporosis Chronic M81.0 Athletes foot Acute B35.3 Parkinsonism Acute G20 Peripheral neuropathy Acute G62.9 Femoroacetabular impingement of right hip Acute M25.851 Diabetic neuropathy Acute E11.40 Tubular adenoma Acute 02/11/16 D36.9 Sarcoid Acute 09/22/15 D86.9 Essential hypertension Acute 04/07/13 I10 Diabetes mellitus Chronic E11.9 Medical History Medical History Nocturnal hypoxia Abnormal chest CT Back pain Abnormal mammogram FHx: hepatic cirrhosis primary biliary - mother Arm weakness Pneumonia due to COVID-19 virus COVID-19 Lumbar back pain with radiculopathy affecting right lower extremity Dehydration Back pain with radiation Acute lumbar back pain Hypomagnesemia Hypokalemia Hypertension DVT prophylaxis Discharge planning issues UTI (urinary tract infection) Urinary retention Constipation Palliative care patient Spinal stenosis Radiculitis Hip pain, right Sleep apnea Right calf pain Cholelithiasis Asymptomatic, incidentally noted on CT imaging Simple cyst of kidney On antibiotic therapy Internal derangement of right knee Dysfunction of right rotator cuff Osteoarthritis of right hip Essential tremor Lumbosacral radiculopathy Lymphadenopathy (12/25/11) Pes anserinus bursitis of right knee Injection: 08/28/2018 ITB syndrome Trochanteric bursitis, right hip Injected 03/11/2018 Hip pain Lesion of [place]09/22/15[place] [facility] [place] Hyperlipidemia (08/01/12) HTN (hypertension) Sarcoid Hyperlipidemia DM (diabetes mellitus) JOSEY (obstructive sleep apnea) Surgical History Surgical History History of back surgery per pt. states six screws in situ History of section History of nasal septoplasty section x 3 Nasal septoplasty Colonoscopy - MAC (02/11/16) Tobacco Smoking/Tobacco Use Status: Never Passive smoking exposure: No Second hand exposure: Yes Alcohol Alcohol Intake: current Alcohol intake frequency: holidays/special occasions only Substance Use Substance use: Never Substance use type: does not use Vital Signs and Lab Results Vital Signs Most Recent Vital Signs in EMR: Most Recent Vital Signs Temp Pulse Resp BP Pulse Ox 36.2 C L 67 18 145/86 H 95 04/21/24 10:26 04/21/24 10:26 04/21/24 10:26 04/21/24 10:26 04/21/24 10:26 Point of Care Results Point of Care Results: Finger Stick Blood Glucose 147 04/21/24 10:39 Lab Results Blood Type / Crossmatch: No Data to Display Complete Blood Count: No Data to Display Complete Metabolic Panel: No Data to Display Liver Function Panel: No Data to Display Coagulation Panel: No Data to Display Cardiac Panel: No Data to Display Arterial Blood Gas: No Data to Display Venous Blood Gas: No Data to Display Pancreas Panel: No Data to Display Thyroid Panel: No Data to Display Infectious Disease: No Data to Display Blood Cultures: No Data to Display Toxicology Panel: No Data to Display Imaging and Studies Imaging and Studies Study information below may be from another EMR and interpreted by another provider. Please see original notes in EMR for more complete details. EKG Summary: Reviewed: sinus tachycardia Echocardiogram Summary: Reviewed Anesthesia Assessment and Plan Anesthesia History Personal History: No History of Anesthesia Complications Family History: No Family History of Anesthesia Complications Exercise Tolerance Exercise Tolerance: Metabolic Equivalents<4 Cardiac & Pulmonary Exam Cardiac Exam: Normal S1/S2 Heart Sounds Pulmonary Exam: Clear Bilateral Breath Sounds Implantable Cardiac Device Does patient have a Pacemaker or an ICD?: No Airway Exam Known Difficult Airway: No Mallampati Class: 4 Mouth Opening: Narrow (< 3cm) Thyromental Distance: Less than 3 cm Neck Range of Motion: Limited ROM Neck Circumference: Normal Teeth Condition: Normal Dentition and Removable Dentures/Plates Upper ASA Classification ASA Score: ASA 3 Emergency Case?: No NPO Status NPO Status: NPO Clears >2 hours, Solids >8 hours Anesthesia Plan Resuscitation Status: Full Code Anesthesia Technique: General Anesthesia Airway Planned: Natural Airway Monitors Used: Standard Monitors
[2024-04-21 10:58] VITALS: BMI 32.8
[2024-04-21 11:29] VITALS: BP 134/86; PULSE 64; RESP 20; TEMP 35.9; O2SAT 92
--- NOTE | 2024-04-21 11:41 | W.ANESPOSTOP ---
Postoperative Evaluation Date, Time and Location Date Performed: 04/21/24 Time Performed: 11:41 Patient Location: Day Surgery Unit Vital Signs Most Recent Imported Vital Signs: Most Recent Vital Signs Temp Pulse Resp BP Pulse Ox 35.9 C L 64 20 134/86 92 04/21/24 11:29 04/21/24 11:29 04/21/24 11:29 04/21/24 11:29 04/21/24 11:29 Pain Score Most Recent Pain Score: Most Recent Pain Score Pain Level 0 04/21/24 11:29 Assessment Mental Status: Awake (Alert & Oriented to Patient Baseline) Airway and Respiratory Function: Patent airway with normal (patient baseline) respiratory exam Cardiovascular Function: Hemodynamically Stable Hydration Status: Adequately Hydrated Nausea & Vomiting: No Nausea or Vomiting Pain: Pt. Denies Any Pain Peripheral Nerve Block: Patient did not receive a nerve block
[2024-04-21 11:46] VITALS: BP 123/83; PULSE 65; RESP 18; TEMP 36.1; O2SAT 97
== END 2024-04-21 12:27 | disposition home or self-care (01) ==
LOC: SUR 09:54
PROVIDERS: PCP Family Medicine; Visit Provider Surgery
PROC: 0DJD8ZZ Inspection of Lower Intestinal Tract, Via Natural or Artificial Opening Endoscopic (ICD-10-PCS; CPT 45378; principal; 2024-04-21 11:15)
DX: Z12.11 Encounter for screening for malignant neoplasm of colon (principal); K57.30 Diverticulosis of large intestine without perforation or abscess without bleeding; E11.9 Type 2 diabetes mellitus without complications; I10 Essential (primary) hypertension; Z86.0100 Personal history of colon polyps, unspecified
CPT/HCPCS: G0105; J2704

== ENCOUNTER 2024-06-26 01:40 | Outpatient (CLI) | payer MEDICARE, SELFPAY ==
[2024-06-26 08:34] LABS: Hemoglobin A1C 6.7 % (<5.7)
[2024-06-26 09:28] LABS: Vitamin D 25 Total 80 ng/mL (30-100)
[2024-06-26 09:32] LABS: ALT < 6 U/L (14-59); AST 16 U/L (15-37); Alkaline Phosphatase 84 U/L (46-116); Anion Gap 9.1 mmol/L (3-11); BUN 9 mg/dL (7-18); Bilirubin, Total 1.4 mg/dL (0.2-1.0); CO2 27.9 mmol/L (21.0-32.0); CREATININE 0.9 mg/dL (0.55-1.02); Calcium 9.5 mg/dL (8.5-10.1); Calculated LDL 93 mg/dL (<100); Chloride 103 mmol/L (98-107); Cholesterol 193 mg/dL (<200); Estimated GFR 69.64 (mL/min/1.73m2); Glucose 166 mg/dL (74-106); HDL Cholesterol 43 mg/dL (>or=50); Potassium 4.1 mmol/L (3.5-5.1); Sodium 140 mmol/L (136-145); Triglyceride 287 mg/dL (<150); Vitamin B12 1986 pg/mL (193-986)
[2024-06-30 11:59] LABS: Pyruvic Acid, B 1.8 mg/dL (0.7-1.4)
[2024-07-02 10:53] LABS: Thiamine (Vitamin B1), WB 139 nmol/L (70-180)
== END 2024-06-26 01:41 | disposition home or self-care (01) ==
PROVIDERS: PCP Family Medicine; Visit Provider Family Medicine
DX: I10 Essential (primary) hypertension (principal); M81.0 Age-related osteoporosis without current pathological fracture; G62.9 Polyneuropathy, unspecified; E11.9 Type 2 diabetes mellitus without complications
CPT/HCPCS: 36415; 80053; 80061; 82306; 82607; 83036; 83735; 84210; 84425

== ENCOUNTER 2024-07-03 16:16 | Outpatient (REF) | payer MEDICARE, SELFPAY ==
[2024-07-03 15:39] LABS: COMMENT (LAB VIEW ONLY) 255.15 mg/dL; Microalb ug/mg Crea 16.8 ug/mg Cr
== END 2024-07-03 16:17 | disposition home or self-care (01) ==
LOC: LBN 16:16
PROVIDERS: PCP Family Medicine; Visit Provider Family Medicine
DX: E11.9 Type 2 diabetes mellitus without complications (principal)
CPT/HCPCS: 82043; 82570

== ENCOUNTER 2024-07-04 00:48 | Outpatient (CLI) | payer MEDICARE, SELFPAY ==
--- NOTE | 2024-07-04 13:11 | DI.RAD_ITS ---
Exam(s) XR SHOULDER RT COMPLETE 2+V EXAM: XR SHOULDER RT COMPLETE 2+V CLINICAL HISTORY: shoulder pain,rt,m25.511. TECHNIQUE: 2D digital imaging was performed. Five views. COMPARISON: CR XR SHOULDER RT COMPLETE 2+V from 09/19/2019 FINDINGS: BONES: No acute fracture is present. No bony destructive lesion is seen. JOINTS: No dislocation present. Mild spurring at the undersurface of the acromion and glenoid. Armand ohumeral joint space is maintained. AC joint shows no significant spurring. SOFT TISSUE: Normal. IMPRESSION: Mild degenerative changes. DATA REPOSITORY: RADIATION DOSE DELIVERED:
== END 2024-07-04 01:08 ==
LOC: DI 00:48
PROVIDERS: PCP Family Medicine; Visit Provider Family Medicine
DX: M25.511 Pain in right shoulder (principal)
CPT/HCPCS: 73030

== ENCOUNTER → 2024-07-24 13:13 | Outpatient (BNVA) | payer MEDICARE, SELFPAY | PROVIDERS: PCP Family Medicine; Visit Provider Psychiatry & Neurology Neurology | DX: G25.0 Essential tremor (principal); M54.17 Radiculopathy, lumbosacral region; E11.40 Type 2 diabetes mellitus with diabetic neuropathy, unspecified; G20.C Parkinsonism, unspecified; M48.00 Spinal stenosis, site unspecified; I10 Essential (primary) hypertension; M21.371 Foot drop, right foot; R35.0 Frequency of micturition; R35.1 Nocturia | CPT/HCPCS: 99215 ==

== ENCOUNTER 2025-01-22 05:44 | Outpatient (CLI) | payer MEDICARE, SELFPAY ==
--- NOTE | 2025-01-22 07:45 | DI.MAMMO_ITS ---
Exam(s) MAMMO SCREENING EXAM: MAMMO SCREENING CLINICAL HISTORY: screening,z12.39 TECHNIQUE: Mammograms were interpreted according to the usual protocol including computer analysis with CAD system, tomosynthesis and C-view imaging. COMPARISON: 2015 through 2023 FINDINGS: The breasts are composed of mainly fatty density , Breast Density category A. No suspicious masses or suspicious microcalcifications are seen. No skin thickening or abnormal axillary lymph nodes are seen. There has been no significant change from prior exams. IMPRESSION: BI-RADS Category 1, Negative mammogram Yearly screening mammography is recommended. Breast Density- Category A - The breast are almost entirely fatty. Breast density Category C or D implies that the patient has dense breast tissue. Dense breast tissue can make it harder to find cancer on a mammogram. Dense breast tissue is also associated with an increased risk of breast cancer. This information about the result of the mammogram report was provided to the patient to raise their awareness. Use this report when you speak with the patient about their risks for breast cancer, which includes their family history. At that time, you may recommend additional screening tests (Ultrasound or MRI) as these tests may add significant information. A negative radiographic report should not delay biopsy if a dominant or clinically suspicious mass is present. Up to ten percent of cancers are not identified on mammography. A negative report may reinforce clinical impression. Adenosis and dense breasts may obscure an underlying neoplasm. False positive reports average 6 to 10%. Patient will receive a letter notifying them of these results.
== END 2025-01-22 06:04 ==
LOC: DI 05:44
PROVIDERS: PCP Family Medicine; Visit Provider Family Medicine
DX: Z12.31 Encounter for screening mammogram for malignant neoplasm of breast (principal); R92.313 Mammographic fatty tissue density, bilateral breasts
CPT/HCPCS: 77063; 77067

== ENCOUNTER → 2025-01-27 11:44 | Outpatient (BNVA) | payer MEDICARE, SELFPAY | PROVIDERS: PCP Family Medicine; Referring Provider Family Medicine; Visit Provider Psychiatry & Neurology Neurology | DX: G20.C Parkinsonism, unspecified (principal); M54.17 Radiculopathy, lumbosacral region; G25.0 Essential tremor; E11.40 Type 2 diabetes mellitus with diabetic neuropathy, unspecified; M48.061 Spinal stenosis, lumbar region without neurogenic claudication | CPT/HCPCS: 99213; 95908; 95886 ==

== ENCOUNTER 2025-02-16 15:49 | Emergency (ER) | payer MEDICARE, SELFPAY ==
[2025-02-16 16:08] VITALS: BP 176/100; PULSE 66; RESP 18; TEMP 36.4; O2SAT 94
--- NOTE | 2025-02-16 16:45 | DI.RAD_ITS ---
Exam(s) XR CHEST 2V PA LATERAL XR SHOULDER RT COMPLETE 2+V EXAM: XR CHEST 2V PA LATERAL CLINICAL HISTORY: fall, onto right side TECHNIQUE: 2D digital imaging was performed. Two views. COMPARISON: CR,XR XR PORTABLE CHEST AP from 03/13/[address] CHEST WO from 06/22/2022 CR XR SHOULDER RT COMPLETE 2+V from 02/16/2025 FINDINGS: Lateral view is limited by under penetration and patient arm positioning. HEART: Normal size. Aorta: Not dilated. PULMONARY VASCULATURE: Normal. MEDIASTINUM: Unremarkable. LUNGS: Clear. PLEURAL SPACE: No pleural effusion or pneumothorax. BONE:There is a mildly impacted fracture through the surgical neck of the humerus with mild angulation. There is comminution at the greater tuberosity. No additional fractures. The glenohumeral joint space is maintained. No thoracic compression fracture. No visible rib fractures. There are degener ative changes at the AC joint. SOFT TISSUES: Unremarkable. IMPRESSION: No acute pulmonary abnormality. Humeral head fracture with comminution at the greater tuberosity. DATA REPOSITORY: RADIATION DOSE DELIVERED:
[2025-02-16] MEDS: Acetaminophen 500 MG TAB PO (17:00)
[2025-02-16] MEDS: Ibuprofen 400 MG TAB PO (17:03)
--- NOTE | 2025-02-16 18:00 | DI.CT_ITS ---
Exam(s) CT UPPER EXTREMITY RT WO EXAM: CT UPPER EXTREMITY RT WO CLINICAL HISTORY: right shoulder fracture TECHNIQUE: Imaging Protocol: Axial computed tomography images with coronal and sagittal reformatted images were created and reviewed. CONTRAST MATERIAL: Noncontrast COMPARISON: CR XR SHOULDER RT COMPLETE 2+V from 07/04/2024 CR XR SHOULDER RT COMPLETE 2+V from 02/16/2025 FINDINGS: Bones: There is a comminuted fracture of the humeral head. The main fracture component extends generally transversely through the surgical neck. There is mild angulation and impaction. There are multiple comminuted fragments, noted at the greater and lesser tuberosities, with mild displacement. The inferior humeral head appears to be impacted on the anteroinferior aspect of the glenoid. No glenoid fracture is identified. No lytic or sclerotic lesions are identified. No cellulitic or osteomyelitic changes are identified. Joints: No evidence of dislocation or subluxation. There is no evidence of joint space narrowing or cystic degeneration seen. There are mild degenerative changes at the AC joint. There is a spur at the inferior aspect of the glenoid. Soft Tissues: Normal. IMPRESSION: Comminuted fracture of the humeral head. Inferior aspect of the humeral head appears impacted on the inferior glenoid. RADIATION DOSE DELIVERED: Total DLP DATA REPOSITORY: All CT scans at this facility are submitted to the National Radiology Data Registry (NRDR) Dose Index Registry (DIR) with the [employer] ([employer]). RADIATION OPTIMIZATION: All CT scans at this facility use at least one of these dose optimization techniques: automated exposure control; mA and/or kV adjustment per patient size (includes targeted exams where dose is matched to clinical indication); or iterative reconstruction.
[2025-02-16] MEDS: MORPHine IR 15 MG TAB 7.5 MG PO (18:02)
[2025-02-16] MEDS: MORPHine IR 15 MG TAB, 4 TABS/BTL 7.5 MG PO (19:05)
--- NOTE | 2025-02-16 19:50 | ED.GENADUL_ITS ---
Discharge Plan Disposition Patient Disposition: Home Condition: Stable Discharge Details Clinical Impression: Fracture of head of humerus Primary Care Provider: Keila Vargas ED Provider: Leah Villasenor Home Meds and New Rx's Prescriptions: Continued cinnamon bark [Cinnamon] 500 mg capsule See Rx Instructions PO DAILY Rx Instructions: orally daily; magnesium oxide 500 mg magnesium tablet 500 mg PO DAILY vitamin E mixed 400 unit capsule 400 unit PO DAILY cholecalciferol (vitamin D3) 125 mcg (5,000 unit) capsule 125 mcg PO DAILY apple cider vinegar 300 mg tablet 300 mg PO DAILY tetanus and diphther. tox (PF) 5 Lf unit- 2 Lf unit/0.5mL suspension 0.5 ml IM ONCE Qty: 0.5 0RF Rx Instructions: as a single dose propranolol 20 mg tablet 20 mg PO TID lidocaine 5 % adhesive patch,medicated 1 patch topical Q24H Qty: 15 0RF Rx Instructions: leave on most painful area for up to 12 hrs; then no patch for 12 hours carbidopa-levodopa 25-250 mg tablet 1 tab PO TID ketoconazole 2 % cream 1 applic topical BID PRN (Reason: rash) Qty: 60 2RF (DME) lancets 28 gauge misc 1 ea Miscellaneous DAILY Qty: 100 4RF Rx Instructions: FOR One Touch DELICA. NO INSULIN. DIAGNOSIS CODE E11.9 (DME) Blood Glucose Test Strip 1 ea Miscellaneous DAILY Qty: 100 1RF Rx Instructions: Touch Verio test strips/ Dx: diabetes non-insulin dependent nystatin 100,000 unit/gram powder 1 applic topical TID PRN (Reason: rash in skin folds) Qty: 60 1RF losartan 50 mg tablet 50 mg PO DAILY Qty: 90 4RF amantadine HCl 100 mg capsule 100 mg PO TID Qty: 270 1RF (DME) blood-glucose meter [OneTouch Verio IQ Meter] misc See Dose Instructions .ROUTE .MEDSUPPLY Qty: 1 0RF Dose Instruction: As directed Rx Instructions: As directed valacyclovir 1 gram tablet 2,000 mg PO BID PRN (Reason: herpes) Qty: 28 0RF ibuprofen 600 mg tablet 600 mg PO BID PRN (Reason: pain) Qty: 90 0RF Rx Instructions: use infrequently Discharge Instructions Instructions: Upper Arm Fracture ED Additional Instructions: Take Motrin 400 mg every 8 hours with food for no more than 3 days for pain You may take Tylenol for breakthrough pain I have given you prescription for morphine . Please take this sparingly (1/2-1 full tablet as needed) as it can make you constipated and it is addictive. Do not operate a vehicle for 8 hours this medication Please follow-up with orthopedics, you have been placed on a list for follow-up. To develop worsening pain, strength or sensation changes, or should any new concerns arise please present for reassessment Stand Alone Forms: Portal Information Referrals: Logan Morley MD [ [facility]YS[facility]IAN, Orthopaedic Surgical] HPI General Date/Time Provider Initiated Documentation: 02/16/25 16:24 . HPI Narrative: 69-year-old female presents with accidental right shoulder injury. She has Parkinson's and trips frequently secondary to tremor states she landed directly on her right shoulder. Denies any head injury or neck pain. She states the pain is exacerbated with any movement of her right shoulder. She denies any back chest pain or shortness of breath. She has any lower extremity pain with ambulatory after the event occurred. Denies any strength or sensation change to her extremity. Related Data Home Medications Medication Instructions Recorded Confirmed blood-glucose meter (OneTouch #1 ea 01/31/18 02/16/25 Verio IQ Meter) cinnamon bark 500 mg capsule See Rx Instructions PO DA CRYSTAL 01/04/22 02/16/25 (Cinnamon) apple cider vinegar 300 mg tablet 300 mg PO DAILY 12/0802/16/25 cholecalciferol (vitamin D3) 125 125 mcg PO DAILY 12/0802/16/25 mcg (5,000 unit) capsule magnesium oxide 500 mg PO DAILY 12/27/2301/31 tetanus and diphther. tox (PF) 5 0.5 ml IM ONCE #0.5 m L 12/27/23 02/16/25 Lf unit-2 Lf unit/0.5 mL IM susp vitamin E mixed 400 unit capsule 400 unit PO DAILY 02/16/25 valacyclovir 1 gram tablet 2,000 mg (2 x 1 gram) PO BI D PRN 05/22/24 02/16/25 herpes #28 tab-caps lidocaine 5 % topical patch 1 patch topical Q24H #15 e a 07/03/24 02/16/25 propranolol 20 mg tablet 20 mg PO TID 07/03/24 ibuprofen 600 mg tablet 600 mg PO BID PRN pain #90 t abs 12/22/24 02/16/25 blood sugar diagnostic (Blood #100 strips 01/20/2501/31 Glucose Test strips) carbidopa 25 mg-levodopa 250 mg 1 tab PO TID 01/20/25 02/16/25 tablet ketoconazole 2 % topical cream 1 applic topical BID DC N rash #60 01/20/25 grams lancets 28 gauge #100 ea 01/20/25 02/16/25 losartan 50 mg tablet 50 mg PO DAILY #90 tabs 01/0702/16/25 nystatin 100,000 unit/gram topical 1 applic topical TI D PRN rash in 01/20/25 02/16/25 powder skin folds #60 grams amantadine HCl 100 mg capsule 100 mg PO TID #270 caps 01/27/25 02/16/25 Previous Rx's Medication Instructions Recorded blood-glucose meter (OneTouch #1 ea 01/31/18 Verio IQ Meter) tetanus and diphther. tox (PF) 5 0.5 ml IM ONCE #0.5 m L 12/27/23 Lf unit-2 Lf unit/0.5 mL IM susp valacyclovir 1 gram tablet 2,000 mg (2 x 1 gram) PO BI D PRN 05/22/24 herpes #28 tab-caps lidocaine 5 % topical patch 1 patch topical Q24H #15 e a 07/03/24 ibuprofen 600 mg tablet 600 mg PO BID PRN pain #90 t abs 12/22/24 blood sugar diagnostic (Blood #100 strips 01/20/25 Glucose Test strips) ketoconazole 2 % topical cream 1 applic topical BID DC N rash #60 01/20/25 grams lancets 28 gauge #100 ea 01/20/25 losartan 50 mg tablet 50 mg PO DAILY #90 tabs 01/07 08/01 nystatin 100,000 unit/gram topical 1 applic topical TI D PRN rash in 01/20/25 powder skin folds #60 grams amantadine HCl 100 mg capsule 100 mg PO TID #270 caps 01/27/25 Allergies Allergy/AdvReac Type Severity Reaction Status Date / Time Sulfa (Sulfonamide Allergy Intermediate Skin Rash Verified 02/16/25 16:17 Antibiotics) adhesive tape Allergy Mild mild rash Verified 02/16/25 16:17 and itching General Stated Complaint: Orthopedic BETZAIDA: 3 Exam Narrative Exam Narrative: 69-year-old female uncomfortable, right shoulder tenderness and swelling, no clavicle tenderness, no cervical tenderness, GCS 15 pupils equal round reactive to light and accommodation no visible sign of head trauma, neurovascularly intact to bilateral lower and upper extremities, right elbow without tenderness, no tenderness to right forearm, no abdominal tenderness or visible evidence of trauma cardiac rate rhythm regular no respiratory distress, alert and oriented x 4 Course Vital Signs Vital signs: Vital Signs Temperature 36.4 C L 02/16/25 16:08 Pulse 66 02/16/25 16:08 Respiratory Rate 18 02/16/25 16:08 Blood Pressure 176/100 H 02/16/25 16:08 Pulse Oximetry 94 02/16/25 16:08 Temperature 36.4 C L 02/16/25 16:08 Temperature Source Oral 02/16/25 16:08 Pulse 66 02/16/25 16:08 Respiratory Rate 18 02/16/25 16:08 Blood Pressure 176/100 H 02/16/25 16:08 Blood Pressure Position Sitting 02/16/25 16:08 Pulse Oximetry 94 02/16/25 16:08 Oxygen Delivery Method Room Air 02/16/25 16:08 Oxygen Flow Rate 0 02/16/25 16:08 Pain Level 10 02/16/25 16:08 Medical Decision Making Results: Chest x-ray without acute abnormality per radiology interpretation my review, shoulder x-ray shows comminuted fracture through the humeral head and neck without significant displacement or dislocation Per radiology interpretation my review Assessment and plan: Patient GCS 15 denies head injury no cervical spine tenderness fracture noted to right shoulder, will place in sling. I discussed the case with Dr. Morley and he asks that we perform CT extremity. CT extremities been performed. Patient remains neurovascularly intact. Will give 4 tablets of morphine IR 15 mg for home with risk of addiction reviewed. Son is available to help patient as needed in her home as she is [id number]. Patient will follow-up with orthopedics tomorrow to schedule outpatient assessment. Return precautions reviewed and patient expressed understanding discharged home in stable condition with stable vitals. Blood pressure mildly elevated encouraged to have this rechecked by PCP this week [facility] All Active Problems (Updated 02/16/25 @ 18:56 by XIAO Dutton) Fracture of head of humerus (Acute) Vitamin E deficiency (Acute) Shoulder pain, right (Acute) Encounter for screening colonoscopy (Acute) Tubular adenoma of colon (Acute) Fatty liver (Acute) Fatigue (Acute) Skin lesions (Acute) Restrictive lung disease (Acute) Peripheral neuropathy (Acute) Tremor (Acute) Osteoporosis (Chronic) Athletes foot (Acute) Parkinsonism (Acute) Peripheral neuropathy (Acute) Femoroacetabular impingement of right hip (Acute) Diabetic neuropathy (Acute) Tubular adenoma (Acute 02/11/16) Sarcoid (Acute 09/22/15) [facility] [place], [place]/ Essential hypertension (Acute 04/07/13) :echocardiogram EF 60%/ no valvulopathy Diabetes mellitus (Chronic) no ophtalmopathy : no nephropathy Medical History Nocturnal hypoxia Abnormal chest CT Back pain Abnormal mammogram FHx: hepatic cirrhosis primary biliary - mother Arm weakness Pneumonia due to COVID-19 virus COVID-19 Lumbar back pain with radiculopathy affecting right lower extremity Dehydration Back pain with radiation Acute lumbar back pain Hypomagnesemia Hypokalemia Hypertension DVT prophylaxis Discharge planning issues UTI (urinary tract infection) Urinary retention Constipation Palliative care patient Spinal stenosis Radiculitis Hip pain, right Sleep apnea Right calf pain Cholelithiasis Asymptomatic, incidentally noted on CT imaging Simple cyst of kidney On antibiotic therapy Internal derangement of right knee Dysfunction of right rotator cuff Osteoarthritis of right hip Essential tremor Lumbosacral radiculopathy Lymphadenopathy (12/25/11) Pes anserinus bursitis of right knee 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 states six screws in situ History of section History of nasal septoplasty section x 3 Nasal septoplasty Colonoscopy - MAC (04/2024) Family History Mother Essential hypertension Cancer Diabetes Hyperlipidemia Primary biliary cholangitis Father , AGE 74 Heart disease Hyperlipidemia Brother Essential hypertension Diabetes Hyperlipidemia Maternal Grandfather Prostate cancer Paternal Grandfather , AGE 45 Diabetes Maternal Grandmother , AGE 84 Diabetes Heart disease Paternal Grandmother Lung cancer Other Lumbosacral radiculopathy Social History Smoking/Tobacco Use Status: Never Second Hand Exposure: Yes Smoking risk assessment performed?: Yes Alcohol Intake: current Alcohol Intake frequency: holidays/special occasions only Alcohol type: hard liquor Drug use: Never Substance use type: does not use Caregiver/Support person: No Household members: none Housing: house Do you need help understanding health information?: Never Pets and animals: Yes Pets and animals: cat(s) Sexually active: No Do you think of yourself as: straight/heterosexual Current gender identity: female What is your relationship status?: How often do you talk on the phone with friends or family?: three or more times per week How often do you get together with friends or relatives?: three or more times per week How often do you attend protestant or gnosticist services?: 1-3 times per year Do you belong to any clubs or organized social groups?: no Panel score (0-1 are the most socially isolated patients): 1 What type of physical activity do you participate in: none Duration: decline to answer Frequency: decline to answer Maria Fernanda/Judaism: Anglican Special maria fernanda needs: No Seatbelt use: always Helmet use: Yes Helmet use: always Drive intox or ride w/intox guard driver: No Do you feel safe at home: Yes Do you feel safe in your relationship?: Yes Additional Social history: lives alone - son helps out PAWSS Have you Been Recently Intoxicated or Drunk Within the Last 30 days?: No Have you Ever Experienced Previous Episodes of Alcohol Withdrawal?: No Have you ever Experienced Withdrawal Seizures?: No Have you ever Experienced Delirium Tremens(DT)s?: No Have you ever undergone Alcohol Rehabilitation Treatment (i.e, inpt ot outpatient treatment programs)?: No Have you ever Experienced Blackouts?: No Have you ever Combined Alcohol with other Downers within the last 90 days?: No Have you ever Combined Alcohol with any other Substance of Abuse during the last 90 days?: No Positive Blood Alcohol level on Presentation? [PCS.BAL]: No Evidence of Increased Autonomic Activity (i.e. HR>120, tremor, sweating, ag itation, nausea)?: No Result: 0
== END 2025-02-16 19:09 | disposition home or self-care (01) ==
PROVIDERS: Emergency Provider Physician Assistant; PCP Family Medicine
DX: S42.291A Other displaced fracture of upper end of right humerus, initial encounter for closed fracture (principal); W19.XXXA Unspecified fall, initial encounter
CPT/HCPCS: 99284 ×2; 71046; 73030; 73200

== ENCOUNTER 2025-02-24 14:53 | Outpatient (CLI) | payer MEDICARE, SELFPAY ==
--- NOTE | 2025-02-24 14:15 | DI.RAD_ITS ---
Exam(s) XR SHOULDER RT COMPLETE 2+V EXAM: XR SHOULDER RT COMPLETE 2+V INDICATION: F/U FRACTURE. COMPARISON: No exams were available for comparison TECHNIQUE: 2D digital imaging was performed. Two views. FINDINGS: Stable alignment of humeral head fracture. Stable alignment of glenohumeral joint. No new findings. DATA REPOSITORY: RADIATION DOSE DELIVERED:
== END 2025-02-24 14:54 | disposition home or self-care (01) ==
LOC: DIORS 14:53
PROVIDERS: PCP Family Medicine; Referring Provider Family Medicine; Visit Provider Student in an Organized Health Care Education/Training Program
DX: S42.201A Unspecified fracture of upper end of right humerus, initial encounter for closed fracture (principal); W19.XXXA Unspecified fall, initial encounter; E11.9 Type 2 diabetes mellitus without complications
CPT/HCPCS: 99214; 73030

== ENCOUNTER 2025-03-10 11:10 | Outpatient (CLI) | payer MEDICARE, SELFPAY ==
--- NOTE | 2025-03-10 08:00 | DI.RAD_ITS ---
Exam(s) XR SHOULDER RT COMPLETE 2+V EXAM: XR SHOULDER RT COMPLETE 2+V CLINICAL HISTORY: F/U FRACTURE. TECHNIQUE: 2D digital imaging was performed. COMPARISON: CR XR SHOULDER RT COMPLETE 2+V from 02/24/2025 FINDINGS: Two views Again noted is the previously described fracture of the humeral head-neck also involving the greater tuberosity. There is an element of superior displacement of the greater tuberosity fragment into the lateral subacromial space, as seen on the Grashey view. There is also calcified loose body in the inferior recess of the glenohumeral joint. AC joint and clavicle appear unremarkable. IMPRESSION: There is an element of cephalad displacement of the main greater tuberosity fracture fragment. There is subsequent narrowing of the lateral aspect of the subacromial space at this level. DATA REPOSITORY: RADIATION DOSE DELIVERED:
== END 2025-03-10 11:11 | disposition home or self-care (01) ==
LOC: DIORS 11:10
PROVIDERS: PCP Family Medicine; Referring Provider Family Medicine; Visit Provider Student in an Organized Health Care Education/Training Program
DX: S42.201D Unspecified fracture of upper end of right humerus, subsequent encounter for fracture with routine healing (principal); X58.XXXD Exposure to other specified factors, subsequent encounter
CPT/HCPCS: 99213; 73030

== ENCOUNTER → 2025-03-26 00:33 | Outpatient (CLI) | payer MEDICARE, SELFPAY ==
--- NOTE | 2025-03-26 13:30 | DI.DEXA_ITS ---
Exam(s) XR DEXA BONE DENSITY W/WO JV EXAM: XR DEXA BONE DENSITY W/WO JV CLINICAL HISTORY: post menopausal,z78.0 TECHNIQUE: Booster Horizon C densitometer analysis of left hip, lumbar spine and left forearm. Lateral survey image of the thoracic and lumbar spine. COMPARISON: DX XR DEXA BONE DENSITY W/WO JV from 02/21/2018 FINDINGS: Lateral view of the thoracic and lumbar spine shows no evidence of compression fractures. There has been interval posterior fusion hardware placement from L4 through S1 and these were excluded from the bone mineral density measurements. Bone mineral density measurements of the lumbar spine correspond to a total T- score of 1.4, in the normal range. This represents a 16.2 percent increase from 2018. Bone mineral density measurements of the left hip correspond to a total T-score of 0.3, not significantly changed. The femoral neck T-score is -0.4, in the normal range. Theleft forearm bone mineral density measurements correspond to a T-score of the distal 3rd of -1.4, in the osteopenic range. This represents a 9.0 percent decrease from 2018. IMPRESSION: Normal bone mineral density of the spine and hip. Osteopenia of the forearm.
== END ==
LOC: DI 00:33
PROVIDERS: PCP Family Medicine; Visit Provider Family Medicine
DX: Z78.0 Asymptomatic menopausal state (principal)
CPT/HCPCS: 77080

== ENCOUNTER 2025-03-31 11:32 | Outpatient (CLI) | payer MEDICARE, SELFPAY ==
--- NOTE | 2025-03-31 09:45 | DI.RAD_ITS ---
Exam(s) XR SHOULDER RT COMPLETE 2+V EXAM: XR SHOULDER RT COMPLETE 2+V CLINICAL HISTORY: F/U FRACTURE. TECHNIQUE: 2D digital imaging was performed. COMPARISON: CT CT UPPER EXTREMITY RT WO from 02/16/2025 CR XR SHOULDER RT COMPLETE 2+V from 03/10/2025 FINDINGS: Two views Again noted is the previously described fracture of the humeral head and neck and also involving the greater tuberosity. There has been some healing. There is increasing calcification in soft tissues. There is also a calcific density in the inferior recess of the shoulder joint again noted. The greater tuberosity fragment is also again noted be cephalad displaced, unchanged, this narrowing the lateral aspect of the subacromial space. IMPRESSION: As above. DATA REPOSITORY: RADIATION DOSE DELIVERED:
== END 2025-03-31 11:33 | disposition home or self-care (01) ==
LOC: DIORS 11:32
PROVIDERS: PCP Family Medicine; Referring Provider Family Medicine; Visit Provider Physician Assistant
DX: S42.201D Unspecified fracture of upper end of right humerus, subsequent encounter for fracture with routine healing (principal); X58.XXXD Exposure to other specified factors, subsequent encounter
CPT/HCPCS: 99213; 73030